=== PATIENT | male | born 1950 | race Caucasian/White ===

== ENCOUNTER 2023-04-17 10:45 | Inpatient (IN) | payer MEDICARE, BC, SELFPAY ==
[2023-04-17] VITALS (96 sets, daily range): BP systolic 89–129; BP diastolic 47–109; PULSE 55–185; RESP 18–30; TEMP 36.4–36.6; O2SAT 86–98; BMI 26.4; BMI 30.5
--- NOTE | 2023-04-17 11:23 | ED_ITS ---
HPI - General Adult General Chief complaint: Shortness of Breath/Dyspnea Stated complaint: shortness of breath Time Seen by Provider: 04/17/23 11:06 History of Present Illness HPI narrative: This 72-year-old male comes in reporting shortness of breath over the past week or so. He has a history of atrial fibrillation and does arrive here by ambulance with evidence of atrial fibrillation with rapid ventricular response. He denies having any chest pain, nausea, vomiting. He does report some lightheadedness and has shortness of breath sometimes even at rest. Symptoms began about a week ago. He is not on any rate-controlling medicines or anticoagulants. He states that he took 4 regular strength aspirin tablets this morning prior to arrival. He does take alcohol regularly and states that he is trying to cut back. Related Data Allergies Allergy/AdvReac Type Severity Reaction Status Date / Time phenobarbital Allergy Severe high blood Verified 04/17/23 13:09 pressure trolamine salicylate Allergy Intermediate Rash Verified 04/17/23 13:09 losartan Allergy Mild Cough Verified 04/17/23 13:09 lisinopril Allergy Unknown Cough Verified 04/17/23 13:09 Review of Systems Status of ROS: Reports: 10 or more systems reviewed and unremarkable except as noted in History and below Narrative: Constitutional: No fevers, no weight gain or loss. Eyes: No discharge. No vision changes. HENT: No congestion, no sore throat, no ear pain. Cardiovascular: No chest pain. Respiratory: Shortness of breath. Gastrointestinal: No abdominal pain, no vomiting, no diarrhea. Genitourinary: No dysuria, no hematuria. Musculoskeletal: Normal range of motion. Skin: No rashes, no pruritis. Neurological: No dizziness, weakness, sensory change, speech change. Endo/Heme/Allergies: No bruising or bleeding. No polydipsia. Pysch: no suicidality, no anxiety, no insomnia. All other systems reviewed and are negative. [facility] Medical History (Updated 04/27/23 @ 00:00 by Background Daemon) Chronic dyspnea ?R06.09 - Other forms of dyspnea (ICD-10) NSTEMI (non-ST elevated myocardial infarction) ?I21.4 - Non-ST elevation (NSTEMI) myocardial infarction (ICD-10) Heart failure with reduced ejection fraction ?I50.20 - Unspecified systolic (congestive) heart failure (ICD-10) Pulmonary embolism ?I26.99 - Other pulmonary embolism without acute cor pulmonale (ICD-10) Atrial fibrillation with rapid ventricular response ?I48.91 - Unspecified atrial fibrillation (ICD-10) B12 deficiency ?E53.8 - Deficiency of other specified B group vitamins (ICD-10) Statin declined ?Z53.20 - Procedure and treatment not carried out because of patient's decision for unspecified reasons (ICD-10) Essential hypertension ?I10 - Essential (primary) hypertension (ICD-10) Morbid obesity with body mass index (BMI) of 40.0 or higher ?E66.01 - Morbid (severe) obesity due to excess calories (ICD-10) Traumatic brain injury (2016) ?S06.9X9A - Unspecified intracranial injury with loss of consciousness of unspecified duration, initial encounter (ICD-10) Obstructive sleep apnea syndrome ?G47.33 - Obstructive sleep apnea (adult) (pediatric) (ICD-10) Hyperlipidemia ?E78.5 - Hyperlipidemia, unspecified (ICD-10) Hearing loss ?H91.90 - Unspecified hearing loss, unspecified ear (ICD-10) Gout ?M10.9 - Gout, unspecified (ICD-10) Gastroesophageal reflux disease ?K21.9 - Gastro-esophageal reflux disease without esophagitis (ICD-10) Chronic cough ?R05.3 - Chronic cough (ICD-10) Chronic back pain ?M54.9 - Dorsalgia, unspecified (ICD-10) ?G89.29 - Other chronic pain (ICD-10) Atrial fibrillation (2020) ?I48.91 - Unspecified atrial fibrillation (ICD-10) Alcohol dependence ?F10.20 - Alcohol dependence, uncomplicated (ICD-10) Adenomatous polyp of colon (2012) ?D12.6 - Benign neoplasm of colon, unspecified (ICD-10) Lumbar compression fracture ?S32.000A - Wedge compression fracture of unspecified lumbar vertebra, initial encounter for closed fracture (ICD-10) Hemothorax ?J94.2 - Hemothorax (ICD-10) History of seizure (2015) ?Z87.898 - Personal history of other specified conditions (ICD-10) History of pulmonary embolism (2020) ?Z86.711 - Personal history of pulmonary embolism (ICD-10) History of depression (2008) ?Z86.59 - Personal history of other mental and behavioral disorders (ICD-10) Surgical History (Updated 04/17/23 @ 15:56 by Teofilo Rubin MD) History of thoracentesis ?Z98.890 - Other specified postprocedural states (ICD-10) History of renal calculi (10/05/12) ?Z87.442 - Personal history of urinary calculi (ICD-10) History of malignant melanoma (2006) ?Z85.820 - Personal history of malignant melanoma of skin (ICD-10) Family History (Updated 04/17/23 @ 15:57 by Teofilo Rubin MD) Father Coronary artery disease Mother Alzheimers disease Social History (Updated 04/17/23 @ 15:58 by Teofilo Rubin MD) Narrative: He lives alone with his 3 cats between [place] and [place]. Closest family is his brother nessa all with lives [facility]. He indicates his brother Jack would be healthcare power of civil rights attorney. Code status is full. He does not smoke cigarettes. He drinks alcohol approximately 10 shots per day. What is your current living situation?: I presently have a place to live Problems where you live: no known problems Problems where you live details: no In the past 12 months, utilities in danger of being shut off: no In the past 12 mos, have been you worried that your food would run out before you had money to buy more?: never true In the past 12 mos, the food you bought just didn't last and you didn't have money to buy more?: never true Highest level of school completed/degree received: Bachelor's degree Smoking Status: Former smoker Do you use any of these nicotine containing products: None Second hand tobacco smoke exposure: No How often do you have a drink containing alcohol: 4 or more times a week Alcohol type: hard liquor Alcohol type details: avery How many standard drinks containing alcohol do you have on a typical day: 5 or 6 How often do you have six or more drinks on one occasion: Less than monthly AUDIT-C Alcohol total score: 7 Non-prescribed substance use: denies use Caffeine: Yes (occassional) How often does anyone, including family, friends and others, physically hurt you : never How often does anyone, including family, friends and others, insult or talk down to you: never How often does anyone, including family, friends and others, threaten you with harm: never How often does anyone, including family, friends and others, scream or curse at you: never service: No Exam Narrative: Exam Narrative: Constitutional: Well-developed, well-nourished, no acute distress. HEENT: Normocephalic, atraumatic. Neck: Normal range of motion. Nontender. Supple. Heart: Irregular. No murmurs. Tachycardia. Intact distal pulses. Lungs: Clear to auscultation. No chest discomfort. No wheezes, rhonchi, or rales. Abdomen: Normal bowel sounds. Nontender. No rebound tenderness. Genitalia: Deferred. Back: No midline tenderness. Normal range of motion. Extremities: Normal range of motion. No injury. No pedal edema. Skin: Intact. No rash. Warm. No erythema or pallor. Neurologic: No altered sensation. No weakness. Alert and oriented. Psychiatric: No suicidality. No anxiety or depression. No insomnia. Nursing notes and vitals signs are reviewed. Const: Vital Signs, click to edit/add: Vital Signs - 24 hr 04/17/23 10:56 04/17/23 11:53 04/17/23 11:54 Temperature 97.6 F Pulse Rate 100 109 H Pulse Rate [Apical ] Pulse Rate [Right Pulse Oximeter] 126 H Respiratory Rate 18 Blood Pressure 93/83 Blood Pressure [Le ft Upper Arm] 107/83 Blood Pressure [Ri ght Arm] Pulse Oximetry 96 93 93 Oxygen Delivery Me thod Room Air Oxygen Flow Rate 04/17/23 11:55 04/17/23 11:57 04/17/23 12:00 Temperature Pulse Rate 84 97 78 Pulse Rate [Apical ] Pulse Rate [Right Pulse Oximeter] Respiratory Rate Blood Pressure 111/75 Blood Pressure [Le ft Upper Arm] Blood Pressure [Ri ght Arm] Pulse Oximetry 92 92 94 Oxygen Delivery Me thod Oxygen Flow Rate 04/17/23 12:02 04/17/23 12:05 04/17/23 12:07 Temperature Pulse Rate 112 H 108 H 117 H Pulse Rate [Apical ] Pulse Rate [Right Pulse Oximeter] Respiratory Rate Blood Pressure 129/83 103/83 Blood Pressure [Le ft Upper Arm] Blood Pressure [Ri ght Arm] Pulse Oximetry 92 93 92 Oxygen Delivery Me thod Oxygen Flow Rate 04/17/23 12:10 04/17/23 12:12 04/17/23 12:15 Temperature Pulse Rate 96 103 H 116 H Pulse Rate [Apical ] Pulse Rate [Right Pulse Oximeter] Respiratory Rate Blood Pressure 117/77 Blood Pressure [Le ft Upper Arm] Blood Pressure [Ri ght Arm] Pulse Oximetry 90 95 93 Oxygen Delivery Me thod Oxygen Flow Rate 04/17/23 12:17 04/17/23 12:20 04/17/23 12:21 Temperature Pulse Rate 96 91 98 Pulse Rate [Apical ] Pulse Rate [Right Pulse Oximeter] Respiratory Rate Blood Pressure 100/73 92/77 Blood Pressure [Le ft Upper Arm] Blood Pressure [Ri ght Arm] Pulse Oximetry 95 92 94 Oxygen Delivery Me thod Oxygen Flow Rate 04/17/23 12:22 04/17/23 12:25 04/17/23 12:27 Temperature Pulse Rate 105 H 99 82 Pulse Rate [Apical ] Pulse Rate [Right Pulse Oximeter] Respiratory Rate Blood Pressure 108/78 Blood Pressure [Le ft Upper Arm] Blood Pressure [Ri ght Arm] Pulse Oximetry 93 94 96 Oxygen Delivery Me thod Oxygen Flow Rate 04/17/23 12:30 04/17/23 12:32 04/17/23 12:35 Temperature Pulse Rate 80 101 H 87 Pulse Rate [Apical ] Pulse Rate [Right Pulse Oximeter] Respiratory Rate Blood Pressure 89/65 L Blood Pressure [Le ft Upper Arm] Blood Pressure [Ri ght Arm] Pulse Oximetry 97 93 95 Oxygen Delivery Me thod Oxygen Flow Rate 04/17/23 12:37 04/17/23 12:40 04/17/23 12:42 Temperature Pulse Rate 85 101 H 89 Pulse Rate [Apical ] Pulse Rate [Right Pulse Oximeter] Respiratory Rate Blood Pressure 108/87 113/86 Blood Pressure [Le ft Upper Arm] Blood Pressure [Ri ght Arm] Pulse Oximetry 95 96 96 Oxygen Delivery Me thod Oxygen Flow Rate 04/17/23 12:45 04/17/23 12:47 04/17/23 12:59 Temperature Pulse Rate 95 Pulse Rate [Apical ] Pulse Rate [Right Pulse Oximeter] Respiratory Rate Blood Pressure 106/84 128/109 H Blood Pressure [Le ft Upper Arm] Blood Pressure [Ri ght Arm] Pulse Oximetry 96 95 Oxygen Delivery Me thod Oxygen Flow Rate 04/17/23 13:00 04/17/23 13:04 04/17/23 13:05 Temperature Pulse Rate 101 H 111 H 96 Pulse Rate [Apical ] Pulse Rate [Right Pulse Oximeter] Respiratory Rate Blood Pressure 101/71 Blood Pressure [Le ft Upper Arm] Blood Pressure [Ri ght Arm] Pulse Oximetry 96 96 95 Oxygen Delivery Me thod Oxygen Flow Rate 04/17/23 13:08 04/17/23 13:09 04/17/23 13:10 Temperature Pulse Rate 99 96 86 Pulse Rate [Apical ] Pulse Rate [Right Pulse Oximeter] Respiratory Rate Blood Pressure 102/79 Blood Pressure [Le ft Upper Arm] Blood Pressure [Ri ght Arm] Pulse Oximetry 96 94 96 Oxygen Delivery Me thod Oxygen Flow Rate 04/17/23 13:12 04/17/23 13:15 04/17/23 13:18 Temperature Pulse Rate 87 108 H 110 H Pulse Rate [Apical ] Pulse Rate [Right Pulse Oximeter] Respiratory Rate Blood Pressure 109/89 Blood Pressure [Le ft Upper Arm] Blood Pressure [Ri ght Arm] Pulse Oximetry 96 94 95 Oxygen Delivery Me thod Oxygen Flow Rate 04/17/23 13:20 04/17/23 13:21 04/17/23 13:25 Temperature Pulse Rate 120 H 97 98 Pulse Rate [Apical ] Pulse Rate [Right Pulse Oximeter] Respiratory Rate Blood Pressure 99/73 Blood Pressure [Le ft Upper Arm] Blood Pressure [Ri ght Arm] Pulse Oximetry 96 95 96 Oxygen Delivery Me thod Oxygen Flow Rate 04/17/23 13:27 04/17/23 13:30 04/17/23 13:33 Temperature Pulse Rate 95 117 H Pulse Rate [Apical ] Pulse Rate [Right Pulse Oximeter] Respiratory Rate Blood Pressure 101/65 104/90 H Blood Pressure [Le ft Upper Arm] Blood Pressure [Ri ght Arm] Pulse Oximetry 97 96 Oxygen Delivery Me thod Oxygen Flow Rate 04/17/23 13:35 04/17/23 13:42 04/17/23 13:43 Temperature Pulse Rate 127 H 114 H 115 H Pulse Rate [Apical ] Pulse Rate [Right Pulse Oximeter] Respiratory Rate Blood Pressure 120/99 H Blood Pressure [Le ft Upper Arm] Blood Pressure [Ri ght Arm] Pulse Oximetry 95 95 95 Oxygen Delivery Me thod Oxygen Flow Rate 04/17/23 13:45 04/17/23 13:47 04/17/23 13:51 Temperature Pulse Rate 114 H 105 H 103 H Pulse Rate [Apical ] Pulse Rate [Right Pulse Oximeter] Respiratory Rate Blood Pressure 113/93 H Blood Pressure [Le ft Upper Arm] Blood Pressure [Ri ght Arm] Pulse Oximetry 95 94 95 Oxygen Delivery Me thod Oxygen Flow Rate 04/17/23 13:52 04/17/23 13:55 04/17/23 13:57 Temperature Pulse Rate 96 101 H 107 H Pulse Rate [Apical ] Pulse Rate [Right Pulse Oximeter] Respiratory Rate Blood Pressure 109/68 94/69 Blood Pressure [Le ft Upper Arm] Blood Pressure [Ri ght Arm] Pulse Oximetry 95 94 95 Oxygen Delivery Me thod Oxygen Flow Rate 04/17/23 14:00 04/17/23 14:05 04/17/23 14:06 Temperature Pulse Rate 104 H 61 Pulse Rate [Apical ] Pulse Rate [Right Pulse Oximeter] Respiratory Rate Blood Pressure 111/97 H Blood Pressure [Le ft Upper Arm] Blood Pressure [Ri ght Arm] Pulse Oximetry 94 93 Oxygen Delivery Me thod Oxygen Flow Rate 04/17/23 14:10 04/17/23 14:11 04/17/23 14:12 Temperature Pulse Rate 94 72 115 H Pulse Rate [Apical ] Pulse Rate [Right Pulse Oximeter] Respiratory Rate Blood Pressure 113/71 106/75 Blood Pressure [Le ft Upper Arm] Blood Pressure [Ri ght Arm] Pulse Oximetry 94 95 97 Oxygen Delivery Me thod Oxygen Flow Rate 04/17/23 14:15 04/17/23 14:17 04/17/23 14:20 Temperature Pulse Rate 115 H 113 H 99 Pulse Rate [Apical ] Pulse Rate [Right Pulse Oximeter] Respiratory Rate 28 H Blood Pressure 109/76 Blood Pressure [Le ft Upper Arm] Blood Pressure [Ri ght Arm] Pulse Oximetry 96 96 95 Oxygen Delivery Me thod Oxygen Flow Rate 04/17/23 14:22 04/17/23 14:25 04/17/23 14:30 Temperature Pulse Rate 106 H 101 H 119 H Pulse Rate [Apical ] Pulse Rate [Right Pulse Oximeter] Respiratory Rate Blood Pressure 99/82 Blood Pressure [Le ft Upper Arm] Blood Pressure [Ri ght Arm] Pulse Oximetry 97 97 96 Oxygen Delivery Me thod Oxygen Flow Rate 04/17/23 14:35 04/17/23 14:40 04/17/23 14:43 Temperature Pulse Rate 90 96 105 H Pulse Rate [Apical ] Pulse Rate [Right Pulse Oximeter] Respiratory Rate Blood Pressure 99/47 L Blood Pressure [Le ft Upper Arm] Blood Pressure [Ri ght Arm] Pulse Oximetry 95 92 95 Oxygen Delivery Me thod Oxygen Flow Rate 04/17/23 14:45 04/17/23 14:50 04/17/23 14:55 Temperature Pulse Rate 135 H 138 H 135 H Pulse Rate [Apical ] Pulse Rate [Right Pulse Oximeter] Respiratory Rate Blood Pressure Blood Pressure [Le ft Upper Arm] Blood Pressure [Ri ght Arm] Pulse Oximetry 92 87 L 86 L Oxygen Delivery Me thod Oxygen Flow Rate 04/17/23 15:00 04/17/23 15:02 04/17/23 15:05 Temperature Pulse Rate 105 H 185 H 98 Pulse Rate [Apical ] Pulse Rate [Right Pulse Oximeter] Respiratory Rate Blood Pressure Blood Pressure [Le ft Upper Arm] Blood Pressure [Ri ght Arm] Pulse Oximetry 91 87 L 94 Oxygen Delivery Me thod Oxygen Flow Rate 04/17/23 15:10 04/17/23 15:16 04/17/23 15:17 Temperature Pulse Rate 100 109 H 90 Pulse Rate [Apical ] Pulse Rate [Right Pulse Oximeter] Respiratory Rate Blood Pressure 97/75 Blood Pressure [Le ft Upper Arm] Blood Pressure [Ri ght Arm] Pulse Oximetry 93 93 96 Oxygen Delivery Me thod Oxygen Flow Rate 04/17/23 15:20 04/17/23 15:21 04/17/23 15:25 Temperature Pulse Rate 101 H 64 110 H Pulse Rate [Apical ] Pulse Rate [Right Pulse Oximeter] Respiratory Rate Blood Pressure 106/93 H Blood Pressure [Le ft Upper Arm] Blood Pressure [Ri ght Arm] Pulse Oximetry 96 95 91 Oxygen Delivery Me thod Oxygen Flow Rate 04/17/23 15:27 04/17/23 15:29 04/17/23 15:30 Temperature 97.8 F Pulse Rate 107 H 105 H Pulse Rate [Apical ] 62 Pulse Rate [Right Pulse Oximeter] Respiratory Rate 24 Blood Pressure 91/50 L Blood Pressure [Le ft Upper Arm] Blood Pressure [Ri ght Arm] 114/71 Pulse Oximetry 93 98 90 Oxygen Delivery Me thod Nasal Cannula Oxygen Flow Rate 1 04/17/23 15:32 04/17/23 15:35 04/17/23 15:37 Temperature Pulse Rate 117 H 99 98 Pulse Rate [Apical ] Pulse Rate [Right Pulse Oximeter] Respiratory Rate Blood Pressure 95/80 100/70 Blood Pressure [Le ft Upper Arm] Blood Pressure [Ri ght Arm] Pulse Oximetry 96 95 97 Oxygen Delivery Me thod Oxygen Flow Rate 04/17/23 15:47 04/17/23 15:48 04/17/23 15:50 Temperature Pulse Rate 90 106 H 80 Pulse Rate [Apical ] Pulse Rate [Right Pulse Oximeter] Respiratory Rate Blood Pressure Blood Pressure [Le ft Upper Arm] Blood Pressure [Ri ght Arm] Pulse Oximetry 97 94 91 Oxygen Delivery Me thod Oxygen Flow Rate 04/17/23 15:51 04/17/23 15:54 Temperature Pulse Rate 120 H 92 Pulse Rate [Apical ] Pulse Rate [Right Pulse Oximeter] Respiratory Rate Blood Pressure 99/70 Blood Pressure [Le ft Upper Arm] Blood Pressure [Ri ght Arm] Pulse Oximetry 89 93 Oxygen Delivery Me thod Oxygen Flow Rate Course Vital Signs Vital signs: Initial Vital Signs Temperature 97.6 F 04/17/23 10:56 Temperature Source Temporal Artery Scan 04/17/23 10:56 Pulse Rate 126 H 04/17/23 10:56 Pulse Rhythm Irregular 04/17/23 10:56 Respiratory Rate 18 04/17/23 10:56 Blood Pressure 107/83 04/17/23 10:56 Blood Pressure Mean 91 04/17/23 10:56 Blood Pressure Position Sitting 04/17/23 10:56 Pulse Oximetry 96 04/17/23 10:56 Oxygen Delivery Method Room Air 04/17/23 10:56 Vital Signs Temperature 97.6 F 04/17/23 10:56 Pulse Rate 126 H 04/17/23 10:56 Respiratory Rate 18 04/17/23 10:56 Blood Pressure 107/83 04/17/23 10:56 Pulse Oximetry 96 04/17/23 10:56 Oxygen Delivery Method Room Air 04/17/23 10:56 Temperature 97.5 F L 04/19/23 11:24 Pulse Rate 96 04/19/23 11:24 Respiratory Rate 28 H 04/19/23 11:24 Blood Pressure 88/74 L 04/19/23 11:24 Pulse Oximetry 97 04/19/23 11:24 Oxygen Delivery Method Room Air 04/19/23 11:24 Oxygen Flow Rate 0 04/19/23 03:00 Medical Decision Making MDM Narrative Medical decision making narrative: This patient arrives with atrial fibrillation and rapid ventricular response. He is reporting shortness of breath but does not report any chest pain. He does have some lightheadedness on occasion. His blood pressure has a systolic value around 100. He is not showing any sign of pedal edema. An IV was established where he did receive a half a L of normal saline and diltiazem was given cautiously. He did receive a total of 20 mg which did bring rate control. He continues in atrial fibrillation and his blood pressure is similar. Lab results returned with a point of care troponin elevated at 0.18. A repeat lab value returns at 0.23. The patient's D-dimer also returns elevated at around 1.2. A CT scan of the chest with IV contrast shows no sign of pulmonary embolism but there is sign of infiltrate in the left lower lobe. I spoke with the hospitalist commercial litigation attorney, Dr. Rubin, who agrees to this patient's admission here for further evaluation and treatment. I did place an order for Rocephin and azithromycin intravenously. The patient's elevated troponin may be related to demand ischemia. The patient will be getting an echocardiogram for further evaluation. Lab Data Labs: Lab Results 04/17/23 04/17/23 04/17/23 Range/Units 11:50 14:15 15:29 WBC 5.46 (4.50-11.00) K/uL RBC 4.91 (4.30-5.90) m/uL Hgb 15.9 (13.5-17.5) gm/dL Hct 46.8 (37.0-53.0) % MCV 95 (80-100) fL MCH 32 (26-34) pg MCHC 34 (32-36) gm/dL RDW Coeff of Janey 14.1 (11.5-15.5) % Plt Count 145 (140-440) K/uL Neut % (Auto) 65.8 (42.0-72.0) % Lymph % (Auto) 21.8 (20-44) % Granite % (Auto) 9.9 (0.0-11.0) % Eos % (Auto) 1.6 (0.0-7.0) % Baso % (Auto) 0.7 (0.0-3.0) % Neut # (Auto) 3.59 (1.7-7.0) K/uL Lymph # (Auto) 1.19 (0.90-2.90) K/uL Granite # (Auto) 0.50 (0.00-0.90) K/UL Eos # (Auto) 0.09 (0.00-0.50) K/uL Baso # (Auto) 0.04 (0.00-0.30) K/uL Abs Immat Gran (auto) 0.01 (0.00-0.30) K/uL Imm/Tot Granulo (auto) 0.2 % D-Dimer Quant (PE/DVT) 1.23 H (0.00-0.50) ug/ml Sodium 139 (135-149) mmol/L Potassium 4.0 (3.6-5.1) mmol/L Chloride 108 (96-114) mmol/L Carbon Dioxide 19 L (20-32) mmol/L BUN 19 (7-30) mg/dL Creatinine 0.8 (0.5-1.5) mg/dL Estimated Creat Clear 74.35 Estimated GFR 93 ml/min Glucose 118 H (60-115) mg/dL Calcium 9.0 (8.4-10.6) mg/dL Total Bilirubin 0.9 (0.1-1.5) mg/dL Direct Bilirubin 0.3 (0.0-0.5) mg/dL AST 23 (12-35) U/L ALT 19 (4-50) U/L Alkaline Phosphatase 61 (40-150) U/L Troponin I 0.23 H* (0.01-0.04) ng/mL NT-Pro-B Natriuret Pep 3430 pg/mL Total Protein 6.5 (6.0-8.3) g/dL Albumin 3.9 (3.3-5.0) g/dL Urine Opiates Screen Negative (Negative) Ur Oxycodone Screen Negative (Negative) Urine Methadone Screen Negative (Negative) Ur Propoxyphene Screen Negative (Negative) Ur Barbiturates Screen Negative (Negative) U Tricyclic Antidepress Negative (Negative) Ur Phencyclidine Scrn Negative (Negative) Ur Amphetamines Screen Negative (Negative) U Methamphetamines Scrn Negative (Negative) U Benzodiazepines Scrn Negative (Negative) Urine Cocaine Screen Negative (Negative) U Marijuana (THC) Screen Negative (Negative) Ur Drug Screen Comment See Note Ethyl Alcohol < 0.01 L (0.01-0.03) % Lab Acknowledgement Test Added POC Troponin I 0.18 H (0.01-0.04) ng/ml Imaging Data CT scan - chest: Radiologist's impression: No evidence of pulmonary thromboembolism. Bilateral pleural effusions with adjacent bibasilar atelectasis. Left lower lobe ground-glass densities compatible with infiltrate. Mild bilateral perihilar bronchial wall thickening compatible with bronchiolitis. Mild prominence of the interlobular septa suggesting mild edema. ECG Data Attestation: I personally reviewed and interpreted this ECG as follows: Interpretation: Atrial fibrillation with rapid ventricular response. Left bundle branch block. Rate is 133 beats per minute. Discharge Plan Discharge Clinical Impression: Pneumonia, Atrial fibrillation with rapid ventricular response Patient Disposition: Admitted As Inpatient Condition: Unchanged
[2023-04-17] MEDS: dilTIAZem 5 MG/ML inj 20 MG IVP (11:43)
[2023-04-17] MEDS: 0.9 % SODIUM CHLORIDE 500 ML 500 ML IV (11:44)
[2023-04-17 12:00] LABS: Basophils Absolute Auto 0.04 K/uL (0.00-0.30); Basophils Percent Auto 0.7 % (0.0-3.0); Eosinophils Absolute Auto 0.09 K/uL (0.00-0.50); Eosinophils Percent Auto 1.6 % (0.0-7.0); Hematocrit 46.8 % (37.0-53.0); Hemoglobin* 15.9 gm/dL (13.5-17.5); Immature Granulocytes Abs Auto 0.01 K/uL (0.00-0.30); Immature Granulocytes Pct Auto 0.2 %; Lymphocytes Absolute Auto 1.19 K/uL (0.90-2.90); Lymphocytes Percent Auto 21.8 % (20-44); Mean Corpuscular HGB Conc 34 gm/dL (32-36); Mean Corpuscular Hemoglobin 32 pg (26-34); Mean Corpuscular Volume 95 fL (80-100); Monocytes Percent Auto 9.9 % (0.0-11.0); Neutrophils Absolute Auto 3.59 K/uL (1.7-7.0); Neutrophils Percent Auto 65.8 % (42.0-72.0); Platelet Count* 145 K/uL (140-440); RDW Coefficient of Variation % 14.1 % (11.5-15.5); Red Blood Count 4.91 m/uL (4.30-5.90); Slide Review Reflex No; White Blood Count* 5.46 K/uL (4.50-11.00)
--- NOTE | 2023-04-17 12:04 | ED.NURSE ---
Patient care directly supervised with ACLS certified RN, Tamara Santiago.
[2023-04-17 12:09] LABS: Troponin, Point-of-Care* 0.18 ng/ml (0.01-0.04)
--- NOTE | 2023-04-17 12:09 | ED.NURSE ---
Istat POC Trop came back 0.18, critical lab result, handed to at 1209
[2023-04-17 12:11] LABS: Chloride* 108 mmol/L (96-114); Sodium* 139 mmol/L (135-149)
[2023-04-17 12:13] LABS: D Dimer Quantitative* 1.23 ug/ml (0.00-0.50)
[2023-04-17 12:14] LABS: Blood Urea Nitrogen* 19 mg/dL (7-30); Carbon Dioxide* 19 mmol/L (20-32); Creatinine* 0.8 mg/dL (0.5-1.5); Est. Creatinine Clearance* 74.35; Estimated Glomerular Filt Rate 93 ml/min; Glucose* 118 mg/dL (60-115)
--- NOTE | 2023-04-17 12:23 | ED.NURSE ---
Second dose of Diltiazem 10mg given at 1218. Total administered 20mg.
--- NOTE | 2023-04-17 12:28 | CRLHL7_ITS ---
For Patients: As a result of the Century Cures Act, medical imaging exams and procedure reports are released immediately into your electronic medical record. You may view this report before your referring provider. If you have questions, please contact your health care provider. INDICATION: SOB, A-fib, tachycardia, elevated d-dimer COMPARISON: 02/04/2022 TECHNIQUE: CT volumetric acquisition was performed of the thorax during intravenous infusion of 95 cc Isovue 370 nonionic intravenous contrast. Please note that all CT scans at this facility use dose modulation, iterative reconstruction, and/or weight-based dosing when appropriate to reduce radiation dose to as low as reasonably achievable. FINDINGS: There is no pulmonary embolism in the main, lobar or segmental pulmonary arteries. Bilateral effusions are present, left greater than right. The left pleural effusion has increased compared to the prior study in the right pleural effusion has decreased compared to the prior study. No pericardial effusion. Reflux of contrast into the inferior vena cava noted. Hyperdense material is present within the gallbladder. Pancreatic atrophy. No splenomegaly. No upper abdominal ascites. Ground-glass densities are located within the left lower lobe with adjacent atelectasis related to the pleural effusion. Mild atelectasis is present within the right lower lobe. Mild prominence of the interlobular septa noted bilaterally. Bronchial wall thickening is present in the perihilar lungs, mild. No pneumothorax. No suspicious pulmonary nodule. No enlarged lymph nodes. Chronic changes to T12. IMPRESSION: No evidence of pulmonary thromboembolism. Bilateral pleural effusions with adjacent bibasilar atelectasis. Left lower lobe ground-glass densities compatible with infiltrate. Mild bilateral perihilar bronchial wall thickening compatible with bronchiolitis. Mild prominence of the interlobular septa suggesting mild edema. Please note that all CT scans at this facility use dose modulation, iterative reconstruction, and/or weight-based dosing when appropriate to reduce radiation dose to as low as reasonably achievable. Dictated by Lucas Yost MD @ 04/17/2023 1:46:25 PM (Electronically Signed)
[2023-04-17 12:55] LABS: NT Pro B Type NatriureticPept* 3430 pg/mL
[2023-04-17 13:11] LABS: Albumin* 3.9 g/dL (3.3-5.0)
[2023-04-17 13:14] LABS: Alanine Aminotransferase* 19 U/L (4-50); Alkaline Phosphatase* 61 U/L (40-150); Aspartate Amino Transferase* 23 U/L (12-35); Bilirubin Direct* 0.3 mg/dL (0.0-0.5); Bilirubin Total* 0.9 mg/dL (0.1-1.5); Total Protein* 6.5 g/dL (6.0-8.3)
[2023-04-17 13:28] LABS: Troponin I* 0.23 ng/mL (0.01-0.04)
[2023-04-17] MEDS: cefTRIAXone 1 GM in 0.9 % SODIUM CHLORIDE Mini-bag 100 ML IVPB (14:13)
[2023-04-17 14:46] LABS: Ethanol* < 0.01 % (0.01-0.03)
[2023-04-17] MEDS: AZITHROMYCIN 500 MG in 0.9 % SODIUM CHLORIDE 250 ml 250 ML 255 MG IVPB (14:54)
[2023-04-17] MEDS: METOPROLOL TARTRATE 1 MG/ML inj 2.5 MG IVP (15:20)
--- NOTE | 2023-04-17 15:21 | ED.NURSE ---
Verbally verified with Dr. Rubin to give Metroprolol BP with current BP's 90s/70s.
--- NOTE | 2023-04-17 15:45 | PM.IMHP1 ---
Hospitalist- H&P: VANDANA History of Present Illness Date Seen: 04/17/23 Chief complaint: shortness of breath Narrative: Jose Angel Powers is a 72 year old male with history of heart failure, AFib, chronic cough, pulmonary embolism, hemo thorax, alcoholism admitted through the emergency department with at least 1-2 week history of worsening dyspnea. Patient reports that he has had longstanding dyspnea but has gotten worse the last 1-2 weeks. He reports orthopnea and paroxysmal nocturnal dyspnea. He reports dyspnea when climbing stairs in his house. He has to stop part way up a flight of stairs to get his breath. He is not having any chest pain. He denies fever. He has a chronic cough which has been going on for years. This is not changed recently. He has not had new cold says the domes or sore throat. He has not had abdominal pain, nausea, vomiting. He has been eating normally. No bowel or bladder problems. No blood in his stool. Pertinent past medical history: -Chronic cough for which she saw pulmonology about August of 2022. Looks like he had a repeat thoracentesis for his hemo thorax at that time. 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 He does not recall any other advice or diagnosis. -Hemo thorax. He was hospitalized February of 2022 for hemo thorax. He had recurrent thoracenteses for this. Fluid was grossly bloody. He was on anticoagulation at the time and this was discontinued. There was no history of trauma. Pathology from the fluid did not show malignancy. Subsequent chest CT done July of last year showed a small residual right pleural effusion without adenopathy in the chest. Incidentally noted were calcified coronary arteries and hepatic steatosis and gallstones. -atrial fibrillation. He was noted to have atrial fibrillation when he was hospitalized for a pulmonary embolism in July of 2021. He also had alcohol withdrawal at that time. Treated with amiodarone and rivaroxaban. These have subsequently been discontinued. Rivaroxaban discontinued when he had the hemo thorax. Subsequently has been in normal sinus rhythm to the best of his knowledge. -heart failure with reduced ejection fraction. Most recent echo was July 2022 showing ejection fraction of 40-45%. No marked valvular disease noted at that time. -pulmonary embolism diagnosed July 2021. Also atrial fibrillation at that time. On anticoagulation until he had a hemo thorax in February of 2022 -obstructive sleep apnea. Does not use CPAP. In the emergency department patient was evaluated. Notable findings include right lower lobe infiltrate, no pulmonary embolism, small right pleural effusion, elevated troponin at 0.22, nonischemic at EKG with AFib and rapid ventricular response, Review of Systems Narrative: Patient reports other than his dyspnea he has no other concerns at this time. [facility] Medical History (Updated 04/17/23 @ 16:23 by Teofilo Rubin MD) NSTEMI (non-ST elevated myocardial infarction) ?I21.4 - Non-ST elevation (NSTEMI) myocardial infarction (ICD-10) Heart failure with reduced ejection fraction ?I50.20 - Unspecified systolic (congestive) heart failure (ICD-10) Pulmonary embolism ?I26.99 - Other pulmonary embolism without acute cor pulmonale (ICD-10) Atrial fibrillation with rapid ventricular response ?I48.91 - Unspecified atrial fibrillation (ICD-10) B12 deficiency ?E53.8 - Deficiency of other specified B group vitamins (ICD-10) Statin declined ?Z53.20 - Procedure and treatment not carried out because of patient's decision for unspecified reasons (ICD-10) Essential hypertension ?I10 - Essential (primary) hypertension (ICD-10) Morbid obesity with body mass index (BMI) of 40.0 or higher ?E66.01 - Morbid (severe) obesity due to excess calories (ICD-10) Traumatic brain injury (2015) ?S06.9X9A - Unspecified intracranial injury with loss of consciousness of unspecified duration, initial encounter (ICD-10) Obstructive sleep apnea syndrome ?G47.33 - Obstructive sleep apnea (adult) (pediatric) (ICD-10) Hyperlipidemia ?E78.5 - Hyperlipidemia, unspecified (ICD-10) Hearing loss ?H91.90 - Unspecified hearing loss, unspecified ear (ICD-10) Gout ?M10.9 - Gout, unspecified (ICD-10) Gastroesophageal reflux disease ?K21.9 - Gastro-esophageal reflux disease without esophagitis (ICD-10) Chronic cough ?R05.3 - Chronic cough (ICD-10) Chronic back pain ?M54.9 - Dorsalgia, unspecified (ICD-10) ?G89.29 - Other chronic pain (ICD-10) Atrial fibrillation (2020) ?I48.91 - Unspecified atrial fibrillation (ICD-10) Alcohol dependence ?F10.20 - Alcohol dependence, uncomplicated (ICD-10) Adenomatous polyp of colon (2012) ?D12.6 - Benign neoplasm of colon, unspecified (ICD-10) Lumbar compression fracture ?S32.000A - Wedge compression fracture of unspecified lumbar vertebra, initial encounter for closed fracture (ICD-10) Hemothorax ?J94.2 - Hemothorax (ICD-10) History of seizure (2015) ?Z87.898 - Personal history of other specified conditions (ICD-10) History of pulmonary embolism (2020) ?Z86.711 - Personal history of pulmonary embolism (ICD-10) History of depression (2008) ?Z86.59 - Personal history of other mental and behavioral disorders (ICD-10) Surgical History (Updated 04/17/23 @ 15:56 by Teofilo Rubin MD) History of thoracentesis ?Z98.890 - Other specified postprocedural states (ICD-10) History of renal calculi (10/05/12) ?Z87.442 - Personal history of urinary calculi (ICD-10) History of malignant melanoma (2006) ?Z85.820 - Personal history of malignant melanoma of skin (ICD-10) Family History (Updated 04/17/23 @ 15:57 by Teofilo Rubin MD) Father Coronary artery disease Mother Alzheimers disease Social History (Updated 04/17/23 @ 15:58 by Teofilo Rubin MD) Narrative: He lives alone with his 3 cats between [place] and [place]. Closest family is his brother nessa all with lives in [facility]. He indicates his brother Jack would be healthcare power of caterpillar mechanic. Code status is full. He does not smoke cigarettes. He drinks alcohol approximately 10 shots per day. Smoking Status: Never smoker Do you use any of these nicotine containing products: None Second hand tobacco smoke exposure: No How often do you have a drink containing alcohol: 4 or more times a week How many standard drinks containing alcohol do you have on a typical day: 5 or 6 How often do you have six or more drinks on one occasion: Less than monthly AUDIT-C Alcohol total score: 7 Non-prescribed substance use: denies use service: No Meds Home Medications and Allergies Home Medications Medication Instructions Recorded Confirmed Type cholecalciferol (vitamin D3) 25 1,000 unit PO DAILY 05/09/22 04/17/23 History mcg (1,000 unit) tablet cyanocobalamin (vitamin B-12) 1,000 mcg PO DAILY 05/09/22 04/17/23 History 1,000 mcg tablet multivitamin 1 tab PO QAM 05/09/22 04/17/23 History omeprazole 10 mg capsule,delayed 10 mg PO DAILY 05/09/22 04/17/23 History release Home Medication Comments: See medication list. Allergies Allergy/AdvReac Type Severity Reaction Status Date / Time phenobarbital Allergy Severe high blood Verified 04/17/23 13:09 pressure trolamine salicylate Allergy Intermediate Rash Verified 04/17/23 13:09 losartan Allergy Mild Cough Verified 04/17/23 13:09 lisinopril Allergy Unknown Cough Verified 04/17/23 13:09 Exam Narrative: Exam Narrative: He is alert and appears in no obvious distress. Head is without obvious trauma. Eyes normal. Extraocular movements are full. Visual jim are intact. Oropharynx is normal except for small airway. Neck is supple without mass or adenopathy. Respirations with a rare basilar crackle. No wheezing. He has somewhat diminished breath sounds. Cardiovascular: S1, S2, irregular tachycardia. No murmur gallop or rub. Abdomen: Bowel sounds active. Abdomen is soft without tenderness or mass upper extremities are normal with intact pulses sensation and motion. Lower extremities notable for 1 to 2+ edema bilaterally. Feet are somewhat cool to touch. He reports intact sensation to soft touch. No rash or tenderness. Const: Vital Signs, click to edit/add: Vital Signs - 24 hr 04/17/23 10:56 04/17/23 11:53 04/17/23 11:54 Temperature 97.6 F Pulse Rate 100 109 H Pulse Rate [Right Pulse Oximeter] 126 H Respiratory Rate 18 Blood Pressure 93/83 Blood Pressure [Le ft Upper Arm] 107/83 Pulse Oximetry 96 93 93 Oxygen Delivery Me thod Room Air 04/17/23 11:55 04/17/23 11:57 04/17/23 12:00 Temperature Pulse Rate 84 97 78 Pulse Rate [Right Pulse Oximeter] Respiratory Rate Blood Pressure 111/75 Blood Pressure [Le ft Upper Arm] Pulse Oximetry 92 92 94 Oxygen Delivery Me thod 04/17/23 12:02 04/17/23 12:05 04/17/23 12:07 Temperature Pulse Rate 112 H 108 H 117 H Pulse Rate [Right Pulse Oximeter] Respiratory Rate Blood Pressure 129/83 103/83 Blood Pressure [Le ft Upper Arm] Pulse Oximetry 92 93 92 Oxygen Delivery Me thod 04/17/23 12:10 04/17/23 12:12 04/17/23 12:15 Temperature Pulse Rate 96 103 H 116 H Pulse Rate [Right Pulse Oximeter] Respiratory Rate Blood Pressure 117/77 Blood Pressure [Le ft Upper Arm] Pulse Oximetry 90 95 93 Oxygen Delivery Me thod 04/17/23 12:17 04/17/23 12:20 04/17/23 12:21 Temperature Pulse Rate 96 91 98 Pulse Rate [Right Pulse Oximeter] Respiratory Rate Blood Pressure 100/73 92/77 Blood Pressure [Le ft Upper Arm] Pulse Oximetry 95 92 94 Oxygen Delivery Me thod 04/17/23 12:22 04/17/23 12:25 04/17/23 12:27 Temperature Pulse Rate 105 H 99 82 Pulse Rate [Right Pulse Oximeter] Respiratory Rate Blood Pressure 108/78 Blood Pressure [Le ft Upper Arm] Pulse Oximetry 93 94 96 Oxygen Delivery Me thod 04/17/23 12:30 04/17/23 12:32 04/17/23 12:35 Temperature Pulse Rate 80 101 H 87 Pulse Rate [Right Pulse Oximeter] Respiratory Rate Blood Pressure 89/65 L Blood Pressure [Le ft Upper Arm] Pulse Oximetry 97 93 95 Oxygen Delivery Me thod 04/17/23 12:37 04/17/23 12:40 04/17/23 12:42 Temperature Pulse Rate 85 101 H 89 Pulse Rate [Right Pulse Oximeter] Respiratory Rate Blood Pressure 108/87 113/86 Blood Pressure [Le ft Upper Arm] Pulse Oximetry 95 96 96 Oxygen Delivery Me thod 04/17/23 12:45 04/17/23 12:47 04/17/23 12:59 Temperature Pulse Rate 95 Pulse Rate [Right Pulse Oximeter] Respiratory Rate Blood Pressure 106/84 128/109 H Blood Pressure [Le ft Upper Arm] Pulse Oximetry 96 95 Oxygen Delivery Me thod 04/17/23 13:00 04/17/23 13:04 04/17/23 13:05 Temperature Pulse Rate 101 H 111 H 96 Pulse Rate [Right Pulse Oximeter] Respiratory Rate Blood Pressure 101/71 Blood Pressure [Le ft Upper Arm] Pulse Oximetry 96 96 95 Oxygen Delivery Me thod 04/17/23 13:08 04/17/23 13:09 04/17/23 13:10 Temperature Pulse Rate 99 96 86 Pulse Rate [Right Pulse Oximeter] Respiratory Rate Blood Pressure 102/79 Blood Pressure [Le ft Upper Arm] Pulse Oximetry 96 94 96 Oxygen Delivery Me thod 04/17/23 13:12 04/17/23 13:15 04/17/23 13:18 Temperature Pulse Rate 87 108 H 110 H Pulse Rate [Right Pulse Oximeter] Respiratory Rate Blood Pressure 109/89 Blood Pressure [Le ft Upper Arm] Pulse Oximetry 96 94 95 Oxygen Delivery Me thod 04/17/23 13:20 04/17/23 13:21 04/17/23 13:25 Temperature Pulse Rate 120 H 97 98 Pulse Rate [Right Pulse Oximeter] Respiratory Rate Blood Pressure 99/73 Blood Pressure [Le ft Upper Arm] Pulse Oximetry 96 95 96 Oxygen Delivery Me thod 04/17/23 13:27 04/17/23 13:30 04/17/23 13:33 Temperature Pulse Rate 95 117 H Pulse Rate [Right Pulse Oximeter] Respiratory Rate Blood Pressure 101/65 104/90 H Blood Pressure [Le ft Upper Arm] Pulse Oximetry 97 96 Oxygen Delivery Me thod 04/17/23 13:35 04/17/23 13:42 04/17/23 13:43 Temperature Pulse Rate 127 H 114 H 115 H Pulse Rate [Right Pulse Oximeter] Respiratory Rate Blood Pressure 120/99 H Blood Pressure [Le ft Upper Arm] Pulse Oximetry 95 95 95 Oxygen Delivery Me thod 04/17/23 13:45 04/17/23 13:47 04/17/23 13:51 Temperature Pulse Rate 114 H 105 H 103 H Pulse Rate [Right Pulse Oximeter] Respiratory Rate Blood Pressure 113/93 H Blood Pressure [Le ft Upper Arm] Pulse Oximetry 95 94 95 Oxygen Delivery Me thod 04/17/23 13:52 04/17/23 13:55 04/17/23 13:57 Temperature Pulse Rate 96 101 H 107 H Pulse Rate [Right Pulse Oximeter] Respiratory Rate Blood Pressure 109/68 94/69 Blood Pressure [Le ft Upper Arm] Pulse Oximetry 95 94 95 Oxygen Delivery Me thod 04/17/23 14:00 04/17/23 14:05 04/17/23 14:06 Temperature Pulse Rate 104 H 61 Pulse Rate [Right Pulse Oximeter] Respiratory Rate Blood Pressure 111/97 H Blood Pressure [Le ft Upper Arm] Pulse Oximetry 94 93 Oxygen Delivery Me thod 04/17/23 14:10 04/17/23 14:11 04/17/23 14:12 Temperature Pulse Rate 94 72 115 H Pulse Rate [Right Pulse Oximeter] Respiratory Rate Blood Pressure 113/71 106/75 Blood Pressure [Le ft Upper Arm] Pulse Oximetry 94 95 97 Oxygen Delivery Me thod 04/17/23 14:15 04/17/23 14:17 04/17/23 14:20 Temperature Pulse Rate 115 H 113 H 99 Pulse Rate [Right Pulse Oximeter] Respiratory Rate 28 H Blood Pressure 109/76 Blood Pressure [Le ft Upper Arm] Pulse Oximetry 96 96 95 Oxygen Delivery Me thod 04/17/23 14:22 04/17/23 14:25 04/17/23 14:30 Temperature Pulse Rate 106 H 101 H 119 H Pulse Rate [Right Pulse Oximeter] Respiratory Rate Blood Pressure 99/82 Blood Pressure [Le ft Upper Arm] Pulse Oximetry 97 97 96 Oxygen Delivery Me thod 04/17/23 14:35 04/17/23 14:40 04/17/23 14:43 Temperature Pulse Rate 90 96 105 H Pulse Rate [Right Pulse Oximeter] Respiratory Rate Blood Pressure 99/47 L Blood Pressure [Le ft Upper Arm] Pulse Oximetry 95 92 95 Oxygen Delivery Me thod 04/17/23 14:45 04/17/23 14:50 04/17/23 14:55 Temperature Pulse Rate 135 H 138 H 135 H Pulse Rate [Right Pulse Oximeter] Respiratory Rate Blood Pressure Blood Pressure [Le ft Upper Arm] Pulse Oximetry 92 87 L 86 L Oxygen Delivery Me thod Documenting provider has reviewed patient's vital signs: yes Hospitalist - H&P: Result Labs Labs: Short CBC 04/17/23 Range/Units 11:50 WBC 5.46 (4.50-11.00) K/uL Hgb 15.9 (13.5-17.5) gm/dL Hct 46.8 (37.0-53.0) % Plt Count 145 (140-440) K/uL BMP 04/17/23 11:50 Sodium 139 Potassium 4.0 Chloride 108 Carbon Dioxide 19 L BUN 19 Creatinine 0.8 Glucose 118 H Calcium 9.0 Cardiac Enzymes 04/17/23 Range/Units 11:50 Troponin I 0.23 H* (0.01-0.04) ng/mL Liver Function 04/17/23 Range/Units 11:50 Total Bilirubin 0.9 (0.1-1.5) mg/dL Direct Bilirubin 0.3 (0.0-0.5) mg/dL AST 23 (12-35) U/L ALT 19 (4-50) U/L Alkaline Phosphatase 61 (40-150) U/L Albumin 3.9 (3.3-5.0) g/dL ECG Attestation: I personally reviewed and interpreted this ECG as follows: (AFib with RVR, rate 133, left bundle branch block) ECG interpretation date: 04/17/[address] scan - chest: Radiologist's impression: INDICATION: SOB, A-fib, tachycardia, elevated d-dimer COMPARISON: 02/04/2022 TECHNIQUE: CT volumetric acquisition was performed of the thorax during intravenous infusion of 95 cc Isovue 370 nonionic intravenous contrast. Please note that all CT scans at this facility use dose modulation, iterative reconstruction, and/or weight-based dosing when appropriate to reduce radiation dose to as low as reasonably achievable. FINDINGS: There is no pulmonary embolism in the main, lobar or segmental pulmonary arteries. Bilateral effusions are present, left greater than right. The left pleural effusion has increased compared to the prior study in the right pleural effusion has decreased compared to the prior study. No pericardial effusion. Reflux of contrast into the inferior vena cava noted. Hyperdense material is present within the gallbladder. Pancreatic atrophy. No splenomegaly. No upper abdominal ascites. Ground-glass densities are located within the left lower lobe with adjacent atelectasis related to the pleural effusion. Mild atelectasis is present within the right lower lobe. Mild prominence of the interlobular septa noted bilaterally. Bronchial wall thickening is present in the perihilar lungs, mild. No pneumothorax. No suspicious pulmonary nodule. No enlarged lymph nodes. Chronic changes to T12. IMPRESSION: No evidence of pulmonary thromboembolism. Bilateral pleural effusions with adjacent bibasilar atelectasis. Left lower lobe ground-glass densities compatible with infiltrate. Mild bilateral perihilar bronchial wall thickening compatible with bronchiolitis. Mild prominence of the interlobular septa suggesting mild edema. Please note that all CT scans at this facility use dose modulation, iterative reconstruction, and/or weight-based dosing when appropriate to reduce radiation dose to as low as reasonably achievable. Dictated by Lucas Yost MD @ 04/17/2023 1:46:25 PM Assessment and Plan Assessment and plan (1) Atrial fibrillation with rapid ventricular response: Problem comment: Rate control with beta-jacqueline and continue as outpatient. Consider restarting amiodarone. Reason for discontinuing uncertain. Status: Acute (2) Heart failure with reduced ejection fraction: Problem comment: Echo on 04/17/2023 shows severely reduced global ejection fraction of 18%. Also severely reduced right ventricular function and severe mitral regurg and moderate tricuspid regurg Status: Acute (3) Pneumonia: Problem comment: Treat as community-acquired pneumonia Status: Acute (4) Hemothorax: Problem comment: 02/24, cause not completely understood, rivaroxaban stopped by hospitalist. Had recurrent thoracentesis to completely drain right chest. Had bloody fluid. Pathology showed no apparent malignancy. Cause unknown. Minimal residual right pleural fluid today Status: Acute (5) Chronic cough: Problem comment: Pulmonary consult suggested Varsha and Flonase, presumably for allergies Status: Acute (6) Atrial fibrillation: Problem comment: Noted when hospitalized for PE and alcohol withdrawal, 07/26, on rivaroxaban, (d/dayana by hospitalist when had hemothorax 01/25) Status: Acute (7) Alcohol dependence: Problem comment: CIWA protocol while hospitalized. Initiate low-dose gabapentin. Reported intolerance of phenobarb. 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 Had thoracentesis for persistent/recurrence of hemothorax. Recommended to take Varsha and Flonase Status: Acute (9) Pulmonary embolism: Problem comment: Hospitalized July 2021 with AFib, PE. Anticoagulation stopped February 2022 due to bleeding/hemothorax. I planned temporary resumption of apixaban in the hospital. Uncertain about long-term use given multiple risk factors for clotting and bleeding Status: Acute (10) NSTEMI (non-ST elevated myocardial infarction): Problem comment: Elevated troponins 04/17/2023 I suspect due to heart failure rather than active ACS. Status: Acute Plan 72-year-old male admitted to the hospital with acute on chronic dyspnea. Evaluation so far suggests this is due to heart failure with reduced ejection fraction. Last fall his ejection fraction was 40-45% now 18%. He is also now in atrial fibrillation. Mild troponin elevation probably due to heart failure rather than ACS. 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 Patient will need abstinence from alcohol and optimization of heart failure medications. Starting Entresto and rate control. I favor apixaban for history of PE and AFib. Noting previous hemothorax from a year ago for which Xarelto was discontinued. Total time spent today is 100 minutes, 60 minutes in coordination of care and discussing with patient and other providers ongoing evaluation management of heart failure and anticoagulation
[2023-04-17 16:05] LABS: Amphetamine Screen Urine Negative (Negative); Barbiturate Screen Urine Negative (Negative); Benzodiazepines Screen Urine Negative (Negative); Cannabinoid Screen Urine Negative (Negative); Cocaine Screen Urine Negative (Negative); Methadone Screen Urine Negative (Negative); Methamphetamines Screen Urine Negative (Negative); Opiate Screen Urine Negative (Negative); Oxycodone Screen Urine Negative (Negative); Phencyclidine Screen Urine Negative (Negative); Tricyclic Antidepressant Urine Negative (Negative)
--- NOTE | 2023-04-17 19:38 | PC.NURSE ---
[id number]: Patient presents from the ED with increased SOB for the past 2 weeks. Patient was informed by provider that his EF was 18%. Patient requesting oxygen as his respirations upon arrival were 36. After resting and 1 liter of O2 patient RR decreased to 24. Patient felt more comfortable and as if he could catch his breath. patient ambulates with SBA. No dizziness noted. Patient on CIWA protocol and reports slight h/a, denies all other symptoms. Patient able to verbalize needs at this time.
[2023-04-17] MEDS: METOPROLOL TARTRATE 25 MG TABLET PO (20:19)
[2023-04-17] MEDS: MELATONIN 3 MG TABLET PO (21:21)
[2023-04-17] MEDS: GABAPENTIN 300 MG CAPSULE PO (21:21)
[2023-04-17] MEDS: APIXABAN 5 MG TABLET PO (21:21)
[2023-04-17] MEDS: THIAMINE 100 MG TABLET 250 MG PO (21:22)
[2023-04-17] MEDS: SACUBITRIL 24 mg/VALSARTAN 26 mg TABLET 1 TAB PO (21:22)
[2023-04-17] MEDS: SODIUM CHLORIDE 0.9 % (FLUSH) 10 ML SYRINGE 5 ML IVF (21:30)
[2023-04-17 23:30] LABS: Troponin I* 0.18 ng/mL (0.01-0.04)
[2023-04-18] VITALS (12 sets, daily range): BP systolic 86–107; BP diastolic 42–97; PULSE 62–111; RESP 20–28; TEMP 36.4–37.1; O2SAT 92–95
--- NOTE | 2023-04-18 05:48 | PC.NURSE ---
END OF SHIFT NOTE: PT PLEASANT AND COOPERATIVE WITH CARES. N/V. PT SOB AT REST D/T CHF. HEART EF 18%.?AMBULATES INDEPENDENTLY. VSS ON RA; BP?S SOFT. AFEBRILE. TELE READS AFIB WITH BBB. MONITOR ALSO SHOWS OCCASIONAL PVC?S. CALL LIGHT WITHIN PT?S REACH. PT HAD O2 ON AT BEGINNING OF SHIFT WHICH WAS REMOVED PT SPO2@ 100%. PT SOB AFTER SITTING UP AND STATED, ?I THINK I NEED SOME OXYGEN.? SPO2 CHECKED AND PT 95-97% ON RA. PT REMAINED OFF OF OXYGEN THROUGHOUT THE NIGHT. PT EDUCATED ON SOB D/T CHF. PT ALSO ENCOURAGED TO START USING HOME CPAP. CIWA SCORES 0, 0, 0.
[2023-04-18] MEDS: OMEPRAZOLE 20 MG CAPSULE DR PO (06:30)
[2023-04-18 06:38] LABS: Basophils Percent Auto 0.9 % (0.0-3.0); Eosinophils Percent Auto 3.4 % (0.0-7.0); Hematocrit 44.6 % (37.0-53.0); Immature Granulocytes Pct Auto 0.7 %; Lymphocytes Percent Auto 35.3 % (20-44); Mean Corpuscular HGB Conc 34 gm/dL (32-36); Mean Corpuscular Hemoglobin 33 pg (26-34); Mean Corpuscular Volume 97 fL (80-100); Monocytes Percent Auto 9.8 % (0.0-11.0); Neutrophils Percent Auto 49.9 % (42.0-72.0); Platelet Count* 129 K/uL (140-440); RDW Coefficient of Variation % 14.4 % (11.5-15.5); Red Blood Count 4.62 m/uL (4.30-5.90); White Blood Count* 4.39 K/uL (4.50-11.00)
[2023-04-18 06:48] LABS: Slide Review Reflex No
[2023-04-18 07:02] LABS: Chloride* 109 mmol/L (96-114); Sodium* 138 mmol/L (135-149)
[2023-04-18 07:03] LABS: Potassium* 3.7 mmol/L (3.6-5.1)
[2023-04-18 07:05] LABS: Creatinine* 0.7 mg/dL (0.5-1.5); Est. Creatinine Clearance* 74.35; Estimated Glomerular Filt Rate 97 ml/min
[2023-04-18 07:06] LABS: Blood Urea Nitrogen* 16 mg/dL (7-30); Calcium* 8.5 mg/dL (8.4-10.6); Carbon Dioxide* 20 mmol/L (20-32); Glucose* 99 mg/dL (60-115)
[2023-04-18] MEDS: METOPROLOL TARTRATE 25 MG TABLET PO ×3 (08:04→23:03)
[2023-04-18] MEDS: MULTIVITAMIN/MINERALS 1 TABLET 1 TAB PO (09:16)
[2023-04-18] MEDS: THIAMINE 100 MG TABLET 250 MG PO ×2 (09:17→20:51)
[2023-04-18] MEDS: AZITHROMYCIN 250 MG TABLET 500 MG PO (09:18)
[2023-04-18] MEDS: FOLIC ACID 1 MG TABLET PO (09:18)
[2023-04-18] MEDS: GABAPENTIN 300 MG CAPSULE PO ×2 (09:18→20:51)
[2023-04-18] MEDS: APIXABAN 5 MG TABLET PO ×2 (09:18→20:51)
[2023-04-18] MEDS: cefTRIAXone 1 GM in 0.9 % SODIUM CHLORIDE Mini-bag 100 ML IVPB (09:19)
[2023-04-18] MEDS: SODIUM CHLORIDE 0.9 % (FLUSH) 10 ML SYRINGE 5 ML IVF ×2 (09:19→20:51)
[2023-04-18] MEDS: SACUBITRIL 24 mg/VALSARTAN 26 mg TABLET 1 TAB PO ×2 (09:34→20:52)
[2023-04-18] MEDS: 0.9 % SODIUM CHLORIDE 250 ml IV (09:34)
--- NOTE | 2023-04-18 13:09 | P.IMPN_ITS ---
Progress Note: A&P Assessment and plan (1) Atrial fibrillation with rapid ventricular response: Problem details: - rate control with beta-jacqueline, restarted Apixaban 04/17 - pending clinical course, consider restarting amiodarone (on chart review, it appears that this was stopped at some point when he was in sinus rhythm) - patient's first episode of atrial fibrillation was noted when hospitalized for PE and ETOH withdrawal, 07/26, was on Rivaroxaban until hemothorax in 2021 Status: Acute (2) Heart failure with reduced ejection fraction: Problem details: - TTE 04/17/2023, results below: - Entresto initiated 04/17 - reviewed importance of ETOH cessation at length, pt verbalized understanding Final Impressions: 1. Technically limited exam. 2. Normal left ventricular size, normal wall thickness, severely reduced global systolic function, calculated EF of 18 %. 3. Echo contrast was administrered to enhance visualization of all left ventricular segments. 4. Right ventricular cavity size is mildly enlarged, global systolic RV function is severely reduced. 5. Severely enlarged left atrium. 6. The aortic valve is sclerotic, no stenosis and trivial regurgitation. 7. The mitral valve is tethered, severe mitral regurgitation. 8. Tricuspid valve is tethered. 9. Moderate tricuspid regurgitation. 10. The inferior vena cava is dilated, respiratory size variation less than 50%. 11. Mildly increased estimated pulmonary pressures by tricuspid regurgitation velocity and right atrial pressure (33 mmHg plus RAP). 12. Small pericardial effusion. 13. Large pleural effusion. Status: Acute (3) Pneumonia: Problem details: - noted on admission imaging, presumably community-acquired - on ceftriaxone and azithromycin (04/17) Status: Acute (4) Hemothorax: Problem details: - February of 2022, source unclear. Had recurrent thoracentesis with bloody fluid, path negative for malignancy. Anticoagulation was stopped at that time - Noted to have small bilateral pleural effusions on 04/17 imaging Status: Acute (5) Chronic cough: Problem details: - Quiescent. Pulmonary consult suggested Varsha and Flonase, presumably for allergies Status: Acute (6) Alcohol dependence: Problem details: CIRI protocol while hospitalized. Initiate low-dose gabapentin. Reported intolerance of phenobarb. 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 On anticoagulation until February 2022 (stopped 11/07 bleeding/hemothorax) - Apixaban restarted upon admission 04/17, patient agreeable - will need to have discussion with PCP/Cardiology regarding long-term use given multiple risk factors for clotting and bleeding Status: Acute (9) NSTEMI (non-ST elevated myocardial infarction): Problem details: - elevated troponins 04/17/2023 I suspect due to heart failure rather than active ACS - no CP, troponin peaked at 0.23 Status: Acute Plan - per above - continue abx, CHF medications, Apixaban - likely home when medically appropriate Subjective Date Seen: 04/18/23 Interval history: Jose Angel was admitted last night after presenting to the ER with complaints of dyspnea. His troponin peaked at 0.23 He continues to have dyspnea with minimal activity, no pain. Exam Narrative: Exam Narrative: GEN: Alert and answering questions appropriately HEENT: EOMIs bilaterally, no scleral icterus CV: Rate controlled atrial fibrillation R: Intermittently tachypneic during our visit without hypoxia. Lungs clear Ext: wwp, no concerning edema Skin: No concerning skin lesions or rashes on exposed skin Neuro: No focal deficits Psych: Appropriate Const: Vital Signs, click to edit/add: Vital Signs - 24 hr 04/17/23 13:10 04/17/23 13:12 04/17/23 13:15 Temperature Pulse Rate 86 87 108 H Pulse Rate [Apical ] Respiratory Rate Blood Pressure 109/89 Blood Pressure [Ri ght Arm] Pulse Oximetry 96 96 94 Oxygen Delivery Me thod Oxygen Flow Rate 04/17/23 13:18 04/17/23 13:20 04/17/23 13:21 Temperature Pulse Rate 110 H 120 H 97 Pulse Rate [Apical ] Respiratory Rate Blood Pressure 99/73 Blood Pressure [Ri ght Arm] Pulse Oximetry 95 96 95 Oxygen Delivery Me thod Oxygen Flow Rate 04/17/23 13:25 04/17/23 13:27 04/17/23 13:30 Temperature Pulse Rate 98 95 Pulse Rate [Apical ] Respiratory Rate Blood Pressure 101/65 Blood Pressure [Ri ght Arm] Pulse Oximetry 96 97 Oxygen Delivery Me thod Oxygen Flow Rate 04/17/23 13:33 04/17/23 13:35 04/17/23 13:42 Temperature Pulse Rate 117 H 127 H 114 H Pulse Rate [Apical ] Respiratory Rate Blood Pressure 104/90 H 120/99 H Blood Pressure [Ri ght Arm] Pulse Oximetry 96 95 95 Oxygen Delivery Me thod Oxygen Flow Rate 04/17/23 13:43 04/17/23 13:45 04/17/23 13:47 Temperature Pulse Rate 115 H 114 H 105 H Pulse Rate [Apical ] Respiratory Rate Blood Pressure 113/93 H Blood Pressure [Ri ght Arm] Pulse Oximetry 95 95 94 Oxygen Delivery Me thod Oxygen Flow Rate 04/17/23 13:51 04/17/23 13:52 04/17/23 13:55 Temperature Pulse Rate 103 H 96 101 H Pulse Rate [Apical ] Respiratory Rate Blood Pressure 109/68 Blood Pressure [Ri ght Arm] Pulse Oximetry 95 95 94 Oxygen Delivery Me thod Oxygen Flow Rate 04/17/23 13:57 04/17/23 14:00 04/17/23 14:05 Temperature Pulse Rate 107 H 104 H Pulse Rate [Apical ] Respiratory Rate Blood Pressure 94/69 111/97 H Blood Pressure [Ri ght Arm] Pulse Oximetry 95 94 Oxygen Delivery Me thod Oxygen Flow Rate 04/17/23 14:06 04/17/23 14:10 04/17/23 14:11 Temperature Pulse Rate 61 94 72 Pulse Rate [Apical ] Respiratory Rate Blood Pressure 113/71 Blood Pressure [Ri ght Arm] Pulse Oximetry 93 94 95 Oxygen Delivery Me thod Oxygen Flow Rate 04/17/23 14:12 04/17/23 14:15 04/17/23 14:17 Temperature Pulse Rate 115 H 115 H 113 H Pulse Rate [Apical ] Respiratory Rate Blood Pressure 106/75 109/76 Blood Pressure [Ri ght Arm] Pulse Oximetry 97 96 96 Oxygen Delivery Me thod Oxygen Flow Rate 04/17/23 14:20 04/17/23 14:22 04/17/23 14:25 Temperature Pulse Rate 99 106 H 101 H Pulse Rate [Apical ] Respiratory Rate 28 H Blood Pressure 99/82 Blood Pressure [Ri ght Arm] Pulse Oximetry 95 97 97 Oxygen Delivery Me thod Oxygen Flow Rate 04/17/23 14:30 04/17/23 14:35 04/17/23 14:40 Temperature Pulse Rate 119 H 90 96 Pulse Rate [Apical ] Respiratory Rate Blood Pressure Blood Pressure [Ri ght Arm] Pulse Oximetry 96 95 92 Oxygen Delivery Me thod Oxygen Flow Rate 04/17/23 14:43 04/17/23 14:45 04/17/23 14:50 Temperature Pulse Rate 105 H 135 H 138 H Pulse Rate [Apical ] Respiratory Rate Blood Pressure 99/47 L Blood Pressure [Ri ght Arm] Pulse Oximetry 95 92 87 L Oxygen Delivery Me thod Oxygen Flow Rate 04/17/23 14:55 04/17/23 15:00 04/17/23 15:02 Temperature Pulse Rate 135 H 105 H 185 H Pulse Rate [Apical ] Respiratory Rate Blood Pressure Blood Pressure [Ri ght Arm] Pulse Oximetry 86 L 91 87 L Oxygen Delivery Me thod Oxygen Flow Rate 04/17/23 15:05 04/17/23 15:10 04/17/23 15:16 Temperature Pulse Rate 98 100 109 H Pulse Rate [Apical ] Respiratory Rate Blood Pressure 97/75 Blood Pressure [Ri ght Arm] Pulse Oximetry 94 93 93 Oxygen Delivery Me thod Oxygen Flow Rate 04/17/23 15:17 04/17/23 15:20 04/17/23 15:21 Temperature Pulse Rate 90 101 H 64 Pulse Rate [Apical ] Respiratory Rate Blood Pressure 106/93 H Blood Pressure [Ri ght Arm] Pulse Oximetry 96 96 95 Oxygen Delivery Me thod Oxygen Flow Rate 04/17/23 15:25 04/17/23 15:27 04/17/23 15:29 Temperature 97.8 F Pulse Rate 110 H 107 H Pulse Rate [Apical ] 62 Respiratory Rate 24 Blood Pressure 91/50 L Blood Pressure [Ri ght Arm] 114/71 Pulse Oximetry 91 93 98 Oxygen Delivery Me thod Nasal Cannula Oxygen Flow Rate 1 04/17/23 15:30 04/17/23 15:32 04/17/23 15:35 Temperature Pulse Rate 105 H 117 H 99 Pulse Rate [Apical ] Respiratory Rate Blood Pressure 95/80 Blood Pressure [Ri ght Arm] Pulse Oximetry 90 96 95 Oxygen Delivery Me thod Oxygen Flow Rate 04/17/23 15:37 04/17/23 15:47 04/17/23 15:48 Temperature Pulse Rate 98 90 106 H Pulse Rate [Apical ] Respiratory Rate Blood Pressure 100/70 Blood Pressure [Ri ght Arm] Pulse Oximetry 97 97 94 Oxygen Delivery Me thod Oxygen Flow Rate 04/17/23 15:50 04/17/23 15:51 04/17/23 15:54 Temperature Pulse Rate 80 120 H 92 Pulse Rate [Apical ] Respiratory Rate Blood Pressure 99/70 Blood Pressure [Ri ght Arm] Pulse Oximetry 91 89 93 Oxygen Delivery Me thod Oxygen Flow Rate 04/17/23 15:55 04/17/23 16:27 04/17/23 16:27 Temperature 97.8 F Pulse Rate 111 H Pulse Rate [Apical ] 62 Respiratory Rate 30 H 24 24 Blood Pressure Blood Pressure [Ri ght Arm] 114/74 Pulse Oximetry 94 98 98 Oxygen Delivery Me thod Nasal Cannula Nasal Cannula Oxygen Flow Rate 1 1 04/17/23 19:00 04/17/23 19:32 04/17/23 22:28 Temperature 97.6 F Pulse Rate 113 H Pulse Rate [Apical ] 68 68 Respiratory Rate 28 H 28 H Blood Pressure Blood Pressure [Ri ght Arm] 114/70 Pulse Oximetry 95 Oxygen Delivery Me thod Room Air Oxygen Flow Rate 04/17/23 22:28 04/17/23 23:00 04/17/23 23:29 Temperature 97.7 F 97.7 F Pulse Rate Pulse Rate [Apical ] 55 L 55 L Respiratory Rate 29 H 29 H Blood Pressure Blood Pressure [Ri ght Arm] 93/80 93/80 Pulse Oximetry 95 98 98 Oxygen Delivery Me thod Room Air Room Air Room Air Oxygen Flow Rate 1 04/18/23 03:00 04/18/23 07:45 04/18/23 07:46 Temperature 97.9 F 97.8 F 97.8 F Pulse Rate Pulse Rate [Apical ] 62 103 H 103 H Respiratory Rate 26 H 26 H 26 H Blood Pressure Blood Pressure [Ri ght Arm] 104/90 H 96/78 96/78 Pulse Oximetry 93 95 95 Oxygen Delivery Me thod Room Air Room Air Room Air Oxygen Flow Rate 04/18/23 07:50 04/18/23 07:51 04/18/23 07:51 Temperature Pulse Rate 109 H Pulse Rate [Apical ] 103 H Respiratory Rate 26 H 26 H Blood Pressure Blood Pressure [Ri ght Arm] Pulse Oximetry 95 Oxygen Delivery Me thod Room Air Oxygen Flow Rate 04/18/23 11:00 04/18/23 11:22 Temperature 97.8 F Pulse Rate Pulse Rate [Apical ] 96 Respiratory Rate 20 Blood Pressure Blood Pressure [Ri ght Arm] 86/42 L 107/97 H Pulse Oximetry 95 Oxygen Delivery Me thod Room Air Oxygen Flow Rate Labs Labs: Laboratory Results - last 24 hr 04/17/23 04/17/23 04/17/23 11:50 14:15 15:29 WBC RBC Hgb Hct MCV MCH MCHC RDW Coeff of Janey Plt Count Neut % (Auto) Lymph % (Auto) Harrison % (Auto) Eos % (Auto) Baso % (Auto) Neut # (Auto) Lymph # (Auto) Harrison # (Auto) Eos # (Auto) Baso # (Auto) Abs Immat Gran (auto) Imm/Tot Granulo (auto) Sodium Potassium Chloride Carbon Dioxide BUN Creatinine Estimated Creat Clear Estimated GFR Glucose Calcium Total Bilirubin 0.9 Direct Bilirubin 0.3 AST 23 ALT 19 Alkaline Phosphatase 61 Troponin I 0.23 H* Total Protein 6.5 Albumin 3.9 Urine Opiates Screen Negative Ur Oxycodone Screen Negative Urine Methadone Screen Negative Ur Propoxyphene Screen Negative Ur Barbiturates Screen Negative U Tricyclic Antidepress Negative Ur Phencyclidine Scrn Negative Ur Amphetamines Screen Negative U Methamphetamines Scrn Negative U Benzodiazepines Scrn Negative Urine Cocaine Screen Negative U Marijuana (THC) Screen Negative Ur Drug Screen Comment See Note Ethyl Alcohol < 0.01 L Lab Acknowledgement Test Added 04/17/23 04/18/23 22:45 06:25 WBC 4.39 L RBC 4.62 Hgb 15.0 Hct 44.6 MCV 97 MCH 33 MCHC 34 RDW Coeff of Janey 14.4 Plt Count 129 L Neut % (Auto) 49.9 Lymph % (Auto) 35.3 Harrison % (Auto) 9.8 Eos % (Auto) 3.4 Baso % (Auto) 0.9 Neut # (Auto) 2.20 Lymph # (Auto) 1.50 Harrison # (Auto) 0.40 Eos # (Auto) 0.10 Baso # (Auto) 0.00 Abs Immat Gran (auto) 0.00 Imm/Tot Granulo (auto) 0.7 Sodium 138 Potassium 3.7 Chloride 109 Carbon Dioxide 20 BUN 16 Creatinine 0.7 Estimated Creat Clear 74.35 Estimated GFR 97 Glucose 99 Calcium 8.5 Total Bilirubin Direct Bilirubin AST ALT Alkaline Phosphatase Troponin I 0.18 H* Total Protein Albumin Urine Opiates Screen Ur Oxycodone Screen Urine Methadone Screen Ur Propoxyphene Screen Ur Barbiturates Screen U Tricyclic Antidepress Ur Phencyclidine Scrn Ur Amphetamines Screen U Methamphetamines Scrn U Benzodiazepines Scrn Urine Cocaine Screen U Marijuana (THC) Screen Ur Drug Screen Comment Ethyl Alcohol Lab Acknowledgement
--- NOTE | 2023-04-18 14:50 | NUTR.NU ---
Addendum entered and electronically signed by Vicky Granados RD 04/18/23 14:54: Patient denied need to provide this information to his designated caregiver. Original Note: Nutrition: Patient reports a good appetite. He is tolerating a low sodium diet with intake of 100% of meals. Nutrition education provided on a low sodium diet related to heart failure.?Verbal and written information provided. Recommend limiting sodium to 2,000 mg per day.? Discussed foods recommended and to avoid.? Handouts provided from [facility] on heart failure nutrition therapy, sodium content of foods, heart healthy label reading tips, sodium-free flavoring tips and heart healthy cooking and shopping tips.? Patient verbalized understanding.?? RDN's contact information was provided and patient was encouraged to call with questions.?
--- NOTE | 2023-04-18 18:25 | PC.NURSE ---
End of Shift: Pt pleasant and cooperative throughout shift, denying any pain. Pt appears somewhat withdrawn, reporting disappointment in remaining in the hospital. Pt doesn't seem to fully understand extent of his dx or hx. All questions answered. Pt ordered breakfast tray but no lunch or dinner tray reporting he only eats one meal per day. Pt encouraged to order a meal for dinner to save for later but refused. Independent in room, had one visitor today and seemed to enjoy his company. One dose of metoprolol held d/t low MAP and hypotension. Rechecked bp, noted improvement. Metoprolol schedule back on track q4h.
[2023-04-18 23:49] LABS: Troponin I* 0.19 ng/mL (0.01-0.04)
[2023-04-19 03:00] VITALS: BP 102/64; PULSE 106; RESP 28; TEMP 37; O2SAT 94
[2023-04-19] MEDS: METOPROLOL TARTRATE 25 MG TABLET PO ×2 (03:11→07:42)
--- NOTE | 2023-04-19 05:02 | PC.NURSE ---
[id number] Pt slept majority of shift, denies chest pain. SOB at rest and with activity. educated pt on sleeping with HOB elevated, pt acknowledged but states he can't sleep that way because its uncomfortable, pt slept supine entire shift.
[2023-04-19] MEDS: OMEPRAZOLE 20 MG CAPSULE DR PO (06:45)
[2023-04-19 07:08] VITALS: PULSE 101
[2023-04-19 07:11] LABS: HCO3 VBG 25 mmol/L (21-28); PCO2 VBG 46 mmHG (40-50); PO2 VBG 26.5 mmHG (25-47); pH VBG 7.338 (7.32-7.43)
[2023-04-19 07:18] LABS: Basophils Absolute Auto 0.05 K/uL (0.00-0.30); Basophils Percent Auto 0.9 % (0.0-3.0); Eosinophils Percent Auto 3.5 % (0.0-7.0); Hematocrit 49.7 % (37.0-53.0); Hemoglobin* 16.6 gm/dL (13.5-17.5); Immature Granulocytes Abs Auto 0.01 K/uL (0.00-0.30); Immature Granulocytes Pct Auto 0.2 %; Mean Corpuscular HGB Conc 33 gm/dL (32-36); Mean Corpuscular Hemoglobin 33 pg (26-34); Mean Corpuscular Volume 97 fL (80-100); Monocytes Percent Auto 9.4 % (0.0-11.0); Neutrophils Absolute Auto 3.05 K/uL (1.7-7.0); Platelet Count* 157 K/uL (140-440); RDW Coefficient of Variation % 14.4 % (11.5-15.5); Red Blood Count 5.11 m/uL (4.30-5.90); White Blood Count* 5.75 K/uL (4.50-11.00)
[2023-04-19 07:22] LABS: Slide Review Reflex No
[2023-04-19 07:28] VITALS: BP 94/70; PULSE 88; RESP 20; TEMP 36.6; O2SAT 98
[2023-04-19 07:30] VITALS: BP 94/70; PULSE 88; RESP 20; TEMP 36.6; O2SAT 98
[2023-04-19 07:46] LABS: Chloride* 105 mmol/L (96-114)
[2023-04-19 07:47] LABS: Potassium* 4.1 mmol/L (3.6-5.1); Sodium* 138 mmol/L (135-149)
[2023-04-19 07:49] LABS: Alkaline Phosphatase* 51 U/L (40-150); Aspartate Amino Transferase* 26 U/L (12-35); Bilirubin Total* 0.6 mg/dL (0.1-1.5); Blood Urea Nitrogen* 16 mg/dL (7-30); Carbon Dioxide* 23 mmol/L (20-32); Creatinine* 0.9 mg/dL (0.5-1.5); Est. Creatinine Clearance* 74.35; Estimated Glomerular Filt Rate 90 ml/min; Glucose* 125 mg/dL (60-115); Total Protein* 6.8 g/dL (6.0-8.3)
[2023-04-19 07:50] LABS: Alanine Aminotransferase* 17 U/L (4-50); Calcium* 9.1 mg/dL (8.4-10.6); Magnesium* 1.9 mg/dL (1.5-2.6)
[2023-04-19] MEDS: GABAPENTIN 300 MG CAPSULE PO (08:35)
[2023-04-19] MEDS: THIAMINE 100 MG TABLET 250 MG PO (08:35)
[2023-04-19] MEDS: MULTIVITAMIN/MINERALS 1 TABLET 1 TAB PO (08:35)
[2023-04-19] MEDS: SODIUM CHLORIDE 0.9 % (FLUSH) 10 ML SYRINGE 5 ML IVF (08:36)
[2023-04-19] MEDS: FOLIC ACID 1 MG TABLET PO (08:36)
[2023-04-19] MEDS: AZITHROMYCIN 250 MG TABLET 500 MG PO (08:36)
[2023-04-19] MEDS: SACUBITRIL 24 mg/VALSARTAN 26 mg TABLET 1 TAB PO (08:36)
[2023-04-19] MEDS: APIXABAN 5 MG TABLET PO (08:36)
[2023-04-19] MEDS: cefTRIAXone 1 GM in 0.9 % SODIUM CHLORIDE Mini-bag 100 ML IVPB (08:36)
[2023-04-19] MEDS: 0.9 % SODIUM CHLORIDE 250 ml IV (08:36)
--- NOTE | 2023-04-19 08:46 | P.DS_ITS ---
Transfer Discharge Sum: Prov Provider Date Seen: 04/19/23 Date of admission: 04/17/23 15:55 Primary care physician: Diogo Escamilla MD Attending physician on discharge: Felisa Moses Anticipated date of transfer: 04/19/23 Receiving physician/facility: [facility] DS: Diagnosis Discharge Diagnosis (1) Heart failure with reduced ejection fraction: Status: Acute Problem details: - TTE 04/17/2023, results below: - Entresto initiated 04/17 - reviewed importance of ETOH cessation at length, pt verbalized understanding Final Impressions: 1. Technically limited exam. 2. Normal left ventricular size, normal wall thickness, severely reduced global systolic function, calculated EF of 18 %. 3. Echo contrast was administrered to enhance visualization of all left ventric ular segments. 4. Right ventricular cavity size is mildly enlarged, global systolic RV function is severely reduced. 5. Severely enlarged left atrium. 6. The aortic valve is sclerotic, no stenosis and trivial regurgitation. 7. The mitral valve is tethered, severe mitral regurgitation. 8. Tricuspid valve is tethered. 9. Moderate tricuspid regurgitation. 10. The inferior vena cava is dilated, respiratory size variation less than 50%. 11. Mildly increased estimated pulmonary pressures by tricuspid regurgitation velocity and right atrial pressure (33 mmHg plus RAP). 12. Small pericardial effusion. 13. Large pleural effusion. (2) Atrial fibrillation with rapid ventricular response: Status: Acute Problem details: - patient's first episode of atrial fibrillation was noted when hospitalized for PE and ETOH withdrawal, 07/26, was on Rivaroxaban until hemothorax in 2021 - on admission, initiated rate control with Metoprolol and restarted Apixaban 04/17 (3) Pulmonary embolism: Status: Acute Problem details: - July 2021. On anticoagulation until February 2022 (stopped 2/2 bleeding/hemothorax) - Apixaban restarted upon admission 04/17, patient agreeable - will need to have discussion with PCP/Cardiology regarding long-term use given multiple risk factors for clotting and bleeding (4) NSTEMI (non-ST elevated myocardial infarction): Status: Acute Problem details: - elevated troponins 04/17/2023 I suspect due to heart failure rather than active ACS - no CP, troponin peaked at 0.23 (5) Hemothorax: Status: Acute Problem details: - February of 2022, source unclear. Had recurrent thoracentesis with bloody fluid, path negative for malignancy. Anticoagulation was stopped at that time - Noted to have small bilateral pleural effusions on 04/17 imaging (6) Atrial fibrillation: Status: Acute (7) Alcohol dependence: Status: Acute Problem details: - [facility] protocol while hospitalized - Low-dose gabapentin (300mg BID started 04/17), reported intolerance of phenobarbital in the past - has been slowly tapering his ETOH intake at home (down to 14oz of hard liquor/day on admission) (8) Obstructive sleep apnea syndrome: Status: Acute Problem details: - non compliant with CPAP therapy (9) Traumatic brain injury: Status: Acute Problem details: - 2016 - skull fracture, SDH, SAH, left visual field cut and left sided neglect (10) Pneumonia: Status: Acute Problem details: - noted on admission imaging, presumably community-acquired - on ceftriaxone and azithromycin (04/17) (11) Chronic dyspnea: Status: Acute Problem details: - last saw floral manager August 2022, had thoracentesis for persistent/recurrence of hemothorax - at this time, dyspnea associated with a fib/CHF, no hypoxia Transfer Discharge Sum: Med Medications Active and Home Medications: Home Medications cholecalciferol (vitamin D3) 25 mcg (1,000 unit) tablet 1,000 unit PO DAILY 05/09/22 [History Confirmed 04/17/23] cyanocobalamin (vitamin B-12) 1,000 mcg tablet 1,000 mcg PO DAILY 05/09/22 [History Confirmed 04/17/23] multivitamin 1 tab PO QAM 05/09/22 [History Confirmed 04/17/23] omeprazole 10 mg capsule,delayed release 10 mg PO DAILY 05/09/22 [History Confirmed 04/17/23] valsartan 40 mg tablet 40 mg PO DAILY #90 tabs 05/27/22 [Rx Confirmed 04/17/23] amlodipine 10 mg tablet 10 mg PO DAILY #90 tabs 06/17/22 [Rx Confirmed 04/17/23] Active Medications Acetaminophen (Acetaminophen 325 Mg Tablet) 650 mg PO Q4H PRN Apixaban (Apixaban 5 Mg Tablet) 5 mg PO BID [facility] Last Admin: 04/19/23 08:36 Dose: 5 mg Azithromycin (Azithromycin 250 Mg Tablet) 500 mg PO Q24H [facility] Last Admin: 07/15/23 08:36 Dose: 500 mg Flumazenil (Flumazenil 0.1 Mg/Ml Inj) 0.2 mg IVP Q1M PRN PRN Reason: Respiratory Depression Folic Acid (Folic Acid 1 Mg Tablet) 1 mg PO DAILY [facility] Last Admin: 04/19/23 08:36 Dose: 1 mg Gabapentin (Gabapentin 300 Mg Capsule) 300 mg PO BID [facility] Last Admin: 04/19/23 08:35 Dose: 300 mg Ceftriaxone Sodium 1 gm/ (Sodium Chloride) 100 mls @ 200 mls/hr IVPB Q24H [facility] Last Admin: 04/19/23 08:36 Dose: 200 mls/hr Lorazepam (Lorazepam 2 Mg/Ml Inj) 1 - 4 mg IVP Q1H PRN; Protocol Lorazepam (Lorazepam 1 Mg Tablet) 1 - 4 mg PO Q1H PRN; Protocol Melatonin (Melatonin 3 Mg Tablet) 3 mg PO HS PRN Last Admin: 04/17/23 21:21 Dose: 3 mg Metoprolol Tartrate (Metoprolol Tartrate 25 Mg Tablet) 25 mg PO Q4H [facility] Last Admin: 04/19/23 07:42 Dose: 25 mg Multivitamins/Minerals (Multivitamin/Minerals 1 Tablet) 1 tab PO DAILY [facility] Last Admin: 04/19/23 08:35 Dose: 1 tab Omeprazole (Omeprazole [address]) 20 mg PO DAILY@0700 [facility] Last Admin: 04/19/23 06:45 Dose: 20 mg Ondansetron HCl (Ondansetron 2 Mg/Ml Inj) 4 mg IVP Q4H PRN PRN Reason: Nausea Sacubitril/Valsartan (Sacubitril 24 Mg/Valsartan 26 Mg Tablet) 1 tab PO BID [facility] Last Admin: 04/19/23 08:36 Dose: 1 tab Senna/Docusate Sodium (Sennosides/Docusate Tablet) 1 - 2 tab PO BID PRN Sodium Chloride (Sodium Chloride 0.9 % (Flush) 10 Ml Syringe) 5 ml IVF BID [facility] Last Admin: 04/19/23 08:36 Dose: 5 ml Sodium Chloride (0.9 % Sodium Chloride 250 Ml) 250 ml IV Q24H [facility] Last Admin: 04/19/23 08:36 Dose: 250 ml Thiamine HCl (Thiamine 100 Mg Tablet) 250 mg PO BID [facility] Last Admin: 04/19/23 08:35 Dose: 250 mg Transfer Discharge Sum: Hosp Hospital Course Hospital course: Jose Angel Powers is a 72 year old male who presented to the ED on 04/17 for acute on chronic dyspnea. Admission EKG revealed AFib with RVR (known history of paroxysmal AFib, diagnosed in 2020); echocardiogram exhibited severely reduced global systolic function with an EF of 18%. CTA of chest revealed no PE, + bilateral pleural effusions, concern for left lower lobe infiltrate. Ceftriaxone and azithromycin initiated. CHF presumably from atrial fibrillation in addition to daily alcohol use. Patient placed on CIWA protocol and gabapentin initiated empirically given previous intolerance of phenobarbital. No significant withdrawal noted during stay. Jose Angel was placed on metoprolol for rate control and Entresto for CHF. No chest pain noted during stay; troponin peaked at 0.23. He continued to have significant dyspnea (even with ADLs and speaking) and continued to have intermittent AFib with RVR, with increased PVCs on telemetry as well. Given severe CHF and persistent arrhythmia, reviewed case with Dr. Lopez of Cardiology and Dr. Garcia, Hospitalist at [place]; they agree to accept patient in transfer. Patient's sister Kalina updated by phone, questions answered. Time Spent with Patient Time attestation: Total time spent providing and/or coordinating transfer services: Total time spent: Greater than 30 minutes Exam Narrative: Exam Narrative: GEN: Alert and answering questions appropriately, sitting comfortably in bed HEENT: EOMIs bilaterally, no scleral icterus CV: Irregular rate, distant heart sounds R: No wheezing, fine rales bilateral bases Ext: wwp, no concerning edema Skin: No concerning skin lesions or rashes on exposed skin Neuro: Nonfocal Psych: Appropriate Const: Vital Signs, click to edit/add: Vital Signs - 24 hr 04/18/23 11:00 04/18/23 11:22 04/18/23 14:29 Temperature 97.8 F Pulse Rate 80 Pulse Rate [Apical ] 96 Respiratory Rate 20 Blood Pressure [Le ft Arm] Blood Pressure [Ri ght Arm] 86/42 L 107/97 H Pulse Oximetry 95 Oxygen Delivery Me thod Room Air Oxygen Flow Rate 04/18/23 15:00 04/18/23 15:00 04/18/23 15:00 Temperature 97.6 F Pulse Rate Pulse Rate [Apical ] 72 96 Respiratory Rate 20 20 20 Blood Pressure [Le ft Arm] Blood Pressure [Ri ght Arm] 97/70 Pulse Oximetry 94 94 Oxygen Delivery Me thod Room Air Room Air Oxygen Flow Rate 04/18/23 19:00 04/18/23 22:49 04/18/23 23:00 Temperature 97.6 F Pulse Rate 111 H Pulse Rate [Apical ] 92 92 Respiratory Rate 24 24 Blood Pressure [Le ft Arm] Blood Pressure [Ri ght Arm] 90/71 Pulse Oximetry 92 Oxygen Delivery Me thod Room Air Oxygen Flow Rate 04/18/23 23:00 04/18/23 23:00 04/19/23 03:00 Temperature 98.7 F 98.6 F Pulse Rate Pulse Rate [Apical ] 109 H 106 H Respiratory Rate 28 H 28 H 28 H Blood Pressure [Le ft Arm] 91/71 Blood Pressure [Ri ght Arm] 102/64 Pulse Oximetry 95 92 94 Oxygen Delivery Me thod Room Air Room Air Room Air Oxygen Flow Rate 0 04/19/23 07:08 04/19/23 07:28 04/19/23 07:30 Temperature 97.9 F 97.9 F Pulse Rate 101 H Pulse Rate [Apical ] 88 88 Respiratory Rate 20 20 Blood Pressure [Le ft Arm] Blood Pressure [Ri ght Arm] 94/70 94/70 Pulse Oximetry 98 98 Oxygen Delivery Me thod Room Air Room Air Oxygen Flow Rate 04/19/23 07:30 04/19/23 07:30 Temperature Pulse Rate Pulse Rate [Apical ] 88 Respiratory Rate 20 20 Blood Pressure [Le ft Arm] Blood Pressure [Ri ght Arm] Pulse Oximetry 98 Oxygen Delivery Me thod Room Air Oxygen Flow Rate Transfer Discharge Sum: A/P Plan Functional capacity at transfer: wheelchair bound Discharge Plan Discharge Disposition: Xfer Other Date of Admission: 04/17/23 15:55 Attending Provider on Discharge: Felisa Moses Primary Care Provider: Diogo Escamilla Condition: Unchanged Discharge Medications: Discontinued omeprazole 10 mg capsule,delayed release(DR/EC) 10 mg PO DAILY cholecalciferol (vitamin D3) 25 mcg (1,000 unit) tablet 1,000 unit PO DAILY multivitamin Tablet 1 tab PO QAM cyanocobalamin (vitamin B-12) 1,000 mcg tablet 1,000 mcg PO DAILY valsartan 40 mg tablet 40 mg PO DAILY Qty: 90 3RF amlodipine 10 mg tablet 10 mg PO DAILY Qty: 90 3RF Discharge Orders: Discharge Order (Routine); Ordered 04/19/23 Ordered By: Felisa Moses Follow Up Appointments: Diogo Escamilla MD [Primary Care Provider] - Forms: [facility] Info Instructions
--- NOTE | 2023-04-19 09:19 | REH.PT ---
Physical Therapy Orders received. Patient transferred to [place] prior to evaluation.
[2023-04-19 11:24] VITALS: BP 88/74; PULSE 96; RESP 28; TEMP 36.4; O2SAT 97
--- NOTE | 2023-04-19 11:32 | REH.OT ---
Received orders for OT for eval and treat, however, pt is being t/f to [facility] secondary to cardiac issues, OT evaluation held.
--- NOTE | 2023-04-19 12:24 | PC.NURSE ---
Shift Summary: Patient pleasant and cooperative. Up indepdently, vitals stable, BP soft and tele shows afib. Held metoprolol x1 due to low BP, MD updated. Patient appears SOB even at rest, o2 sats >90% on RA. Denies pain or nausea. Tolerating regular diet well.
--- NOTE | 2023-04-19 14:50 | PC.NURSE ---
Pt. transferred to [facility], Room 3306, via [facility]. [id number] report given to Nurse Terra at [facility].
== END 2023-04-19 14:24 | disposition short-term general hospital (02) | DRG 291 ==
LOC: ED 15:09 → MEDSURG 15:57
PROVIDERS: Family Medicine; Admitting Provider Family Medicine; Emergency Provider Emergency Medicine Emergency Medical Services; PCP Family Medicine; Visit Provider Family Medicine
DX: I11.0 Hypertensive heart disease with heart failure (principal); J18.9 Pneumonia, unspecified organism; I48.91 Unspecified atrial fibrillation; I50.20 Unspecified systolic (congestive) heart failure; F10.90 Alcohol use, unspecified, uncomplicated; G47.33 Obstructive sleep apnea (adult) (pediatric); E66.01 Morbid (severe) obesity due to excess calories; I44.7 Left bundle-branch block, unspecified; I25.2 Old myocardial infarction; Z86.711 Personal history of pulmonary embolism; R05.3 Chronic cough; I08.3 Combined rheumatic disorders of mitral, aortic and tricuspid valves; K21.9 Gastro-esophageal reflux disease without esophagitis; E78.5 Hyperlipidemia, unspecified; Z87.820 Personal history of traumatic brain injury; Z68.30 Body mass index [BMI] 30.0-30.9, adult
CPT/HCPCS: 36415; 71260; 80048; 80053; 80076; 80306; 82077; 82803; 83735; 83880; 84443; 84484; 85025; 85379; 93005; 93306; 99284; 99285; A9153; A9270; J0456; J0696; J7050; J7120; Q9967

== ENCOUNTER 2023-04-19 14:17 | Outpatient (CLI) | payer MEDICARE, BC, SELFPAY | END 2023-04-19 14:18 | disposition home or self-care (01) | LOC: AMB 04-21 09:35 | PROVIDERS: PCP Family Medicine; Visit Provider Emergency Medicine | DX: I50.20 Unspecified systolic (congestive) heart failure (principal); R06.02 Shortness of breath | CPT/HCPCS: A0425; A0426; A0427; A0428 ==

== ENCOUNTER 2024-06-19 10:18 | Inpatient (IN) | payer MEDICARE, BC, SELFPAY ==
[2024-06-19] VITALS (20 sets, daily range): BP systolic 103–172; BP diastolic 65–94; PULSE 62–74; RESP 12–22; TEMP 36.5–37.3; O2SAT 91–99; BMI 31.7; BMI 32.8
--- NOTE | 2024-06-19 10:42 | CRLHL7_ITS ---
For Patients: As a result of the Century Cures Act, medical imaging exams and procedure reports are released immediately into your electronic medical record. You may view this report before your referring provider. If you have questions, please contact your health care provider. INDICATION: Injury. COMPARISON: None available. TECHNIQUE: Two views left ankle. FINDINGS/IMPRESSION : The talus is dislocated posteriorly relative to the tibial plafond. Small irregular foci of ossification below the medial malleolus on the AP view medial to the talus could be due to avulsion fracture fragments related to disruption of the medial collateral ligament. No donor site is identified. There is an obliquely oriented posteriorly angulated and displaced complete fracture of the distal left fibular diaphysis. Diffuse soft tissue swelling is seen about the ankle. Dictated by Claus Garcia MD @ 06/19/2024 11:15:41 AM (Electronically Signed)
--- NOTE | 2024-06-19 10:43 | ED.GENADULT ---
HPI - General Adult General Date Seen: 06/19/24 Chief complaint: Extremity Pain/Injury, Lower Stated complaint: Ankle injury Time Seen by Provider: 06/19/24 10:29 Source: patient, EMS, RN notes reviewed and old records reviewed Mode of arrival: EMS Limitations: no limitations History of Present Illness HPI narrative: Patient is a 73-year-old male brought in by EMS. He fell last night, he does have a history of alcohol dependence, was intoxicated at the time. He thinks he tripped on a book. He knew that he hurt his ankle, but thought it was probably just sprained. He was not able to bear weight, crawled to bed. This morning, he was unable to bear weight and so he called 911. He does note that he drinks daily, he says he will start to feel shaky at around 2:00 p.m. if he does not have anything to drink. Last alcohol was last night. Denies head or neck injury. He took some Tylenol this morning, says his pain is not too bad if he does not move. He does take Eliquis, history of atrial fibrillation but notes that he sometimes does not remember to take his 2 evening medications, of which Eliquis is 1. He knows that he did not take it last night. He thinks he has probably taken it a couple of times in the past week. He says he is good about taking his morning medications. He lives spine self. He denies any other substance use and does not smoke. Related Data Home Medications ?Medication ?Instructions ?Recorded ?Confirmed amiodarone 200 mg tablet 200 mg PO DAILY 06/19/24 06/19/24 apixaban 5 mg tablet (Eliquis) 5 mg PO BID 06/19/24 06/19/24 cholecalciferol (vitamin D3) 25 1,000 unit PO .when remembered 06/19/24 06/19/24 mcg (1,000 unit) chewable tablet cyanocobalamin (vitamin B-12) 100 100 mcg PO .when remembered 06/19/24 06/19/24 mcg tablet empagliflozin 10 mg tablet 10 mg PO DAILY 06/19/24 06/19/24 (Jardiance) magnesium oxide 500 mg capsule 500 mg PO .when remembered 06/19/24 06/19/24 metoprolol succinate 50 mg 50 mg PO DAILY 06/19/24 06/19/24 tablet,extended release 24 hr pravastatin 20 mg tablet 20 mg PO QPM 06/19/24 06/19/24 torsemide 20 mg tablet 20 mg PO DAILY PRN 06/19/24 06/19/24 valsartan 40 mg tablet 80 mg PO DAILY 06/19/24 06/19/24 Allergies Allergy/AdvReac Type Severity Reaction Status Date / Time phenobarbital Allergy Severe high blood Verified 06/19/24 10:24 pressure trolamine salicylate Allergy Intermediate Rash Verified 06/19/24 10:24 losartan Allergy Mild Cough Verified 06/19/24 10:24 lisinopril Allergy Unknown Cough Verified 06/19/24 10:24 Review of Systems Status of ROS: Reports: 10 or more systems reviewed and unremarkable except as noted in History and below [facility] Medical History Atrial fibrillation (2020) ?I48.91 - Unspecified atrial fibrillation (ICD-10) Chronic anticoagulation ?Z79.01 - FDC (current) use of anticoagulants (ICD-10) Chronic dyspnea ?R06.09 - Other forms of dyspnea (ICD-10) NSTEMI (non-ST elevated myocardial infarction) ?I21.4 - Non-ST elevation (NSTEMI) myocardial infarction (ICD-10) Heart failure with reduced ejection fraction ?I50.20 - Unspecified systolic (congestive) heart failure (ICD-10) Pulmonary embolism ?I26.99 - Other pulmonary embolism without acute cor pulmonale (ICD-10) Atrial fibrillation with rapid ventricular response ?I48.91 - Unspecified atrial fibrillation (ICD-10) B12 deficiency ?E53.8 - Deficiency of other specified B group vitamins (ICD-10) Statin declined ?Z53.20 - Procedure and treatment not carried out because of patient's decision for unspecified reasons (ICD-10) Essential hypertension ?I10 - Essential (primary) hypertension (ICD-10) Morbid obesity with body mass index (BMI) of 40.0 or higher ?E66.01 - Morbid (severe) obesity due to excess calories (ICD-10) Traumatic brain injury (2016) ?S06.9X9A - Unspecified intracranial injury with loss of consciousness of unspecified duration, initial encounter (ICD-10) Obstructive sleep apnea syndrome ?G47.33 - Obstructive sleep apnea (adult) (pediatric) (ICD-10) Hyperlipidemia ?E78.5 - Hyperlipidemia, unspecified (ICD-10) Hearing loss ?H91.90 - Unspecified hearing loss, unspecified ear (ICD-10) Gout ?M10.9 - Gout, unspecified (ICD-10) Gastroesophageal reflux disease ?K21.9 - Gastro-esophageal reflux disease without esophagitis (ICD-10) Chronic cough ?R05.3 - Chronic cough (ICD-10) Chronic back pain ?M54.9 - Dorsalgia, unspecified (ICD-10) ?G89.29 - Other chronic pain (ICD-10) Alcohol dependence ?F10.20 - Alcohol dependence, uncomplicated (ICD-10) Adenomatous polyp of colon (2012) ?D12.6 - Benign neoplasm of colon, unspecified (ICD-10) Lumbar compression fracture ?S32.000A - Wedge compression fracture of unspecified lumbar vertebra, initial encounter for closed fracture (ICD-10) Hemothorax ?J94.2 - Hemothorax (ICD-10) History of seizure (2015) ?Z87.898 - Personal history of other specified conditions (ICD-10) History of pulmonary embolism (2020) ?Z86.711 - Personal history of pulmonary embolism (ICD-10) History of depression (2008) ?Z86.59 - Personal history of other mental and behavioral disorders (ICD-10) Surgical History History of thoracentesis ?Z98.890 - Other specified postprocedural states (ICD-10) History of renal calculi (10/05/12) ?Z87.442 - Personal history of urinary calculi (ICD-10) History of malignant melanoma (2006) ?Z85.820 - Personal history of malignant melanoma of skin (ICD-10) Family History Father Coronary artery disease Mother Alzheimers disease Social History (Updated 06/19/24 @ 14:53 by Teofilo Rubin MD) Narrative: He lives alone with his 3 cats between [place] and [place]. Closest family is his brother car all with lives in [facility]. He indicates his brother Jack or sister Ashlie would be healthcare power of assistant city attorney. Code status is full. He does not smoke cigarettes. He drinks alcohol at least 8 shots per day. What is your current living situation?: I presently have a place to live Problems where you live: unsafe martin/stairs Problems where you live details: no, just cat hair In the past 12 months, utilities in danger of being shut off: no In past 12 months, lack of transportation kept you from medical appts, meetings, work, or getting things needed for daily living: no In the past 12 mos, have been you worried that your food would run out before you had money to buy more?: never true In the past 12 mos, the food you bought just didn't last and you didn't have money to buy more?: never true Highest level of school completed/degree received: Bachelor's degree Smoking Status: Never smoker Do you use any of these nicotine containing products: None Second hand tobacco smoke exposure: No How often do you have a drink containing alcohol: 4 or more times a week Alcohol type: hard liquor Alcohol type details: rajeshey 8 shots daily How many standard drinks containing alcohol do you have on a typical day: 5 or 6 How often do you have six or more drinks on one occasion: Less than monthly AUDIT-C Alcohol total score: 7 Non-prescribed substance use: denies use Caffeine: Yes (occassional) How often does anyone, including family, friends and others, physically hurt you: never How often does anyone, including family, friends and others, insult or talk down to you: never How often does anyone, including family, friends and others, threaten you with harm: never How often does anyone, including family, friends and others, scream or curse at you: never service: No Exam Narrative: Exam Narrative: Vital signs as noted above. In general, an alert, nontoxic male. He is cooperative, conversant. Head: Normocephalic, atraumatic. Eyes: Pupils are equal reactive. Extraocular movements are full. Conjunctivae are normal. ENT: Mucous membranes are moist. Neck: Supple without lymphadenopathy. Nontender palpation. Heart: Regular rate and rhythm. No murmur or rub. Lungs: Clear bilaterally. No increased work of breathing, crackles or wheezes. Abdomen: Soft and nontender. Delete Extremities: The right lower extremity is atraumatic, capillary refill about 2 seconds. On the left, there is obvious deformity of the left ankle. Dorsalis pedis pulse is palpable, capillary refill is about 3 seconds on the left. He has intact sensation although he notes a history of some neuropathy in his feet. There is an abrasion over the medial malleolus. Neurologic: Patient is alert and oriented to person and place. Speech is fluent. Face is symmetric. Moves all extremities equally. Affect: Normal. Skin: Warm and dry. Well perfused. Const: Vital Signs, click to edit/add: Vital Signs - 24 hr 06/19/24 10:24 06/19/24 11:32 06/19/24 12:01 Temperature 97.7 F Pulse Rate 66 69 Pulse Rate [Pulse Oximeter] 69 Respiratory Rate 16 14 16 Blood Pressure 103/65 127/73 Blood Pressure [Ri ght Upper Arm] 118/72 Pulse Oximetry 95 95 95 Oxygen Delivery Me thod Room Air Oxygen Flow Rate 06/19/24 12:07 06/19/24 12:10 06/19/24 12:11 Temperature Pulse Rate 63 62 Pulse Rate [Pulse Oximeter] Respiratory Rate 12 13 Blood Pressure 123/77 133/78 Blood Pressure [Ri ght Upper Arm] Pulse Oximetry 99 95 99 Oxygen Delivery Me thod Nasal Cannula Oxygen Flow Rate 2 06/19/24 12:12 06/19/24 12:31 06/19/24 13:01 Temperature Pulse Rate 64 68 65 Pulse Rate [Pulse Oximeter] Respiratory Rate 14 14 22 Blood Pressure 133/79 111/85 135/74 Blood Pressure [Ri ght Upper Arm] Pulse Oximetry 96 92 91 Oxygen Delivery Me thod Oxygen Flow Rate 06/19/24 13:31 Temperature Pulse Rate 66 Pulse Rate [Pulse Oximeter] Respiratory Rate 19 Blood Pressure 142/75 H Blood Pressure [Ri ght Upper Arm] Pulse Oximetry 93 Oxygen Delivery Me thod Oxygen Flow Rate Documenting provider has reviewed patient's vital signs: yes Course Course ED Course: Will place an IV, obtain some lab work. X-rays of the left ankle. Declines the need for additional pain medication at this time. No objective findings of alcohol withdrawal at this time. X-ray shows a fracture of the fibula associated with a joint dislocation. Final radiology read as follows:FINDINGS/IMPRESSION : The talus is dislocated posteriorly relative to the tibial plafond. Small irregular foci of ossification below the medial malleolus on the AP view medial to the talus could be due to avulsion fracture fragments related to disruption of the medial collateral ligament. No donor site is identified. There is an obliquely oriented posteriorly angulated and displaced complete fracture of the distal left fibular diaphysis. Diffuse soft tissue swelling is seen about the ankle. Care was discussed with Dr. Savage as well as Dr. Rubin. Kevin, orthopedic PA was present in the hospital and did come down and evaluate the patient as well. He actually performed the reduction. Please see his note for details. I provided sedation for the procedure. Procedure note: The patient was maintained on pulse oximetry, cardiac and end-tidal CO2 monitoring. Respiratory therapy was present. He received propofol, a total of 160 mg for sedation. He tolerated the procedure well without hypoxia or hypercapnia. Did not require any airway management. He received 50 mcg of fentanyl for pain control at the time of splinting. Awakened without difficulty. I do feel that he is a poor candidate for discharge home. By his admission, he will need to start drinking soon in order to avoid withdrawal symptoms, and I think will be unable to manage nonweightbearing status. Therefore, I recommended admission to the hospital for management of withdrawal, optimization for surgery and maintenance of nonweightbearing status. Vital Signs Vital signs: Initial Vital Signs Temperature 97.7 F 06/19/24 10:24 Temperature Source Temporal Artery Scan 06/19/24 10:24 Pulse Rate 69 06/19/24 10:24 Respiratory Rate 16 06/19/24 10:24 Blood Pressure 118/72 06/19/24 10:24 Blood Pressure Mean 87 06/19/24 10:24 Blood Pressure Position Semi-Fowlers 06/19/24 10:24 Pulse Oximetry 95 06/19/24 10:24 Oxygen Delivery Method Room Air 06/19/24 10:24 Vital Signs Temperature 97.7 F 06/19/24 10:24 Pulse Rate 69 06/19/24 10:24 Respiratory Rate 16 06/19/24 10:24 Blood Pressure 118/72 06/19/24 10:24 Pulse Oximetry 95 06/19/24 10:24 Oxygen Delivery Method Room Air 06/19/24 10:24 Temperature 97.9 F 06/19/24 15:56 Pulse Rate 70 06/19/24 15:56 Respiratory Rate 18 06/19/24 15:56 Blood Pressure 162/87 H 06/19/24 15:56 Pulse Oximetry 97 06/19/24 15:56 Oxygen Delivery Method Room Air 06/19/24 15:56 Oxygen Flow Rate 2 06/19/24 14:17 Medications Administered Medications: Generic Name Dose Route Start Last Admin Trade Name Baldomero PRN Reason Stop Dose Admin Gabapentin 300 mg 06/19/24 14:00 06/19/24 15:13 Gabapentin 300 Mg Capsule PO 300 mg TID GELACIO Administration Discontinued Medications Generic Name Dose Route Start Last Admin Trade Name Baldomero PRN Reason Stop Dose Admin Fentanyl 50 mcg 06/19/24 12:54 06/19/24 12:29 Fentanyl 100 Mcg/2 Ml Inj IVP 06/19/24 12:55 50 mcg ONCE ONE Administration Sodium Chloride 1,000 mls @ 1,000 mls/hr 06/19/24 13:00 06/19/24 12:50 0.9 % Sodium Chloride 1000 Ml IV 06/19/24 13:59 Infused .Q1H GELACIO Infusion Phenobarbital 32.4 mg 06/19/24 13:51 06/19/24 15:13 Phenobarbital 32.4 Mg Tablet PO 06/19/24 13:52 32.4 mg ONCE ONE Administration Propofol 200 mg 06/19/24 11:47 06/19/24 12:13 Propofol 10 Mg/Ml Inj IVP 06/19/24 11:48 160 mg ONCE ONE Administration Medical Decision Making Lab Data Labs: Lab Results 06/19/24 Range/Units 11:00 WBC 5.37 (4.50-11.00) K/uL RBC 3.77 L (4.30-5.90) m/uL Hgb 13.1 L (13.5-17.5) gm/dL Hct 39.7 (37.0-53.0) % MCV 105 H (80-100) fL MCH 35 H (26-34) pg MCHC 33 (32-36) gm/dL RDW Coeff of Janey 15.9 H (11.5-15.5) % Plt Count 116 L (140-440) K/uL Neut % (Auto) 65.7 (42.0-72.0) % Lymph % (Auto) 21.0 (20-44) % Blount % (Auto) 10.8 (0.0-11.0) % Eos % (Auto) 1.3 (0.0-7.0) % Baso % (Auto) 0.6 (0.0-3.0) % Neut # (Auto) 3.53 (1.7-7.0) K/uL Lymph # (Auto) 1.13 (0.90-2.90) K/uL Blount # (Auto) 0.60 (0.00-0.90) K/UL Eos # (Auto) 0.07 (0.00-0.50) K/uL Baso # (Auto) 0.03 (0.00-0.30) K/uL Abs Immat Gran (auto) 0.03 (0.00-0.30) K/uL Imm/Tot Granulo (auto) 0.6 % INR 1.06 (0.91-1.10) Sodium 141 (135-149) mmol/L Potassium 4.5 (3.6-5.1) mmol/L Chloride 107 (96-114) mmol/L Carbon Dioxide 23 (20-32) mmol/L Anion Gap 11 (7-15) mEq/L BUN 22 (7-30) mg/dL Creatinine 1.2 (0.5-1.5) mg/dL Estimated Creat Clear 61.03 Estimated GFR 63 ml/min Glucose 114 (60-115) mg/dL Calcium 8.7 (8.4-10.6) mg/dL Magnesium 2.2 (1.5-2.6) mg/dL Total Bilirubin 0.7 (0.1-1.5) mg/dL Direct Bilirubin 0.4 (0.0-0.5) mg/dL AST 80 H (12-35) U/L ALT 39 (4-50) U/L Alkaline Phosphatase 74 (40-150) U/L Total Protein 6.2 (6.0-8.3) g/dL Albumin 3.8 (3.3-5.0) g/dL Ethyl Alcohol 0.08 H (0.01-0.03) % Discharge Plan Discharge Clinical Impression: Closed fracture dislocation of left ankle joint, Alcohol dependence Patient Disposition: Admitted As Observation Condition: Improved
[2024-06-19 11:13] LABS: Basophils Absolute Auto 0.03 K/uL (0.00-0.30); Basophils Percent Auto 0.6 % (0.0-3.0); Eosinophils Absolute Auto 0.07 K/uL (0.00-0.50); Eosinophils Percent Auto 1.3 % (0.0-7.0); Hematocrit 39.7 % (37.0-53.0); Hemoglobin* 13.1 gm/dL (13.5-17.5); Immature Granulocytes Abs Auto 0.03 K/uL (0.00-0.30); Immature Granulocytes Pct Auto 0.6 %; Lymphocytes Absolute Auto 1.13 K/uL (0.90-2.90); Mean Corpuscular HGB Conc 33 gm/dL (32-36); Mean Corpuscular Hemoglobin 35 pg (26-34); Mean Corpuscular Volume 105 fL (80-100); Monocytes Percent Auto 10.8 % (0.0-11.0); Neutrophils Absolute Auto 3.53 K/uL (1.7-7.0); Neutrophils Percent Auto 65.7 % (42.0-72.0); Platelet Count* 116 K/uL (140-440); RDW Coefficient of Variation % 15.9 % (11.5-15.5); Red Blood Count 3.77 m/uL (4.30-5.90); White Blood Count* 5.37 K/uL (4.50-11.00)
--- OUTSIDE RECORDS SUMMARY | 2024-06-19 11:14 | XMS_ITS | Clinical Summary ---
Author Organization [employer] [facility] [employer] Address [place], [place] [address] Care Team Providers Care Density Control Puncher Name Role Phone Diogo Escamilla MD Primary Care Provider [phone] Allergies Active Allergy Reactions Criticality Noted Date Comments Methyl Salicylate-Menthol Rash 05/29/2022 Lisinopril Cough 04/17/2023 Losartan Cough Low 04/17/2023 Phenobarbital Hypertension High 04/17/2023 Trolamine Salicylate Rash High 04/17/2023 Medications Medication Sig Dispensed Refills Start Date End Date Status multivitamin (MVI) tablet Take 1 Tablet by mouth once daily. 0 05/29/2022 Active cholecalciferol (VITAMIN D3) 1,000 unit tablet Take 1,000 units by mouth once daily. Active azelastine 137 mcg/actuation (ASTELIN) nasal spray Inhale 1 [place] into affected nostril(s) once daily if needed for Rhinitis. Active fluticasone (50 mcg per actuation) nasal solution (FLONASE) Inhale 1 [place] into affected nostril(s) once daily if needed for Rhinitis. Active cyanocobalamin (VITAMIN B12) 1,000 mcg tablet Take 1,000 mcg by mouth once daily. Active magnesium 250 mg tab Take 250 mg by mouth once daily. Active omeprazole (PRILOSEC) 10 mg capsuleIndications:Chr onic GERD Take 1 Capsule (10 mg) by mouth once daily before a meal. 90 Capsule 2 12/15/2023 Active torsemide (DEMADEX) 20 mg tabletIndications:Acut e systolic CHF (congestive heart failure) (HC) Take 1 Tablet (20 mg) by mouth one time if needed (for ankle swelling or increased shortness of breath) for up to 1 dose. Take 1 tablet (20 mg) every OTHER day 45 Tablet 3 12/23/2023 Active valsartan (DIOVAN) 80 mg tabletIndications:Acut e systolic CHF (congestive heart failure) (HC) Take 1 Tablet (80 mg) by mouth once daily. 90 Tablet 3 12/23/2023 Active amiodarone (CORDARONE) 200 mg tabletIndications:Paro xysmal atrial fibrillation (HC) Take 1 Tablet (200 mg) by mouth once daily. 90 Tablet 3 03/23/2024 Active empagliflozin (JARDIANCE) 10 mg tabletIndications:Hear t failure with reduced ejection fraction (HC) Take 1 Tablet (10 mg) by mouth once daily. 90 Tablet 3 05/05/2024 Active pravastatin (PRAVACHOL) 20 mg tabletIndications:Hype rlipidemia, unspecified hyperlipidemia type Take 1 Tablet (20 mg) by mouth at bedtime. 90 Tablet 3 05/05/2024 Active apixaban (ELIQUIS) 5 mg tabletIndications:prev ent thromboembolism in chronic atrial fibrillation Take 1 Tablet (5 mg) by mouth two times daily. 180 Tablet 3 05/05/2024 Active metoprolol succinate (TOPROL XL) 50 mg sustained-release tabletIndications:Paro xysmal atrial fibrillation (HC) Take 1 Tablet (50 mg) by mouth once daily. 90 Tablet 3 05/05/2024 Active Active Problems Problem Noted Date Diagnosed Date Essential hypertension 06/27/2023 Heart failure with reduced ejection fraction Hyperlipidemia 06/27/2023 Morbid obesity with body mass index (BMI) of 40. 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 05/29/2022 Depression 06/07/2016 Encounters Date Type Department Care Team Description 05/05/2024 11:20 AM CDT Office Visit [facility] [address] [place] [address] Diogo Escamilla MD Follow Up (6 month follow up for heart failure) 05/05/2024 Travel 03/23/2024 1:00 PM CDT Office Visit [facility] [address] [place] [address] Nicholas Sampson MD Follow Up (3 month) 03/23/2024 Travel from Last 3 Months Immunizations Name Administration Dates Next Due COVID-19 VACCINE SPIKEVAX (M ODERNA 50MCG/0.5ML) 12YO+ PFS 10/24/2023 COVID-19 vaccine (Handup-Bio NTech 30mcg/0.3mL) 12YO+ BIVALENT PF, MDV 07/31/2022 Influenza, High-dose Inactivated 11/12/2016,07/07 Influenza, High-dose Quadrivalent Inactivated ,08/07/2020 Influenza, Inactivated AIIV4 (Age 65+ Years) Preserv Free 07/31/2022 Pneumococcal Poly,23-Valent (Pneumovax) 11/12/19 17 Pneumococcal conj 13-Valent (Prevnar 13) 018 Tdap 07/16/2014 Social History Tobacco Use Types Packs/Day Years Used Date Smoking Tobacco: Never Passive Smoke Exposure: Never Smokeless Tobacco: Never Tobacco Cessation:Counseling Given: Not Answered Alcohol Use Standard Drinks/Week Comments Not Currently 0 (1 standard drink = 0.6 oz pur e alcohol) PHQ-2 Answer Date Recorded PHQ-2 TOTAL SCORE 1 06/10/2023 Social Connections Answer Date Recorded Frequency of Communication with Friends and Fami ly 0 05/05/2024 Alcohol Use Answer Date Recorded How often do you have a drink containing alcohol ? 4 05/29/2022 How many drinks containing a lcohol do you have on a typical day when you are drinking? 4 05/29/2022 How often do you have five or more drinks on one occasion? 4 05/29/2022 Financial Resource Strain Answer Date R ecorded Difficulty of Paying Living Expenses 3 05/05/2024 Difficulty of Paying Living Expenses Not on file 05/05/2024 Food Insecurity Answer Date Recorded Worried About Running Out of Food in the Last Ye ar 1 05/05/2024 Transportation Needs Answer Date Record ed Lack of Transportation (Medical) 1 05/05/2024 Housing Stability Answer Date Recorded Unable to Pay for Housing in the Last Year 1 05/05/2024 Sex and Gender Information Value Date Recorded Sex Assigned at Not on file Gender Identity Not on file Sexual Orientation Not on file Obstetrics History Last Filed Vital Signs Vital Sign Reading Time Taken Comments Blood Pressure 118/88 05/05/2024 11:45 AM CDT Pulse 76 05/05/2024 11:08 AM CDT Temperature 36.7 ??C (98.1 ??F) 10/24/2023 2:44 PM CS T Respiratory Rate 14 07/07/2023 10:3 0 AM CDT Oxygen Saturation 96% 05/05/2024 11: 08 AM CDT Inhaled Oxygen Concentration - - Weight 112.1 kg (247 lb 1.6 oz) 024 11:08 AM CDT Height 185.4 cm (6' 0.99) 12/23/2023 2:26 PM CD T Body Mass Index 32.61 12/23/2023 2:26 PM CDT Plan of Treatment Upcoming Encounters Date Type Department Care Team (Late st Contact Info) Description 09/22/2024 12:45 PM FUR REMODELER Orders Only [facility] [address] [facility] [place] [address] [place], [place] 09/22/2024 1:00 PM FUR REMODELER Ancillary Procedure [facility] [address] [place] [address] 12/31/2024 10:30 AM CDT Office Visit [facility] [address] [place] [address] Diogo Escamilla MD [address] [place] [address] Health Maintenance Due Date Last Done Comments Colonoscopy through age 75 1994 Zoster (shingles) series for age 50+ (1 of 2) 12/20/1999 Medicare Wellness for age 65+ 2014 COVID-19 vaccine series (2022- season) 2024 10/24/2023, 07/31/2022, 08/17/2021, Additional history exists Influenza for age 65+ 06/06/2024 07/31/2022 , 07/10/2021, 08/07/2020, Additional history exists Depression screening for age 12+ 06/10/2024 06/10/20 23, 05/29/2022 Tetanus booster 07/16/2024 07/16/2014 BMI (ht and wt on same day) for age 18+ 12/22/2024 12/23/2023, 07/07/2023, 06/27/2023, Additional history exists Lipids for age 45-75 10/24/2028 10/24/2023, 05/13/20 23 Tdap Completed 07/16/2014 Pneumococcal series for age 65+ Completed 8, 11/12/2016 Hepatitis C screening for ag e 18-79 Completed 05/13/2023 Procedures Procedure Name Priority Date/Time Associated Diagnosis Comments LIPID PANEL W REFLEX MEASURED LDL Routine 10/24/2023 3:42 PM FUR REMODELER Heart failure with reduced ejection fraction (HC) LC HCV ANTIBODY RFX TO QUANT PCR Routine 05/13/2023 1:28 PM CDT Need for hepatitis C screening test from Last 3 Months or Most Recently Relevant to Health Maintenance Results * (ABNORMAL) LIPID PANEL W REFLEX MEASURED LDL (10/24/2023 3:42 PM FUR REMODELER) CHOLESTEROL,TOTAL 220(H) 100 - 199 mg/dL 10/27/2023 2:26 PM FUR REMODELER [facility] Comment: Cholesterol, Total Reference Ranges Desirable <200 mg/dL Borderline 200-239 mg/dL High >=240 mg/dL TRIGLYCERIDES 340(H) <150 mg/dL 10/27/2023 2:26 PM [facility] HDL CHOLESTEROL 60 >40 mg/dL 2:26 PM [facility] NON-HDL CHOLESTEROL 160(H) <145 mg/dl 10/27/2023 2:26 PM [facility] CHOL/HDL RATIO 3.67 <4.50 10/27/2023 2:26 PM [facility] LDL CHOLESTEROL 92 <=130 mg/dL 10/27/2023 2:26 PM [facility] VLDL CHOLESTEROL 68(H) <=30 mg/dL 10/27/2023 2:26 PM [facility] PROVIDER ORDERED STATUS RANDOM 10/27/2023 2:26 PM [facility] Blood BLOOD SPECIMEN / Unknown Venipuncture / Unknown 10/24/2023 3:42 PM FUR REMODELER 10/24/2023 3:42 PM FUR REMODELER Diogo Escamilla MD CHEMISTRY [facility] [address] [place] [address], * LC HCV ANTIBODY RFX TO QUANT PCR (05/13/2023 1:28 PM CDT) HCV Ab Non Reactive Non Reactive 05/16/2023 5:13 AM CDT [facility] Blood BLOOD SPECIMEN / Unknown Venipuncture / Unknown 05/13/2023 1:28 PM CDT 05/13/2023 1:31 PM CDT Narrative [facility] ([facility]) - 05/16/2023 5:13 AM CDT Performed at: ??[address] ??[id number] Parole Director: Artem Kendall MD, Phone: ??[phone] Diogo Escamilla MD LABORATORY [facility] ([facility]) [address] [place] [address], from Last 3 Months or Most Recently Relevant to Health Maintenance Advance Directives * Full Code (Latest Code Status on File) Date Activated Date Inactivated Comments 06/23/2023 2:16 PM 06/23/2023 7:52 PM Question Answer Comments Code Status Discussion: Reviewed Preferences * Full Code Date Activated Date Inactivated Comments 04/19/2023 7:18 PM 04/22/2023 6:19 PM Question Answer Comments Code Status Discussion: Reviewed Preferences Care Teams Density Control Puncher Relationship Specialty Start Date End Date Diogo Escamilla MD [address] [facility] [place] [address] PCP - General Family Practice 08/01/22
[2024-06-19 11:26] LABS: Slide Review Reflex No
[2024-06-19 11:34] LABS: Albumin* 3.8 g/dL (3.3-5.0); Chloride* 107 mmol/L (96-114); INR 1.06 (0.91-1.10); Prothrombin Time 14.4 Seconds
[2024-06-19 11:35] LABS: Potassium* 4.5 mmol/L (3.6-5.1); Sodium* 141 mmol/L (135-149)
[2024-06-19 11:37] LABS: Alkaline Phosphatase* 74 U/L (40-150); Anion Gap 11 mEq/L (7-15); Aspartate Amino Transferase* 80 U/L (12-35); Bilirubin Direct* 0.4 mg/dL (0.0-0.5); Bilirubin Total* 0.7 mg/dL (0.1-1.5); Blood Urea Nitrogen* 22 mg/dL (7-30); Carbon Dioxide* 23 mmol/L (20-32); Creatinine* 1.2 mg/dL (0.5-1.5); Est. Creatinine Clearance* 61.03; Estimated Glomerular Filt Rate 63 ml/min; Total Protein* 6.2 g/dL (6.0-8.3)
[2024-06-19 11:38] LABS: Alanine Aminotransferase* 39 U/L (4-50); Calcium* 8.7 mg/dL (8.4-10.6); Ethanol* 0.08 % (0.01-0.03); Glucose* 114 mg/dL (60-115); Magnesium* 2.2 mg/dL (1.5-2.6)
--- NOTE | 2024-06-19 12:04 | CRLHL7_ITS ---
For Patients: As a result of the Cures Act, medical imaging exams and procedure reports are released immediately into your electronic medical record. You may view this report before your referring provider. If you have questions, please contact your health care provider. INDICATION: Reduction imaging. (Sic) COMPARISON: Same day examination. TECHNIQUE: Three views left ankle FINDINGS: Reduced posterior angulation of the distal fibular fracture fragment. Persistent 5 mm posterior displacement. Additional findings as described in the earlier report. Dictated by Claus Garcia MD @ 06/19/2024 1:56:25 PM (Electronically Signed)
[2024-06-19] MEDS: 0.9 % SODIUM CHLORIDE 1000 ml 1,000 ML IV (12:10)
[2024-06-19] MEDS: PROPOFOL 10 MG/ML INJ 200 MG IVP (12:13)
[2024-06-19] MEDS: fentaNYL 100 MCG/2 ML inj 50 MCG IVP (12:29)
--- NOTE | 2024-06-19 12:52 | RESP.RT ---
Assist for airway management during conscious sedation for ankle management. Patient on 2 lpm nasal cannula with ETCO2 with no adverse events.
--- NOTE | 2024-06-19 13:21 | CRLHL7_ITS ---
For Patients: As a result of the Century Cures Act, medical imaging exams and procedure reports are released immediately into your electronic medical record. You may view this report before your referring provider. If you have questions, please contact your health care provider. INDICATION: Dyspnea. Cough. COMPARISON: 05/09/2022 TECHNIQUE: 1 view. FINDINGS: Medical Devices: None. Lung Volumes: Adequate inspiration. No significant atelectasis. Lungs: Clear lungs. Pleura and Pleural spaces: No significant pleural effusion. No pneumothorax. Mediastinum: Normal cardiomediastinal silhouette. Bony Thorax and Soft Tissues: No significant incidental/interval findings. Chronic posttraumatic change involving the lateral left clavicle. In-situ left axillary hemostatic surgical clips. IMPRESSION: No imaging findings pertinent to the indication for the exam or significant unrelated findings. Incidental findings described in the body of the report. Dictated by Claus Garcia MD @ 06/19/2024 3:32:13 PM (Electronically Signed)
--- NOTE | 2024-06-19 14:19 | P.ORCN_ITS ---
History of Present Illness HPI Date Seen: 06/19/24 Consult date: 06/19/24 Requesting physician: Alise Dolan Chief complaint: Ankle injury Narrative: Orthopedics consulted on this 73-year-old pleasant male after acute injury to his left ankle, date of injury 06/18/2024. 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 He tripped and fell over a cat. He has 3 house cats. Fell to the ground, unaware of loss of consciousness or head contact. Unaware that he had a left ankle injury. Woke up the next morning with noted pain and deformity to the left ankle. Unable to bear weight left ankle. Summoned EMS. He was found to have a left ankle fracture dislocation in the ER. Wound noted to the medial ankle. No obvious open fracture. Patient has extensive medical history including heart failure, afib on chronic anticoagulation, history of NSTEMI, traumatic brain injury, pre diabetes and alcohol dependence/abuse. Review of Systems Narrative: No recent fevers, chills, or aches. No recent illnesses. 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 (ICD-10) Chronic dyspnea ?R06.09 - Other forms of dyspnea (ICD-10) NSTEMI (non-ST elevated myocardial infarction) ?I21.4 - Non-ST elevation (NSTEMI) myocardial infarction (ICD-10) Heart failure with reduced ejection fraction ?I50.20 - Unspecified systolic (congestive) heart failure (ICD-10) Pulmonary embolism ?I26.99 - Other pulmonary embolism without acute cor pulmonale (ICD-10) Atrial fibrillation with rapid ventricular response ?I48.91 - Unspecified atrial fibrillation (ICD-10) B12 deficiency ?E53.8 - Deficiency of other specified B group vitamins (ICD-10) Statin declined ?Z53.20 - Procedure and treatment not carried out because of patient's decision for unspecified reasons (ICD-10) Essential hypertension ?I10 - Essential (primary) hypertension (ICD-10) Morbid obesity with body mass index (BMI) of 40.0 or higher ?E66.01 - Morbid (severe) obesity due to excess calories (ICD-10) Traumatic brain injury (2016) ?S06.9X9A - Unspecified intracranial injury with loss of consciousness of unspecified duration, initial encounter (ICD-10) Obstructive sleep apnea syndrome ?G47.33 - Obstructive sleep apnea (adult) (pediatric) (ICD-10) Hyperlipidemia ?E78.5 - Hyperlipidemia, unspecified (ICD-10) Hearing loss ?H91.90 - Unspecified hearing loss, unspecified ear (ICD-10) Gout ?M10.9 - Gout, unspecified (ICD-10) Gastroesophageal reflux disease ?K21.9 - Gastro-esophageal reflux disease without esophagitis (ICD-10) Chronic cough ?R05.3 - Chronic cough (ICD-10) Chronic back pain ?M54.9 - Dorsalgia, unspecified (ICD-10) ?G89.29 - Other chronic pain (ICD-10) Alcohol dependence ?F10.20 - Alcohol dependence, uncomplicated (ICD-10) Adenomatous polyp of colon (2012) ?D12.6 - Benign neoplasm of colon, unspecified (ICD-10) Lumbar compression fracture ?S32.000A - Wedge compression fracture of unspecified lumbar vertebra, initial encounter for closed fracture (ICD-10) Hemothorax ?J94.2 - Hemothorax (ICD-10) History of seizure (2015) ?Z87.898 - Personal history of other specified conditions (ICD-10) History of pulmonary embolism (2020) ?Z86.711 - Personal history of pulmonary embolism (ICD-10) History of depression (2008) ?Z86.59 - Personal history of other mental and behavioral disorders (ICD-10) Surgical History History of thoracentesis ?Z98.890 - Other specified postprocedural states (ICD-10) History of renal calculi (10/05/12) ?Z87.442 - Personal history of urinary calculi (ICD-10) History of malignant melanoma (2006) ?Z85.820 - Personal history of malignant melanoma of skin (ICD-10) Family History Father Coronary artery disease Mother Alzheimers disease Social History Narrative: He lives alone with his 3 cats between [place] and [place]. Closest family is his brother car all with lives in [facility]. 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 Code status is full. He does not smoke cigarettes. He drinks alcohol at least 8 shots per day. What is your current living situation?: I presently have a place to live Problems where you live: unsafe martin/stairs Problems where you live details: no, just cat hair In the past 12 months, utilities in danger of being shut off: no In past 12 months, lack of transportation kept you from medical appts, meetings, work, or getting things needed for daily living: no In the past 12 mos, have been you worried that your food would run out before you had money to buy more?: never true In the past 12 mos, the food you bought just didn't last and you didn't have money to buy more?: never true Highest level of school completed/degree received: Bachelor's degree Smoking Status: Never smoker Do you use any of these nicotine containing products: None Second hand tobacco smoke exposure: No How often do you have a drink containing alcohol: 4 or more times a week Alcohol type: hard liquor Alcohol type details: whiskey 8 shots daily How many standard drinks containing alcohol do you have on a typical day: 5 or 6 How often do you have six or more drinks on one occasion: Less than monthly AUDIT-C Alcohol total score: 7 Non-prescribed substance use: denies use Caffeine: Yes (occassional) How often does anyone, including family, friends and others, physically hurt you : never How often does anyone, including family, friends and others, insult or talk down to you: never How often does anyone, including family, friends and others, threaten you with harm: never How often does anyone, including family, friends and others, scream or curse at you: never service: No Meds Home Medications and Allergies Home Medications ?Medication ?Instructions ?Recorded ?Confirmed ?Type amiodarone 200 mg tablet 200 mg PO DAILY 06/19/24 06/19/24 History apixaban 5 mg tablet (Eliquis) 5 mg PO BID 06/19/24 06/19/24 History cholecalciferol (vitamin D3) 25 1,000 unit PO .when remembered 06/19/24 06/19/24 History mcg (1,000 unit) chewable tablet cyanocobalamin (vitamin B-12) 100 100 mcg PO .when remembered 06/19/24 06/19/24 History mcg tablet empagliflozin 10 mg tablet 10 mg PO DAILY 06/19/24 06/19/24 History (Jardiance) magnesium oxide 500 mg capsule 500 mg PO .when remembered 06/19/24 06/19/24 History metoprolol succinate 50 mg 50 mg PO DAILY 06/19/24 06/19/24 History tablet,extended release 24 hr pravastatin 20 mg tablet 20 mg PO QPM 06/19/24 06/19/24 History torsemide 20 mg tablet 20 mg PO DAILY PRN 06/19/24 06/19/24 History valsartan 40 mg tablet 80 mg PO DAILY 06/19/24 06/19/24 History Allergies Allergy/AdvReac Type Severity Reaction Status Date / Time trolamine salicylate Allergy Intermediate Rash Verified 06/19/24 10:24 losartan Allergy Mild Cough Verified 06/19/24 10:24 lisinopril Allergy Unknown Cough Verified 06/19/24 10:24 Ortho Exam Narrative Exam Narrative: General: Well-developed, well-nourished, A&Ox 3, no apparent acute distress. Lying supine ER bed. Pulmonary: Breathing pattern regular, even, without apparent distress or audible wheeze present. Left Ankle: Gross deformity to the left ankle 90? external rotation with knee neutral skin: There is soft tissue swelling/deformity noted to the anterior tibiotalar joint with skin tension. Small 1.5 cm in diameter abrasion medial ankle, medial malleolus region that is not actively bleeding; eschar noted to the region. No drainage. Moderate ankle swelling, no obvious ecchymosis or erythema. Foot/ankle supple Tender to mild touch lateral ankle No stability or strength testing performed 2+ DP/PT pulses, pink warm digits with brisk cap refill; intact dermatomes and myotomes distally including the common peroneal, tibial, saphenous, and sural nerve distributions Const Vital Signs, click to edit/add: Vital Signs - 24 hr 06/19/24 10:24 06/19/24 12:10 Temperature 97.7 F Pulse Rate [Pulse Oximeter] 69 Respiratory Rate 16 Blood Pressure [Right Upper Arm] 118/72 Pulse Oximetry 95 95 Oxygen Delivery Method Room Air Nasal Cannula Oxygen Flow Rate 2 Results Labs Labs: Laboratory Results - last 48 hr 06/19/24 11:00 WBC 5.37 RBC 3.77 L Hgb 13.1 L Hct 39.7 MCV 105 H MCH 35 H MCHC 33 RDW Coeff of Janey 15.9 H Plt Count 116 L Neut % (Auto) 65.7 Lymph % (Auto) 21.0 [place] % (Auto) 10.8 Eos % (Auto) 1.3 Baso % (Auto) 0.6 Neut # (Auto) 3.53 Lymph # (Auto) 1.13 [place] # (Auto) 0.60 Eos # (Auto) 0.07 Baso # (Auto) 0.03 Abs Immat Gran (auto) 0.03 Imm/Tot Granulo (auto) 0.6 INR 1.06 Sodium 141 Potassium 4.5 Chloride 107 Carbon Dioxide 23 Anion Gap 11 BUN 22 Creatinine 1.2 Estimated Creat Clear 61.03 Estimated GFR 63 Glucose 114 Calcium 8.7 Magnesium 2.2 Total Bilirubin 0.7 Direct Bilirubin 0.4 AST 80 H ALT 39 Alkaline Phosphatase 74 Total Protein 6.2 Albumin 3.8 Ethyl Alcohol 0.08 H Diagnostic results Ankle/Foot x-ray: report reviewed and image reviewed Additional Comments: AP, lateral views of the left ankle ordered by different provider [facility] dated 06/19/2024. These images were reviewed and corroborated with the radiology report showing ankle fracture dislocation, fracture involving the distal diaphysis of the lateral malleolus. Distal lateral malleolus diaphyseal fracture apex anterior. Distal tibia is dislocated anterior to the talus. Widened medial ankle mortise with a valgus talar tilt. Soft tissue swelling present. No additional fractures or interosseous pathology. Multiple AP and lateral ankle x-rays post reduction and pre/post splinting ordered by different provider [facility] dated 06/19/2024. These images were reviewed and corroborated with the radiology report showing reduced tibiotalar joint. Improved reduction of the lateral malleolus with approximately 25% displacement on lateral view, widened medial clear space re garding ankle mortise. 1 pre splint AP image shows provider and applying pressure to the lateral malleolus which and typically reduces the fracture improves ankle mortise. No additional fractures noted. Calcifications noted at the distal aspect of the medial malleolus, medial talus. Assessment and Plan Assessment and plan (1) Closed fracture dislocation of left ankle joint: Problem comment: Nonweightbearing on left lower extremity pending surgery. Surgery is pending improvement in ankle swelling. Dr. Calles to re-evaluate on FridayJune 23. Status: Acute Plan We had a thorough discussion regarding pathology. Expressed the importance to reduce the ankle dislocation to take pressure off the articular cartilage, and help his ankle pain. This can be accomplished via closed reduction with manipulation under anesthesia. Emergency department provider explained the procedure to the patient. Explained risks, alternatives and benefits to the patient which include but are not limited to neurovascular injury, worsening of the fracture, unable to reduce the ankle, pain, etc... Patient provides consent for left ankle reduction with manipulation under anesthesia. After adequate propofol sedation provided, left lower extremity leg muscle relaxation obtained. This resulted in tibiotalar joint reduction that did not require significant manipulation, and mild improvement of the lateral malleolus fracture. Notable crepitus to the lateral malleolus. Pressure required on the lateral malleolus to maintain reduction. While still sedated, stirrup plaster splint applied with minimal padding to ensure proper immobilization of the reduction. Post reduction x-rays revealed reduced ankle mortise. Patient was awoken from conscious sedation without complications. No significant pain post reduction. He was neurovascularly intact pre and post ankle reduction. Elevation applied to left lower extremity. Due to his complicated social history, multiple comorbidities, and alcoholism, patient will be admitted to the hospital. Plans to proceed with surgery for the left ankle the ORIF in 7-10 days. Thank you for allowing me to participate in the patient's care.
[2024-06-19 14:22] LABS: Appearance Urine Slightly Cloudy (Clear); Bilirubin Urine 1+ (Negative); Blood Urine Negative (Negative); Color Urine Amber (Yellow); Glucose Urine 2+ (Negative); Ketones Urine 1+ (Negative); Leukocyte Esterase Urine Negative (Negative); Nitrite Urine Negative (Negative); Protein Urine Trace (Negative); Specific Gravity Urine >= 1.030 (1.000-1.030); Urobilinogen Urine 0.2 (0.2-1.0); pH Urine 5.5 (5.0-8.5)
[2024-06-19 14:30] LABS: Bacteria Urine Few; RBC Urine 0-2 (0-2); Squamous Epithelial Cell Urine Few (None-Few)
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
[2024-06-19] MEDS: PHENobarbitaL 32.4 MG TABLET PO (15:13)
[2024-06-19] MEDS: GABAPENTIN 300 MG CAPSULE PO ×2 (15:13→20:33)
--- NOTE | 2024-06-19 16:03 | PC.NURSE ---
End of shift-- Pleasant and cooperative, alert and oriented patient was admitted to Med-surg from ED via cart. Hypertensive with systolic BP of 172, VS otherwise WNL and pt is afebrile. SPO2 >90% on RA. He denied any pain. Soft cast to LLE is C/D/I and cap refill in left toes is <3sec. LS CTA. He denied any nausea. Pt mildly shaky, but initial CIWA otherwise WNL. Pt given scheduled phenobarbital and gabapentin per MD order. Report to BECCA Reeves.
[2024-06-19] MEDS: MAGNESIUM OXIDE 400 MG TABLET PO (20:33)
[2024-06-19] MEDS: PRAVASTATIN SODIUM 20 MG TABLET PO (20:33)
[2024-06-19] MEDS: THIAMINE 100 MG TABLET 250 MG PO (20:34)
[2024-06-19] MEDS: LORazepam 0.5 MG TABLET PO (20:34)
[2024-06-19] MEDS: CYANOCOBALAMIN (VITAMIN B-12) 500 MCG TABLET PO (20:34)
[2024-06-19] MEDS: APIXABAN 5 MG TABLET PO (20:35)
[2024-06-19] MEDS: OXYCODONE 5 MG TABLET 2.5 MG PO (21:43)
[2024-06-19] MEDS: SODIUM CHLORIDE 0.9 % (FLUSH) 10 ML SYRINGE 5 ML IVF (21:44)
--- NOTE | 2024-06-19 23:08 | PC.NURSE ---
Pt VSS. A & O. Tolerated a regular diet well. NWB on left leg due to ankle fracture. Ceiling lift to commode for BM and tolerated well. c/o pain only with movement of left leg.
[2024-06-20] VITALS (12 sets, daily range): BP systolic 114–144; BP diastolic 5–85; PULSE 67–81; RESP 16–18; TEMP 36.7–37.6; O2SAT 92–99
--- NOTE | 2024-06-20 06:14 | PC.NURSE ---
Shift note: Pt has been in bed throughout the shift. Pain level rated at 2. Alert and oriented. JAKOB wrap to the left ankle, elevated and ice pack applied. No SOB, chest pain or s/s of compartment syndrome observed. Pt had adequate sleep. Vitally stable.
[2024-06-20] MEDS: ACETAMINOPHEN 325 MG TABLET 650 MG PO ×2 (08:32→18:51)
[2024-06-20] MEDS: OXYCODONE 5 MG TABLET 2.5 MG PO ×2 (08:35→08:36)
[2024-06-20] MEDS: THIAMINE 100 MG TABLET 250 MG PO ×2 (09:45→20:50)
[2024-06-20] MEDS: METOPROLOL SUCCINATE (XL) 50 MG TAB PO (09:46)
[2024-06-20] MEDS: VALSARTAN 80 MG TABLET PO (09:46)
[2024-06-20] MEDS: GABAPENTIN 300 MG CAPSULE PO ×3 (09:46→20:50)
[2024-06-20] MEDS: AMIODARONE 200 MG TABLET PO (09:46)
[2024-06-20] MEDS: APIXABAN 5 MG TABLET PO ×2 (09:47→20:51)
[2024-06-20] MEDS: SODIUM CHLORIDE 0.9 % (FLUSH) 10 ML SYRINGE 5 ML IVF ×2 (09:47→20:50)
[2024-06-20] MEDS: EMPAGLIFLOZIN 10 MG TABLET PO (09:47)
--- NOTE | 2024-06-20 10:11 | P.IMPN_ITS ---
Progress Note: A&P Assessment and plan (1) Closed fracture dislocation of left ankle joint: Problem details: Nonweightbearing on left lower extremity pending surgery. Surgery is pending improvement in ankle swelling. Dr. Calles to re-evaluate on FridayJune 23. Status: Acute (2) Mobility impaired: Problem details: Nonweightbearing on left lower extremity due to unstable ankle fracture. Currently unable to function independently. May have more prolonged mobility even after ORIF. Likely needs placement for rehab Status: Acute (3) Heart failure with reduced ejection fraction: Problem details: - TTE 04/17/2023, results below: - Entresto initiated 04/17 - reviewed importance of ETOH cessation at length, pt verbalized understanding Final Impressions: 1. Technically limited exam. 2. Normal left ventricular size, normal wall thickness, severely reduced global systolic function, calculated EF of 18 %. 3. Echo contrast was administrered to enhance visualization of all left ventricular segments. 4. Right ventricular cavity size is mildly enlarged, global systolic RV funct ion is severely reduced. 5. Severely enlarged left atrium. 6. The aortic valve is sclerotic, no stenosis and trivial regurgitation. 7. The mitral valve is tethered, severe mitral regurgitation. 8. Tricuspid valve is tethered. 9. Moderate tricuspid regurgitation. 10. The inferior vena cava is dilated, respiratory size variation less than 50%. 11. Mildly increased estimated pulmonary pressures by tricuspid regurgitation velocity and right atrial pressure (33 mmHg plus RAP). 12. Small pericardial effusion. 13. Large pleural effusion. Status: Acute (4) Alcohol dependence: Problem details: - CIVT protocol while hospitalized. Doing well so far. On gabapentin. Uncertain history of adverse reaction to phenobarbital in the past. On June 19 he received oral phenobarbital without adverse reaction. Status: Acute (5) Hearing loss: Problem details: Has hearing aids Status: Acute (6) Obstructive sleep apnea syndrome: Problem details: - non compliant with CPAP therapy Status: Acute (7) Traumatic brain injury: Problem details: - 2016 - skull fracture, SDH, SAH, left visual field cut and left sided neglect Status: Acute (8) Essential hypertension: Problem details: Continue home meds and monitor Status: Acute (9) Chronic anticoagulation: Problem details: On anticoagulation for AFib. Has been on and off of this in the past. History of PE in 2020. It was stopped in the past because a hemo thorax. Takes apixaban 5 mg b.i.d. but reports frequently missing his evening dose. Consider switch to daily dosing Xarelto. Continue anticoagulation today then hold for possible surgery in 3 days. Status: Acute (10) Atrial fibrillation: Problem details: Currently in normal sinus rhythm. Currently on anticoagulation inconsistently, rate control and rhythm control. Status: Acute Plan Continue in hospital pending safe discharge plan. Continue to assess patient's mobility. Monitor and manage alcohol withdrawal and other chronic medical problems. Time Spent With Patient Total time spent: Total time spent today is 35 minutes in evaluation management Subjective Date Seen: 06/20/24 Interval history: Jose Angel Powers is a 73 year old male admitted through the emergency department with left ankle injury after a fall last night. Patient has a history of alcoholism, atrial fibrillation with rapid ventricular response, heart failure with reduced ejection fraction, coronary artery disease without obstructive coronary arteries on angiogram last year, hypertension, obesity, sleep apnea, TBI with seizure. He reports he fell last evening injuring his left ankle. He was able to get to bed last night but when he woke up this morning he could not bear weight secondary to pain so he called 911. He does not remember the circumstances of the fall though thinks he may have tripped over a book on his floor. He reports he was otherwise feeling well yes terday without recent illness. He is not aware of any other injuries. He has longstanding alcohol use disorder. He has declined treatment for this in the past. He reports he is drinking at least 8 shots per day. 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 He has not had severe alcohol withdrawal problems but does get tremulous by mid afternoon if he does not drink. In the past he has been given gabapentin which has largely controlled his withdrawal symptoms. Phenobarbital as listed as an allergy. He received oral phenobarb on 06/19/2024 without adverse reaction. He was hospitalized last year in [facility] and transferred to [facility] for cardiology care due to heart failure with reduced ejection fraction of 18%, elevated troponin, community-acquired pneumonia, bilateral pleural effusions. Echocardiogram at that time showed severe mitral regurgitation and ejection fraction of 18%. Echocardiogram from January of 2024 shows ejection fraction of 49% and mild mitral regurgitation. He reports he has been generally doing fairly well with his heart failure symptoms. June 20. Ankle pain is better controlled in the splint. He has been elevating this. He reports he is otherwise feeling well. He has had minimal alcohol withdrawal signs or symptoms. Low CIWA scores. He did receive lorazepam 0.5 mg at bedtime to help with sleep. Received phenobarb orally yesterday without adverse reaction. Nursing staff of been using a ceiling lift to transfer from bed to chair. Exam Narrative: Exam Narrative: He is alert and appears in no distress. He is not tremulous. He is pleasant cooperative. Respirations are clear to auscultation. Cardiovascular: S1, S2, regular rhythm. Abdomen is soft without tenderness or mass. Splint on his left lower extremity is noted. He moves his toes well. No apparent edema. Good capillary refill. Warm to touch. Const: Vital Signs, click to edit/add: Vital Signs - 24 hr 06/19/24 10:24 06/19/24 11:32 06/19/24 12:01 Temperature 97.7 F Pulse Rate 66 69 Pulse Rate [Pulse Oximeter] 69 Respiratory Rate 16 14 16 Blood Pressure 103/65 127/73 Blood Pressure [Le ft Arm] Blood Pressure [Ri ght Upper Arm] 118/72 Pulse Oximetry 95 95 95 Oxygen Delivery Me thod Room Air Oxygen Flow Rate 06/19/24 12:07 06/19/24 12:10 06/19/24 12:11 Temperature Pulse Rate 63 62 Pulse Rate [Pulse Oximeter] Respiratory Rate 12 13 Blood Pressure 123/77 133/78 Blood Pressure [Le ft Arm] Blood Pressure [Ri ght Upper Arm] Pulse Oximetry 99 95 99 Oxygen Delivery Me thod Nasal Cannula Oxygen Flow Rate 2 06/19/24 12:12 06/19/24 12:31 06/19/24 13:01 Temperature Pulse Rate 64 68 65 Pulse Rate [Pulse Oximeter] Respiratory Rate 14 14 22 Blood Pressure 133/79 111/85 135/74 Blood Pressure [Le ft Arm] Blood Pressure [Ri ght Upper Arm] Pulse Oximetry 96 92 91 Oxygen Delivery Me thod Oxygen Flow Rate 06/19/24 13:31 06/19/24 14:15 06/19/24 14:17 Temperature 98.3 F Pulse Rate 66 Pulse Rate [Pulse Oximeter] 67 Respiratory Rate 19 18 18 Blood Pressure 142/75 H Blood Pressure [Le ft Arm] 153/93 H Blood Pressure [Ri ght Upper Arm] Pulse Oximetry 93 98 95 Oxygen Delivery Me thod Room Air Nasal Cannula Oxygen Flow Rate 2 06/19/24 15:00 06/19/24 15:00 06/19/24 15:00 Temperature 97.9 F Pulse Rate Pulse Rate [Pulse Oximeter] 70 70 Respiratory Rate 18 18 Blood Pressure Blood Pressure [Le ft Arm] 162/87 H Blood Pressure [Ri ght Upper Arm] Pulse Oximetry 93 93 Oxygen Delivery Me thod Room Air Room Air Oxygen Flow Rate 06/19/24 15:00 06/19/24 15:08 06/19/24 15:56 Temperature 97.9 F Pulse Rate 71 Pulse Rate [Pulse Oximeter] 64 70 Respiratory Rate 18 18 Blood Pressure Blood Pressure [Le ft Arm] 172/94 H 162/87 H Blood Pressure [Ri ght Upper Arm] Pulse Oximetry 98 97 Oxygen Delivery Me thod Room Air Room Air Oxygen Flow Rate 06/19/24 17:00 06/19/24 18:00 06/19/24 19:00 Temperature 97.9 F 97.9 F 98.5 F Pulse Rate Pulse Rate [Pulse Oximeter] 74 71 69 Respiratory Rate 18 18 20 Blood Pressure Blood Pressure [Le ft Arm] 149/93 H 133/77 138/80 Blood Pressure [Ri ght Upper Arm] Pulse Oximetry 97 97 97 Oxygen Delivery Me thod Room Air Room Air Room Air Oxygen Flow Rate 06/19/24 22:43 06/19/24 23:00 06/19/24 23:00 Temperature 98.5 F Pulse Rate Pulse Rate [Pulse Oximeter] 69 69 Respiratory Rate 20 20 18 Blood Pressure Blood Pressure [Le ft Arm] 138/80 Blood Pressure [Ri ght Upper Arm] Pulse Oximetry 97 97 Oxygen Delivery Me thod Room Air Room Air Oxygen Flow Rate 2 06/19/24 23:00 06/19/24 23:00 06/20/24 02:00 Temperature 99.2 F 99 F Pulse Rate 71 Pulse Rate [Pulse Oximeter] 67 78 Respiratory Rate 18 18 Blood Pressure Blood Pressure [Le ft Arm] 135/81 133/85 Blood Pressure [Ri ght Upper Arm] Pulse Oximetry 97 97 Oxygen Delivery Me thod Room Air Room Air Oxygen Flow Rate 06/20/24 03:00 06/20/24 06:00 06/20/24 07:00 Temperature 99 F 99.1 F 99.0 F Pulse Rate Pulse Rate [Pulse Oximeter] 78 81 74 Respiratory Rate 18 18 18 Blood Pressure Blood Pressure [Le ft Arm] 133/85 130/78 144/71 H Blood Pressure [Ri ght Upper Arm] Pulse Oximetry 97 96 93 Oxygen Delivery Me thod Room Air Room Air Room Air Oxygen Flow Rate Documenting provider has reviewed patient's vital signs: yes Labs Labs: Laboratory Results - last 24 hr 06/19/24 06/19/24 11:00 14:16 WBC 5.37 RBC 3.77 L Hgb 13.1 L Hct 39.7 MCV 105 H MCH 35 H MCHC 33 RDW Coeff of Janey 15.9 H Plt Count 116 L Neut % (Auto) 65.7 Lymph % (Auto) 21.0 Stevens % (Auto) 10.8 Eos % (Auto) 1.3 Baso % (Auto) 0.6 Neut # (Auto) 3.53 Lymph # (Auto) 1.13 Stevens # (Auto) 0.60 Eos # (Auto) 0.07 Baso # (Auto) 0.03 Abs Immat Gran (auto) 0.03 Imm/Tot Granulo (auto) 0.6 INR 1.06 Sodium 141 Potassium 4.5 Chloride 107 Carbon Dioxide 23 Anion Gap 11 BUN 22 Creatinine 1.2 Estimated Creat Clear 61.03 Estimated GFR 63 Glucose 114 Calcium 8.7 Magnesium 2.2 Total Bilirubin 0.7 Direct Bilirubin 0.4 AST 80 H ALT 39 Alkaline Phosphatase 74 Total Protein 6.2 Albumin 3.8 Urine Color Sania A Urine Appearance Slightly Cloudy A Urine pH 5.5 Ur Specific Purchase >= 1.030 Urine Protein Trace A Urine Glucose (UA) 2+ A Urine Ketones 1+ A Urine Blood Negative Urine Nitrite Negative Urine Bilirubin 1+ A Urine Urobilinogen 0.2 Ur Leukocyte Esterase Negative Urine RBC 0-2 Urine WBC 5-10 A Ur Squamous Epith Cells Few Urine Bacteria Few A Ethyl Alcohol 0.08 H
--- NOTE | 2024-06-20 15:38 | PC.NURSE ---
End of shift-- Pleasant and cooperative, alert and oriented patient. VSS and pt is afebrile. SPO2 maintained >90% on RA. Pt c/o pain in right knee this morning which was relieved with Oxycodone and Tylenol PRN. Ice pack applied and extremity elevated on pillows. Soft cast in place on LLE and is C/D/I. Cap refill on left toes <3sec and pt is able to move toes. LS CTA. He denied nausea and ate 100% of a regular breakfast without difficulty. Refused lunch in lieu of a nap. BS+ x4. Telemetry shows NSR with 1st degree AV block and BBB. Murmur. He was up to the chair via ceiling lift and tolerated it well. Pt refused PT today and was encouraged strongly to work with them tomorrow. Brother was at bedside this afternoon and appears loving and supportive.
[2024-06-20] MEDS: MAGNESIUM OXIDE 400 MG TABLET PO (20:51)
[2024-06-20] MEDS: PRAVASTATIN SODIUM 20 MG TABLET PO (20:51)
[2024-06-20] MEDS: CYANOCOBALAMIN (VITAMIN B-12) 500 MCG TABLET PO (20:51)
[2024-06-20] MEDS: LORazepam 0.5 MG TABLET PO (20:52)
--- NOTE | 2024-06-20 23:02 | PC.NURSE ---
Pt VSS. A & O. Ice pack applied to left knee for comfort due to c/o pain. PT had a large BM this evening. Reassessment of surgery will be done this Friday to see if pt is eligible. Tolerated a regular diet well.
[2024-06-21] VITALS (13 sets, daily range): BP systolic 101–136; BP diastolic 58–79; PULSE 71–86; RESP 18–24; TEMP 36.7–38.4; O2SAT 93–96
--- NOTE | 2024-06-21 05:45 | PC.NURSE ---
[id number]: Patient pleasant and cooperative. CIWA's unremarkable. Rates pain 2/10 and declined pain medications. LLE wrapped in soft cast C/D/I and elevated. Denies N/V. Eating and voiding. Afebrile.
[2024-06-21] MEDS: THIAMINE 100 MG TABLET 250 MG PO ×2 (09:20→21:19)
[2024-06-21] MEDS: EMPAGLIFLOZIN 10 MG TABLET PO (09:21)
[2024-06-21] MEDS: METOPROLOL SUCCINATE (XL) 50 MG TAB PO (09:21)
[2024-06-21] MEDS: SODIUM CHLORIDE 0.9 % (FLUSH) 10 ML SYRINGE 5 ML IVF ×2 (09:21→21:19)
[2024-06-21] MEDS: AMIODARONE 200 MG TABLET PO (09:21)
[2024-06-21] MEDS: GABAPENTIN 300 MG CAPSULE PO ×3 (09:21→21:19)
[2024-06-21] MEDS: VALSARTAN 80 MG TABLET PO (09:21)
--- NOTE | 2024-06-21 10:23 | NUTR.NU ---
RDN with diet education related to Heart Healthy diet order. Patient admitted for left ankle fracture and dislocation. Surgery is pending. Past medical history includes congestive heart failure, NSTEMI, hyperlipidemia, alcohol dependence, and traumatic brain injury. Current weight 256 lb 12.8 oz; height 6ft 1in; BMI 33.9 kg/m2. Patient reports weight has been stable recently. Current diet order is Heart Healthy. Meal intakes have been 100%. RDN visited with patient whom reports good appetite. He tries to follow a low sodium diet at home. HE usually eats about 1-2 meals daily. He declined diet education related to congestive heart failure. He also declined educational materials. Patient had no concerns at this time. RDN will continue to monitor and follow-up prn.
[2024-06-21] MEDS: ACETAMINOPHEN 325 MG TABLET 650 MG PO (11:10)
--- NOTE | 2024-06-21 13:45 | P.IMPN_ITS ---
Progress Note: A&P Assessment and plan (1) Closed fracture dislocation of left ankle joint: Problem details: Nonweightbearing on left lower extremity pending surgery. Surgery is pending improvement in ankle swelling. Dr. Calles to re-evaluate on FridayJune 23. Status: Acute (2) Chronic anticoagulation: Problem details: On anticoagulation for AFib. Has been on and off of this in the past. History of PE in 2020. It was stopped in the past because a hemo thorax. Takes apixaban 5 mg b.i.d. but reports frequently missing his evening dose. Consider switch to daily dosing Xarelto. Continue anticoagulation today then hold for possible surgery in 3 days. Status: Acute (3) Atrial fibrillation: Problem details: Currently in normal sinus rhythm. Currently on anticoagulation inconsistently, rate control and rhythm control. Status: Acute (4) Mobility impaired: Problem details: Nonweightbearing on left lower extremity due to unstable ankle fracture. Currently unable to function independently. May have more prolonged mobility even after ORIF. Likely needs placement for rehab Status: Acute (5) Alcohol dependence: Problem details: - CIWA protocol while hospitalized. Doing well so far. On gabapentin. Uncertain history of adverse reaction to phenobarbital in the past. On er he received oral phenobarbital without adverse reaction. Status: Acute Plan Continue in hospital for management of pain and disability and ankle fracture pending surgery and safe discharge plan. Unlikely to be able to go home with independent living until he is able to bear weight on his left foot and ankle. Time Spent With Patient Total time spent: Total time spent today is 40 minutes in discussing with patient and other providers management of ankle fracture, disability, chronic medical problems and plan of disposition Subjective Date Seen: 06/21/24 Interval history: Jose Angel Powers is a 73 year old male admitted through the emergency department with left ankle injury after a fall last night. Patient has a history of alcoholism, atrial fibrillation with rapid ventricular response, heart failure with reduced ejection fraction, coronary artery disease without obstructive coronary arteries on angiogram last year, hypertension, obesity, sleep apnea, TBI with seizure. He reports he fell last evening injuring his left ankle. He was able to get to bed last night but when he woke up this morning he could not bear weight secon lala to pain so he called 911. He does not remember the circumstances of the fall though thinks he may have tripped over a book on his floor. He reports he was otherwise feeling well yesterday without recent illness. He is not aware of any other injuries. He has longstanding alcohol use disorder. He has declined treatment for this in the past. He reports he is drinking at least 8 shots per day. 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 He has not had severe alcohol withdrawal problems but does get tremulous by mid afternoon if he does not drink. In the past he has been given gabapentin which has largely controlled his withdrawal symptoms. Phenobarbital as listed as an allergy. He received oral phenobarb on 06/19/2024 without adverse reaction. He was hospitalized last year in [facility] and transferred to [facility] for cardiology care due to heart failure with reduced ejection fraction of 18%, elevated troponin, community-acquired pneumonia, bilateral pleural effusions. Echocardiogram at that time showed severe mitral regurgitation and ejection fraction of 18%. Echocardiogram from January of 2024 shows ejection fraction of 49% and mild mitral regurgitation. He reports he has been generally doing fairly well with his heart failure symptoms. June 20. Ankle pain is better controlled in the splint. He has been elevating this. He reports he is otherwise feeling well. He has had minimal alcohol withdrawal signs or symptoms. Low CIWA scores. He did receive lorazepam 0.5 mg at bedtime to help with sleep. Received phenobarb orally yesterday without adverse reaction. Nursing staff of been using a ceiling lift to transfer from bed to chair. 06/21/2024: Patient reports generally doing well. Still requiring the ceiling lift to transfer. Physical therapy notes that he is unable to stand and pivot on 1 leg. Pain is been adequately controlled. No evidence of alcohol withdrawal. Exam Narrative: Exam Narrative: He is alert and appears in no distress. Not tremulous. Respirations are clear to auscultation. Cardiovascular: S1, S2, regular rate and rhythm. Abdomen: Bowel sounds active. Abdomen is soft without tenderness or mass. Left leg splint in place. Toes are warm to touch with good capillary refill and intact sensation Const: Vital Signs, click to edit/add: Vital Signs - 24 hr 06/20/24 15:00 06/20/24 15:00 06/20/24 15:00 Temperature 99.3 F Pulse Rate Pulse Rate [Pulse Oximeter] 70 70 Pulse Rate [Right Radial] Respiratory Rate 16 16 16 Blood Pressure [Le ft Arm] 114/75 Pulse Oximetry 99 99 Oxygen Delivery Me thod Room Air Room Air Oxygen Flow Rate 06/20/24 15:00 06/20/24 16:00 06/20/24 18:51 Temperature 99.3 F 99.6 F Pulse Rate 67 Pulse Rate [Pulse Oximeter] 70 Pulse Rate [Right Radial] Respiratory Rate 16 Blood Pressure [Le ft Arm] 114/5 L Pulse Oximetry 99 Oxygen Delivery Me od Room Air Oxygen Flow Rate 06/20/24 19:00 06/20/24 20:00 06/21/24 00:00 Temperature 99.6 F 99.6 F Pulse Rate Pulse Rate [Pulse Oximeter] 78 78 Pulse Rate [Right Radial] Respiratory Rate 16 16 20 Blood Pressure [Le ft Arm] 126/69 126/69 Pulse Oximetry 96 96 [facility] Room Air Oxygen Flow Rate 2 06/21/24 00:07 06/21/24 01:15 06/21/24 01:15 Temperature 99.7 F H 99.7 F H Pulse Rate 73 Pulse Rate [Pulse Oximeter] 75 75 Pulse Rate [Right Radial] Respiratory Rate 20 20 Blood Pressure [Le ft Arm] 124/78 124/78 Pulse Oximetry 93 93 [facility] Room Air Oxygen Flow Rate 06/21/24 03:08 06/21/24 05:39 06/21/24 07:50 Temperature 99.7 F H Pulse Rate 77 Pulse Rate [Pulse Oximeter] 75 Pulse Rate [Right Radial] Respiratory Rate 22 22 Blood Pressure [Le ft Arm] 124/78 Pulse Oximetry 93 Oxygen Delivery Me od Room Air Oxygen Flow Rate 06/21/24 07:50 06/21/24 07:50 06/21/24 07:50 Temperature 101.2 F H Pulse Rate Pulse Rate [Pulse Oximeter] 80 Pulse Rate [Right Radial] 84 Respiratory Rate 24 24 24 Blood Pressure [Le ft Arm] 136/79 Pulse Oximetry 93 93 [facility] Room Air Oxygen Flow Rate 06/21/24 08:16 06/21/24 11:00 06/21/24 12:00 Temperature 101.2 F H 98.4 F 98.4 F Pulse Rate Pulse Rate [Pulse Oximeter] 86 86 Pulse Rate [Right Radial] 80 Respiratory Rate 18 18 18 Blood Pressure [Le ft Arm] 136/79 112/73 112/73 Pulse Oximetry 93 96 96 Oxygen Delivery Me thod Room Air Room Air Room Air Oxygen Flow Rate Documenting provider has reviewed patient's vital signs: yes
[2024-06-21] MEDS: SENNOSIDES/DOCUSATE TABLET 1 TAB PO ×2 (13:48→21:19)
--- NOTE | 2024-06-21 14:08 | CRLHL7_ITS ---
For Patients: As a result of the Century Cures Act, medical imaging exams and procedure reports are released immediately into your electronic medical record. You may view this report before your referring provider. If you have questions, please contact your health care provider. Indication: left knee pain post fall Technique: Three views of the left knee. Comparison: None. Findings: Overlying splint limits evaluation for fine bony detail of the lower leg. No acute displaced fracture or malalignment is seen. Mild tricompartmental degenerative changes of the knee. Small knee joint effusion. Benign-appearing sclerotic lesion in the distal femur. Impression: No acute displaced fracture or malalignment is seen. Mild tricompartmental degenerative changes of the knee. Small knee joint effusion. Dictated by Jey Ty MD @ 06/21/2024 4:12:30 PM (Electronically Signed)
[2024-06-21] MEDS: OXYCODONE 5 MG TABLET PO (15:34)
--- NOTE | 2024-06-21 15:52 | PC.SOCIAL ---
Addendum entered by SONU Retana 06/21/24 15:57: Discharge planning: hydroponics worker explained to pt that he may need short-term rehab after his hospital stay. Social work to follow-up as needed. Original Note: Discharge planning: hydroponics worker met with pt this afternoon to discuss early discharge planning. hydroponics worker provided pt with a [facility] for his review. hydroponics worker also explained what short-term rehab means, as pt at first thought that he would have to stay in the [facility]. Social work to follow-up as needed.
--- NOTE | 2024-06-21 19:32 | PC.NURSE ---
Nursing Care Hours: [id number] pt this was confused and disoriented this AM with elevated temp and clamminess. CIWA score 5. Repeat decreased and remained 1 throughout shift. Pain increased to 6/10, one oxycodone given. CMS of L foot intact, cap refill < 3. Cieling lift for transfers. Pt using urinal in bed. VSS. C/o pain to L knee, xray done see note.
[2024-06-21] MEDS: CYANOCOBALAMIN (VITAMIN B-12) 500 MCG TABLET PO (21:19)
[2024-06-21] MEDS: PRAVASTATIN SODIUM 20 MG TABLET PO (21:19)
[2024-06-21] MEDS: MAGNESIUM OXIDE 400 MG TABLET PO (21:19)
[2024-06-21] MEDS: LORazepam 0.5 MG TABLET PO (21:19)
[2024-06-22] VITALS (15 sets, daily range): BP systolic 96–127; BP diastolic 54–74; PULSE 65–78; RESP 18–27; TEMP 36.6–37.2; O2SAT 93–100
[2024-06-22] MEDS: ACETAMINOPHEN 325 MG TABLET 650 MG PO ×3 (02:21→20:44)
[2024-06-22] MEDS: OXYCODONE 5 MG TABLET PO ×2 (02:21→18:03)
--- NOTE | 2024-06-22 05:26 | PC.NURSE ---
[id number]: Patient pleasant and cooperative. CIWA's unremarkable. Afebrile. Denies CP/N/V. LLE in a soft cast C/D/I and elevated. Pain managed with PRN medications. Eating and voiding. Using urinal at bedside. Ceiling lift.
[2024-06-22] MEDS: AMIODARONE 200 MG TABLET PO (09:30)
[2024-06-22] MEDS: SENNOSIDES/DOCUSATE TABLET 1 TAB PO ×2 (09:30→20:43)
[2024-06-22] MEDS: EMPAGLIFLOZIN 10 MG TABLET PO (09:30)
[2024-06-22] MEDS: METOPROLOL SUCCINATE (XL) 50 MG TAB PO (09:31)
[2024-06-22] MEDS: VALSARTAN 80 MG TABLET PO (09:31)
[2024-06-22] MEDS: THIAMINE 100 MG TABLET 250 MG PO ×2 (09:31→20:44)
[2024-06-22] MEDS: SODIUM CHLORIDE 0.9 % (FLUSH) 10 ML SYRINGE 5 ML IVF ×2 (09:31→20:45)
[2024-06-22] MEDS: GABAPENTIN 300 MG CAPSULE PO ×3 (09:31→20:44)
--- NOTE | 2024-06-22 11:07 | CRLHL7_ITS ---
For Patients: As a result of the Century Cures Act, medical imaging exams and procedure reports are released immediately into your electronic medical record. You may view this report before your referring provider. If you have questions, please contact your health care provider. Indication: Injury, pain Technique: Left knee 3 views Comparison: 06/21/2024 Findings: No fracture. Small joint effusion. Mild degenerative changes. Benign sclerotic focus within the distal left femur. Cast material about the calf. Impression: No fracture. Dictated by Lucas Yost MD @ 06/22/2024 12:58:37 PM (Electronically Signed)
[2024-06-22] MEDS: ENOXAPARIN 40 MG/0.4 ML INJ SUBCUT (11:10)
--- NOTE | 2024-06-22 12:16 | PC.SOCIAL ---
Addendum entered by SONU Retana 06/22/24 16:49: Discharge planning: Received a call from Zulema at [facility] who asked for nursing notes to review. Zulema states they are reviewing the pt's referral. workers' compensation claims examiner sent over pt's nursing notes via fax this afternoon. Social work to follow-up as needed. Addendum entered by SONU Retana 06/22/24 16:20: Discharge planning: workers' compensation claims examiner reached out to Carmen Garrett via email, DON at [facility], to ask about male short-term rehab bed availability. workers' compensation claims examiner also reached out to Stephenie at [facility] in [place] to inquire about male short-term rehab bed openings. Stephenie said she may have some available beds on and could review a referral. workers' compensation claims examiner secure emailed a referral on behalf of the pt to Stephenie at [facility] in [place]. Social work to follow-up as needed. Addendum entered by SONU Retana 06/22/24 15:02: Discharge planning: workers' compensation claims examiner heard back from Shauna at [facility] and she shared that they currently have one male opening. workers' compensation claims examiner and social work digital media intern then went to talk to the pt about [facility]. workers' compensation claims examiner provided the pt with literature on [facility] to read through. Pt stated that he wanted this worker to keep looking for a facility that was closer to [place]. Pt is concerned about how far [place] is from the [place] area. The Krysten in [place] and [facility] are still reviewing the pt's referral. Social work to follow-up as needed. Addendum entered by SONU Retana 06/22/24 14:17: Discharge planning: workers' compensation claims examiner left a message for Shauna, management professional at [facility] in [place], [place], to see if they have any male openings. Social work to follow-up as needed. Addendum entered by SONU Retana 06/22/24 14:02: Discharge planning: Pt is being declined at [facility] due to his history of alcohol use and his current cognitive functioning. Social work to follow-up as needed. Original Note: Discharge planning: workers' compensation claims examiner and social work faculty member digital media intern met with pt this morning to discuss short-term care facility options. Pt stated that he would prefer to stay in [place] and go to [facility], but was also open to going to whatever facility he can get into. workers' compensation claims examiner did talk to the pt about his history of alcohol use and how it may be harder to find placement for him with that history. Pt stated that he will not have an issue with alcohol when he is at whatever facility he ends up going to. Pt did state that he went to rehab last year at some facility in [place]. Pt stated that his sister helped him get into that facility, as she lives near [place] and the staff at the hospital he was at during that time were having a hard time finding placement for him. workers' compensation claims examiner reached out to the following facilities for openings on behalf of the pt. The results are as follows. 1.) [facility] in [place]: Possible opening on Friday. workers' compensation claims examiner sent the referral to Светлана Esparza via secure email and Светлана wrote back stating that they would not be able to meet his needs at [facility]. 2.) [facility] at [facility]: Josiane stated they have openings, social work faculty member sent the referral to Josiane via secure email for review. 3.) [facility]: Sent the referral to Lurdes at [place] via secure email for review. Also informed their liason for Ag Lopez. 4.) [facility]: Sent the referral to Zulema via fax for review. Also informed their liason for Ag Lopez. Social work to follow-up as needed.
--- NOTE | 2024-06-22 15:24 | PC.NURSE ---
Nursing Care Hours: 1131-9910 Pt this shift calm and cooperative, alert and oriented. Rating pain 6 /10 with movement. Held oxycodone d/t soft BP bilat arms, reported to hospitalist. Pain treated with ice, elevation, and tylenol. Remained in bed this shift. Pt using urinal in bed, clear yellow output. Declined lunch.
[2024-06-22] MEDS: MAGNESIUM OXIDE 400 MG TABLET PO (20:43)
[2024-06-22] MEDS: PRAVASTATIN SODIUM 20 MG TABLET PO (20:44)
[2024-06-22] MEDS: LORazepam 0.5 MG TABLET PO (20:45)
[2024-06-22] MEDS: CYANOCOBALAMIN (VITAMIN B-12) 500 MCG TABLET PO (20:45)
--- NOTE | 2024-06-22 23:24 | PC.NURSE ---
Shift Note: Pt friendly and cooperative with cares. VS WNL, LS COA. LLE soft splint intact and leg elevated higher than pt's heart with icepacks x2. Pt rates pain 4/10, Tylenol and Oxy given for relief. Ceiling lift to chair for supper and pt had moderate sized BM at HS. He has been continent although his joaquin area is quite reddened and macerated. Joaquin cares done and barrier cream applied. Pt to be NPO at 0000.
[2024-06-23] VITALS (8 sets, daily range): BP systolic 111–125; BP diastolic 71–85; PULSE 65–75; RESP 18–20; TEMP 36.6–36.9; O2SAT 94–97
--- NOTE | 2024-06-23 06:16 | PC.NURSE ---
[id number] Pt slept well during the night, Ice to LLE, elevated. NPO at midnight but did drink 200cc H20 approx 0400. denies pain at rest, increased pain with movement, did not request any pain medication during the night.
[2024-06-23] MEDS: METOPROLOL SUCCINATE (XL) 50 MG TAB PO (08:37)
[2024-06-23] MEDS: EMPAGLIFLOZIN 10 MG TABLET PO (08:37)
[2024-06-23] MEDS: SENNOSIDES/DOCUSATE TABLET 1 TAB PO ×2 (08:37→21:09)
[2024-06-23] MEDS: GABAPENTIN 300 MG CAPSULE PO ×3 (08:37→21:09)
[2024-06-23] MEDS: THIAMINE 100 MG TABLET 250 MG PO (08:37)
[2024-06-23] MEDS: AMIODARONE 200 MG TABLET PO (08:37)
[2024-06-23] MEDS: SODIUM CHLORIDE 0.9 % (FLUSH) 10 ML SYRINGE 5 ML IVF ×2 (08:38→21:08)
[2024-06-23] MEDS: APIXABAN 5 MG TABLET PO ×2 (11:16→21:09)
[2024-06-23] MEDS: MULTIVITAMIN/MINERALS 1 TABLET 1 TAB PO (11:16)
[2024-06-23] MEDS: ACETAMINOPHEN 325 MG TABLET 650 MG PO ×2 (11:25→21:09)
--- NOTE | 2024-06-23 13:41 | P.IMPN_ITS ---
Progress Note: A&P Assessment and plan (1) Closed fracture dislocation of left ankle joint: Problem details: Nonweightbearing on left lower extremity pending surgery. Surgery is pending improvement in ankle swelling. Dr. Calles to re-evaluate on FridayJune 23. Status: Acute (2) Chronic anticoagulation: Problem details: On anticoagulation for AFib. Has been on and off of this in the past. History of PE in 2020. It was stopped in the past because a hemo thorax. Takes apixaban 5 mg b.i.d. but reports frequently missing his evening dose. Consider switch to daily dosing Xarelto. Continue anticoagulation today then hold for possible surgery in 3 days. Status: Acute (3) Atrial fibrillation: Problem details: Currently in normal sinus rhythm. Currently on anticoagulation inconsistently, rate control and rhythm control. Status: Acute (4) Mobility impaired: Problem details: Nonweightbearing on left lower extremity due to unstable ankle fracture. Currently unable to function independently. May have more prolonged mobility even after ORIF. Likely needs placement for rehab Status: Acute (5) Alcohol dependence: Problem details: - CIWA protocol while hospitalized. Doing well so far. On gabapentin. Uncertain history of adverse reaction to phenobarbital in the past. On he received oral phenobarbital without adverse reaction. Status: Acute Plan Continue in hospital pending surgery and safe discharge plan. Time Spent With Patient Total time spent: Total tend spent is 35 minutes Subjective Date Seen: 06/22/24 Interval history: Jose Angel Powers is a 73 year old male admitted through the emergency department with left ankle injury after a fall last night. Patient has a history of alcoholism, atrial fibrillation with rapid ventricular response, heart failure with reduced ejection fraction, coronary artery disease without obstructive coronary arteries on angiogram last year, hypertension, obesity, sleep apnea, TBI with seizure. He reports he fell last evening injuring his left ankle. He was able to get to bed last night but when he woke up this morning he could not bear weight secondary to pain so he called 911. He does not remember the circumstances of the fall though thinks he may have tripped over a book on his floor. He reports he was otherwise feeling well yesterday without recent illness. He is not aware of any other injuries. He has longstanding alcohol use disorder. He has declined treatment for this in the past. He reports he is drinking at least 8 shots per day. 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 He has not had severe alcohol withdrawal problems but does get tremulous by mid afternoon if he does not drink. In the past he has been given gabapentin which has largely controlled his withdrawal symptoms. Phenobarbital as listed as an allergy. He received oral phenobarb on 06/19/2024 without adverse reaction. He was hospitalized last year in [facility] and transferred to [facility] for cardiology care due to heart failure with reduced ejection fraction of 18%, elevated troponin, community-acquired pneumonia, bilateral pleural effusions. Echocardiogram at that time showed severe mitral regurgitation and ejection fraction of 18%. Echocardiogram from January of 2024 shows ejection fraction of 49% and mild mitral regurgitation. He reports he has been generally doing fairly well with his heart failure symptoms. June 20. Ankle pain is better controlled in the splint. He has been elevating this. He reports he is otherwise feeling well. He has had minimal alcohol withdrawal signs or symptoms. Low CIWA scores. He did receive lorazepam 0.5 mg at bedtime to help with sleep. Received phenobarb orally yesterday without adverse reaction. Nursing staff of been using a ceiling lift to transfer from bed to chair. 06/21/2024: Patient reports generally doing well. Still requiring the ceiling lift to transfer. Physical therapy notes that he is unable to stand and pivot on 1 leg. Pain is been adequately controlled. No evidence of alcohol withdrawal. 06/22/2024: Patient reports doing well. Pending orthopedic evaluation to determine when surgery/ORIF of left ankle can be done. Anticoagulation held and NPO after midnight pending surgery. Exam Narrative: Exam Narrative: He is alert no distress. Pleasant cooperative. Breathing is unlabored. No tremor. Abdomen is soft. Intact pulses and good capillary refill in his left foot toes. Somewhat diminished sensation in his toes bilaterally. Const: Vital Signs, click to edit/add: Vital Signs - 24 hr 06/22/24 15:00 06/22/24 15:06/22/24 15:00 Temperature Pulse Rate 65 Pulse Rate [Pulse Oximeter] 78 Respiratory Rate 24 24 Blood Pressure [Le ft Arm] Blood Pressure [Ri ght Arm] Pulse Oximetry 93 Oxygen Delivery Me thod Room Air Oxygen Flow Rate 06/22/24 15:00 06/22/24 17:00 06/22/24 19:00 Temperature 98.4 F 98.4 F 98 F Pulse Rate Pulse Rate [Pulse Oximeter] 73 73 73 Respiratory Rate 24 24 24 Blood Pressure [Le ft Arm] Blood Pressure [Ri ght Arm] 127/67 127/67 100/62 Pulse Oximetry 94 94 100 Oxygen Delivery Me thod Room Air Room Air Room Air Oxygen Flow Rate 06/22/24 21:00 06/22/24 23:00 06/22/24 23:00 Temperature 98.3 F 98.3 F Pulse Rate Pulse Rate [Pulse Oximeter] 75 71 Respiratory Rate 22 18 18 Blood Pressure [Le ft Arm] 114/74 Blood Pressure [Ri ght Arm] 100/62 Pulse Oximetry 95 94 94 Oxygen Delivery Me thod Room Air Room Air Room Air Oxygen Flow Rate 06/22/24 23:00 06/23/24 01:00 06/23/24 03:00 Temperature 98.3 F 98.4 F Pulse Rate 67 Pulse Rate [Pulse Oximeter] 71 71 Respiratory Rate 18 20 Blood Pressure [Le ft Arm] 114/74 124/85 Blood Pressure [Ri ght Arm] Pulse Oximetry 94 97 Oxygen Delivery Me thod Room Air Room Air Oxygen Flow Rate 0 0 06/23/24 05:00 06/23/24 07:12 06/23/24 08:31 Temperature 98.4 F 98.4 F Pulse Rate 66 Pulse Rate [Pulse Oximeter] 67 71 Respiratory Rate 20 18 Blood Pressure [Le ft Arm] 124/85 122/74 Blood Pressure [Ri ght Arm] Pulse Oximetry 97 97 Oxygen Delivery Me thod Room Air Room Air Oxygen Flow Rate 0 06/23/24 08:31 06/23/24 08:31 06/23/24 08:31 Temperature 98.4 F Pulse Rate Pulse Rate [Pulse Oximeter] 71 71 Respiratory Rate 18 18 18 Blood Pressure [Le ft Arm] 122/74 Blood Pressure [Ri ght Arm] Pulse Oximetry 97 97 Oxygen Delivery Me thod Room Air Room Air Oxygen Flow Rate 0 06/23/24 11:18 06/23/24 11:18 Temperature 98.4 F 98.4 F Pulse Rate Pulse Rate [Pulse Oximeter] 75 75 Respiratory Rate 20 20 Blood Pressure [Le ft Arm] Blood Pressure [Ri ght Arm] 125/79 125/79 Pulse Oximetry 97 97 Oxygen Delivery Me thod Room Air Room Air Oxygen Flow Rate 0 Documenting provider has reviewed patient's vital signs: yes
--- NOTE | 2024-06-23 13:44 | PM.IMPN1 ---
Progress Note: A&P Assessment and plan (1) Closed fracture dislocation of left ankle joint: Problem details: Nonweightbearing on left lower extremity pending surgery. Surgery is pending improvement in ankle swelling. Dr. Calles to re-evaluate on FridayJune 25. Due to edema and skin changes likely will not have surgery tell June 28 Status: Acute (2) Chronic anticoagulation: Problem details: On anticoagulation for AFib. Has been on and off of this in the past. History of PE in 2020. It was stopped in the past because a hemo thorax. Takes apixaban 5 mg b.i.d. but reports frequently missing his evening dose. Consider switch to daily dosing Xarelto. Status: Acute (3) Atrial fibrillation: Problem details: Currently in normal sinus rhythm. Currently on anticoagulation inconsistently, rate control and rhythm control. Status: Acute (4) Mobility impaired: Problem details: Nonweightbearing on left lower extremity due to unstable ankle fracture. Currently unable to function independently. May have more prolonged mobility even after ORIF. Likely needs placement for rehab Status: Acute (5) Alcohol dependence: Problem details: - CIWA protocol while hospitalized. Doing well so far. On gabapentin. Uncertain history of adverse reaction to phenobarbital in the past. On June 19 he received oral phenobarbital without adverse reaction. Status: Acute Plan Continue in hospital for management of pain and immobility/disability. Time Spent With Patient Total time spent: Total time spent today is 40 minutes in coordination of care discussing with other providers ongoing management of ankle fracture, anticoagulation. Subjective Date Seen: 06/23/24 Interval history: Jose Angel Powers is a 73 year old male admitted through the emergency department with left ankle injury after a fall last night. Patient has a history of alcoholism, atrial fibrillation with rapid ventricular response, heart failure with reduced ejection fraction, coronary artery disease without obstructive coronary arteries on angiogram last year, hypertension, obesity, sleep apnea, TBI with seizure. He reports he fell last evening injuring his left ankle. He was able to get to bed last night but when he woke up this morning he could not bear weight secondary to pain so he called 911. He does not remember the circumstances of the fall though thinks he may have tripped over a book on his floor. He reports he was otherwise feeling well yesterday without recent illness. He is not aware of any other injuries. He has longstanding alcohol use disorder. He has declined treatment for this in the past. He reports he is drinking at least 8 shots per day. 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 He has not had severe alcohol withdrawal problems but does get tremulous by mid afternoon if he does not drink. In the past he has been given gabapentin which has largely controlled his withdrawal symptoms. Phenobarbital as listed as an allergy. He received oral phenobarb on 06/19/2024 without adverse reaction. He was hospitalized last year in [facility] and transferred to [facility] for cardiology care due to heart failure with reduced ejection fraction of 18%, elevated troponin, community-acquired pneumonia, bilateral pleural effusions. Echocardiogram at that time showed severe mitral regurgitation and ejection fraction of 18%. Echocardiogram from January of 2024 shows ejection fraction of 49% and mild mitral regurgitation. He reports he has been generally doing fairly well with his heart failure symptoms. June 20. Ankle pain is better controlled in the splint. He has been elevating this. He reports he is otherwise feeling well. He has had minimal alcohol withdrawal signs or symptoms. Low CIWA scores. He did receive lorazepam 0.5 mg at bedtime to help with sleep. Received phenobarb orally yesterday without adverse reaction. Nursing staff of been using a ceiling lift to transfer from bed to chair. 06/21/2024: Patient reports generally doing well. Still requiring the ceiling lift to transfer. Physical therapy notes that he is unable to stand and pivot on 1 leg. Pain is been adequately controlled. No evidence of alcohol withdrawal. 06/22/2024: Patient reports doing well. Pending orthopedic evaluation to determine when surgery/ORIF of left ankle can be done. Anticoagulation held and NPO after midnight pending surgery. 06/23/2024: Patient continues to report doing well. Anxious about surgery. Seen today with Dr. Calles. Splint is removed and he has still a moderate amount of edema and large serous and hemorrhagic blisters around his entire ankle. Mild medial ankle abrasion without obvious infection. Exam Narrative: Exam Narrative: Splint is removed by Dr. Calles. He has large hemorrhagic and serous blisters around the whole foot and ankle. On the medial side the blister ruptures. He has a slight abrasion there which is healing fairly well. Intact pulses. Diminished sensation. Const: Vital Signs, click to edit/add: Vital Signs - 24 hr 06/22/24 15:00 06/22/24 15:00 06/22/24 15:00 Temperature Pulse Rate 65 Pulse Rate [Pulse Oximeter] 78 Respiratory Rate 24 24 Blood Pressure [Le ft Arm] Blood Pressure [Ri ght Arm] Pulse Oximetry 93 Oxygen Delivery Me thod Room Air Oxygen Flow Rate 06/22/24 15:00 06/22/24 17:00 06/22/24 19:00 Temperature 98.4 F 98.4 F 98 F Pulse Rate Pulse Rate [Pulse Oximeter] 73 73 73 Respiratory Rate 24 24 24 Blood Pressure [Le ft Arm] Blood Pressure [Ri ght Arm] 127/67 127/67 100/62 Pulse Oximetry 94 94 100 Oxygen Delivery Me thod Room Air Room Air Room Air Oxygen Flow Rate 06/22/24 21:00 06/22/24 23:00 06/22/24 23:00 Temperature 98.3 F 98.3 F Pulse Rate Pulse Rate [Pulse Oximeter] 75 71 Respiratory Rate 22 18 18 Blood Pressure [Le ft Arm] 114/74 Blood Pressure [Ri ght Arm] 100/62 Pulse Oximetry 95 94 94 Oxygen Delivery Me thod Room Air Room Air Room Air Oxygen Flow Rate 06/22/24 23:00 06/23/24 01:00 06/23/24 03:00 Temperature 98.3 F 98.4 F Pulse Rate 67 Pulse Rate [Pulse Oximeter] 71 71 Respiratory Rate 18 20 Blood Pressure [Le ft Arm] 114/74 124/85 Blood Pressure [Ri ght Arm] Pulse Oximetry 94 97 Oxygen Delivery Me thod Room Air Room Air Oxygen Flow Rate 0 0 06/23/24 05:00 06/23/24 07:12 06/23/24 08:31 Temperature 98.4 F 98.4 F Pulse Rate 66 Pulse Rate [Pulse Oximeter] 67 71 Respiratory Rate 20 18 Blood Pressure [Le ft Arm] 124/85 122/74 Blood Pressure [Ri ght Arm] Pulse Oximetry 97 97 Oxygen Delivery Me thod Room Air Room Air Oxygen Flow Rate 0 06/23/24 08:31 06/23/24 08:31 06/23/24 08:31 Temperature 98.4 F Pulse Rate Pulse Rate [Pulse Oximeter] 71 71 Respiratory Rate 18 18 18 Blood Pressure [Le ft Arm] 122/74 Blood Pressure [Ri ght Arm] Pulse Oximetry 97 97 Oxygen Delivery Me thod Room Air Room Air Oxygen Flow Rate 0 06/23/24 11:18 06/23/24 11:18 Temperature 98.4 F 98.4 F Pulse Rate Pulse Rate [Pulse Oximeter] 75 75 Respiratory Rate 20 20 Blood Pressure [Le ft Arm] Blood Pressure [Ri ght Arm] 125/79 125/79 Pulse Oximetry 97 97 Oxygen Delivery Me thod Room Air Room Air Oxygen Flow Rate 0 Documenting provider has reviewed patient's vital signs: yes
--- NOTE | 2024-06-23 14:07 | PC.SOCIAL ---
Addendum entered by SONU Retana 06/23/24 15:57: Discharge planning: ornamental iron worker helper found out that the surgeon will look at pt's ankle again on Friday and then will most likely do surgery on Thursday 06/28. ornamental iron worker helper updated Lurdes at [place] and Zulema at [place] with this information. ornamental iron worker helper also spoke to pt's sister, Kalina, about this update. Kalina also shared that she spoke to her other siblings and then they spoke to the pt about [facility] and the pt is now willing to go to [place]. ornamental iron worker helper faxed a referral to Shauna in Admissions at [place] to fax #[phone]. Social work to follow-up as needed. Original Note: Discharge planning: ornamental iron worker helper received a call from pt's sister, Kalina, whom shared that she would really like her brother to go to a facility, at discharge, that can help him with his alcoholism and short-term rehab. ornamental iron worker helper explained to pt's sister that this worker talked to the pt about [facility] in [place], [place] who offers those exact services, but that the pt was not interested in that facility because he thought it was too far away. Kalina shared that she would talk to the pt about it more after doing some more research on it. Kalina also plans to talk to her other sister and her other brother. ornamental iron worker helper explained that this worker could talk to the pt about the facility again too, but that this worker also heard that the pt may not be having surgery until the end of the week now(with a chance that that plan could still change) and that this worker might end up looking for a place for the pt to discharge to next week. ornamental iron worker helper also heard back from [facility] and [facility] this morning and both facilities said they could also accept the pt pending when he has surgery. ornamental iron worker helper also explained this to Kalina and she shared that she hopes her brother will change his mind about going to [place]. Social work to follow-up as needed.
--- NOTE | 2024-06-23 14:46 | PC.NURSE ---
End of Shift: Patient pleasant and cooperative, delayed but alert and oriented. Patient vitally stable, lungs clear, BS WNL, IV intact and SL. Patient ceiling lift and has no strength to lift. Patient was up in the chair until early afternoon. Patient rates left leg pain at most 4/10, tylenol given once. Patient uses urinal and is also incontinent. Patient tolerating regular diet. Tele was BBB and first degree HB.
[2024-06-23] MEDS: CYANOCOBALAMIN (VITAMIN B-12) 500 MCG TABLET PO (21:09)
[2024-06-23] MEDS: PRAVASTATIN SODIUM 20 MG TABLET PO (21:09)
[2024-06-23] MEDS: MAGNESIUM OXIDE 400 MG TABLET PO (21:09)
--- NOTE | 2024-06-23 23:07 | PC.NURSE ---
End of shift [id number]: Pt has been A&O, afebrile and VSS this shift. He was not out of bed for this RN but he is Ax2 with ceiling lift for transfers. Pt is NWB to LLE but unable to follow weight bearing status. His LLE is in a soft cast. Left foot CMS intact, pedal pulse DEANNA d/t cast. Pt rates LLE pain at 1/10; PRN Tylenol given @ 2109. He utilizes the urinal in bed but will need occasional brief changes d/t dribbling. Pt was continent of B&B with a small BM this evening. SCD applied to RLE. TELE reads BBB. PIV in right wrist is SL and C/D/I. CIWA?s have been > 9 for over 72 hours so they were discontinued this afternoon. ?
[2024-06-24] VITALS (10 sets, daily range): BP systolic 102–147; BP diastolic 69–92; PULSE 64–79; RESP 18–22; TEMP 36.8–37.3; O2SAT 92–95
[2024-06-24 06:30] LABS: Basophils Percent Auto 0.9 % (0.0-3.0); Eosinophils Percent Auto 2.1 % (0.0-7.0); Hematocrit 31.8 % (37.0-53.0); Hemoglobin* 10.4 gm/dL (13.5-17.5); Immature Granulocytes Pct Auto 0.3 %; Mean Corpuscular HGB Conc 33 gm/dL (32-36); Mean Corpuscular Hemoglobin 35 pg (26-34); Mean Corpuscular Volume 106 fL (80-100); Monocytes Percent Auto 13.1 % (0.0-11.0); Neutrophils Percent Auto 61.6 % (42.0-72.0); Platelet Count* 106 K/uL (140-440); RDW Coefficient of Variation % 15.4 % (11.5-15.5); Red Blood Count 2.99 m/uL (4.30-5.90); White Blood Count* 3.27 K/uL (4.50-11.00)
[2024-06-24 06:33] LABS: Slide Review Reflex No
[2024-06-24 06:44] LABS: Chloride* 99 mmol/L (96-114); Potassium* 4.3 mmol/L (3.6-5.1); Sodium* 133 mmol/L (135-149)
[2024-06-24 06:47] LABS: Creatinine* 0.9 mg/dL (0.5-1.5); Est. Creatinine Clearance* 73.24; Estimated Glomerular Filt Rate 90 ml/min
[2024-06-24 06:48] LABS: Anion Gap 7 mEq/L (7-15); Blood Urea Nitrogen* 13 mg/dL (7-30); Calcium* 8.5 mg/dL (8.4-10.6); Carbon Dioxide* 27 mmol/L (20-32); Glucose* 96 mg/dL (60-115)
[2024-06-24 07:05] LABS: C Reactive Protein* 18.4 mg/dL (0.5-1.0)
--- NOTE | 2024-06-24 07:45 | PC.NURSE ---
Pt is alert and oriented x3. Afebrile. Pt denies pain, chest pain, SOB, and N/V. Pt voids using urinal occasionally dribbles in brief. Pt spilled a little urine in bed overnight, linens, brief, gown and pillow cases changed. Pt slept throughout most of night.
[2024-06-24] MEDS: TORSEMIDE 5 MG TABLET 10 MG PO (07:56)
[2024-06-24] MEDS: METOPROLOL SUCCINATE (XL) 50 MG TAB PO (08:58)
[2024-06-24] MEDS: MULTIVITAMIN/MINERALS 1 TABLET 1 TAB PO (08:58)
[2024-06-24] MEDS: EMPAGLIFLOZIN 10 MG TABLET PO (08:59)
[2024-06-24] MEDS: APIXABAN 5 MG TABLET PO ×2 (08:59→21:05)
[2024-06-24] MEDS: AMIODARONE 200 MG TABLET PO (08:59)
[2024-06-24] MEDS: SENNOSIDES/DOCUSATE TABLET 1 TAB PO ×2 (08:59→21:07)
[2024-06-24] MEDS: GABAPENTIN 300 MG CAPSULE PO ×3 (08:59→21:08)
[2024-06-24] MEDS: SODIUM CHLORIDE 0.9 % (FLUSH) 10 ML SYRINGE 5 ML IVF ×2 (08:59→23:38)
--- NOTE | 2024-06-24 14:07 | PC.SOCIAL ---
Addendum entered by SONU Retana 06/24/24 16:00: Discharge planning: glass processing worker heard back from [facility] and they shared that they have male short-term rehab beds available and they would be willing to review the pt's referral with his history of alcohol use. glass processing worker then went and met with the pt to ask if he wanted this work to fax it there and he said that was fine. glass processing worker faxed the referral to [facility] this afternoon at fax number #[phone]. Pt said he would still have interest in going to [facility], as well. glass processing worker also left a message for Shauna at [facility] asking for an update on the referral sent yesterday. Social work to follow-up as needed. Addendum entered by SONU Retana 06/24/24 14:40: Discharge planning: glass processing worker contacted [facility] in [place], [place] which is now [facility] at phone number #[phone] and spoke to Susan in [facility] who shared they do not have any male short-term rehab beds open in the foreseeable future. glass processing worker then contacted [facility] in [place], which is now called [facility], at phone number #[phone] and left a message inquiring about male short-term rehab bed availability and asking for a call back. Social work to follow-up as needed. Original Note: Discharge planning: glass processing worker spoke to pt's sister, Kalina, today via phone whom shared that she has concerns with the ratings for [facility]isted [facility]. Kalina shared that she looked up the facility last night on [facility] Report Card for the [place] Department of Health. Pt's sister said that she left a message with Shauna The single pointed operator at [facility] to ask her some more specific questions about the facility. Pt's sister stated that she doesn't like that the facility only has shared rooms. Pt's sister feels pt will not do well with a roommate. glass processing worker has not heard back from [facility] on whether or not they can accept the pt after surgery. glass processing worker did reiterate to pt's sister that [facility] is the only facility of it's time in [place] that addresses both Chemical Dependency and Assisted needs. Kalina then talked about the ratings for [facility] and [facility] and [facility]. Kalina thought [facility] would be a better facility for her brother if [facility] does not work out. Then pt's sister wanted this worker to check and see if there were openings at two facilities that are close to where she lives in [place], [place]. Pt's sister wants this worker to check with [facility] in [place], [place] and [facility] in [place], [place]. Social work to follow-up as needed.
--- NOTE | 2024-06-24 15:31 | P.IMPN_ITS ---
Progress Note: A&P Assessment and plan (1) Closed fracture dislocation of left ankle joint: Problem details: Nonweightbearing on left lower extremity pending surgery. Surgery is pending improvement in ankle swelling. Dr. Calles to re-evaluate on FridayJune 25. Due to edema and skin changes likely will not have surgery until June 28 Status: Acute (2) Chronic anticoagulation: Problem details: On anticoagulation for AFib. Has been on and off of this in the past. History of PE in 2020. It was stopped in the past because a hemo thorax. Takes apixaban 5 mg b.i.d. but reports frequently missing his evening dose. Will continue apixaban through FridayJune 25 a.m. dose. Then hold apixaban pending surgery on FridayJune 28. Lovenox 40 mg daily in the morning on June 26 and for VTE prophylaxis and AFib. Status: Acute (3) Atrial fibrillation: Problem details: Currently in normal sinus rhythm. Currently on anticoagulation inconsistently, rate control and rhythm control. Consider Xarelto for long-term anticoagulation as patient is forgetting to take evening dose of apixaban Status: Acute (4) Mobility impaired: Problem details: Nonweightbearing on left lower extremity due to unstable ankle fracture. Currently unable to function independently. May have more prolonged mobility even after ORIF. Likely needs placement for rehab after surgery. Status: Acute (5) Alcohol dependence: Problem details: - CIWA protocol while hospitalized. Doing well so far. No sign of alcohol withdrawal. On gabapentin. Uncertain history of adverse reaction to phenobarbital in the past. On June 19 he received oral phenobarbital without adverse reaction. Status: Acute Plan Continue in hospital pending safe discharge plan and surgical management of ankle fracture. Time Spent With Patient Total time spent: 35 minutes in discussing with patient and other providers ongoing management of ankle fracture, anticoagulation, immobility and disposition Subjective Date Seen: 06/24/24 Interval history: Jose Angel Powers is a 73 year old male admitted through the emergency department with left ankle injury after a fall last night. Patient has a history of alcoholism, atrial fibrillation with rapid ventricular response, heart failure with reduced ejection fraction, coronary artery disease without obstructive coronary arteries on angiogram last year, hypertension, obesity, sleep apnea, TBI with seizure. He reports he fell last evening injuring his left ankle. He was able to get to bed last night but when he woke up this morning he could not bear weight secondary to pain so he called 911. He does not remember the circumstances of the fall though thinks he may have tripped over a book on his floor. He reports he was otherwise feeling well yesterday without recent illness. He is not aware of any other injuries. He has longstanding alcohol use disorder. He has declined treatment for this in the past. He reports he is drinking at least 8 shots per day. 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 He has not had severe alcohol withdrawal problems but does get tremulous by mid afternoon if he does not drink. In the past he has been given gabapentin which has largely controlled his withdrawal symptoms. Phenobarbital as listed as an allergy. He received oral phenobarb on 06/19/2024 without adverse reaction. He was hospitalized last year in [facility] and transferred to [facility] for cardiology care due to heart failure with reduced ejection fraction of 18%, elevated troponin, community-acquired pneumonia, bilateral pleural effusions. Echocardiogram at that time showed severe mitral regurgitation and ejection fraction of 18%. Echocardiogram from January of 2024 shows ejection fraction of 49% and mild mitral regurgitation. He reports he has been generally doing fairly well with his heart failure symptoms. June 20. Ankle pain is better controlled in the splint. He has been elevating this. He reports he is otherwise feeling well. He has had minimal alcohol withdrawal signs or symptoms. Low CIWA scores. He did receive lorazepam 0.5 mg at bedtime to help with sleep. Received phenobarb orally yesterday without adverse reaction. Nursing staff of been using a ceiling lift to transfer from bed to chair. 06/21/2024: Patient reports generally doing well. Still requiring the ceiling lift to transfer. Physical therapy notes that he is unable to stand and pivot on 1 leg. Pain is been adequately controlled. No evidence of alcohol withdrawal. 06/22/2024: Patient reports doing well. Pending orthopedic evaluation to determine when surgery/ORIF of left ankle can be done. Anticoagulation held and NPO after midnight pending surgery. 06/23/2024: Patient continues to report doing well. Anxious about surgery. Seen today with Dr. Calles. Splint is removed and he has still a moderate amount of edema and large serous and hemorrhagic blisters around his entire ankle. Mild medial ankle abrasion without obvious infection. 06/24/2024: Patient reports no concerns today. Therapy has been working on helping him transfer without bearing weight on his left ankle and foot. Ongoing discussion about disposition Exam Narrative: Exam Narrative: He is alert and appears in no distress. Pleasant cooperative. Breathing is unlabored. Right lower extremity is in a splint. The splint is stained with some serous and somewhat bloody fluid from his draining blisters. Intact pulses and sensation and motion in his toes. Const: Vital Signs, click to edit/add: Vital Signs - 24 hr 06/23/24 19:30 06/24/24 00:37 06/24/24 00:37 Temperature 98.3 F 98.4 F Pulse Rate 65 Pulse Rate [Pulse Oximeter] 74 64 Respiratory Rate 18 20 Blood Pressure [Le ft Arm] 115/71 Blood Pressure [Ri ght Arm] 129/69 Pulse Oximetry 96 95 Oxygen Delivery Me thod Room Air Room Air Oxygen Flow Rate 0 06/24/24 00:37 06/24/24 00:37 06/24/24 04:09 Temperature 98.7 F Pulse Rate Pulse Rate [Pulse Oximeter] 68 Respiratory Rate 20 20 18 Blood Pressure [Le ft Arm] 147/82 H Blood Pressure [Ri ght Arm] Pulse Oximetry 95 94 Oxygen Delivery Me thod Room Air Room Air Oxygen Flow Rate 0 0 06/24/24 06:44 06/24/24 07:59 06/24/24 07:59 Temperature 98.9 F Pulse Rate 66 Pulse Rate [Pulse Oximeter] 74 74 Respiratory Rate 18 18 Blood Pressure [Le ft Arm] 147/87 H Blood Pressure [Ri ght Arm] Pulse Oximetry 92 Oxygen Delivery Me thod Oxygen Flow Rate 06/24/24 07:59 06/24/24 11:24 Temperature 98.2 F Pulse Rate Pulse Rate [Pulse Oximeter] 79 Respiratory Rate 18 20 Blood Pressure [Le ft Arm] Blood Pressure [Ri ght Arm] 102/70 Pulse Oximetry 92 92 Oxygen Delivery Me thod Room Air Room Air Oxygen Flow Rate 0 Documenting provider has reviewed patient's vital signs: yes Labs Labs: Laboratory Results - last 24 hr 06/24/24 05:54 WBC 3.27 L RBC 2.99 L Hgb 10.4 L Hct 31.8 L MCV 106 H MCH 35 H MCHC 33 RDW Coeff of Janey 15.4 Plt Count 106 L Neut % (Auto) 61.6 Lymph % (Auto) 22.0 Price % (Auto) 13.1 H Eos % (Auto) 2.1 Baso % (Auto) 0.9 Neut # (Auto) 2.00 Lymph # (Auto) 0.70 L Price # (Auto) 0.40 Eos # (Auto) 0.10 Baso # (Auto) 0.00 Abs Immat Gran (auto) 0.00 Imm/Tot Granulo (auto) 0.3 Sodium 133 L Potassium 4.3 Chloride 99 Carbon Dioxide 27 Anion Gap 7 BUN 13 Creatinine 0.9 Estimated Creat Clear 73.24 Estimated GFR 90 Glucose 96 Calcium 8.5 C-Reactive Protein 18.4 H
--- NOTE | 2024-06-24 18:03 | PC.NURSE ---
End of Shift: Patient pleasant and cooperative. Patient vitally stable, lungs clear, BS WNL, IV SL and intact. Patient rates left extremity pain at most 2/10, no pain meds given. Patient transfers with gisele steady, 1-2 assist. Left extremity is draining through soft cast slight serosanguineous/yellow. Patient urinating by urinal, had 1 BM incontinent/toilet, tolerating regular diet. Patient has been up to chair twice today.
[2024-06-24] MEDS: MAGNESIUM OXIDE 400 MG TABLET PO (21:05)
[2024-06-24] MEDS: PRAVASTATIN SODIUM 20 MG TABLET PO (21:06)
[2024-06-24] MEDS: CYANOCOBALAMIN (VITAMIN B-12) 500 MCG TABLET PO (21:08)
[2024-06-24] MEDS: ACETAMINOPHEN 325 MG TABLET 650 MG PO (21:08)
--- NOTE | 2024-06-24 23:38 | PC.NURSE ---
[id number] End of Shift: Patient pleasant and cooperative. Ax0 x4. IV SL and intact. Patient rates left extremity pain at most 1/10. PRN Tylenol given for pain and temperature of 99.1. Patient transfers with gisele steady, 1-2 assist. Left extremity is draining through soft cast slight serosanguineous/yellow. Patient urinating by urinal. Patient appears resting comfortably in bed with call light in reach.
[2024-06-25] VITALS (9 sets, daily range): BP systolic 122–144; BP diastolic 75–88; PULSE 65–88; RESP 18–20; TEMP 36.9–37.3; O2SAT 94–96
--- NOTE | 2024-06-25 06:35 | PC.NURSE ---
End of shift [id number]: Pt has been A&O, afebrile and VSS overnight. He had minimal c/o pain overnight; last PRN Tylenol given @ 2109 by previous nurse. Pt utilizes the urinal at bedside overnight with adequate output. PIV in right wrist SL and C/D/I. LLE soft cast intact with moderate, old serosanguineous drainage. Extremity elevated on pillows. CMS intact. DEANNA left pedal pulse d/t cast. TELE reads 1st degree block with BBB and prolonged QT. Pt denies any nausea or dizziness. Slept well in between cares, independent with bed mobility & repositioning. ?
[2024-06-25] MEDS: TORSEMIDE 5 MG TABLET 10 MG PO (09:17)
[2024-06-25] MEDS: AMIODARONE 200 MG TABLET PO (09:17)
[2024-06-25] MEDS: APIXABAN 5 MG TABLET PO ×2 (09:18→20:38)
[2024-06-25] MEDS: SENNOSIDES/DOCUSATE TABLET 1 TAB PO ×2 (09:18→20:39)
[2024-06-25] MEDS: METOPROLOL SUCCINATE (XL) 50 MG TAB PO (09:18)
[2024-06-25] MEDS: MULTIVITAMIN/MINERALS 1 TABLET 1 TAB PO (09:18)
[2024-06-25] MEDS: SODIUM CHLORIDE 0.9 % (FLUSH) 10 ML SYRINGE 5 ML IVF ×2 (09:18→20:39)
[2024-06-25] MEDS: EMPAGLIFLOZIN 10 MG TABLET PO (09:18)
--- NOTE | 2024-06-25 13:53 | P.IMPN_ITS ---
Progress Note: A&P Assessment and plan (1) Closed fracture dislocation of left ankle joint: Problem details: Nonweightbearing on left lower extremity pending surgery. Surgery is pending improvement in ankle swelling. Dr. Calles to re-evaluate on FridayJune 25. Due to edema and skin changes likely will not have surgery until June 28 Status: Acute (2) Chronic anticoagulation: Problem details: On anticoagulation for AFib. Has been on and off of this in the past. History of PE in 2020. It was stopped in the past because a hemo thorax. Takes apixaban 5 mg b.i.d. but reports frequently missing his evening dose. Will continue apixaban through FridayJune 25 a.m. dose. Then hold apixaban pending surgery on FridayJune 28. Lovenox 40 mg daily in the morning on June 26 and for VTE prophylaxis and AFib. Status: Acute (3) Atrial fibrillation: Problem details: Currently in normal sinus rhythm. Currently on anticoagulation inconsistently, rate control and rhythm control. Consider Xarelto for long-term anticoagulation as patient is forgetting to take evening dose of apixaban Status: Acute (4) Mobility impaired: Problem details: Nonweightbearing on left lower extremity due to unstable ankle fracture. Currently unable to function independently. May have more prolonged mobility even after ORIF. Likely needs placement for rehab after surgery. Status: Acute (5) Alcohol dependence: Problem details: - CIWA protocol while hospitalized. Doing well so far. No sign of alcohol withdrawal. On gabapentin. Uncertain history of adverse reaction to phenobarbital in the past. On June 19 he received oral phenobarbital without adverse reaction. Status: Acute Plan Continue in hospital for ongoing care and therapy and management of chronic medical problems pending ORIF of his left ankle. Now appears OB on Friday. Continue anticoagulation through this morning with apixaban and low-dose enoxaparin the next 2 mornings for VTE prophylaxis and stroke prophylaxis with AFib Time Spent With Patient Total time spent: Total time spent today is 35 minutes in coordination of care discussing with patient other providers ongoing management of disability, ankle fracture, skin care, disposition Subjective Date Seen: 06/25/24 Interval history: Jose Angel Powers is a 73 year old male admitted through the emergency department with left ankle injury after a fall last night. Patient has a history of alcoholism, atrial fibrillation with rapid ventricular response, heart failure with reduced ejection fraction, coronary artery disease without obstructive coronary arteries on angiogram last year, hypertension, obesity, sleep apnea, TBI with seizure. He reports he fell last evening injuring his left ankle. He was able to get to bed last night but when he woke up this morning he could not bear weight secondary to pain so he called 911. He does not remember the circumstances of the fall though thinks he may have tripped over a book on his floor. He reports he was otherwise feeling well yesterday without recent illness. He is not aware of any other injuries. He has longstanding alcohol use disorder. He has declined treatment for this in the past. He reports he is drinking at least 8 shots per day. 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 He has not had severe alcohol withdrawal problems but does get tremulous by mid afternoon if he does not drink. In the past he has been given gabapentin which has largely controlled his withdrawal symptoms. Phenobarbital as listed as an allergy. He received oral phenobarb on 06/19/2024 without adverse reaction. He was hospitalized last year in [facility] and transferred to [facility] for cardiology care due to heart failure with reduced ejection fraction of 18%, elevated troponin, community-acquired pneumonia, bilateral pleural effusions. Echocardiogram at that time showed severe mitral regurgitation and ejection fraction of 18%. Echocardiogram from January of 2024 shows ejection fraction of 49% and mild mitral regurgitation. He reports he has been generally doing fairly well with his heart failure symptoms. June 20. Ankle pain is better controlled in the splint. He has been elevating this. He reports he is otherwise feeling well. He has had minimal alcohol withdrawal signs or symptoms. Low CIWA scores. He did receive lorazepam 0.5 mg at bedtime to help with sleep. Received phenobarb orally yesterday without adverse reaction. Nursing staff of been using a ceiling lift to transfer from bed to chair. 06/21/2024: Patient reports generally doing well. Still requiring the ceiling lift to transfer. Physical therapy notes that he is unable to stand and pivot on 1 leg. Pain is been adequately controlled. No evidence of alcohol withdrawal. 06/22/2024: Patient reports doing well. Pending orthopedic evaluation to determine when surgery/ORIF of left ankle can be done. Anticoagulation held and NPO after midnight pending surgery. 06/23/2024: Patient continues to report doing well. Anxious about surgery. Seen today with Dr. Calles. Splint is removed and he has still a moderate amount of edema and large serous and hemorrhagic blisters around his entire ankle. Mild medial ankle abrasion without obvious infection. 06/24/2024: Patient reports no concerns today. Therapy has been working on helping him transfer without bearing weight on his left ankle and foot. Ongoing discussion about disposition 06/25/2024: Patient reports generally doing well. He is anxious to get his ankle surgery done. Now planned for FridayJune 28. He otherwise feels well. Exam Narrative: Exam Narrative: Splint is removed showing persistence of hemorrhagic blisters. Medial malleolus skin ulcer is unchanged without obvious infection. Moderate amount of bloody serous fluid drainage coming from blisters that have ruptured. A lot of bruising without erythema. Const: Vital Signs, click to edit/add: Vital Signs - 24 hr 06/24/24 15:00 06/24/24 15:00 06/24/24 15:00 Temperature 98.3 F Pulse Rate Pulse Rate [Pulse Oximeter] 77 77 Respiratory Rate 20 20 20 Blood Pressure [Le ft Arm] Blood Pressure [Ri ght Arm] 123/75 Pulse Oximetry 95 95 Oxygen Delivery Me thod Room Air Room Air Oxygen Flow Rate 0 06/24/24 17:27 06/24/24 19:00 06/24/24 21:08 Temperature 99.1 F 99.1 F Pulse Rate 73 Pulse Rate [Pulse Oximeter] 72 Respiratory Rate 22 Blood Pressure [Le ft Arm] 122/71 Blood Pressure [Ri ght Arm] Pulse Oximetry 95 Oxygen Delivery Ky thod Room Air Oxygen Flow Rate 06/24/24 23:00 06/24/24 23:00 06/24/24 23:00 Temperature Pulse Rate 68 Pulse Rate [Pulse Oximeter] 70 Respiratory Rate 18 18 Blood Pressure [Le ft Arm] Blood Pressure [Ri ght Arm] Pulse Oximetry 94 Oxygen Delivery Ky thod Room Air Oxygen Flow Rate 06/24/24 23:00 06/25/24 03:00 06/25/24 06:58 Temperature 98.3 F 98.4 F Pulse Rate 76 Pulse Rate [Pulse Oximeter] 70 71 Respiratory Rate 18 20 Blood Pressure [Le ft Arm] 129/92 H 140/75 H Blood Pressure [Ri ght Arm] Pulse Oximetry 95 95 Oxygen Delivery Me thod Room Air Room Air Oxygen Flow Rate 06/25/24 08:00 06/25/24 08:00 06/25/24 08:00 Temperature 98.7 F Pulse Rate Pulse Rate [Pulse Oximeter] 77 77 Respiratory Rate 20 20 20 Blood Pressure [Le ft Arm] Blood Pressure [Ri ght Arm] 144/87 H Pulse Oximetry 94 94 Oxygen Delivery Me thod Room Air Room Air Oxygen Flow Rate 0 06/25/24 11:08 Temperature 98.4 F Pulse Rate Pulse Rate [Pulse Oximeter] 75 Respiratory Rate 18 Blood Pressure [Le ft Arm] Blood Pressure [Ri ght Arm] 122/80 Pulse Oximetry 96 Oxygen Delivery Me thod Room Air Oxygen Flow Rate Documenting provider has reviewed patient's vital signs: yes
--- NOTE | 2024-06-25 14:44 | PC.NURSE ---
End of shift. pt has been very pleasant. no pain he is alert X4. he has a splint and jesus wrap. on the left lower leg. OZ davis took it off and will put is back on. he wanted the leg open to air for a few hours. pictures of leg are in the chart. Pt is using the urinal at bedside and in the chair.. he is NWB., and use a kraig assist. he is a fall risk and alarms are on. SL is patent. Splint is intact with moderate, old serosanguineous drainage. Extremity elevated on pillows. CMS intact. left pedal pulse wnl. TELE shows 1st degree block with BBB.
--- NOTE | 2024-06-25 15:34 | CRLHL7_ITS ---
For Patients: As a result of the Century Cures Act, medical imaging exams and procedure reports are released immediately into your electronic medical record. You may view this report before your referring provider. If you have questions, please contact your health care provider. Indication: Splint and check alignment Technique: Three views of the left ankle. Comparison: 06/19/2024. Findings: Overlying splint limits evaluation for fine bony detail. Redemonstration of mildly displaced obliquely oriented distal fibular fracture with minimal improvement in alignment. No new fracture or malalignment is seen. Impression: Overlying splint limits evaluation for fine bony detail. Redemonstration of mildly displaced obliquely oriented distal fibular fracture with minimal improvement in alignment. No new fracture or malalignment is seen. Dictated by Jey Ty MD @ 06/25/2024 6:11:33 PM (Electronically Signed)
--- NOTE | 2024-06-25 15:35 | PC.SOCIAL ---
Discharge planning: Called the following facilities who had already been faxed information to request update on admissions evaluation: 1. [facility] - [phone], Left message for Shauna in admitting requesting call back and that expected discharge date will be Friday06/29/24. 2. [facility] [phone], left message for admitting requesting call back. forest worker to follow up as needed.
--- NOTE | 2024-06-25 16:32 | PM.ORPN ---
Subjective Subjective Date Seen: 06/25/24 Principal diagnosis: Left ankle pain and fracture; left knee pain. Interval history: Patient reports doing okay. No significant pain regarding the ankle. Pain ipsilateral knee, anterior medial. Denies any fevers or chills. Staff note drainage on the splint material. History of left knee pain, but has notices left knee hurting him since fall 06/19/2024. Ortho Exam Narrative Exam Narrative: General: Well-developed, well-nourished, A&Ox 3, no apparent acute distress. Patient is sitting in the recliner Pulmonary: Breathing pattern regular, even, without apparent distress or audible wheeze present. Left Ankle: Nonweightbearing left lower extremity. Original splint in place with serosanguineous drainage on the Yusuf bandaging Once the splint and bandaging was removed, multiple large fracture blisters present with fluid and blood present within the blisters. These blisters are throughout the anterior tibia proximal and distal, especially medial/medial malleolus, with some smaller ones over the lateral distal leg. 2+ DP/PT pulses, pink warm digits with brisk cap refill; intact dermatomes and myotomes distally including the common peroneal, tibial, saphenous, and sural nerve distributions Left Knee: Mild swelling, mild-moderate knee effusion ROM 0-90 without significant pain; further flexion causes pain anteriorly medial knee Pain to palpation anterior medial knee; nontender over the patella; nontender medial/lateral joint lines. Nontender tibial plateau or femoral condyle Unable to perform stability testing Const Vital Signs, click to edit/add: Vital Signs - 24 hr 06/24/24 17:27 06/24/24 19:00 06/24/24 21:08 Temperature 99.1 F 99.1 F Pulse Rate 73 Pulse Rate [Pulse Oximeter] 72 Respiratory Rate 22 Blood Pressure [Left Arm] 122/71 Blood Pressure [Right Arm] Pulse Oximetry 95 Oxygen Delivery Method Room Air Oxygen Flow Rate 06/24/24 23:00 06/24/24 23:00 06/24/24 23:00 Temperature Pulse Rate 68 Pulse Rate [Pulse Oximeter] 70 Respiratory Rate 18 18 Blood Pressure [Left Arm] Blood Pressure [Right Arm] Pulse Oximetry 94 Oxygen Delivery Method Room Air Oxygen Flow Rate 06/24/24 23:00 06/25/24 03:00 06/25/24 06:58 Temperature 98.3 F 98.4 F Pulse Rate 76 Pulse Rate [Pulse Oximeter] 70 71 Respiratory Rate 18 20 Blood Pressure [Left Arm] 129/92 H 140/75 H Blood Pressure [Right Arm] Pulse Oximetry 95 95 Oxygen Delivery Method Room Air Room Air Oxygen Flow Rate 06/25/24 08:00 06/25/24 08:00 06/25/24 08:00 Temperature 98.7 F Pulse Rate Pulse Rate [Pulse Oximeter] 77 77 Respiratory Rate 20 20 20 Blood Pressure [Left Arm] Blood Pressure [Right Arm] 144/87 H Pulse Oximetry 94 94 Oxygen Delivery Method Room Air Room Air Oxygen Flow Rate 0 06/25/24 11:08 Temperature 98.4 F Pulse Rate Pulse Rate [Pulse Oximeter] 75 Respiratory Rate 18 Blood Pressure [Left Arm] Blood Pressure [Right Arm] 122/80 Pulse Oximetry 96 Oxygen Delivery Method Room Air Oxygen Flow Rate Assessment and Plan Assessment and plan (1) Closed fracture dislocation of left ankle joint: Problem details: Nonweightbearing on left lower extremity pending surgery. Surgery is pending improvement in ankle swelling. At this point, we will re-evaluate on Friday06/10/2025 to consider surgery for lateral malleolus ORIF possible syndesmosis fixation Status: Acute (2) Chronic anticoagulation: Problem details: On anticoagulation for AFib. Has been on and off of this in the past. History of PE in 2020. It was stopped in the past because a hemothorax. Takes apixaban 5 mg b.i.d. but reports frequently missing his evening dose. Will continue apixaban through Friday06/28/24 for VTE prophylaxis and AFib. Will reassess for possible ankle surgery 06/30/24Friday. No lovenox at this time. Status: Acute (3) Atrial fibrillation: Problem details: Currently in normal sinus rhythm. Currently on anticoagulation inconsistently, rate control and rhythm control. Consider Xarelto for long-term anticoagulation as patient is forgetting to take evening dose of apixaban Status: Acute (4) Mobility impaired: Problem details: Nonweightbearing on left lower extremity due to unstable ankle fracture. Currently unable to function independently. May have more prolonged mobility even after ORIF. Likely needs placement for rehab after surgery. Status: Acute (5) Alcohol dependence: Problem details: - [facility] protocol while hospitalized. Doing well so far. No sign of alcohol withdrawal. On gabapentin. Uncertain history of adverse reaction to phenobarbital in the past. On June 19 he received oral phenobarbital without adverse reaction. Status: Acute (6) Left knee pain: Problem details: Injury sustained from fall on 06/19/2024. No obvious fractures or obvious internal derangement on 3 radiographic views of the left knee. Mild joint effusion present. Status: Acute Plan We had a thorough discussion regarding pathology. His skin is not ready yet for ankle surgery. Today, the splint was removed and he was allowed to have some time with air exposure to the wounds. When I returned to 10 to his wound, I noted that his left hip was externally rotated with an ankle that was externally rotated. Concern was that the ankle had dislocated again. The wounds were cleansed with ChloraPrep and using a 22 gauge needle, the blisters were unroofed. ChloraPrep then used to clean these wounds again. Xeroform, non adherent ABD pads, and Webril applied to the leg for wound care and for splinting. Then, a long posterior splint applied to the lower leg. Goal of posterior splint only verses stirrup was to take pressure off the wounds. However, after imaging of the left ankle showed displacement of the tibiotalar joint, it was felt that additional stirrup ortho glass was needed for further support. Mold applied to this. Repeat x-rays showed a reduced ankle mortise yet the distal fibular fracture still remains displaced, yet acceptable at this time. We will keep this splint and dressings on and reassess the leg for possible surgical intervention on 06/30/2024. He is to remain nonweightbearing on left lower extremity. Continue to elevate the left lower extremity above his heart. He will continue his 5 mg Apixaban twice daily, and will reassess on Friday whether we should discontinue apixaban and bridge to Lovenox with pending surgery for 06/30/2024. Regarding his knee, no acute pathology. Likely strained during fall on 06/19/2024. Knee motion as tolerated. Ice as tolerated.
[2024-06-25] MEDS: OXYCODONE 5 MG TABLET PO (16:46)
[2024-06-25] MEDS: ACETAMINOPHEN 325 MG TABLET 650 MG PO (16:46)
--- NOTE | 2024-06-25 19:50 | PC.NURSE ---
: The patient is pleasant and cooperative. LLE elevated in the chair and NWB, although toe touch is okayed by MD for transfers via the Julia steady. The patient reported quite a bit of burning at his ankle after Dr Savage and Kevin CLINTON splinted the LLE. PRN pain medication was given see DEC. Reports a decreased appetite... he had 2 ice cream cups for dinner. PO fluid intake is reassuring. Call light within reach. Voiding in the urinal. Melinda HUDSON BSN
[2024-06-25] MEDS: PRAVASTATIN SODIUM 20 MG TABLET PO (20:38)
[2024-06-25] MEDS: CYANOCOBALAMIN (VITAMIN B-12) 500 MCG TABLET PO (20:38)
[2024-06-25] MEDS: GABAPENTIN 300 MG CAPSULE PO (20:39)
[2024-06-25] MEDS: MAGNESIUM OXIDE 400 MG TABLET PO (20:39)
[2024-06-26] VITALS (7 sets, daily range): BP systolic 101–133; BP diastolic 68–78; PULSE 61–72; RESP 18; TEMP 36.6–37.1; O2SAT 92–97
--- NOTE | 2024-06-26 06:38 | PC.NURSE ---
Shift note: Pt continue to be on NWB to the left leg. Julia steady in room to help pt to BR but pt preferred to use urinal in bed. Pt occasionally had difficulty starting urinating with 2 failed attempt. Bladder scan done !x was less than 125ml. Alert and oriented. Left leg elevated, JAKOB wrap clean and dry. Pt reported burning sensation to the leg at the start of the shift which improved later. No fever recorded. Vitally stable. Pt had adequate sleep.
--- NOTE | 2024-06-26 07:38 | PM.IMPN1 ---
Progress Note: A&P Assessment and plan (1) Closed fracture dislocation of left ankle joint: Problem details: - Non weightbearing on LLE at this time; awaiting improved edema prior to surgery (tentatively planning 06/30 for lateral malleolus ORIF possible syndesmosis fixation) Status: Acute (2) Chronic anticoagulation: Problem details: - a fib and history of PE, on BID Apixaban, frequently misses his evening dose - continue apixaban through 06/28/24. Reassess for possible ankle surgery on 06/30 (will bridge with Lovenox for 48 hours preoperatively) Status: Acute (3) Atrial fibrillation: Problem details: - Amiodarone and Metoprolol for rate control, Apixaban for anticoagulation. Currently in SR - Consider Xarelto for long-term anticoagulation as patient is forgetting to take evening dose of apixaban Status: Acute (4) Mobility impaired: Problem details: - Non weightbearing on LLE 2/2 unstable ankle fracture, unable to function independently. Likely needs placement for rehab after surgery Status: Acute (5) Alcohol dependence: Problem details: - [facility] protocol while hospitalized. Doing well so far. No sign of alcohol withdrawal. On gabapentin. - Uncertain history of adverse reaction to phenobarbital in the past. On June 19 he received oral phenobarbital without adverse reaction. Status: Acute (6) Left knee pain: Problem details: - Injury sustained from fall on 06/19/2024. No obvious fractures or obvious internal derangement on 3 radiographic views of the left knee. Mild joint effusion present. Status: Acute (7) Pancytopenia: Problem details: - presumably 2/2 bone marrow suppression 2/2 chronic ETOH use Status: Acute Plan - per above Subjective Date Seen: 06/26/24 Interval history: Jose Angel was admitted to the hospital on 06/19 after a fall at home, sustaining a L distal fibular fracture. Given multiple comorbidities and risk of ETOH withdrawal, will be hospitalized until surgical intervention (currently planned for 06/30). Yesterday, during visit by Orthopedic Surgery team, splint was removed to evaluate edema/joint. Hemostatic vesicular lesions unroofed. During this assessment, he was noted to have displacement of his tibiotalar joint, when was then reduced and replaced into an Ortho Glass splint. Jose Angel has L knee discomfort today (notably negative imaging in ER), no other concerns for hospitalist team. Specifically denies any ETOH withdrawal symptoms. Current plan: continue Apixiban (a fib and h/o PE), plan for surgical intervention on Friday, 06/30. Exam Narrative: Exam Narrative: GEN: Alert and laying in bedside chair, nontoxic HEENT: EOMIs bilaterally, no scleral icterus or conjunctival pallor CV: RRR, + systolic murmur heard best at left sternal border R: LCTA bilaterally without concerning wheezing, no tachypnea, breathing comfortably Ext: LLE is splinted. Normal capillary refill, sensation, and mobility of L toes Neuro: No focal deficits, no resting tremor Psych: Appropriate Const: Vital Signs, click to edit/add: Vital Signs - 24 hr 06/25/24 08:00 06/25/24 08:00 06/25/24 08:00 Temperature 98.7 F Pulse Rate Pulse Rate [Pulse Oximeter] 77 77 Respiratory Rate 20 20 20 Blood Pressure [Ri ght Arm] 144/87 H Pulse Oximetry 94 94 Oxygen Delivery Me thod Room Air Room Air Oxygen Flow Rate 0 06/25/24 11:08 06/25/24 16:30 06/25/24 16:30 Temperature 98.4 F Pulse Rate 88 Pulse Rate [Pulse Oximeter] 75 Respiratory Rate 18 18 Blood Pressure [Ri ght Arm] 122/80 Pulse Oximetry 96 94 Oxygen Delivery Me thod Room Air Room Air Oxygen Flow Rate 06/25/24 16:43 06/25/24 19:00 06/25/24 22:49 Temperature 99.2 F 98.8 F Pulse Rate Pulse Rate [Pulse Oximeter] 75 71 Respiratory Rate 18 18 18 Blood Pressure [Ri ght Arm] 130/88 141/82 H Pulse Oximetry 94 94 Oxygen Delivery Me thod Room Air Room Air Oxygen Flow Rate 0 06/25/24 22:49 06/25/24 22:49 06/25/24 23:00 Temperature 98.4 F Pulse Rate 65 Pulse Rate [Pulse Oximeter] 68 Respiratory Rate 18 18 Blood Pressure [Ri ght Arm] 127/78 Pulse Oximetry 94 94 Oxygen Delivery Me thod Room Air Room Air Oxygen Flow Rate 06/26/24 02:45 Temperature 98.1 F Pulse Rate Pulse Rate [Pulse Oximeter] 71 Respiratory Rate 18 Blood Pressure [Ri ght Arm] 133/76 Pulse Oximetry 94 Oxygen Delivery Me thod Room Air Oxygen Flow Rate
[2024-06-26] MEDS: ACETAMINOPHEN 325 MG TABLET 650 MG PO (10:26)
[2024-06-26] MEDS: TORSEMIDE 5 MG TABLET 10 MG PO (10:26)
[2024-06-26] MEDS: METOPROLOL SUCCINATE (XL) 50 MG TAB PO (10:27)
[2024-06-26] MEDS: MULTIVITAMIN/MINERALS 1 TABLET 1 TAB PO (10:27)
[2024-06-26] MEDS: SENNOSIDES/DOCUSATE TABLET 1 TAB PO ×2 (10:27→20:25)
[2024-06-26] MEDS: EMPAGLIFLOZIN 10 MG TABLET PO (10:27)
[2024-06-26] MEDS: APIXABAN 5 MG TABLET PO ×2 (10:27→20:25)
[2024-06-26] MEDS: AMIODARONE 200 MG TABLET PO (10:28)
[2024-06-26] MEDS: SODIUM CHLORIDE 0.9 % (FLUSH) 10 ML SYRINGE 5 ML IVF ×2 (10:32→20:26)
--- NOTE | 2024-06-26 18:30 | PC.NURSE ---
End of shift [id number]: Pt has been A&O, afebrile and VSS. Pt reported having a ?rough? night d/t LLE pain so he was allowed to sleep in this morning. He refused his AM medications on time & refused breakfast. Pt has been incontinent of urine as well as using the urinal at bedside. Smear of BM this morning but nothing substantial. PRN Tylenol given 1x @ 1025 for left ankle pain. Pt denies pain at rest but reports pain with movement/activity. PIV in right wrist is SL and C/D/I. Pt is Ax1 with gisele steady for transfers and ambulation. Independent with bed mobility. ?
[2024-06-26] MEDS: GABAPENTIN 300 MG CAPSULE PO (20:25)
[2024-06-26] MEDS: MAGNESIUM OXIDE 400 MG TABLET PO (20:25)
[2024-06-26] MEDS: PRAVASTATIN SODIUM 20 MG TABLET PO (20:25)
[2024-06-26] MEDS: CYANOCOBALAMIN (VITAMIN B-12) 500 MCG TABLET PO (20:26)
[2024-06-27] VITALS (7 sets, daily range): BP systolic 103–125; BP diastolic 62–75; PULSE 70–79; RESP 18–20; TEMP 36.5–37.2; O2SAT 93–96
--- NOTE | 2024-06-27 06:31 | PC.NURSE ---
End of shift [id number]: A&O pleasant and cooperative. VSS. Reports pain in left foot with activity and denies pain at rest. Pt declined PRN pain medication overnight. Dressing to foot c/d/i. Up w/ A1 gisele steady and gait belt. Tolerates well. Using urinal at bedside. Bed alarm in place. Using call light appropriately.
[2024-06-27 07:02] LABS: Basophils Percent Auto 1.2 % (0.0-3.0); Eosinophils Percent Auto 3.3 % (0.0-7.0); Hematocrit 33.2 % (37.0-53.0); Hemoglobin* 10.8 gm/dL (13.5-17.5); Immature Granulocytes Pct Auto 0.3 %; Mean Corpuscular HGB Conc 33 gm/dL (32-36); Mean Corpuscular Hemoglobin 34 pg (26-34); Mean Corpuscular Volume 105 fL (80-100); Monocytes Percent Auto 14.8 % (0.0-11.0); Neutrophils Percent Auto 57.4 % (42.0-72.0); Platelet Count* 201 K/uL (140-440); RDW Coefficient of Variation % 15.1 % (11.5-15.5); Red Blood Count 3.16 m/uL (4.30-5.90); White Blood Count* 3.31 K/uL (4.50-11.00)
[2024-06-27 07:18] LABS: Slide Review Reflex No
--- NOTE | 2024-06-27 07:20 | P.IMPN_ITS ---
Progress Note: A&P Assessment and plan (1) Closed fracture dislocation of left ankle joint: Problem details: - Non weightbearing on LLE at this time; awaiting improved edema prior to surgery (tentatively planning 06/30 for lateral malleolus ORIF possible syndesmosis fixation) Status: Acute (2) Chronic anticoagulation: Problem details: - a fib and history of PE, on BID Apixaban, frequently misses his evening dose - continue apixaban through 06/28/24. Reassess for possible ankle surgery on 06/30 (will bridge with Lovenox for 48 hours preoperatively) Status: Acute (3) Atrial fibrillation: Problem details: - Amiodarone and Metoprolol for rate control, Apixaban for anticoagulation. Currently in SR - Consider Xarelto for long-term anticoagulation as patient is forgetting to take evening dose of apixaban Status: Acute (4) Mobility impaired: Problem details: - Non weightbearing on LLE 2/2 unstable ankle fracture, unable to function independently. Likely needs placement for rehab after surgery Status: Acute (5) Alcohol dependence: Problem details: - [facility] protocol while hospitalized. Doing well so far. No sign of alcohol withdrawal. On gabapentin. - Uncertain history of adverse reaction to phenobarbital in the past. On June 19 he received oral phenobarbital without adverse reaction. Status: Acute (6) Left knee pain: Problem details: - Injury sustained from fall on 06/19/2024. No obvious fractures or obvious internal derangement on 3 radiographic views of the left knee, mild effusion Status: Acute (7) Pancytopenia: Problem details: - presumably 2/2 bone marrow suppression 2/2 chronic ETOH use - no evidence of acute bleeding, Hgb stable Status: Acute Plan - per above (continue Apixaban, possible surgery 06/30/24) Subjective Date Seen: 06/27/24 Interval history: Jose Angel was admitted to the hospital on 06/19 after a fall at home, sustaining a L distal fibular fracture. Given multiple comorbidities, risk of ETOH withdrawal, and non weight bearing status, needs to remain hospitalized until surgical intervention (currently planned for Friday, 06/30). Orthopedic Surgery following, placed Ortho Glass splint on 06/25/24 (after noting that patient had re-dislocated his fracture). No ETOH withdrawal symptoms during stay. On Apixaban (h/o a fib and PE), will re-assess bridging with Ortho team on 06/28. No concerns today, labs stable. Exam Narrative: Exam Narrative: GEN: Alert and laying in bedside chair HEENT: EOMIs bilaterally, no scleral icterus CV: RRR, + systolic murmur without concerning features R: LCTA bilaterally Ext: Splinted LLE, able to wiggle toes, normal sensation, <2 second capillary refill Neuro: Nonfocal Psych: Appropriate Const: Vital Signs, click to edit/add: Vital Signs - 24 hr 06/26/24 09:05 06/26/24 15:00 06/26/24 15:00 Temperature 98.7 F Pulse Rate 72 Pulse Rate [Pulse Oximeter] 71 71 Respiratory Rate 18 18 Blood Pressure [Le ft Arm] 121/78 Blood Pressure [Ri ght Arm] Pulse Oximetry 92 Oxygen Delivery Me thod Room Air Oxygen Flow Rate 06/26/24 15:00 06/26/24 15:00 06/26/24 19:19 Temperature 98 F 97.9 F Pulse Rate Pulse Rate [Pulse Oximeter] 71 70 Respiratory Rate 18 18 18 Blood Pressure [Le ft Arm] Blood Pressure [Ri ght Arm] 101/73 113/70 Pulse Oximetry 93 93 96 Oxygen Delivery Me thod Room Air Room Air Room Air Oxygen Flow Rate 0 06/26/24 22:58 06/26/24 23:00 06/27/24 03:30 Temperature 98.2 F 97.7 F Pulse Rate Pulse Rate [Pulse Oximeter] 61 70 Respiratory Rate 18 18 20 Blood Pressure [Le ft Arm] Blood Pressure [Ri ght Arm] 120/68 108/66 Pulse Oximetry 97 97 96 Oxygen Delivery Me thod Room Air Room Air Room Air Oxygen Flow Rate Labs Labs: Laboratory Results - last 24 hr 06/27/24 05:56 WBC 3.31 L RBC 3.16 L Hgb 10.8 L Hct 33.2 L MCV 105 H MCH 34 MCHC 33 RDW Coeff of Janey 15.1 Plt Count 201 Neut % (Auto) 57.4 Lymph % (Auto) 23.0 [place] % (Auto) 14.8 H Eos % (Auto) 3.3 Baso % (Auto) 1.2 Neut # (Auto) 1.90 Lymph # (Auto) 0.80 L [place] # (Auto) 0.50 Eos # (Auto) 0.10 Baso # (Auto) 0.00 Abs Immat Gran (auto) 0.00 Imm/Tot Granulo (auto) 0.3
[2024-06-27 07:22] LABS: Chloride* 99 mmol/L (96-114); Sodium* 134 mmol/L (135-149)
[2024-06-27 07:24] LABS: Creatinine* 0.9 mg/dL (0.5-1.5); Est. Creatinine Clearance* 73.24; Estimated Glomerular Filt Rate 90 ml/min
[2024-06-27 07:25] LABS: Anion Gap 6 mEq/L (7-15); Blood Urea Nitrogen* 16 mg/dL (7-30); Calcium* 8.8 mg/dL (8.4-10.6); Carbon Dioxide* 29 mmol/L (20-32); Glucose* 97 mg/dL (60-115)
[2024-06-27] MEDS: TORSEMIDE 5 MG TABLET 10 MG PO (07:45)
[2024-06-27] MEDS: EMPAGLIFLOZIN 10 MG TABLET PO (09:19)
[2024-06-27] MEDS: METOPROLOL SUCCINATE (XL) 50 MG TAB PO (09:19)
[2024-06-27] MEDS: SENNOSIDES/DOCUSATE TABLET 1 TAB PO ×2 (09:19→20:27)
[2024-06-27] MEDS: MULTIVITAMIN/MINERALS 1 TABLET 1 TAB PO (09:19)
[2024-06-27] MEDS: AMIODARONE 200 MG TABLET PO (09:19)
[2024-06-27] MEDS: APIXABAN 5 MG TABLET PO ×2 (09:19→20:27)
[2024-06-27] MEDS: SODIUM CHLORIDE 0.9 % (FLUSH) 10 ML SYRINGE 5 ML IVF ×2 (09:20→20:28)
--- NOTE | 2024-06-27 14:47 | PC.NURSE ---
[id number]: Pt pleasant, alert, oriented and vitally stable. Resting throughout the shift. Moves via [place], tolerates well. Pt is on a regular diet and tolerating well. Pt reports pain in his left ankle with activity, though it is tolerable, and no pain at rest. Foot dressing is clean dry and intact. ?
[2024-06-27] MEDS: GABAPENTIN 300 MG CAPSULE PO (20:27)
[2024-06-27] MEDS: PRAVASTATIN SODIUM 20 MG TABLET PO (20:27)
[2024-06-27] MEDS: CYANOCOBALAMIN (VITAMIN B-12) 500 MCG TABLET PO (20:27)
[2024-06-27] MEDS: MAGNESIUM OXIDE 400 MG TABLET PO (20:27)
[2024-06-28] VITALS (8 sets, daily range): BP systolic 110–133; BP diastolic 65–78; PULSE 60–83; RESP 16–20; TEMP 36.8–37.2; O2SAT 93–98; BMI 31.6
[2024-06-28 06:24] LABS: Basophils Percent Auto 0.3 % (0.0-3.0); Eosinophils Percent Auto 3.5 % (0.0-7.0); Hematocrit 31.1 % (37.0-53.0); Hemoglobin* 10.4 gm/dL (13.5-17.5); Lymphocytes Percent Auto 26.3 % (20-44); Mean Corpuscular HGB Conc 33 gm/dL (32-36); Mean Corpuscular Hemoglobin 35 pg (26-34); Mean Corpuscular Volume 104 fL (80-100); Monocytes Percent Auto 14.4 % (0.0-11.0); Neutrophils Percent Auto 54.5 % (42.0-72.0); Platelet Count* 212 K/uL (140-440); RDW Coefficient of Variation % 14.9 % (11.5-15.5); White Blood Count* 3.12 K/uL (4.50-11.00)
[2024-06-28 06:28] LABS: Slide Review Reflex No
--- NOTE | 2024-06-28 06:39 | PC.NURSE ---
Shift note: Pt remained in bed overnight, using urinal on his own. No c/o pain, affected extremity elevated
[2024-06-28 06:40] LABS: Chloride* 100 mmol/L (96-114); Potassium* 3.9 mmol/L (3.6-5.1); Sodium* 134 mmol/L (135-149)
[2024-06-28 06:42] LABS: Creatinine* 0.9 mg/dL (0.5-1.5); Est. Creatinine Clearance* 73.24; Estimated Glomerular Filt Rate 90 ml/min
[2024-06-28 06:43] LABS: Anion Gap 7 mEq/L (7-15); Blood Urea Nitrogen* 16 mg/dL (7-30); Carbon Dioxide* 27 mmol/L (20-32); Glucose* 99 mg/dL (60-115)
[2024-06-28 06:44] LABS: Calcium* 8.8 mg/dL (8.4-10.6)
--- NOTE | 2024-06-28 07:10 | P.IMPN_ITS ---
Progress Note: A&P Assessment and plan (1) Closed fracture dislocation of left ankle joint: Problem details: - Non weightbearing on LLE at this time; awaiting improved edema prior to surgery (tentatively planning 06/30 for lateral malleolus ORIF possible syndesmosis fixation) Status: Acute (2) Chronic anticoagulation: Problem details: - a fib and history of PE, on BID Apixaban, frequently misses his evening dose - continue apixaban through 06/28/24 - given plan for likely surgery on 06/30 (will bridge with Lovenox for 48 hours preoperatively), transition to Lovenox this evening Status: Acute (3) Atrial fibrillation: Problem details: - Amiodarone and Metoprolol for rate control, Apixaban for anticoagulation. Currently in SR - Consider Xarelto for long-term anticoagulation as patient is forgetting to take evening dose of apixaban Status: Acute (4) Mobility impaired: Problem details: - Non weightbearing on LLE 2/2 unstable ankle fracture, unable to function independently. Likely needs placement for rehab after surgery Status: Acute (5) Alcohol dependence: Problem details: - [facility] protocol while hospitalized. Doing well so far. No sign of alcohol withdrawal. On gabapentin. - Uncertain history of adverse reaction to phenobarbital in the past. On June 19 he received oral phenobarbital without adverse reaction. Status: Acute (6) Left knee pain: Problem details: - Injury sustained from fall on 06/19/2024. No obvious fractures or obvious internal derangement on 3 radiographic views of the left knee, mild effusion Status: Acute (7) Pancytopenia: Problem details: - presumably 2/2 bone marrow suppression 2/2 chronic ETOH use, anemia is macrocytic - no evidence of acute bleeding, Hgb stable - on B12/folate supplementation Status: Acute Plan - per above Subjective Date Seen: 06/28/24 Interval history: Jose Angel was admitted to the hospital on 06/19 for a dislocated L distal fibular fracture following a mechanical fall at home. Given multiple comorbidities, risk of ETOH withdrawal, and non weight bearing status, needs to remain hospitalized until surgical intervention (currently planned for Friday, 06/30). Orthopedic Surgery following, placed Ortho Glass splint on 06/25/24 (after noting that patient had re-dislocated his fracture). No ETOH withdrawal symptoms during stay. On Apixaban (h/o a fib and PE), will bridge with low-dose Lovenox for 2 days prior to surgery. No concerns today, labs stable. Exam Narrative: Exam Narrative: GEN: Awake and sitting in wheelchair (just finished therapies), answering questions appropriately HEENT: EOMIs bilaterally, no scleral icterus CV: Sinus tachycardia (HR 100s, comes down to 90s with rest), no concerning murmurs R: LCTA bilaterally without concerning wheezing, breathing comfortably Ext: LLE splinted + JAKOB wrap, able to wiggle toes and sensate normally Neuro: No focal deficits or tremor Psych: Appropriate, flat affect (baseline, unchanged) Const: Vital Signs, click to edit/add: Vital Signs - 24 hr 06/27/24 07:35 06/27/24 07:35 06/27/24 07:35 Temperature 98.9 F Pulse Rate [Pulse Oximeter] 74 74 Respiratory Rate 18 18 18 Blood Pressure [Le ft Arm] Blood Pressure [Ri ght Arm] 124/68 Pulse Oximetry 94 94 Oxygen Delivery Me thod Room Air Room Air Oxygen Flow Rate 0 06/27/24 11:04 06/27/24 15:00 06/27/24 15:00 Temperature 98 F Pulse Rate [Pulse Oximeter] 79 72 Respiratory Rate 20 20 20 Blood Pressure [Le ft Arm] Blood Pressure [Ri ght Arm] 114/72 Pulse Oximetry 94 96 Oxygen Delivery Me thod Room Air Room Air Oxygen Flow Rate 06/27/24 15:00 06/27/24 19:00 06/27/24 23:00 Temperature 98.5 F 98.8 F Pulse Rate [Pulse Oximeter] 72 74 74 Respiratory Rate 20 18 18 Blood Pressure [Le ft Arm] 103/62 125/75 Blood Pressure [Ri ght Arm] Pulse Oximetry 96 93 Oxygen Delivery Me thod Room Air Room Air Oxygen Flow Rate 0 06/27/24 23:00 06/27/24 23:00 06/27/24 23:30 Temperature Pulse Rate [Pulse Oximeter] Respiratory Rate 18 18 Blood Pressure [Le ft Arm] Blood Pressure [Ri ght Arm] Pulse Oximetry 93 Oxygen Delivery Me thod Room Air Oxygen Flow Rate 06/28/24 02:32 06/28/24 06:00 Temperature Pulse Rate [Pulse Oximeter] Respiratory Rate 16 18 Blood Pressure [Le ft Arm] Blood Pressure [Ri ght Arm] Pulse Oximetry Oxygen Delivery Me thod Oxygen Flow Rate Labs Labs: Laboratory Results - last 24 hr 06/27/24 06/28/24 05:56 05:45 WBC 3.31 L 3.12 L RBC 3.16 L 3.00 L Hgb 10.8 L 10.4 L Hct 33.2 L 31.1 L MCV 105 H 104 H MCH 34 35 H MCHC 33 33 RDW Coeff of Janey 15.1 14.9 Plt Count 201 212 Neut % (Auto) 57.4 54.5 Lymph % (Auto) 23.0 26.3 [place] % (Auto) 14.8 H 14.4 H Eos % (Auto) 3.3 3.5 Baso % (Auto) 1.2 0.3 Neut # (Auto) 1.90 1.70 Lymph # (Auto) 0.80 L 0.80 L [place] # (Auto) 0.50 0.40 Eos # (Auto) 0.10 0.10 Baso # (Auto) 0.00 0.00 Abs Immat Gran (auto) 0.00 0.00 Imm/Tot Granulo (auto) 0.3 1.0 Sodium 134 L 134 L Potassium 4.0 3.9 Chloride 99 100 Carbon Dioxide 29 27 Anion Gap 6 L 7 BUN 16 16 Creatinine 0.9 0.9 Estimated Creat Clear 73.24 73.24 Estimated GFR 90 90 Glucose 97 99 Calcium 8.8 8.8
[2024-06-28] MEDS: TORSEMIDE 5 MG TABLET 10 MG PO (07:30)
[2024-06-28] MEDS: METOPROLOL SUCCINATE (XL) 50 MG TAB PO (09:49)
[2024-06-28] MEDS: EMPAGLIFLOZIN 10 MG TABLET PO (09:49)
[2024-06-28] MEDS: MULTIVITAMIN/MINERALS 1 TABLET 1 TAB PO (09:49)
[2024-06-28] MEDS: APIXABAN 5 MG TABLET PO (09:49)
[2024-06-28] MEDS: AMIODARONE 200 MG TABLET PO (09:49)
[2024-06-28] MEDS: SODIUM CHLORIDE 0.9 % (FLUSH) 10 ML SYRINGE 5 ML IVF ×2 (09:50→20:59)
[2024-06-28] MEDS: SENNOSIDES/DOCUSATE TABLET 1 TAB PO ×2 (09:50→20:59)
--- NOTE | 2024-06-28 15:56 | PC.SOCIAL ---
Discharge planning: reinforcing steel worker called the following facilities asking for an update on the decision of the referrals sent last week. 1. [facility] and [facility], #[phone], Left message for Shauna in admissions requesting a call back and informing that the expected discharge date will now be 07/01/2024. 2. [facility], #[phone], left message for admissions asking for a call back. reinforcing steel worker spoke with pt this afternoon and he shared that he would like to go home after surgery, if possible, and have home care in place. reinforcing steel worker explained the recommendation of a SNF to the pt again and then he understood again. Social work to follow-up as needed.
--- NOTE | 2024-06-28 18:25 | PC.NURSE ---
? End of shift [id number]: Pt A&O x4, pleasant and cooperative. VSS. Reports pain in left foot with activity and denies pain at rest. Pt refused any intervention for pain. Pt denies N/V/CP/SOB.?Dressing to foot CDI and elevated. Up w/ A1 gisele steady and gait belt. Using urinal at bedside. Bed alarm in place. Pt appears resting comfortably with call light in reach. ?
[2024-06-28] MEDS: ENOXAPARIN 40 MG/0.4 ML INJ SUBCUT (20:59)
[2024-06-28] MEDS: GABAPENTIN 300 MG CAPSULE PO (20:59)
[2024-06-28] MEDS: MAGNESIUM OXIDE 400 MG TABLET PO (20:59)
[2024-06-28] MEDS: CYANOCOBALAMIN (VITAMIN B-12) 500 MCG TABLET PO (20:59)
[2024-06-28] MEDS: PRAVASTATIN SODIUM 20 MG TABLET PO (20:59)
[2024-06-28] MEDS: MELATONIN 3 MG TABLET PO (21:06)
[2024-06-29] VITALS (7 sets, daily range): BP systolic 106–132; BP diastolic 68–80; PULSE 59–74; RESP 16–18; TEMP 36.8–37; O2SAT 93–97
--- NOTE | 2024-06-29 06:39 | PC.NURSE ---
Shift note ([id number]: Patient pleasant and alert. Remained in bed tonight. Left leg elevated. Used call light appropriately. Denied pain and has had no complaints.?
--- NOTE | 2024-06-29 07:47 | PM.IMPN1 ---
Progress Note: A&P Assessment and plan (1) Closed fracture dislocation of left ankle joint: Problem details: - Non weightbearing on LLE at this time; awaiting improved edema prior to surgery (tentatively planning 06/30 for lateral malleolus ORIF possible syndesmosis fixation) Status: Acute (2) Chronic anticoagulation: Problem details: - a fib and history of PE, on BID Apixaban, frequently misses his evening dose - given plan for likely surgery on 06/30, transitioned to Lovenox 06/28 Status: Acute (3) Atrial fibrillation: Problem details: - Amiodarone and Metoprolol for rate control, Apixaban for anticoagulation. Currently in SR - Consider Xarelto for long-term anticoagulation as patient is forgetting to take evening dose of apixaban Status: Acute (4) Mobility impaired: Problem details: - Non weightbearing on LLE 2/2 unstable ankle fracture, unable to function independently. Likely needs placement for rehab after surgery Status: Acute (5) Alcohol dependence: Problem details: - CIWA protocol while hospitalized. Doing well so far. No sign of alcohol withdrawal. On gabapentin. - Uncertain history of adverse reaction to phenobarbital in the past. On June 19 he received oral phenobarbital without adverse reaction. Status: Acute (6) Left knee pain: Problem details: - Injury sustained from fall on 06/19/2024. No obvious fractures or obvious internal derangement on 3 radiographic views of the left knee, mild effusion Status: Acute (7) Pancytopenia: Problem details: - presumably 2/2 bone marrow suppression 2/2 chronic ETOH use, anemia is macrocytic - no evidence of acute bleeding, Hgb stable - on B12/folate supplementation Status: Acute Plan - per above - likely SNF postoperatively Subjective Date Seen: 06/29/24 Interval history: Jose Angel was admitted to the hospital on 06/19 for a dislocated L distal fibular fracture following a mechanical fall at home. Given multiple comorbidities, risk of ETOH withdrawal, and non weight bearing status, needs to remain hospitalized until surgical intervention (currently planned for Friday, 06/30). Orthopedic Surgery following, placed Ortho Glass splint on 06/25/24 (after noting that patient had re-dislocated his fracture). No ETOH withdrawal symptoms during stay. On Apixaban (h/o a fib and PE), bridging with Lovenox as of 06/28/24 for planned surgery 06/30/24. No concerns today. Feels that his splint is looser as edema improves. Exam Narrative: Exam Narrative: GEN: Alert and oriented, laying in bedside chair and watching the news HEENT: EOMIs bilaterally, no scleral icterus CV: RRR, No concerning murmurs R: LCTA bilaterally without concerning wheezing, air movement adequate Ext: Normal RLE; LLE is splinted with toes exposed. Able to wiggle toes with normal capillary refill Skin: Scattered bruising over extremities, unchanged Neuro: No focal deficits Psych: Appropriate Const: Vital Signs, click to edit/add: Vital Signs - 24 hr 06/28/24 11:00 06/28/24 15:00 06/28/24 15:00 Temperature 99 F 98.7 F Pulse Rate [Pulse Oximeter] 83 60 Respiratory Rate 18 20 20 Blood Pressure [Le ft Arm] Blood Pressure [Ri ght Arm] 115/78 110/70 Pulse Oximetry 98 97 97 Oxygen Delivery Me thod Room Air Room Air Room Air Oxygen Flow Rate 0 0 0 06/28/24 20:04 06/28/24 23:00 06/28/24 23:00 Temperature 98.3 F 98.4 F Pulse Rate [Pulse Oximeter] 77 62 Respiratory Rate 18 20 20 Blood Pressure [Le ft Arm] 127/77 Blood Pressure [Ri ght Arm] 119/65 Pulse Oximetry 96 93 93 Oxygen Delivery Me thod Room Air Room Air Room Air Oxygen Flow Rate 0 06/28/24 23:30 Temperature Pulse Rate [Pulse Oximeter] Respiratory Rate 20 Blood Pressure [Le ft Arm] Blood Pressure [Ri ght Arm] Pulse Oximetry Oxygen Delivery Me thod Oxygen Flow Rate
[2024-06-29] MEDS: TORSEMIDE 5 MG TABLET 10 MG PO (08:04)
[2024-06-29] MEDS: SODIUM CHLORIDE 0.9 % (FLUSH) 10 ML SYRINGE 5 ML IVF ×2 (08:04→21:14)
[2024-06-29] MEDS: ACETAMINOPHEN 325 MG TABLET 650 MG PO (08:05)
[2024-06-29] MEDS: SENNOSIDES/DOCUSATE TABLET 1 TAB PO ×2 (08:05→21:13)
[2024-06-29] MEDS: METOPROLOL SUCCINATE (XL) 50 MG TAB PO (08:05)
[2024-06-29] MEDS: EMPAGLIFLOZIN 10 MG TABLET PO (08:05)
[2024-06-29] MEDS: MULTIVITAMIN/MINERALS 1 TABLET 1 TAB PO (08:05)
[2024-06-29] MEDS: AMIODARONE 200 MG TABLET PO (08:05)
--- NOTE | 2024-06-29 12:19 | PC.SOCIAL ---
Addendum entered by SONU Retana 06/29/24 14:18: Discharge planning: Pt's sister, Kalina, shared with this worker that she spoke to Susan from [facility] whom told her she now has openings this week and pt's sister would like this worker to send a referral to [facility]. toll testboard worker reached out to Susan and secure emailed a referral to her on behalf of the pt. The email was sent securely to [email or web address]. Pt's sister also stated that it was probably best to let [facility] and [facility] know that they will pass on those beds, as pt and his sister feel it would be best for him to be closer in location to this sister(Kalina), whom lives in [place], [place]. toll testboard worker will inform Lurdes at [facility] and Zulema at [facility] of this update. toll testboard worker did also hear back from Kavitha at [facility] where a referral was sent to last the ) who said that they can tentatively accept the pt pending updated notes after the pt's surgery. toll testboard worker informed pt's sister of this update from [place]. Pt's sister said that she also left a message with senior care in [place] about openings, as well. Pt's sister also asked if this worker could have the provider on duty call her. This worker spoke to the provider on duty and the provider will call Kalina today. Kalina also asked about a care conference for the pt. This worker will address that with Kalina again if she feels it is still needed after she talks to the provider on duty. Social work to follow-up as needed. Original Note: Discharge planning: toll testboard worker verified with pt's sister, Kalina, today that she is is Power of Reading Aide and she stated that she sent a copy of the POA to the hospital already. Social work to follow-up as needed.
--- NOTE | 2024-06-29 18:55 | PC.NURSE ---
End of shift [id number]: Pt has been A&O, afebrile and VSS. He is Ax1 with [facility] for transfers. Pt is unable to comply with NWB status to LLE so he has been TTWB. PIV in right wrist SL and C/D/I. He utilizes the urinal in bed & is also consistently incontinent. He was also incontinent of BM this afternoon. Pt tolerates regular diet without nausea. He is to be NPO at 0000 for planned L. ankle fx repair tomorrow. LLE in soft cast & elevated with pillows. SCD to RLE. Minimal c/o left knee pain, PRN Tylenol given x1 today @ 0805. ?
[2024-06-29] MEDS: PRAVASTATIN SODIUM 20 MG TABLET PO (21:13)
[2024-06-29] MEDS: MAGNESIUM OXIDE 400 MG TABLET PO (21:13)
[2024-06-29] MEDS: LORazepam 0.5 MG TABLET PO (21:13)
[2024-06-29] MEDS: CYANOCOBALAMIN (VITAMIN B-12) 500 MCG TABLET PO (21:13)
[2024-06-29] MEDS: GABAPENTIN 300 MG CAPSULE PO (21:13)
[2024-06-30] VITALS (20 sets, daily range): BP systolic 117–143; BP diastolic 64–92; PULSE 69–79; RESP 14–18; TEMP 36.1–37.3; O2SAT 91–99
[2024-06-30 07:05] LABS: Basophils Percent Auto 1.1 % (0.0-3.0); Eosinophils Percent Auto 4.3 % (0.0-7.0); Hematocrit 31.3 % (37.0-53.0); Hemoglobin* 10.4 gm/dL (13.5-17.5); Immature Granulocytes Pct Auto 0.3 %; Lymphocytes Percent Auto 28.2 % (20-44); Mean Corpuscular HGB Conc 33 gm/dL (32-36); Mean Corpuscular Hemoglobin 34 pg (26-34); Mean Corpuscular Volume 102 fL (80-100); Monocytes Percent Auto 10.9 % (0.0-11.0); Neutrophils Percent Auto 55.2 % (42.0-72.0); Platelet Count* 209 K/uL (140-440); RDW Coefficient of Variation % 14.9 % (11.5-15.5); Red Blood Count 3.06 m/uL (4.30-5.90); White Blood Count* 3.76 K/uL (4.50-11.00)
[2024-06-30 07:30] LABS: Chloride* 100 mmol/L (96-114); Potassium* 3.8 mmol/L (3.6-5.1); Sodium* 135 mmol/L (135-149)
[2024-06-30 07:33] LABS: Anion Gap 7 mEq/L (7-15); Blood Urea Nitrogen* 14 mg/dL (7-30); Carbon Dioxide* 28 mmol/L (20-32); Creatinine* 0.9 mg/dL (0.5-1.5); Est. Creatinine Clearance* 73.24; Estimated Glomerular Filt Rate 90 ml/min; Glucose* 97 mg/dL (60-115)
[2024-06-30 07:34] LABS: Calcium* 8.8 mg/dL (8.4-10.6)
[2024-06-30 07:43] LABS: Slide Review Acceptable Review (Acceptable); Slide Review Reflex Yes
--- NOTE | 2024-06-30 07:47 | P.ORPN_ITS ---
Subjective Subjective Date Seen: 06/30/24 Principal diagnosis: Left ankle pain and fracture; left knee pain. Interval history: Jose Angel continues to have an unstable ankle. Most recently, his splint was taken down 06/25/2024 and revealed the variety and multiple blisters throughout this left lower extremity from the ankle to the knee. These were unroofed and xeroform placed along with ABDs and a new splint. he needed some time for the skin to improve minutes condition. The goal would be to fix the fibula and hopefully avoid majority of these blisters if not all of the blisters. Ortho Exam Narrative Exam Narrative: Currently he is lying in bed supine. Comfortable. Neurologic intact distally in the superficial and deep peroneal as well as plantar distribution. Splint remains in place (short leg). Const Vital Signs, click to edit/add: Vital Signs - 24 hr 06/29/24 11:00 06/29/24 15:00 06/29/24 15:00 Temperature 98.3 F Pulse Rate [Pulse Oximeter] 73 59 L Respiratory Rate 18 16 16 Blood Pressure [Left Arm] Blood Pressure [Right Arm] 119/80 Pulse Oximetry 94 97 Oxygen Delivery Method Room Air Room Air Oxygen Flow Rate 06/29/24 15:00 06/29/24 19:47 06/29/24 21:19 Temperature 98.4 F 98.6 F 98.4 F Pulse Rate [Pulse Oximeter] 59 L 74 71 Respiratory Rate 16 18 16 Blood Pressure [Left Arm] 106/68 132/79 128/79 Blood Pressure [Right Arm] Pulse Oximetry 97 93 95 Oxygen Delivery Method Room Air Room Air Room Air Oxygen Flow Rate 0 0 06/29/24 23:00 06/29/24 23:30 06/30/24 02:46 Temperature Pulse Rate [Pulse Oximeter] 71 Respiratory Rate 16 18 Blood Pressure [Left Arm] Blood Pressure [Right Arm] Pulse Oximetry Oxygen Delivery Method Oxygen Flow Rate 06/30/24 06:00 Temperature Pulse Rate [Pulse Oximeter] Respiratory Rate 18 Blood Pressure [Left Arm] Blood Pressure [Right Arm] Pulse Oximetry Oxygen Delivery Method Oxygen Flow Rate Assessment and Plan Assessment and plan (1) Alcohol dependence: Status: Acute (2) Closed fracture dislocation of left ankle joint: Problem details: - Non weightbearing on LLE at this time; awaiting improved edema prior to surgery (tentatively planning 06/30 for lateral malleolus ORIF possible syndesmosis fixation) Status: Acute Plan His left lower extremity will be re-examined today after removal of the splint prior to surgery but anticipate fixation of the lateral malleolus fracture along with short-leg splint application. He will need to be seen in a weekly basis for wound check and likely re-splinting x4 weeks postop. Consent was obtained for this procedure today. His lower extremity was signed. In the short term, he will likely benefit from a jail facility stay as the next step after the hospitalization. Anticipate still toe-touch weight-bearing left lower extremity. Total Time Spent Total time spent: 20
[2024-06-30] MEDS: TORSEMIDE 5 MG TABLET 10 MG PO (08:42)
[2024-06-30] MEDS: EMPAGLIFLOZIN 10 MG TABLET PO (08:43)
[2024-06-30] MEDS: METOPROLOL SUCCINATE (XL) 50 MG TAB PO (08:43)
[2024-06-30] MEDS: AMIODARONE 200 MG TABLET PO (08:43)
[2024-06-30] MEDS: SODIUM CHLORIDE 0.9 % (FLUSH) 10 ML SYRINGE 5 ML IVF ×2 (08:45→20:53)
[2024-06-30] MEDS: LACTATED RINGERS 1000 ML 1,000 ML 100 ML IV (11:36)
--- NOTE | 2024-06-30 11:45 | CRLHL7_ITS ---
For Patients: As a result of the Century Cures Act, medical imaging exams and procedure reports are released immediately into your electronic medical record. You may view this report before your referring provider. If you have questions, please contact your health care provider. INDICATION: Intraoperative. Findings : Three views of the left ankle show an intramedullary brayan in the distal fibula stabilizing an oblique fracture. The hardware appears intact. 1 minute 36 seconds of fluoro time. Dictated by Hari Vicente MD @ 07/01/2024 10:49:50 AM (Electronically Signed)
--- NOTE | 2024-06-30 12:05 | W.ANESCHARGE ---
Anesthesia Charges Start Date/Time Anesthesia Start Date: 06/30/24 Anesthesia Start Time: 11:36 Stop Date/Time Anesthesia Stop Date: 06/30/24 Anesthesia Stop Time: 14:08 Summary Emergency: MDA Extremes of Age - Over 70 or under 1: MDA
[2024-06-30] MEDS: BUPIVACAINE 0.25% 30 ML INJECTION (12:09)
--- NOTE | 2024-06-30 13:14 | SUR.OPER ---
PRE-OP SKIN INTEGRITY LEFT LEG/ANKLE-SLIGHTLY SWOLLEN, OPEN AREAS SCATTERED ON LOWER LEG/FOOT, REDDENED AREAS/SLIGHT ECCHYMOSIS PRESENT
--- NOTE | 2024-06-30 13:26 | PM.ORPRC ---
Procedure Note Date of procedure: 06/30/24 Procedure: PREOPERATIVE DIAGNOSES: 1. Left ankle fracture dislocation (lateral malleolus fracture with bimalleolar equivalent), closed, acute 2. Left ankle syndesmosis disruption 3. Left ankle fracture blisters-numerous and large POSTOPERATIVE DIAGNOSES: 1. Left ankle fracture dislocation (lateral malleolus fracture with bimalleolar equivalent), closed, acute 2. Left ankle syndesmosis disruption 3. Left ankle fracture blisters-numerous and large NAME OF OPERATION: 1. Left ankle fibular intramedullary nail fixation of fracture 2. Left ankle syndesmosis repair (2 knotless tight rope devices) 3. [id number] - intraoperative fluoroscopy > 1 hour. SURGEON: Jorge Calles MD [employer] CONSULTANT: Kevin Quinonez PA-C; Of note, an retirement assistant was critical for this case to aide in patient positioning, leg manipulation, tissue retraction, closure, & splinting. ANESTHESIA: Regional block plus MAC anesthetic. EBL: 50 mL IMPLANTS: Arthrex fibulock 3.0 mm distal fibular intramedullary nail with 2.7 mm cortical nonlocking screws distally (total of 2 screws). TOURNIQUET: None INDICATIONS: The patient is a pleasant 73-year-old male who sustained a left ankle fracture-dislocation 06/19/2024. He presented approximately 12-18 hours after original injury as he was inebriated and simply thought he sprained his ankle. Unfortunately, his prolonged dislocated state, which was reduced in the emergency department, resulted in significant skin trauma/edema/pressure. This eventually for multiple fracture blisters throughout his left leg. It was not felt prudent to do surgery prior to today. In fact, on 06/25/2024 re-evaluation of his skin showed tremendous blistering with unroofing of the blisters, Xeroform application, and re-splinting. He now presents today for definitive fixation of the left ankle injury. FINDINGS: Closed, displaced lateral malleolus fractures with fair bone quality. The syndesmosis was also disrupted which was confirmed after fixing the lateral malleolus. There general skin condition had improved drastically from the 06/25/2024 evaluation. The blisters had started to epithelialize for the most part. There also skin wrinkles now present. PROCEDURE: Following a thorough discussion of risks, benefits, and alternatives, consent was obtained and the left ankle was marked. The patient was brought to the operating room and placed supine on the operating table. Induction of anesthesia was undertaken. Appropriate time out was performed identifying proper patient, site and procedure. 2 g IV Ancef was administered within 1 hour of incision preoperatively. The left lower extremity was prepped and draped in the appropriate sterile fashion using ChloraPrep. The limb was exsanguinated and the tourniquet inflated. At this stage, attention was turned to the lateral malleolus fixation. Initially, a lateral x-ray helped us with the general alignment of where the guide pin would track. This was drawn on the skin for future reference. We then entered the distal fibula with a guide pin at the fibular tip according to the technique guide. It was passed into the fibula and after confirming on both AP and lateral fluoroscopic images, it was found to pass up the fibula approximately 130+ mm. The fracture was held reduced with fingers throughout the reaming to maintain its reduced position. The distal portion of the fibula was then reamed with the opening Reamer, followed by the 3.2 mm Reamer up the fibular diaphysis. The canal was very tight, and thus we progressed slowly and in the toggle fashion so as not to break through the fibula. After proper reaming, the nail was placed. The proximal fins were engaged with the torque limiting screwdriver. Distal interlocking screws were then placed from lateral to medial being cautious not to allow them to penetrate the medial fibular cortex. These had excellent purchase and were necessary given her frail bone quality. Finally, the end cap was placed and confirmed on AP and lateral views to be in appropriate position. After confirming appropriate reduction/positioning on C-arm fluoroscopic imaging, the ankle was tested for syndesmosis stability. External rotation was performed. The syndesmosis was disrupted prompting syndesmosis fixation. 2 separate knotless tight rope devices were utilized to stabilize the syndesmosis through the guide/through the nail. C-arm confirmed the button to be flipped properly and apposed against the bone with improved stability to the syndesmosis. At this stage, the wound was thoroughly irrigated with normal saline. Closure was performed with 3-0 / 4-0 Vicryl and monocryl, respectively for subcutaneous and subcuticular closure. Dressings were applied and a sugar-tong splint was applied. The patient was awoken from anesthesia and transferred to the PACU in stable condition. PLAN: 1. Elevate operative extremity. 2. Encouraged ice. 3. Oxycodone for pain as needed. 4. Follow up with PA visit in 2-3 weeks for wound check and splint removal. Transition to CAM boot. Advance weight-bearing slowly beginning week 4 as tolerated 5. Toe-touch weight-bearing operative lower extremity currently.
--- NOTE | 2024-06-30 14:11 | P.ANES_ITS ---
Anesthesia Charges Start Date/Time Anesthesia Start Date: 06/30/24 Anesthesia Start Time: 11:36 Stop Date/Time Anesthesia Stop Date: 06/30/24 Anesthesia Stop Time: 14:08 Summary Emergency: KETTLE COORDINATOR Extremes of Age - Over 70 or under 1: KETTLE COORDINATOR
--- NOTE | 2024-06-30 14:11 | W.ANESCHARGE ---
Anesthesia Charges Start Date/Time Anesthesia Start Date: 06/30/24 Anesthesia Start Time: 11:36 Stop Date/Time Anesthesia Stop Date: 06/30/24 Anesthesia Stop Time: 14:08 Summary Emergency: RELIGION INSTRUCTOR Extremes of Age - Over 70 or under 1: RELIGION INSTRUCTOR
--- NOTE | 2024-06-30 14:41 | P.IMPN_ITS ---
Progress Note: A&P Assessment and plan (1) Closed fracture dislocation of left ankle joint: Problem details: - surgery with Dr. Calles 06/30/24 - will need placement; sister Kalina hoping to have him placed in [place] (where she lives), SW/PT/OT assisting Status: Acute (2) Alcohol dependence: Status: Acute Plan - restart anticoagulation tomorrow - sister Kalina updated Subjective Date Seen: 06/30/24 Interval history: Jose Angel was admitted to the hospital on 06/19 for a dislocated L distal fibular fracture following a mechanical fall at home. Given multiple comorbidities, risk of ETOH withdrawal, and non weight bearing status, has remained hospitalized prior to surgery. No ETOH withdrawal. He is scheduled for repair today with Dr. Calles of Orthopedic Surgery. Has been off of Eliquis since 06/28 (h/o a fib and PE). Exam Narrative: Exam Narrative: Patient is resting comfortably in bed. Pulse palpates as RRR. Breathing comfortably without tachypnea. Left lower extremity is splinted and wrapped, normal capillary refill of left toes Const: Vital Signs, click to edit/add: Vital Signs - 24 hr 06/29/24 15:00 06/29/24 15:00 06/29/24 15:00 Temperature 98.4 F Pulse Rate Pulse Rate [Pulse Oximeter] 59 L 59 L Respiratory Rate 16 16 16 Blood Pressure Blood Pressure [Le ft Arm] 106/68 Pulse Oximetry 97 97 Oxygen Delivery Me thod Room Air Room Air Oxygen Flow Rate 06/29/24 19:47 06/29/24 21:19 06/29/24 23:00 Temperature 98.6 F 98.4 F Pulse Rate Pulse Rate [Pulse Oximeter] 74 71 71 Respiratory Rate 18 16 Blood Pressure Blood Pressure [Le ft Arm] 132/79 128/79 Pulse Oximetry 93 95 Oxygen Delivery Me thod Room Air Room Air Oxygen Flow Rate 0 0 06/29/24 23:30 06/30/24 02:46 06/30/24 06:00 Temperature Pulse Rate Pulse Rate [Pulse Oximeter] Respiratory Rate 16 18 18 Blood Pressure Blood Pressure [Le ft Arm] Pulse Oximetry Oxygen Delivery Me thod Oxygen Flow Rate 06/30/24 08:00 06/30/24 08:00 06/30/24 14:03 Temperature 99.2 F 98.5 F Pulse Rate 69 Pulse Rate [Pulse Oximeter] 70 70 Respiratory Rate 18 18 14 Blood Pressure 136/81 Blood Pressure [Le ft Arm] 117/74 Pulse Oximetry 91 99 Oxygen Delivery Me thod Room Air Nasal Cannula Oxygen Flow Rate 0 5 06/30/24 14:10 06/30/24 14:15 06/30/24 14:20 Temperature 98.0 F Pulse Rate 77 77 74 Pulse Rate [Pulse Oximeter] Respiratory Rate 16 16 18 Blood Pressure 132/75 143/80 H 129/80 Blood Pressure [Le ft Arm] Pulse Oximetry 99 99 98 Oxygen Delivery Me thod Nasal Cannula Nasal Cannula Nasal Cannula Oxygen Flow Rate 3 3 3 06/30/24 14:25 06/30/24 14:30 Temperature 97.8 F Pulse Rate 74 74 Pulse Rate [Pulse Oximeter] Respiratory Rate 18 18 Blood Pressure 121/92 H 128/74 Blood Pressure [Le ft Arm] Pulse Oximetry 98 98 Oxygen Delivery Me thod Room Air Room Air Oxygen Flow Rate Labs Labs: Laboratory Results - last 24 hr 06/30/24 06:05 WBC 3.76 L RBC 3.06 L Hgb 10.4 L Hct 31.3 L MCV 102 H MCH 34 MCHC 33 RDW Coeff of Janey 14.9 Plt Count 209 Neut % (Auto) 55.2 Lymph % (Auto) 28.2 [place] % (Auto) 10.9 Eos % (Auto) 4.3 Baso % (Auto) 1.1 Neut # (Auto) 2.10 Lymph # (Auto) 1.10 [place] # (Auto) 0.40 Eos # (Auto) 0.20 Baso # (Auto) 0.00 Abs Immat Gran (auto) 0.00 Imm/Tot Granulo (auto) 0.3 Diff Slide Review Acceptable Review Sodium 135 Potassium 3.8 Chloride 100 Carbon Dioxide 28 Anion Gap 7 BUN 14 Creatinine 0.9 Estimated Creat Clear 73.24 Estimated GFR 90 Glucose 97 Calcium 8.8
[2024-06-30] MEDS: MORPHINE 2 MG/ML inj IVP (15:10)
--- NOTE | 2024-06-30 16:31 | PC.SOCIAL ---
Discharge planning: Pt had ankle surgery today. machine lay out worker sent post-op notes to Susan at [facility] and Kavitha at [facility] at their requests via secure email and fax. machine lay out worker checked with the charge nurse on duty and the pt will not be seen by PT/OT until tomorrow morning and both facilities want to see PT/OT notes after the surgery. Social work to follow-up as needed.
[2024-06-30] MEDS: CEFAZOLIN 2 GM in 0.9 % SODIUM CHLORIDE Mini-bag 100 ML IVPB (18:12)
[2024-06-30] MEDS: OXYCODONE 5 MG TABLET PO (18:43)
[2024-06-30] MEDS: ACETAMINOPHEN 325 MG TABLET 650 MG PO (18:43)
--- NOTE | 2024-06-30 19:44 | PC.NURSE ---
Pt is pleasant, alert, oriented and vitally stable. Pt came back from surgery around 1430. Splint clean dry and intact. Pain rating 6-8/10, see mar for intervention. Left leg elevated on pillows, active ice over splint. Using bedside urinal, tolerates well. Nurse to nurse given to facility in [place].
[2024-06-30] MEDS: GABAPENTIN 300 MG CAPSULE PO (20:52)
[2024-06-30] MEDS: PRAVASTATIN SODIUM 20 MG TABLET PO (20:52)
[2024-06-30] MEDS: CYANOCOBALAMIN (VITAMIN B-12) 500 MCG TABLET PO (20:52)
[2024-06-30] MEDS: MAGNESIUM OXIDE 400 MG TABLET PO (20:52)
[2024-06-30] MEDS: SENNOSIDES/DOCUSATE TABLET 1 TAB PO (20:53)
[2024-06-30] MEDS: LORazepam 0.5 MG TABLET PO (20:53)
[2024-07-01] MEDS: CEFAZOLIN 2 GM in 0.9 % SODIUM CHLORIDE Mini-bag 100 ML IVPB (01:54)
[2024-07-01] MEDS: OXYCODONE 5 MG TABLET PO ×2 (01:55→09:34)
[2024-07-01] MEDS: ACETAMINOPHEN 325 MG TABLET 650 MG PO ×2 (01:55→09:34)
[2024-07-01 02:25] VITALS: BP 121/69; PULSE 69; RESP 16; TEMP 36.7; O2SAT 95
[2024-07-01 05:01] VITALS: RESP 16
--- NOTE | 2024-07-01 05:03 | PC.NURSE ---
[id number] Pt slept well during night, rated pain 4/10, prn medication administered with relief. using urinal at bedside. Ice on top of cast to LLE.
[2024-07-01 07:45] VITALS: BP 116/84; PULSE 73; RESP 18; TEMP 36.7; O2SAT 94
[2024-07-01] MEDS: METOPROLOL SUCCINATE (XL) 50 MG TAB PO (09:32)
[2024-07-01] MEDS: AMIODARONE 200 MG TABLET PO (09:32)
[2024-07-01] MEDS: MULTIVITAMIN/MINERALS 1 TABLET 1 TAB PO (09:32)
[2024-07-01] MEDS: APIXABAN 5 MG TABLET PO (09:32)
[2024-07-01] MEDS: EMPAGLIFLOZIN 10 MG TABLET PO (09:32)
[2024-07-01] MEDS: SODIUM CHLORIDE 0.9 % (FLUSH) 10 ML SYRINGE 5 ML IVF (09:33)
[2024-07-01] MEDS: TORSEMIDE 5 MG TABLET 10 MG PO (10:20)
[2024-07-01] MEDS: VALSARTAN 80 MG TABLET PO (10:22)
--- NOTE | 2024-07-01 10:32 | PC.SOCIAL ---
Discharge plan: Received call from Susan in admissions at [facility] stating they can accept pt today for admission for short term rehab to a private room if pt can arrive by 3:00pm. This will be an insurance covered rehab stay. Called pt's sister Kalina who is pleased and agrees with this discharge plan. Sister is requesting transport by non-emergency ambulance. Sister is aware pt's medical condition is expected to qualify for insurance covered transportation, but if it is not covered by insurance, he will get a bill. Sister states she is confident she can get it covered by insurance and wants this transport arranged. By phone explained the Important Message from Medicare and pt's right to appeal discharge. Sister acknowledged understanding of the appeal process. sheet metal duct worker supervisor to follow up as needed regarding discharge to [facility] today. [facility] is located at [address] [place] [address]. .
--- NOTE | 2024-07-01 10:32 | PM.ORPN ---
Subjective Subjective Date Seen: 07/01/24 Principal diagnosis: s/p left ankle ORIF Interval history: Patient reports doing well overall. Pain is minimal; slightly increased pain left ankle when moving. Denies any significant left knee pain. Remains nonweightbearing left lower extremity. Oral medications, ice as needed for discomfort. Reports passing gas, having bowel movement yesterday (06/30/2024). Denies any numbness or tingling distally. Plan is to go to [facility] near [place], [place] where his sister lives. Ortho Exam Narrative Exam Narrative: Left ankle: Dani Preston splint in place. Neutral ankle position at 90?. No significant ipsilateral knee swelling. [place] warm digits with brisk cap refill; intact dermatomes and myotomes distally including the common peroneal, tibial, saphenous, and sural nerve distributions Contralateral calf soft, nontender. 2+ DP/PT pulses Const Vital Signs, click to edit/add: Vital Signs - 24 hr 06/30/24 14:03 06/30/24 14:10 06/30/24 14:15 Temperature 98.5 F Pulse Rate 69 77 77 Pulse Rate [Pulse Oximeter] Respiratory Rate 14 16 16 Blood Pressure 136/81 132/75 143/80 H Blood Pressure [Left Arm] Pulse Oximetry 99 99 99 Oxygen Delivery Method Nasal Cannula Nasal Cannula Nasal Cannula Oxygen Flow Rate 5 3 3 06/30/24 14:20 06/30/24 14:25 06/30/24 14:30 Temperature 98.0 F 97.8 F Pulse Rate 74 74 74 Pulse Rate [Pulse Oximeter] Respiratory Rate 18 18 18 Blood Pressure 129/80 121/92 H 128/74 Blood Pressure [Left Arm] Pulse Oximetry 98 98 98 Oxygen Delivery Method Nasal Cannula Room Air Room Air Oxygen Flow Rate 3 06/30/24 14:30 06/30/24 14:45 06/30/24 15:00 Temperature 97.1 F L 97.0 F L Pulse Rate 75 74 Pulse Rate [Pulse Oximeter] Respiratory Rate 18 18 18 Blood Pressure 132/73 125/83 Blood Pressure [Left Arm] Pulse Oximetry 94 93 Oxygen Delivery Method Room Air Room Air Oxygen Flow Rate 06/30/24 15:00 06/30/24 15:15 06/30/24 15:30 Temperature 96.9 F L 97.2 F L Pulse Rate 79 74 Pulse Rate [Pulse Oximeter] Respiratory Rate 18 18 Blood Pressure 122/68 120/69 Blood Pressure [Left Arm] Pulse Oximetry 95 94 95 Oxygen Delivery Method Room Air Room Air Room Air Oxygen Flow Rate 06/30/24 16:00 06/30/24 16:30 06/30/24 17:30 Temperature 97.5 F L Pulse Rate 71 70 73 Pulse Rate [Pulse Oximeter] Respiratory Rate 18 18 18 Blood Pressure 125/69 122/68 132/71 Blood Pressure [Left Arm] Pulse Oximetry 95 94 95 Oxygen Delivery Method Room Air Room Air Room Air Oxygen Flow Rate 3 06/30/24 18:30 06/30/24 19:30 06/30/24 20:30 Temperature 98 F 98.6 F Pulse Rate 70 74 76 Pulse Rate [Pulse Oximeter] Respiratory Rate 18 18 18 Blood Pressure 121/78 131/69 122/64 Blood Pressure [Left Arm] Pulse Oximetry 96 91 92 Oxygen Delivery Method Room Air Room Air Room Air Oxygen Flow Rate 3 06/30/24 23:00 07/01/24 02:25 07/01/24 05:01 Temperature 98.0 F Pulse Rate Pulse Rate [Pulse Oximeter] 69 Respiratory Rate 18 16 16 Blood Pressure Blood Pressure [Left Arm] 121/69 Pulse Oximetry 92 95 Oxygen Delivery Method Room Air Room Air Oxygen Flow Rate 07/01/24 07:45 07/01/24 07:45 07/01/24 07:45 Temperature 98.1 F Pulse Rate Pulse Rate [Pulse Oximeter] 73 73 Respiratory Rate 18 18 18 Blood Pressure Blood Pressure [Left Arm] 116/84 Pulse Oximetry 94 94 Oxygen Delivery Method Room Air Room Air Oxygen Flow Rate Assessment and Plan Assessment and plan (1) Closed fracture dislocation of left ankle joint: Problem details: - surgery with Dr. Calles 06/30/24 - will need placement; sister Kalina hoping to have him placed in [place] (where she lives), SW/PT/OT assisting Status: Acute (2) Alcohol dependence: Status: Acute Plan - PT/OT consult for education and assistance. - Social work consult for discharge planning - Prescribed analgesics as needed - DVT prophylaxis: He will return to taking his apixaban, restarting this morning (07/01/24) - Anticipation is for discharge to SNF in [place] today, 07/01/2024 if the patient remains medically stable, pain is controlled, and they are safe with mobilization.
--- NOTE | 2024-07-01 10:37 | PM.DS1 ---
DS: Providers Provider Date Seen: 07/01/24 Date of admission: 06/21/24 10:12 Primary care physician: Diogo Escamilla MD Admitting Clinician: Teofilo Rubin MD Consults: SW, PT, OT, Orthopedic Surgery Attending Physician on discharge: Felisa Moses MD Date of Discharge: 07/01/24 DS: Diagnosis Discharge Diagnosis (1) Closed fracture dislocation of left ankle joint: Status: Acute Problem details: - surgery with Dr. Calles 06/30/24 (L ankle fibular intramedullary nail fixation, L ankle syndesmosis repair) (2) Alcohol dependence: Status: Acute Problem details: - no evidence of withdrawal during stay, did well on Gabapentin HS (3) Pancytopenia: Status: Acute Problem details: - presumably 2/2 bone marrow suppression 2/2 chronic ETOH use, anemia is macrocytic - no evidence of acute bleeding, Hgb stable - on B12/folate supplementation (4) Atrial fibrillation: Status: Acute Problem details: - Amiodarone and Metoprolol for rate control, Apixaban for anticoagulation. Currently in SR - Continue Eliquis for anticoagulation upon d/c (patient going to SNF) DS: Summary Hospital Course Hospital Course: Jose Angel was admitted to the hospital on 06/19 for a dislocated L distal fibular fracture following a mechanical fall at home. Given multiple comorbidities, risk of ETOH withdrawal, and non weight bearing status, remained hospitalized until surgery. Underwent successful L ankle fibular intramedullary nail fixation and L ankle syndesmosis repair with Dr. Calles of Orthopedic Surgery on 07/01. No concerning ETOH withdrawal during stay, treated successfully with HS Gabapentin. SNF stay recommended postoperatively, patient accepted at a facility in [place] (near [facility]) and medically stable/appropriate for discharge. Status at Discharge Functional status at discharge: wheelchair bound Overall status at discharge: patient is progressing back to baseline Time Spent with Patient Time attestation: Total time spent providing and/or coordinating discharge services: Time spent: Greater than 30 minutes Specific discharge activities: Medication management and reconciliation, multidisciplinary team discussion, Ortho referral/plan Exam Narrative: Exam Narrative: GEN: Alert and nontoxic, laying comfortably in bedside chair HEENT: EOMIs bilaterally, no scleral icterus CV: RRR, systolic murmur without concerning features or radiation R: LCTA bilaterally without concerning wheezing, air movement adequate Ext: LLE wrapped postoperatively, wiggling L toes with normal capillary refill Neuro: No resting tremor or focal deficits Psych: Appropriate Const: Vital Signs, click to edit/add: Vital Signs - 24 hr 06/30/24 14:03 06/30/24 14:10 06/30/24 14:15 Temperature 98.5 F Pulse Rate 69 77 77 Pulse Rate [Pulse Oximeter] Respiratory Rate 14 16 16 Blood Pressure 136/81 132/75 143/80 H Blood Pressure [Le ft Arm] Pulse Oximetry 99 99 99 Oxygen Delivery Me thod Nasal Cannula Nasal Cannula Nasal Cannula Oxygen Flow Rate 5 3 3 06/30/24 14:20 06/30/24 14:25 06/30/24 14:30 Temperature 98.0 F 97.8 F Pulse Rate 74 74 74 Pulse Rate [Pulse Oximeter] Respiratory Rate 18 18 18 Blood Pressure 129/80 121/92 H 128/74 Blood Pressure [Le ft Arm] Pulse Oximetry 98 98 98 Oxygen Delivery Me thod Nasal Cannula Room Air Room Air Oxygen Flow Rate 3 06/30/24 14:30 06/30/24 14:45 06/30/24 15:00 Temperature 97.1 F L 97.0 F L Pulse Rate 75 74 Pulse Rate [Pulse Oximeter] Respiratory Rate 18 18 18 Blood Pressure 132/73 125/83 Blood Pressure [Le ft Arm] Pulse Oximetry 94 93 Oxygen Delivery Me thod Room Air Room Air Oxygen Flow Rate 06/30/24 15:00 06/30/24 15:15 06/30/24 15:30 Temperature 96.9 F L 97.2 F L Pulse Rate 79 74 Pulse Rate [Pulse Oximeter] Respiratory Rate 18 18 Blood Pressure 122/68 120/69 Blood Pressure [Le ft Arm] Pulse Oximetry 95 94 95 Oxygen Delivery Me thod Room Air Room Air Room Air Oxygen Flow Rate 06/30/24 16:00 06/30/24 16:30 06/30/24 17:30 Temperature 97.5 F L Pulse Rate 71 70 73 Pulse Rate [Pulse Oximeter] Respiratory Rate 18 18 18 Blood Pressure 125/69 122/68 132/71 Blood Pressure [Le ft Arm] Pulse Oximetry 95 94 95 Oxygen Delivery Me thod Room Air Room Air Room Air Oxygen Flow Rate 3 06/30/24 18:30 06/30/24 19:30 06/30/24 20:30 Temperature 98 F 98.6 F Pulse Rate 70 74 76 Pulse Rate [Pulse Oximeter] Respiratory Rate 18 18 18 Blood Pressure 121/78 131/69 122/64 Blood Pressure [Le ft Arm] Pulse Oximetry 96 91 92 Oxygen Delivery Me thod Room Air Room Air Room Air Oxygen Flow Rate 3 06/30/24 23:00 07/01/24 02:25 07/01/24 05:01 Temperature 98.0 F Pulse Rate Pulse Rate [Pulse Oximeter] 69 Respiratory Rate 18 16 16 Blood Pressure Blood Pressure [Le ft Arm] 121/69 Pulse Oximetry 92 95 Oxygen Delivery Me thod Room Air Room Air Oxygen Flow Rate 07/01/24 07:45 07/01/24 07:45 07/01/24 07:45 Temperature 98.1 F Pulse Rate Pulse Rate [Pulse Oximeter] 73 73 Respiratory Rate 18 18 18 Blood Pressure Blood Pressure [Le ft Arm] 116/84 Pulse Oximetry 94 94 Oxygen Delivery Me thod Room Air Room Air Oxygen Flow Rate Discharge Plan Discharge Disposition: [facility] Date of Admission: 06/21/24 10:12 Attending Provider on Discharge: Felisa Moses Consulting Providers: Jorge Calles Primary Care Provider: Diogo Escamilla Condition: Improved Anticipated Discharge Date/Time: 07/01/24 10:27 Discharge Medications: New sennosides-docusate sodium [Stool Softener-Laxative] 8.6-50 mg Tablet 1 tab PO BID Qty: 60 0RF torsemide 5 mg Tablet 10 mg PO DAILY@0800 Qty: 60 0RF gabapentin 300 mg Capsule 300 mg PO HS Qty: 30 0RF vitamin B complex-folic acid 0.4 mg Tablet 1 tab PO DAILY Qty: 30 0RF Eliquis 5 mg Tablet 5 mg PO BID Qty: 60 0RF oxycodone 5 mg Tablet 5 mg PO Q4H PRN (Reason: Pain) Qty: 20 0RF Continued amiodarone 200 mg tablet 200 mg PO DAILY Eliquis 5 mg tablet 5 mg PO BID Jardiance 10 mg tablet 10 mg PO DAILY metoprolol succinate 50 mg tablet extended release 24 hr 50 mg PO DAILY pravastatin 20 mg tablet 20 mg PO QPM valsartan 40 mg tablet 80 mg PO DAILY cyanocobalamin (vitamin B-12) 100 mcg tablet 100 mcg PO .when remembered magnesium oxide 500 mg capsule 500 mg PO .when remembered cholecalciferol (vitamin D3) 25 mcg (1,000 unit) tablet,chewable 1,000 unit PO .when remembered Discontinued torsemide 20 mg tablet 20 mg PO DAILY PRN Rx Instructions: FOR ANKLE SWELLING OR SHORTNESS OF BREATH; RARE TO ZERO USAGE Discharge Orders: Discharge Order (Routine); Ordered 07/01/24 Ordered By: Kevin Quinonez Activity Level: No Weight Bearing and Use Crutches Activity Detail: Toe Touch weight bearing until 4 weeks postop Discharge Diet: Regular Follow Up Appointments: Jorge Calles MD [Staff Physician] - (4-5 weeks for postop check) Diogo Escamilla MD [Primary Care Provider] - Kevin Quinonez PA-C [Physician Application Security Engineer] - (10-14 days for suture removal, f/u) Forms: [facility] Info Instructions Admit to: SNF Discharge Potential: Good Length of Stay: 30-90 days Can use facility standing orders?: Yes Code Status: Full Code TEDs: N/A Rehab Potential: Fair Therapy: Physical Therapy and Occupational Therapy Therapy Orders: Evaluate and Treat Therapy Orders Additional Information: Toe touch weight bearing, advance at 4 weeks Oxygen: No Urinary Catheter: No Glucose Checks: n/a Next INR: n/a Lab Orders: CBC and BMP in one week Orders are good >30 days: Yes Signature: Felisa Moses MD
[2024-07-01 11:00] VITALS: BP 104/59; PULSE 74; RESP 18; O2SAT 93
--- NOTE | 2024-07-01 12:34 | PC.NURSE ---
Nursing care Hours: [id number] Pt this shift calm and cooperative, alert and oriented. Pain rated 5/10, treated per emar. Pt able to wiggle toes bilat, CMS intact. Tolerating regular diet, VSS. EMS transport to physical rehab. IV removed, forms signed.
== END 2024-07-01 12:30 | DRG 493 ==
LOC: ED 13:03 → MEDSURG 13:32
PROVIDERS: Family Medicine; Orthopaedic Surgery Sports Medicine; Admitting Provider Family Medicine; Emergency Provider Emergency Medicine; PCP Family Medicine; Visit Provider Family Medicine
PROC: 0QSK06Z Reposition Left Fibula with Intramedullary Internal Fixation Device, Open Approach (ICD-10-PCS; principal; 2024-06-30 11:45)
DX: S82.62XA Displaced fracture of lateral malleolus of left fibula, initial encounter for closed fracture (principal); D61.818 Other pancytopenia; I50.20 Unspecified systolic (congestive) heart failure; S93.432A Sprain of tibiofibular ligament of left ankle, initial encounter; W01.0XXA Fall on same level from slipping, tripping and stumbling without subsequent striking against object, initial encounter; I11.0 Hypertensive heart disease with heart failure; I48.91 Unspecified atrial fibrillation; Z79.01 Long term (current) use of anticoagulants; F10.229 Alcohol dependence with intoxication, unspecified; Y90.4 Blood alcohol level of 80-99 mg/100 ml; Z87.820 Personal history of traumatic brain injury; G47.33 Obstructive sleep apnea (adult) (pediatric); Z86.711 Personal history of pulmonary embolism; H91.93 Unspecified hearing loss, bilateral; M25.562 Pain in left knee; E66.9 Obesity, unspecified; Z68.31 Body mass index [BMI] 31.0-31.9, adult; I25.2 Old myocardial infarction; E78.5 Hyperlipidemia, unspecified
CPT/HCPCS: 01480; 36415; 51798; 71045; 73562; 73600; 73610; 80048; 80076; 81001; 81003; 82077; 83735; 85025; 85610; 86140; 87086; 93005; 94761; 97110; 97162; 97165; 97166; 97530; 97535; 99100; 99140; 99156; 99284; 99285; G0378; A4580; A9153; A9270; C1713; C1776; J0665; J0690; J1100; J1650; J2250; J2270; J2405; J2704; J3010; J3490; J7030; J7120

== ENCOUNTER 2024-07-01 12:15 | Outpatient (CLI) | payer MEDICARE, BC, SELFPAY ==
--- OUTSIDE RECORDS SUMMARY | 2024-07-03 04:36 | XMS_ITS | Clinical Summary ---
Author Organization [facility] Address [place], [place] [address] Care Team Providers Care Durable Medical Equipment Repairer Name Role Phone Diogo Escamilla MD Primary Care Provider [phone] Allergies Active Allergy Reactions Criticality Noted Date [...] 137 mcg/actuation (ASTELIN) nasal spray Inhale 1 [place] into affected nostril(s) once daily if needed for Rhinitis. Active fluticasone (50 mcg per actuation) nasal solution (FLONASE) Inhale 1 [place] into affected nostril(s) once daily if needed [...] Encounters Date Type Department Care Team Description 06/30/2024 Orders Only [facility] Scanner 1 scan: (1-Ord) [place], ANKLE LT MIN 3V, 06/30/2024 06/25/2024 Orders Only [facility] Scanner 1 scan: (1-Ord) [facility], ANKLE LT MIN 3V, 06/25/2024 06/22/2024 Orders Only [facility] Scanner 1 scan: (1-Ord) [facility], XR KNEE LT 3V, 06/22/2024 06/21/2024 Orders Only [facility] Scanner 1 scan: (1-Ord) [facility], XR KNEE LT 3V, 06/21/2024 06/19/2024 Orders Only [facility] Scanner 1 scan: (1-Ord) [facility], XR CHEST, 06/19/2024 06/19/2024 Orders Only [facility] Scanner 1 scan: (1-Ord) [facility], LT ANKLE, 06/19/2024 05/05/2024 11:20 AM CDT Office Visit [facility] [address] [place] [address] Diogo Escamilla MD Follow Up (6 month follow up for heart failure) 05/05/2024 Travel from Last 3 Months Immunizations Name Administration Dates Next Due COVID-19 VACCINE SPIKEVAX (M ODERNA 50MCG/0.5ML) 12YO+ PFS 10/24/2023 COVID-19 vaccine (Pfizer-Bio NTech 30mcg/0.3mL) 12YO+ BIVALENT PF, MDV 07/31/2022 [...] st Contact Info) Description 09/22/2024 12:45 PM BARREL RIFLER OPERATOR Orders Only [facility] [address] [place] [address] [place] 09/22/2024 1:00 PM BARREL RIFLER OPERATOR Ancillary Procedure [facility] [address] [place] [address] 12/31/2024 10:30 AM CDT Office Visit [facility] [address] [place] [address] Diogo Escamilla MD [address] [facility] [address] Health Maintenance Due Date Last Done Comments Colonoscopy through age 75 1994 Zoster (shingles) series for age 50+ (1 of 2) 12/20/1999 Medicare Wellness for age 65+ 2014 COVID-19 vaccine series ( season) 2024 10/24/2023, 07/31/2022, 08/17/2021, Additional history [...] Procedure Name Priority Date/Time Associated Diagnosis Comments SCAN-RADIOLOGY REPORT 06/30/2024 12:00 AM CDT SCAN-RADIOLOGY REPORT 06/25/2024 12:00 AM CDT SCAN-RADIOLOGY REPORT 06/22/2024 12:00 AM CDT SCAN-RADIOLOGY REPORT 06/21/2024 12:00 AM CDT SCAN-RADIOLOGY REPORT 06/19/2024 12:00 AM CDT SCAN-RADIOLOGY REPORT 06/19/2024 12:00 AM CDT LIPID PANEL W REFLEX MEASURED LDL Routine 10/24/2023 3:42 PM BARREL RIFLER OPERATOR Heart failure with reduced ejection fraction (HC) LC HCV ANTIBODY RFX TO QUANT PCR Routine 05/13/2023 1:28 PM CDT Need for hepatitis C screening test from Last 3 Months or Most Recently Relevant to Health Maintenance Results * SCAN-RADIOLOGY REPORT (06/30/2024 12:00 AM CDT) Only the most recent of6 resultswithin the time period is included. Anatomical Region Laterality Modality Other Scanner OTHER * (ABNORMAL) LIPID PANEL W REFLEX MEASURED LDL (10/24/2023 3:42 PM BARREL RIFLER OPERATOR) CHOLESTEROL,TOTAL 220(H) 100 - 199 mg/dL 10/27/2023 2:26 PM BARREL RIFLER OPERATOR [facility] Comment: Cholesterol, Total Reference Ranges Desirable <200 mg/dL Borderline 200-239 mg/dL High >=240 mg/dL TRIGLYCERIDES 340(H) <150 mg/dL 10/27/2023 2:26 PM BARREL RIFLER OPERATOR [facility] [place] [facility] HDL CHOLESTEROL 60 >40 mg/dL 2:26 PM BARREL RIFLER OPERATOR [facility] NON-HDL CHOLESTEROL 160(H) <145 mg/dl 10/27/2023 2:26 PM BARREL RIFLER OPERATOR [facility] CHOL/HDL RATIO 3.67 <4.50 10/27/2023 2:26 PM BARREL RIFLER OPERATOR [facility] LDL CHOLESTEROL 92 <=130 mg/dL 10/27/2023 2:26 PM BARREL RIFLER OPERATOR [facility] VLDL CHOLESTEROL 68(H) <=30 mg/dL 10/27/2023 2:26 PM BARREL RIFLER OPERATOR [facility] PROVIDER ORDERED STATUS RANDOM 10/27/2023 2:26 PM BARREL RIFLER OPERATOR [facility] Blood BLOOD SPECIMEN / Unknown Venipuncture / Unknown 10/24/2023 3:42 PM BARREL RIFLER OPERATOR 10/24/2023 3:42 PM BARREL RIFLER OPERATOR Diogo Escamilla MD CHEMISTRY [facility] [address] [place] [id number], * LC HCV ANTIBODY RFX TO QUANT PCR (05/13/2023 1:28 PM CDT) HCV Ab Non Reactive Non Reactive 05/16/2023 5:13 AM CDT [facility] Blood BLOOD SPECIMEN / Unknown Venipuncture / Unknown 05/13/2023 1:28 PM CDT 05/13/2023 1:31 PM CDT Narrative [facility] - 05/16/2023 5:13 AM CDT Performed at: ??[address] ??[id number] Slotter Operator Helper: Artem Kendall MD, Phone: ??[phone] Diogo Escamilla MD LABORATORY [facility] [address] [place] [address] from Last 3 Months or Most Recently [...] Code Status Discussion: Reviewed Preferences Care Teams Durable Medical Equipment Repairer Relationship Specialty Start Date End Date Diogo Escamilla MD [address] [place] [address] PCP - General Family Practice 08/01/22
== END 2024-07-01 12:16 | disposition home or self-care (01) ==
LOC: AMB 07-03 04:34
PROVIDERS: PCP Family Medicine; Visit Provider Emergency Medicine Emergency Medical Services
DX: S82.892A Other fracture of left lower leg, initial encounter for closed fracture (principal)
CPT/HCPCS: A0425; A0428

== ENCOUNTER 2025-04-16 09:47 | Emergency (ER) | payer MEDICARE, BC, SELFPAY ==
[2025-04-16] VITALS (8 sets, daily range): BP systolic 94–140; BP diastolic 61–114; PULSE 62–66; RESP 12–19; TEMP 36.6; O2SAT 93–95; BMI 17.4
--- OUTSIDE RECORDS SUMMARY | 2025-04-16 09:49 | XMS_ITS | Encounter Summary ---
Author Organization [facility] Address [address] [address] Phone Care Team Providers Care Office Correspondent Name Role Phone Unavailable Primary Care Provider Unavailabl e Reason for Visit * Reason Comments Refill Request pravastatin (Pravach ol) Encounter Details Date Type Department Care Team (Late st Contact Info) Description 11/21/2024 Refill [facility] [address] [place], [place] [id number] Stephenie Alicea, DIRECTOR BIOINFORMATICS, SECONDS INSPECTOR [address] [place] [address] Refill Request (pravastatin (Pravachol)) Social History Tobacco Use Types Packs/Day Years Used Date Smoking Tobacco: Never Smokeless Tobacco: Never Alcohol Use Standard Drinks/Week Comments Yes 0 (1 standard drink = 0.6 oz pur e alcohol) Sex and Gender Information Value Date Recorded Sex Assigned at Not on file Legal Sex Male 4:34 PM CDT Gender Identity Not on file Sexual Orientation Not on file documented as of this encounter Functional Status * Patient's Vision Adequate to Safely Complete Daily Activities Answer Date of Assessment Author No 05/10/2016 4:36 PM MARKT Yolanda Rose RN * Patient's Memory Adequate to Safely Complete Daily Activities Answer Date of Assessment Author Yes 05/10/2016 4:36 PM MARKT Yolanda Rose RN documented as of this encounter Mental Status * Patient's Judgment Adequate to Safely Complete Daily Activities Answer Entry Date Author Yes 05/10/2016 4:36 PM CDT Yolanda Rose RN documented in this encounter Miscellaneous Notes * Telephone Encounter - Maliha Terrell RN - 11/21/2024 10:04 AM CST Medication is managed by [facility]. No PCP listed. Requested Prescriptions Pending Prescriptions Disp Refills pravastatin (Pravachol) 20 MG tablet [Pharmacy Med Name: Pravastatin Sodium Oral Tablet 20 MG] 30 Tablet 0 Sig: TAKE ONE TABLET BY MOUTH ONE TIME DAILY AT BEDTIME Cholesterol Failed - 11/21/2024 10:04 AM Failed - Qualifying visit within 1 year Qualifying visit date: : Not Found Recent Visits No visits were found meeting these conditions. Showing recent visits within past 365 days with a meds authorizing provider and meeting all other requirements Future Appointments No visits were found meeting these conditions. Showing future appointments within next 90 days with a meds authorizing provider and meeting all other requirements Passed - Cholesterol medications not ordered as ''Do Not Refill'' CHUTE MARKER documented in this encounter Plan of Treatment Not on file documented as of this encounter Visit Diagnoses Not on filedocumented in this encounter
--- OUTSIDE RECORDS SUMMARY | 2025-04-16 09:49 | XMS_ITS | Encounter Summary ---
Author Organization [facility] Address [address] [address] Phone Care Team Providers Care Control System Manager Name Role Phone Deanne Stepheniescott Castillo APRN, BETTE Unavailable + Eddi Smith MD Unavailable Diogo Escamilla MD Primary Care Provider [phone] Encounter Details Date Type Department Care Team (Late st Contact Info) Description 08/03/2024 Lab Requisition LABORATORY [address] [place] [address] [id number] Eddi Smith MD [address] [place] [address] [phone] Hypertensive heart disease with heart failure (HCC); Unspecified atrial fibrillation (HCC) Social History Tobacco Use Types Packs/Day Years [...] of Assessment Author No 05/10/2016 4:36 PM CDT Yolanda Rose RN * Patient's Memory Adequate to Safely Complete Daily Activities Answer Date of Assessment Author Yes 05/10/2016 4:36 PM CDT Yolanda Rose RN documented as of this encounter Mental Status * Patient's Judgment Adequate to Safely Complete Daily Activities Answer Entry Date Author Yes 05/10/2016 4:36 PM CDT Yolanda Rose RN documented in this encounter Plan of Treatment Not on file documented as of this encounter Procedures Procedure Name Priority Date/Time Associated Diagnosis Comments BASIC METABOLIC PANEL Routine 08/03/2024 9:30 AM CDT Hypertensive heart disease with heart failure (HCC) Unspecified atrial fibrillation (HCC) documented in this encounter Results * (ABNORMAL) BASIC METABOLIC PANEL (08/03/2024 9:30 AM CDT) Sodium 140 134 - 143 mEq/L 08/03/2024 10:38 AM [facility] Potassium 4.8 3.4 - 5.1 mEq/L 08/03/2024 10:38 AM [facility] Chloride 106 99 - 110 mEq/L 08/03/2024 10:38 AM [facility] Carbon Dioxide 24 19 - 29 mEq/L 08/03/2024 10:38 AM [facility] Anion Gap 10.0 3.0 - 15.0 mEq/L 08/03/2024 10:38 AM [facility] Blood Urea Nitrogen 15 5 - 24 mg/dL 08/03/2024 10:38 AM [facility] Creatinine 0.99 0.70 - 1.20 mg/dL 08/03/2024 10:38 AM [facility] Glomerular Filtration Rate 80 >60 mL/min/1. 73 m*2 08/03/2024 10:38 AM [facility] Comment:Risk of cardiovascul ar disease increases when GFR is abnormal; persistently reduced GFR values are a specific indication of CKD. This calculation uses CKD- EPI 202 equation without adjustment for race; it has not been validated in women. Calcium 9.3 8.4 - 10.5 mg/dL 08/03/2024 10:38 AM [facility] Glucose 128(H) 70 - 99 mg/dL 08/03/2024 10:38 AM CDT [facility] Blood BLOOD SPECIMEN / Unknown Capillary / Unknown 08/03/2024 9:30 AM CDT 08/03/2024 10:12 AM CDT Narrative [facility] - 08/03/2024 10:38 AM CDT Current ADA criteria for Glucose: Normal: 70-99 mg/dL Impaired Fasting Glucose: 100-125 mg/dL Diabetes Mellitus: at or above 126 mg/dL The diagnosis of diabetes must be confirmed on a subsequent day by measuring Fasting Plasma Glucose, 2-hr PG or random plasma glucose (if symptoms are present). us Eddi Smith MD EC CHEMISTRY ORDERABLES Final Re sult [facility] [address] [place] [address] documented in this encounter Visit Diagnoses Diagnosis Hypertensive heart disease with heart failure (HCC) Unspecified hypertensive heart disease with heart failure Unspecified atrial fibrillation (HCC) documented in this encounter Care Teams Control System Manager Relationship Specialty Start Date End Date Diogo Escamilla MD [address] [place] [phone] PCP - General Family Medicine 08/02/24 10/20/24 Stephenie Alicea APRN, SHINGLE SAWYER [address] [place] [address] [phone] Gerontology 07/02/24 10/20/24 Eddi Smith MD [address] [place] [address] Hospitalist Hospitalist 07/02/24 10/20/24 documented as of this encounter
--- OUTSIDE RECORDS SUMMARY | 2025-04-16 09:49 | XMS_ITS | Encounter Summary ---
Author Organization [facility] Address [address] [address] Phone Care Team Providers Care Handmade Tile Artist Name Role Phone Elsewhere, Pcp Primary Care Provider UnavailStephenie Plummer APRN, CENTRAL STERILE TECHNICIAN Unavailable + Eddi Smith MD Unavailable Diogo Escamilla MD Primary Care Provider [phone] Encounter Details Date Type Department Care Team (Late st Contact Info) Description 07/05/2024 Lab Requisition [facility] [address] [place] [id number] Stephenie Alicea APRN, CENTRAL STERILE TECHNICIAN [address] [place] [phone] Muscle weakness (generalized); Unspecified atrial fibrillation (HCC); Hypertensive heart disease with heart failure (HCC) Social History Tobacco Use Types Packs/Day [...] Associated Diagnosis Comments BASIC METABOLIC PANEL Routine 07/06/2024 7:46 AM CDT Muscle weakness (generalized) Unspecified atrial fibrillation (HCC) Hypertensive heart disease with heart failure (HCC) HEMOGRAM Routine 07/06/2024 7:46 AM CDT Muscle weakness (generalized) Unspecified atrial fibrillation (HCC) Hypertensive heart disease with heart failure (HCC) documented in this encounter Results * (ABNORMAL) BASIC METABOLIC PANEL (07/06/2024 7:46 AM CDT) Sodium 140 134 - 143 mEq/L 07/06/2024 8:42 AM CDT [facility] Potassium 4.3 3.4 - 5.1 mEq/L 07/06/2024 8:42 AM CDT [facility] Chloride 105 99 - 110 mEq/L 07/06/2024 8:42 AM CDT [facility] Carbon Dioxide 28 19 - 29 mEq/L 07/06/2024 8:42 AM CDT [facility] Anion Gap 7.0 3.0 - 15.0 mEq/L 07/06/2024 8:42 AM T [facility] Blood Urea Nitrogen 14 5 - 24 mg/dL 07/06/2024 8:42 AM CDT [facility] Creatinine 0.86 0.70 - 1.20 mg/dL 07/06/2024 8:42 AM CDT [facility] Glomerular Filtration Rate 91 >60 mL/min/1. 73 m*2 07/06/2024 8:42 AM CDT [facility] Comment:Risk of cardiovascul ar disease increases when GFR is abnormal; persistently reduced GFR values are a specific indication of CKD. This calculation uses CKD- EPI 2020 equation without adjustment for race; it has not been validated in women. Calcium 9.1 8.4 - 10.5 mg/dL 07/06/2024 8:42 AM CDT [facility] Glucose 102(H) 70 - 99 mg/dL 07/06/2024 8:42 AM CDT [facility] Blood BLOOD SPECIMEN / Unknown 07/06/2024 7:46 AM CDT 07/06/2024 8:06 AM CDT Narrative [facility] - 07/06/2024 8:42 AM CDT Current ADA criteria for Glucose: Normal: 70-99 mg/dL Impaired Fasting Glucose: 100-125 mg/dL Diabetes Mellitus: at or above 126 mg/dL The diagnosis of diabetes must be confirmed on a subsequent day by measuring Fasting Plasma Glucose, 2-hr PG or random plasma glucose (if symptoms are present). Stephenie Alicea APRN, CENTRAL STERILE TECHNICIAN CHEMISTRY ORDER GRIFFIN Final Result [facility] [address] [place] [address] * (ABNORMAL) HEMOGRAM (07/06/2024 7:46 AM CDT) WBC 5.8 3.2 - 11.0 10*9/L 07/06/2024 8:27 AM CDT [facility] RBC 3.15(L) 4.14 - 5.76 10*12/L 07/06/2024 8:27 AM CDT [facility] HGB 10.3(L) 12.9 - 16.9 g/dL 07/06/2024 8:27 AM CDT [facility] HCT 31.7(L) 38.4 - 49.7 % 07/06/2024 8:27 AM CDT [facility] MCV 100.6(H) 81.4 - 99.0 fL 07/06/2024 8:27 AM CDT [facility] MCH 32.7 26.7 - 33.1 pg 07/06/2024 8:27 AM CDT [facility] MCHC 32.5 31.6 - 35.5 g/dL 07/06/2024 8:27 AM CDT [facility] RDW 15.1(H) 11.3 - 14.6 % 07/06/2024 8:27 AM CDT [facility] PLT 246 130 - 375 10*9/L 07/06/2024 8:27 AM CDT [facility] Blood BLOOD SPECIMEN / Unknown Venipuncture / Unknown 07/06/2024 7:46 AM CDT 07/06/2024 8:06 AM CDT Stephenie Alicea APRN, BETTE HEMATOLOGY ORDE COSME Final Result [facility] [address] documented in this encounter Visit Diagnoses Diagnosis Muscle weakness (generalized) Unspecified atrial fibrillation (HCC) Hypertensive heart disease with heart failure (HCC) Unspecified hypertensive heart disease with heart failure documented in this encounter Care Teams Handmade Tile Artist Relationship Specialty Start Date End Date Elsewhere, Pcp PCP - General 05/10/16 08/01/24 Diogo Escamilla MD [address] [place] [id number] PCP - General Family Medicine 08/02/24 10/20/24 Stephenie Alicea APRN, CENTRAL STERILE TECHNICIAN [address] [place] [phone] Gerontology 07/02/24 10/20/24 Eddi Smith MD [address] [place] [phone] Hospitalist Hospitalist 07/02/24 10/20/24 documented as of this encounter
--- OUTSIDE RECORDS SUMMARY | 2025-04-16 09:49 | XMS_ITS | Clinical Summary ---
Author Organization [facility] Address [facility] [place] [address] Care Team Providers Care Barrel Rifler Button Name Role Phone Diogo Escamilla MD Primary Care Provider [phone] Allergies Active Allergy Reactions Criticality Noted Date Comments Lisinopril Cough Low 04/17/2023 Losartan Cough Low 04/17/2023 Methyl Salicylate-Menthol Rash Medium 05/29/2022 Phenobarbital Hypertension High 04/17/2023 Trolamine Salicylate Rash High 04/17/2023 Medications multivitamin (MVI) tablet Take 1 Tablet by mouth once daily. 0 05/29/20 22 Active cholecalciferol (VITAMIN D3) 1,000 unit tablet Take 1,000 units by mouth once daily. Active cyanocobalamin (VITAMIN B12) 1,000 mcg tablet Take 1,000 mcg by mouth once daily. Active magnesium 250 mg tab Take 250 mg by mouth once daily. Active amiodarone (CORDARONE) 200 mg tabletIndications:P aroxysmal atrial fibrillation (HC) Take 1 Tablet (200 mg) by mouth once daily. 90 Tablet 3 03/23/20 24 Active acetaminophen (TYLENOL) 325 mg tablet Take 650 mg by mouth every 4 hours if needed for Pain. 07/04/20 24 Active metoprolol succinate (TOPROL XL) 50 mg sustained-release tabletIndications:P aroxysmal atrial fibrillation (HC) TAKE ONE TABLET BY MOUTH ONE TIME DAILY. HOLD MEDICATION IF PULSE IF UNDER 50. IF PULSE UNDER 60 FOR 3 DAYS IN A ROW OR 5 OUT OF 10 DAYS, CALL PRESCRIBER. 90 Tablet 3 12/18/19 25 Active valsartan 80 mg tabletIndications:E ssential hypertension,Non-is chemic cardiomyopathy (HC) Take 1 Tablet (80 mg) by mouth once daily. 90 Tablet 3 01/01/20 25 Active torsemide 10 mg tabletIndications:N on-ischemic cardiomyopathy (HC) Take 1 tablet every other day, take daily as needed for increased ankle edema or weight gain of 2 or more pounds in one day. 90 Tablet 3 01/01/20 25 Active gabapentin 300 mg capsuleIndications: neuropathic pain Take 1 Capsule (300 mg) by mouth at bedtime. 90 Capsule 01/01/20 25 Active empagliflozin 10 mg tabletIndications:H eart failure with reduced ejection fraction (HC) Take 1 Tablet (10 mg) by mouth once daily. 90 Tablet 01/01/20 25 Active apixaban 5 mg tabletIndications:p revent thromboembolism in chronic atrial fibrillation Take 1 Tablet (5 mg) by mouth two times daily. 180 Tablet 01/01/20 25 Active atorvastatin 20 mg tabletIndications:H yperlipidemia, unspecified hyperlipidemia type Take 1 Tablet (20 mg) by mouth at bedtime. 90 Tablet 3 01/01/20 25 Active Active Problems Problem Noted Date Diagnosed [...] injury without skull fracture 05/29/2022 Depression 06/07/2016 Immunizations Immunization Administration Dates Next Due COVID-19 VACCINE SPIKEVAX (M ODERNA 50MCG/0.5ML) 12YO+ PFS 10/24/2023 COVID-19 vaccine (Pfizer-Bio NTech 30mcg/0.3mL) 12YO+ BIVALENT PF, MDV 07/31/2022 Influenza, High-dose Inactivated 11/12/2016,07/07 Influenza, High-dose Quadrivalent Inactivated ,08/07/2020 Influenza, Inactivated AIIV4 (Age 65+ Years) Preserv Free 07/08/2024,07/31/2022 Pneumococcal Conj 20-valent (Prevnar 20) 024 Pneumococcal Poly,23-Valent (Pneumovax) 11/12/19 17 Pneumococcal conj 13-Valent (Prevnar 13) 018 Tdap 07/16/2014 Social History Tobacco Use Types Packs/Day Years Used Date Smoking Tobacco: Never Passive Smoke Exposure: Never Smokeless Tobacco: Never Tobacco Cessation:Counseling Given: Yes Alcohol Use Standard Drinks/Week Comments Yes 0 (1 standard drink = 0.6 oz pur e alcohol) occ PHQ-2 Answer Date Recorded PHQ-2 TOTAL SCORE 0 12/31/2024 Social Connections Answer Date Recorded Do you often feel lonely or isolated from those around you? 0 05/05/2024 Alcohol Use Answer Date Recorded How often do you have a drink containing alcohol ? 1 09/15/2024 How many drinks containing a lcohol do you have on a typical day when you are drinking? 0 09/15/2024 How often do you have five or more drinks on one occasion? 0 09/15/2024 Financial Resource Strain Answer Date R ecorded Difficulty of Paying Living Expenses 3 05/05/2024 Difficulty of Paying Living Expenses Not on file 05/05/2024 Food Insecurity Answer Date Recorded Do you worry your food will run out before you are able to buy more? 1 05/05/2024 Transportation Needs Answer Date Record ed Does lack of transportation keep you from medica l appointments? 1 05/05/2024 Does lack of transportation keep you from work, meetings or getting things that you need? 1 05/05/2024 Housing Stability Answer Date Recorded What is your housing situation today? 1 05/05/2024 Utilities Answer Date Recorded Do you have trouble paying f or utilities (for example, heat, electricity, water, phone)? 1 05/05/2024 Sex and Gender Information Value Date Recorded Sex Assigned at Not on file Legal Sex Male 8:44 AM TRIPE SCRAPER Gender Identity Not on file Sexual Orientation Not on file Obstetrics History Last Filed Vital Signs Vital Sign Reading Time Taken Comments Blood Pressure 114/72 12/31/2024 10:36 AM CDT Pulse 62 12/31/2024 10:36 AM CDT Temperature 36.1 C (97 F) 12/31/2024 10:36 AM CDT Respiratory Rate 18 10/15/2024 11:0 4 AM TRIPE SCRAPER Oxygen Saturation 96% 12/31/2024 10: 36 AM CDT Inhaled Oxygen Concentration - - Weight 106.3 kg (234 lb 4.8 oz) 025 10:36 AM CDT Height 180.3 cm (5' 11) 12/31/2024 10: 36 AM CDT Body Mass Index 32.68 12/31/2024 10:36 AM CDT Plan of Treatment Upcoming Encounters Date Type Department Care Team (Late st Contact Info) Description 04/28/2025 1:00 PM CDT Orders Only [facility] [address] [place] [address] Natali Beckett 05/11/2025 10:55 AM CDT Office Visit [facility] [address] [place] [address] Diogo Escamilla MD [address] [place] [address] Health Maintenance Due Date Last Done Comments Colonoscopy through age 75 1994 Zoster (shingles) series for age 50+ (1 of 2) 12/20/1999 Tetanus booster 07/16/2024 07/16/2014 RSV vaccine for adults or (1 - 1-dose 75+ series) 2024 COVID-19 vaccine series ( season) 2025 07/27/2024, 10/24/2023, 07/31/2022, Additional history exists Influenza Vaccine (#1) 2025 , 07/31/2022, 11/12/2016, Additional history exists BMI (ht and wt on same day) for age 18+ 12/31/2025 12/31/2024, 12/23/2023, 07/07/2023, Additional history exists Depression screening for age 12+ 12/31/2025 12/31/2024, 06/10/2023, 05/29/2022 Medicare Wellness for age 65+ 01/01/2026 12/31/2024 Lipids for age 45-75 12/27/2029 12/27/2024, 10/24/2023, 05/13/2023 Hepatitis C screening for age 18-79 Completed 05/13/2023 Pneumococcal series for age 50+ Completed 07/13/2024, 01/28/2018, 11/12/2016 Hepatitis B series for 19+ Aged Out N o longer eligible based on patient's age to complete this topic Procedures Procedure Name Priority Date/Time Associated Diagnosis Comments LIPID PANEL W REFLEX MEASURED LDL Routine 12/27/2024 10:53 AM CDT Other hyperlipidemia LC HCV ANTIBODY RFX TO QUANT PCR Routine 05/13/2023 1:28 PM CDT Need for hepatitis C screening test from Last 3 Months or Most Recently Relevant to Health Maintenance Results * (ABNORMAL) LIPID PANEL W REFLEX MEASURED LDL (12/27/2024 10:53 AM CDT) CHOLESTEROL, TOTAL 251(H) <200 mg/dL [facility] HDL CHOLESTEROL 75 > OR = 40 mg/dL [facility] TRIGLYCERIDES 196(H) <150 mg/dL [facility] LDL-CHOLESTEROL 142(H) mg/dL (calc) [facility] Comment: Reference range: <100 Desirable range <100 mg/dL for primary prevention; <70 mg/dL for patients with CHD or diabetic patients with > or = 2 CHD risk factors. LDL-C is now calculated using the Jolie calculation, which is a validated novel method providing better accuracy than the Friedewald equation in the estimation of LDL-C. Ranjit WHITTEN et al. MARISABEL. 2013;310(19): 2718-0654 (http://education.[employer].Geomerics/faq/XSL135) CHOL/HDLC RATIO 3.3 <5.0 (calc) [facility] NON HDL CHOLESTEROL 176(H) <130 mg/dL (calc) [facility] Comment: For patients with diabetes plus 1 major ASCVD risk factor, treating to a non-HDL-C goal of <100 mg/dL (LDL-C of <70 mg/dL) is considered a therapeutic option. Blood BLOOD SPECIMEN / Unknown 12/27/2024 10:53 AM CDT 12/27/2024 10:53 AM CDT Diogo Escamilla MD CHEMISTRY Final Resu lt Performing Organization Address City/[facility]/ZIP Co de Phone Number [employer] [facility] [address] [place] [phone], [facility] [address] [place] [phone] * LC HCV ANTIBODY RFX TO QUANT PCR (05/13/2023 1:28 PM CDT) [facility] HCV Ab Non Reactive Non Reactive 05/16/2023 5:13 AM CDT [facility] Blood BLOOD SPECIMEN / Unknown Venipuncture / Unknown 05/13/2023 1:28 PM CDT 05/13/2023 1:31 PM CDT Narrative [facility] - 05/16/2023 5:13 AM CDT Performed at: [address] [place] [id number] Rn Urgent Care: Artem Kendall MD, Phone: [phone] Diogo Escamilla MD LABORATORY Final Resu lt [facility] [address] [place] [phone], from Last 3 Months or Most Recently Relevant to Health Maintenance Insurance MEDICARE PART B HB ONLY MEDICARE PART A HB ONLY [place] BLUE HB ONLY [place] BLUE MR PB ONLY MEDICARE PPS [place] BLUE HB ONLY Advance Directives Documents on File Type Date Recorded Patient Monitor Worker Expl anation Healthcare Directive 09/24/2024 11:11 AM [facility] 09.24.24 * Full Code (Latest Code Status on File) Date Activated Date Inactivated Comments 06/23/2023 2:16 PM 06/23/2023 7:52 PM Question Answer Comments Code Status Discussion: Reviewed Preferences * Full Code Date Activated Date Inactivated Comments 04/19/2023 7:18 PM 04/22/2023 6:19 PM Question Answer Comments Code Status Discussion: Reviewed Preferences Care Teams Barrel Rifler Button Relationship Specialty Start Date End Date Diogo Escamilla MD [address] [place] [address] PCP - General Family Practice 08/01/22
--- OUTSIDE RECORDS SUMMARY | 2025-04-16 09:49 | XMS_ITS | Clinical Summary ---
Author Organization [facility] Address [address] [address] Phone Care Team Providers Care Hot Frame Tender Name Role Phone Unavailable Primary Care Provider Unavailabl e Allergies Active Allergy Reactions Criticality Noted Date Comments Analgesic [place] RASH Medium 05/29/2022 Aspirin RASH 05/10/2016 topical analgesic aspirin Lisinopril Cough Low 04/17/2023 Losartan Cough Low 04/17/2023 Phenobarbital Hypertension High 04/17/2023 Trolamine Salicylate RASH High 04/17/2023 Medications * This document contains information received from the source organization and may not represent a complete record from that organization. amiodarone (Pacerone) 200 MG tablet Take 200 mg by mouth one time a day. Active apixaban (Eliquis) 5 MG tablet Take 5 mg by mouth two times a day. Active gabapentin (Neurontin) 300 MG capsule Take 300 mg by mouth one time a day. Active empagliflozin (Jardiance) 10 MG Tablet Take 10 mg by mouth one time a day. Do not chew or crush. Active magnesium oxide 500 MG Tablet Take 500 mg by mouth one time a day. Active Metoprolol Succinate 50 MG Capsule ER 24 Hour Sprinkle Take 50 mg by mouth one time a day. Do not crush or chew. If apical pulse <50 hold medication, <60 x3 days or at least 5 out of the last 10 days notify provider Active pravastatin (Pravachol) 20 MG tablet Take 20 mg by mouth one time a day. Active torsemide (Demadex) 5 MG tablet Take 10 mg by mouth every other day. Next dose 09/01/24 Active valsartan (Diovan) 40 MG tablet Take 40 mg by mouth one time a day. Active Folic Acid-Vit B6-Vit B12 0.5-5-0.2 MG Tablet Take 1 Tablet by mouth one time a day. Active vitamin D, cholecalcifero l, 25 mcg (1000 Units) tablet Take 25 mcg by mouth one time a day. 1 unit of Vitamin D equals 0.025 mcg of Vitamin D Active menthol-methyl salicylate (Muscle Rub) 10-15 % Cream Apply topically as needed. Apply to affected area: Active traZODone (Desyrel) 50 MG tablet Take 1 Tablet by mouth at bedtime. For two weeks 30 Tablet 4 Active Additional Information Patient not taking.Reported on 08/26/2024 cyanocobalamin (Vitamin B-12) 1000 MCG tablet Take 1 Tablet by mouth one time a day. 30 Tablet 1 Active diclofenac (Voltaren) 1 % Gel Apply 4 g topically four times a day. Apply to affected area: right knee 150 g 1 4 Active traZODone (Desyrel) 50 MG tablet Take 1 Tablet by mouth at bedtime as needed for Sleep (for two weeks). 4 Active Additional Information Patient not taking.Reported on 08/26/2024 senna-docusate (Senna Plus) 8.6-50 MG oral tablet Take 1 Tablet by mouth two times a day. AND also one tab PO twice daily prn constipation Active acetaminophen (TYLENOL) 325 MG tablet Take 650 mg by mouth every four hours as needed for Pain. Limit acetaminophen to 4000 mg per day from all sources. Active oxyCODONE (Roxicodone) 5 MG immediate release tabletIndicati ons:Closed fracture of left ankle with routine healing, subsequent encounter Take 1 Tablet by mouth two times a day as needed for Pain. 10 Tablet 4 Active Active Problems Problem Noted Date Diagnosed Date Chronic systolic CHF (congestive heart failure) 07/05/2024 Closed fracture of left ankl e with routine healing, subsequent encounter 07/05/2024 Paroxysmal atrial fibrillation 07/05/2024 History of pulmonary embolism 07/05/2024 Peripheral neuropathy 07/05/2024 Encephalomalacia on imaging study 09/09/2016 Traumatic anosmia, unspecified laterality, seque la 07/25/2016 Acquired cognitive dysfunction 07/19/2016 Adjustment reaction with mixed emotional feature s 07/19/2016 Traumatic brain injury with loss of consciousness, unspecified duration, sequela 07/10/2016 Overview (07/07/2017): Updated per 07/06/17 IMO import HCD (health care directive) 07/09/2016 ETOHism 06/07/2016 Anemia 06/07/2016 Depression 06/07/2016 Seizure after head injury 05/18/2016 Impaired mobility and activities of daily living 05/18/2016 Traumatic encephalopathy 05/18/2016 Resolved Problems Problem Noted Date Diagnosed Date Resolved Date Decreased strength 07/09/2016 6 Impairment of balance 07/09/20162015 Cognitive communication deficit 07/09/2016 08/23/2016 Impaired instrumental activi ties of daily living (IADL) 07/09/2016 08/23/2016 Acute bilateral ankle pain 06/07/2016 0 06/12/2016 Acute intracranial hemorrhage 05/18/2016 08/23/2016 Acute idiopathic gout of left knee 05/18/2016 06/12/2016 Immunizations Immunization Administration Dates Next Due COVID-19 MRNA Vaccine (Moder na) 12+ Yrs Seasonal 10/24/2023 COVID-19 MRNA Vaccine (Pfize r Bivalent TRI-SUCR) [place] 12+ YRS 07/31/2022 COVID-19 mRNA Vaccine (Pfize r-Purple 12+ Yrs) 08/17/2021,12/29/2020,12/08/2020 Influenza High Dose Quadrivalent 07/10/2021,1111/2019 Influenza Trivalent Preserva tive Free (High Dose) 11/12/2016,08/03/2015 Influenza Vaccine, Quadrival ent, Adjuvanted (Fluad) 65+ Years 07/31/2022 Pneumococcal Conjugate, (Prevnar)13-valent 01/28 Pneumovax 23 11/12/2016 Tdap (7 years and older) 07/16/2014 Surgical History Surgery Date Site/Laterality Comments ANKLE FRACTURE SURGERY Left Medical History Medical History Date Comments Skull fracture with cerebral contusion (HCC) 04/18/2016 With TBI New onset seizure (HCC) 04/18/2016 Rib fractures 04/18/2016 8-10 Alcohol abuse 04/18/2016 And dependence Sepsis (HCC) 04/18/2016 Unclear source b ut likely aspiration pneumonia. Acute encephalopathy 04/18/2016 Hypertension 04/18/2016 Hypokalemia 04/18/2016 Left knee pain 04/18/2016 Most likely gout flair Dysphagia 05/06/2016 Mild, affected b y cognitive deficits SDH (subdural hematoma) (HCC) 04/18/2016 L1 vertebral fracture (HCC) 04/18/2016 [place] sverse process Subarachnoid hemorrhage (HCC) 04/18/2016 Melanocarcinoma (HCC) HCD (health care directive) 07/09/2016 Family History Medical History Relation Comments Ophthalmic Disease Negative Family Hx Social History Tobacco Use Types Packs/Day Years [...] Sign Reading Time Taken Comments Blood Pressure 99/60 08/26/2024 7:32 AM GUEST RELATIONS AGENT Pulse 62 08/26/2024 7:32 AM GUEST RELATIONS AGENT Temperature 36.3 C (97.3 F) 08/26/2024 7:32 AM GUEST RELATIONS AGENT Respiratory Rate 20 08/26/2024 7:32 AM GUEST RELATIONS AGENT Oxygen Saturation 93% 08/26/2024 7:32 AM GUEST RELATIONS AGENT Inhaled Oxygen Concentration - - Weight 102.9 kg (226 lb 14.4 oz) 08/26/2024 7:32 AM GUEST RELATIONS AGENT Height 185.4 cm (6' 1) 05/10/2016 4:15 PM CDT Body Mass Index 29.94 05/10/2016 4:15 PM CDT Plan of Treatment Health Maintenance Due Date Last Done Comments CT Colonography 1949 Cologuard 1950 Colonoscopy 1950 Colorectal Cancer Screening 1950 FIT/FOBT 1950 MEDICARE AWV 1950 Sigmoidoscopy 1950 Shingrix (Zoster recombinant) vaccine (Standing Order) (1 of 2) 12/20/1999 TETANUS (Standing Order) 07/16/2024 07/16/2014 RSV Vaccination (60+ yrs) (Abrysvo/Arexvy) (1 - 1-dose 75+ series) 2024 COVID-19 Vaccine (2023- season) 2025 07/27/2024, 10/24/2023, 07/31/2022, Additional history exists PERTUSSIS (Standing Order) Completed 07/16/2014 Pneumococcal Vaccine: 50+ yrs (Standing Order) Completed 01/28/2018, 11/12/2016 HPV Vaccine (Standing Order) Aged Out No longer eligible based on patient's age to complete this topic Hepatitis B Vaccine (Standing Order) Aged Out No longer eligible based on patient's age to complete this topic Insurance MEDICARE COST PART A&B [place] BLUE/[place] BLUE Advance Directives For more information, please contact: [phone] Documents on File Type Date Recorded Patient Organ Tuner Electronic Expl anation Advance Directive 07/09/2016 10:36 AM ADVA NCE DIRECTIVE * Full Code (Latest Code Status on File) Date Activated Date Inactivated Comments 05/10/2016 4:40 PM 06/07/2016 5:52 PM
--- OUTSIDE RECORDS SUMMARY | 2025-04-16 09:49 | XMS_ITS | Encounter Summary ---
Author Organization [facility] Address [address] [address] Phone Care Team Providers Care After School Program Director Name Role Phone Elsewhere, Pcp Primary Care Provider UnavailStephenie Plummer APRN, MALT SPECIFICATIONS CONTROL ASSISTANT Unavailable + Eddi Smith MD Unavailable Diogo Escamilla MD Primary Care Provider [phone] Encounter Details Date Type Department Care Team (Late st Contact Info) Description 07/07/[address] [facility] [address] [place] [id number] Stephenie Alicea APRN, MALT SPECIFICATIONS CONTROL ASSISTANT [address] [place] [address] Other fatigue; Weakness Social History Tobacco Use Types Packs/Day Years [...] Procedure Name Priority Date/Time Associated Diagnosis Comments MAGNESIUM Routine 07/08/2024 6:44 AM CDT Other fatigue Weakness documented in this encounter Results * MAGNESIUM (07/08/2024 6:44 AM CDT) Magnesium 2.1 1.8 - 2.7 mg/dL 07/08/2024 7:55 AM CDT [facility] Blood BLOOD SPECIMEN / Unknown Venipuncture / Unknown 07/08/2024 6:44 AM CDT 07/08/2024 7:33 AM CDT Stephenie Alicea APRN, BETTE EC CHEMISTRY ORDER GRIFFIN Final Result Performing Organization Address City/State/[facility] Co de Phone Number [facility] documented in this encounter Visit Diagnoses Diagnosis Other fatigue Weakness Other malaise and fatigue documented in this encounter Care Teams After School Program Director Relationship Specialty Start Date End Date Elsewhere, Pcp PCP - General 05/10/16 08/01/24 Diogo Escamilla MD [address] [place] [id number] PCP - General Family Medicine 08/02/24 10/20/24 Stephenie Alicea APRN, MALT SPECIFICATIONS CONTROL ASSISTANT [address] [place] [phone] Gerontology 07/02/24 10/20/24 Eddi Smith MD [address] [place] [address] [id number] Hospitalist Hospitalist 07/02/24 10/20/24 documented as of this encounter
[2025-04-16 10:02] LABS: Hematocrit 37.8 % (37.0-53.0); Hemoglobin* 12.5 gm/dL (13.5-17.5); Immature Granulocytes Pct Auto 1.7 %; Mean Corpuscular HGB Conc 33 gm/dL (32-36); Mean Corpuscular Hemoglobin 33 pg (26-34); Mean Corpuscular Volume 100 fL (80-100); RDW Coefficient of Variation % 16.7 % (11.5-15.5); Red Blood Count 3.77 m/uL (4.30-5.90); White Blood Count* 2.91 K/uL (4.50-11.00)
--- NOTE | 2025-04-16 10:02 | CRLHL7_ITS ---
For Patients: As a result of the Century Cures Act, medical imaging exams and procedure reports are released immediately into your electronic medical record. You may view this report before your referring provider. If you have questions, please contact your health care provider. INDICATION: Fall few days, widespread bruising. TECHNIQUE: CT chest angio PE was acquired with 95 cc Isovue 370 IV contrast. Are obtained in the axial plane MIP angiographic images. No 3D coronal reconstructions were obtained at the time of dictation. COMPARISON: CT angio chest for PE April 2023. FINDINGS: Heart and vasculature: Contrast opacification of the pulmonary arterial tree is adequate. No sign of pulmonary embolism. Cardiomegaly without pericardial effusion. Dilatation of main pulmonary artery measuring 3.3 cm. Thoracic aorta is of normal caliber. Coronary artery calcification. Lungs and pleura: Minimal left pleural effusion and adjacent compressive atelectasis/contusion. Minimal right dependent atelectasis. No pneumothorax. Re-demonstration of bilateral peribronchial wall thickening, can be seen with chronic small vessel or airway disease Lymph nodes/mediastinum: No mediastinal, hilar, or axillary adenopathy. Upper abdomen: Cholelithiasis. No acute findings. Bones: Acute minimally displaced left 7th and nondisplaced 8th rib fracture on the lateral aspect. Old healed bilateral rib fractures. No acute vertebral wedging compression fracture. Multilevel degenerative changes of the spine. IMPRESSION: Acute minimally displaced left 7th and nondisplaced 8th rib fracture laterally. Minimal left pleural effusion and adjacent compressive atelectasis/contusion. Mild cardiomegaly and changes of pulmonary artery hypertension. No pulmonary embolism. Cholelithiasis. Please note that all CT scans at this facility use dose modulation, iterative reconstruction, and/or weight-based dosing when appropriate to reduce radiation dose to as low as reasonably achievable. Dictated by Haven Beverly MD @ 04/16/2025 11:31:03 AM (Electronically Signed)
--- NOTE | 2025-04-16 10:02 | CRLHL7_ITS ---
For Patients: As a result of the Century Cures Act, medical imaging exams and procedure reports are released immediately into your electronic medical record. You may view this report before your referring provider. If you have questions, please contact your health care provider. INDICATION: Fall a few days ago, mental status. TECHNIQUE: CT head without contrast. COMPARISON: CT brain february/2022 FINDINGS: no acute intracranial hemorrhage or loss of amaro-white matter differentiation. No abnormal extra-axial fluid collection. Re-demonstration of encephalomalacia in the right frontal lobe, anterior inferior left frontal lobe and left cerebellum, similar to previous exam. Ex vacuo dilatation of frontal horn of right lateral ventricle. Confluent periventricular hypodensities are nonspecific and are likely related to chronic microvascular ischemic changes. Generalized parenchymal atrophy is present. Paranasal sinuses and mastoid air cells are well pneumatized. No calvarial fracture. Bilateral orbits show no acute findings. IMPRESSION: Chronic changes without acute intracranial abnormality. Please note that all CT scans at this facility use dose modulation, iterative reconstruction, and/or weight-based dosing when appropriate to reduce radiation dose to as low as reasonably achievable. Dictated by Haven Beverly MD @ 04/16/2025 11:13:09 AM (Electronically Signed)
--- NOTE | 2025-04-16 10:02 | ED_ITS ---
HPI - General Adult General Chief complaint: Chest Pain Stated complaint: Chest pains Time Seen by Provider: 04/16/25 10:01 History of Present Illness HPI narrative: 74-year-old gentleman who lives alone in a house a few miles outside the [place], [place]. He is brought to the ER today by EMS. He per EMS he called 911 this morning because he did having chest pain. EMS reports that he seems confused. He seems unkempt and note that his house is very poorly cared for. EMS raise is concerned that he is probably not able to care for himself at home and will need evaluation for that. Per paramedics: He has a history of CHF. He is on Eliquis for AFib. Started having chest pain this morning. He the patient apparently called someone else to ask that person to call 911 for him. However after no one responded, the patient called 911 himself. Patient seemed a little bit slow to respond to questions but is cooperative. He has fairly extensive ecchymosis on his back. Apparently had a fall about a week ago. Blood pressure was in the low-normal range ranging between 90 and 100 systolic. Blood sugar was 134. Received aspirin in route. History from the patient is that he was in bed this morning at about 8 or 830 when he started having a sharp anterior left sided chest pain at the lower left rib border. No other symptoms the came with it this morning. No shortness of breath. No pain through to the back. No nausea. No palpitations. The pain does not radiate down his arm or up to his jaw. He is worried he might be having heart attack. Also per patient he has been feeling a little bit weak and dizzy for a few weeks. He does report that he takes all of his meds including his Eliquis twice a day. He has not had any recent black or bloody stools. He says he is taking his meds as prescribed but other than Eliquis he does not know the names of his meds. He reports that he does have a bad memory. He has some chronic trouble with mucus and a chronic mild cough. Sometimes when he coughs he throws up but otherwise no vomiting. He says his appetite is normal. He does drink alcohol. He drinks whiskey and his last drink was last night. When asked directly, he says it usually takes him about 3 days to go through a bottle of whiskey. He does have some chronic mild cough but did not really worse than normal lately. Not productive of any green or bloody sputum. No fever. No abdominal pain. He did fall in his living room several days ago, perhaps a week ago he thinks. He says he has trouble getting in and out of his recliner and when he was trying to sit down in a recliner he fell and landed on his back. He has not been to the doctor to be checked out for injuries after the fall. He was unaware that he had bruising on his back. Per his records the [facility] through [facility] care link he has a past medical history including Atrial fibrillation Systolic CHF Hypertension Malignant melanoma Elevated BMI (morbid obesity) Hyperlipidemia Seizure after head injury Traumatic brain injury Alcoholism Depression Medication list includes Eliquis 5 mg b.i.d. Amiodarone 200 mg daily Metoprolol 50 mg daily Torsemide 10 mg daily Valsartan 80 mg daily Impact low flows in Gabapentin Atorvastatin Vitamin D3 Vitamin B12 Tylenol Magnesium Per cardiology clinic note 11/09/24... 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 He also has had a previous pulmonary embolism. This past April he was transferred from [facility] due to atrial fibrillation with rapid ventricular response and acute systolic heart failure. At that time he had presented with a 1- to 2-week history of worsening dyspnea with PND and orthopnea. While I do not have the records available to me, it states in his available notes that he had actually had a history of atrial fibrillation in the past and had been on Eliquis and amiodarone therapy, but in February of 2022 it had been stopped when he was admitted to the hospital with a hemithorax. ? In April of 2023 when he was admitted to the hospital, an echocardiogram revealed a decline in his ejection fraction to 18% with severe mitral valve regurgitation and a small pericardial effusion. He had a mild elevation in his troponin which was felt due to demand ischemia. During his hospital stay in April at [facility] his amiodarone was resumed with a plan to consider DC cardioversion as an outpatient. His acute heart failure was obviously also treated at that time. ? He was readmitted to the hospital in June, and at that time sinus rhythm had been restored on amiodarone therapy. An outpatient nuclear stress test was performed in May which was concerning for a severely reduced ejection fraction of 27% with a large area of inferior and inferoseptal wall infarction. ? Coronary angiography in 2022 revealed a 40% stenosis in the mid left anterior descending coronary artery at the takeoff of a large diagonal branch. The intermediate branch had mild disease. The right coronary artery was dominant with mild disease. The left circumflex was small without significant disease. The left ventricular end-diastolic pressure was 15 mmHg. The pulmonary artery pressure was 27 mmHg. The right atrial pressure was 7 mmhg. The cardiac output was normal at 5.3 L/min. Echocardiogram 09/22/2024 Final Impressions: 1. LVEF 55-60%. Normal LV size. 2. Preserved RV function. 3. Mild [V-max 2.6 m/s, MG 13 mmHg, valve area 2.1 cm2]. 4. No LV thrombus [contrast study]. 5. Normal RAP estimate. ... Impression and Plan Atrial fibrillation with rapid ventricular response He remains in SR on amiodarone ALT and TSH normal He remains anticoagulated with apixaban QTc 500ms: not good candidate for sotalol Previously discussed options of ablation vs amiodarone. Patient prefers to stay on amiodarone ? 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 LBBB Left axis deviation QRS duration 164ms LVEF recovered Related Data Home Medications ?Medication ?Instructions ?Recorded ?Confirmed amiodarone 200 mg tablet 200 mg PO DAILY 06/19/2409/29 cholecalciferol (vitamin D3) 25 1,000 unit PO DAILY 04/16/25 mcg (1,000 unit) chewable tablet empagliflozin 10 mg tablet 10 mg PO DAILY 06/19/2409/29 (Jardiance) magnesium oxide 500 mg capsule 500 mg PO DAILY 4 04/16/25 metoprolol succinate 50 mg 50 mg PO DAILY 06/19/2409/29 tablet,extended release 24 hr atorvastatin 20 mg tablet 20 mg PO HS 01/11/25 5 valsartan 80 mg tablet 80 mg PO DAILY 01/11/2504/05 cyanocobalamin (vitamin B-12) 1,000 mcg PO DAILY 04/1604/16/25 1,000 mcg tablet multivitamin (Multiple Vitamins 1 tab PO DAILY 5 04/16/25 tablet) torsemide 10 mg tablet 10 mg PO Q48H PRN 04/16/25 0 04/16/25 Previous Rx's ?Medication ?Instructions ?Recorded apixaban 5 mg tablet (Eliquis) 5 mg PO BID #60 tabs gabapentin 300 mg capsule 300 mg PO HS #30 caps Allergies Allergy/AdvReac Type Severity Reaction Status Date / Time trolamine salicylate Allergy Intermediate Rash Verified 04/16/25 10:29 losartan Allergy Mild Cough Verified 04/16/25 10:29 lisinopril Allergy Unknown Cough Verified 04/16/25 10:29 [facility] Medical History (Updated 04/16/25 @ 11:40 by Darren Kennedy MD) Patient has active power of patent attorney for property Malignant melanoma (10/02/22) ?C43.9 - Malignant melanoma of skin, unspecified (ICD-10) 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) ?S06.9XAS - Unspecified intracranial injury with loss of consciousness status unknown, sequela (ICD-10) Depression (06/07/16) ?F32.A - Depression, unspecified (ICD-10) ACP (advance care planning) (04/19/23) ?Z71.89 - Other specified counseling (ICD-10) Left knee pain ?M25.562 - Pain in left knee (ICD-10) Mobility impaired ?Z74.09 - Other reduced mobility (ICD-10) Alcohol dependence ?F10.20 - Alcohol dependence, uncomplicated (ICD-10) Closed fracture dislocation of left ankle joint ?S82.892A - Other fracture of left lower leg, initial encounter for closed fracture (ICD-10) Health care directive on file ?Z78.9 - Other specified health status (ICD-10) Atrial fibrillation (2020) ?I48.91 - Unspecified atrial fibrillation (ICD-10) Chronic anticoagulation ?Z79.01 - supervisor intermediates (current) use of anticoagulants (ICD-10) Chronic dyspnea ?R06.09 - Other forms of dyspnea (ICD-10) NSTEMI (non-ST elevated myocardial infarction) ?I21.4 - Non-ST elevation (NSTEMI) myocardial infarction (ICD-10) Heart failure with reduced ejection fraction ?I50.20 - Unspecified systolic (congestive) heart failure (ICD-10) Pulmonary embolism ?I26.99 - Other pulmonary embolism without acute cor pulmonale (ICD-10) Atrial fibrillation with rapid ventricular response ?I48.91 - Unspecified atrial fibrillation (ICD-10) B12 deficiency ?E53.8 - Deficiency of other specified B group vitamins (ICD-10) Statin declined ?Z53.20 - Procedure and treatment not carried out because of patient's decision for unspecified reasons (ICD-10) Essential hypertension ?I10 - Essential (primary) hypertension (ICD-10) Morbid obesity with body mass index (BMI) of 40.0 or higher ?E66.01 - Morbid (severe) obesity due to excess calories (ICD-10) Traumatic brain injury (2016) ?S06.9X9A - Unspecified intracranial injury with loss of consciousness of unspecified duration, initial encounter (ICD-10) Obstructive sleep apnea syndrome ?G47.33 - Obstructive sleep apnea (adult) (pediatric) (ICD-10) Hyperlipidemia ?E78.5 - Hyperlipidemia, unspecified (ICD-10) Hearing loss ?H91.90 - Unspecified hearing loss, unspecified ear (ICD-10) Gout ?M10.9 - Gout, unspecified (ICD-10) Gastroesophageal reflux disease ?K21.9 - Gastro-esophageal reflux disease without esophagitis (ICD-10) Chronic cough ?R05.3 - Chronic cough (ICD-10) Chronic back pain ?M54.9 - Dorsalgia, unspecified (ICD-10) ?G89.29 - Other chronic pain (ICD-10) Alcohol dependence ?F10.20 - Alcohol dependence, uncomplicated (ICD-10) Adenomatous polyp of colon (2012) ?D12.6 - Benign neoplasm of colon, unspecified (ICD-10) Lumbar compression fracture ?S32.000A - Wedge compression fracture of unspecified lumbar vertebra, initial encounter for closed fracture (ICD-10) Hemothorax ?J94.2 - Hemothorax (ICD-10) History of seizure (2016) ?Z87.898 - Personal history of other specified conditions (ICD-10) History of pulmonary embolism (2020) ?Z86.711 - Personal history of pulmonary embolism (ICD-10) History of depression (2008) ?Z86.59 - Personal history of other mental and behavioral disorders (ICD-10) Surgical History (Updated 08/10/24 @ 12:54 by Anaya Riley) History of ankle surgery (06/30/24) ?Z98.890 - Other specified postprocedural states (ICD-10) History of thoracentesis ?Z98.890 - Other specified postprocedural states (ICD-10) History of renal calculi (10/05/12) ?Z87.442 - Personal history of urinary calculi (ICD-10) History of malignant melanoma (2006) ?Z85.820 - Personal history of malignant melanoma of skin (ICD-10) Family History Father Coronary artery disease Mother Alzheimers disease Social History (Reviewed 10/08/24 @ 11:25 by Melissa Stokes ~ [facility]) Narrative: He lives alone with his 3 cats between [place] and [place]. Closest family is his brother nessa all with lives in [facility]. He indicates his brother Jack or sister Ashlie would be healthcare power of patent attorney. Code status is full. He does not smoke cigarettes. He drinks alcohol at least 8 shots per day. What is your current living situation?: I presently have a place to live Problems where you live: unsafe martin/stairs Problems where you live details: no, just cat hair In the past 12 months, utilities in danger of being shut off: no In past 12 months, lack of transportation kept you from medical appts, meetings, work, or getting things needed for daily living: no In the past 12 mos, have been you worried that your food would run out before you had money to buy more?: never true In the past 12 mos, the food you bought just didn't last and you didn't have money to buy more?: never true Highest level of school completed/degree received: Bachelor's degree Smoking Status: Never smoker Do you use any of these nicotine containing products: None Second hand tobacco smoke exposure: No How often do you have a drink containing alcohol: 4 or more times a week Alcohol type: hard liquor Alcohol type details: whiskey 8 shots daily How many standard drinks containing alcohol do you have on a typical day: 5 or 6 How often do you have six or more drinks on one occasion: Less than monthly AUDIT-C Alcohol total score: 7 Non-prescribed substance use: denies use Caffeine: Yes (occassional) How often does anyone, including family, friends and others, physically hurt you : never How often does anyone, including family, friends and others, insult or talk down to you: never How often does anyone, including family, friends and others, threaten you with harm: never How often does anyone, including family, friends and others, scream or curse at you: never service: No Health Related Social Needs: Inadequate housing (Z59.1) Exam Narrative: Exam Narrative: Primary Survey: A- patent. Speaking clearly. Phonation normal. No stridor. B- breathing easily. Lung sounds clear and equal. Oxygen saturation normal on room air C- no active bleeding. Blood pressure stable. Symmetric pulses and cap refill in 4 extremities. D- alert and oriented x3. GCS is 15 but He is somewhat slow to respond to questions. He is cooperative. Says he is hard of hearing. GCS 15. No focal deficits. Constitutional: Appears well-developed and well-nourished. Alert. Will respond to questions but does answer them appropriately and seemingly honestly. HENT: Head: Atraumatic. No depressed skull fracture, Raccoon Eyes, Ceron's sign, or hemotympanum. Face normal. Nose: Nose normal. Mouth/Throat: Oral mucosa is clear and moist. no trismus. Pharynx normal. Tonsils symmetric. No tonsillar enlargement, erythema, or exudate. Eyes: Conjunctivae normal. EOM normal. Pupils equal, round, and reactive to light. No scleral icterus. Neck: Normal range of motion. Neck supple. No tracheal deviation present. Cardiovascular: Normal rate, regular rhythm. No gallop. No friction rub. Sy stolic murmur heard. Symmetric radial and PT artery pulses . No JVD Pulmonary/Chest: Effort normal. No stridor. No respiratory distress. No wheezes. No rales. No rhonchi . No tenderness. Abdominal: Soft. Bowel sounds normal. No distension. No mass. Left upper quadrant tenderness. No rebound. No guarding. Musculoskeletal: Multiple area of his of ecchymosis on his back including his left posterior trapezius, bilateral flanks (right more than left) right mid ribs, right mid lumbar paraspinous muscles No midline thoracic or lumbar spine tenderness or step-off. No cervical spine tenderness or step-off but patient does not seem like he has a completely reliable patient for exam so cannot rule out C-spine injury by clinical criteria. RUE: Normal range of motion. No tenderness. No deformity LUE: Normal range of motion. No tenderness. No deformity RLE: Normal range of motion. No edema. No tenderness. No deformity LLE: Normal range of motion. No edema. No tenderness. No deformity Neurological: He is awake but slow to respond to many questions. and oriented to person, place, and time. Normal strength. CN II-VII intact. No sensory deficit. GCS eye subscore is 4. GCS verbal subscore is 5. GCS motor subscore is 6. Normal coordination Skin: Skin is warm and dry. No rash noted. No pallor. Normal capillary refill. Psychiatric: Very flat affect. Const: Vital Signs, click to edit/add: Vital Signs - 24 hr 04/16/25 09:51 04/16/25 09:59 04/16/25 10:02 Temperature 97.9 F Pulse Rate 64 Pulse Rate [Pulse Oximeter] 66 Respiratory Rate 18 12 Blood Pressure 98/65 Blood Pressure [Ri ght Upper Arm] 94/73 Pulse Oximetry 95 94 93 Oxygen Delivery Me thod Room Air 04/16/25 10:52 04/16/25 11:01 04/16/25 11:37 Temperature Pulse Rate 65 64 65 Pulse Rate [Pulse Oximeter] Respiratory Rate 19 16 Blood Pressure 100/61 107/62 140/114 H Blood Pressure [Ri ght Upper Arm] Pulse Oximetry 93 93 94 Oxygen Delivery Me thod 04/16/25 12:02 04/16/25 12:31 Temperature Pulse Rate 62 Pulse Rate [Pulse Oximeter] Respiratory Rate 17 Blood Pressure 120/71 136/79 Blood Pressure [Ri ght Upper Arm] Pulse Oximetry 95 Oxygen Delivery Me thod Course Vital Signs Vital signs: Initial Vital Signs Temperature 97.9 F 04/16/25 09:51 Temperature Source Temporal Artery Scan 04/16/25 09:51 Pulse Rate 66 04/16/25 09:51 Respiratory Rate 18 04/16/25 09:51 Blood Pressure 94/73 04/16/25 09:51 Blood Pressure Mean 80 04/16/25 09:51 Pulse Oximetry 95 04/16/25 09:51 Oxygen Delivery Method Room Air 04/16/25 09:51 Vital Signs Temperature 97.9 F 04/16/25 09:51 Pulse Rate 66 04/16/25 09:51 Respiratory Rate 18 04/16/25 09:51 Blood Pressure 94/73 04/16/25 09:51 Pulse Oximetry 95 04/16/25 09:51 Oxygen Delivery Method Room Air 04/16/25 09:51 Temperature 97.9 F 04/16/25 09:51 Pulse Rate 62 04/16/25 12:02 Respiratory Rate 17 04/16/25 12:02 Blood Pressure 136/79 04/16/25 12:31 Pulse Oximetry 95 04/16/25 12:02 Oxygen Delivery Method Room Air 04/16/25 09:51 Medications Administered Medications: Discontinued Medications Generic Name Dose Route Start Last Admin Trade Name Freq PRN Reason Stop Dose Admin Sodium Chloride 1,000 mls @ 1,000 mls/hr 04/16/25 10:15 04/16/25 11:18 0.9 % Sodium Chloride 1000 Ml IV 04/16/25 11:14 Infused .Q1H GELACIO Infusion Medical Decision Making MDM Narrative Medical decision making narrative: 74-year-old male brought to the ER today by EMS from his home for evaluation of chest pain. 1. The patient called the ambulance this morning after developing some left- sided anterior chest pain and left upper quadrant pain at around 8 or 8:30 a.m.. No antecedent chest pains or any other history here suggest recent angina. Differential was broad. No evidence of palpitations, syncope or other cardiac dysrhythmia. He has history of AFib but has sinus rhythm with a first-degree AV block on his EKGs this morning. We considered possible ACS, however workup with EKG and troponin is negative. He does have a history of CHF and history of NSTEMI in the past. Given time since onset of symptoms, I do not think the patient needs to be admitted for further sets of enzymes. EKG shows no evidence for pericarditis. Clinical presentation not suggestive of myocarditis. Chest CT shows no evidence for pneumonia, pneumothorax, pulmonary edema, pleural effusion, rib fracture, cardiomegaly. Mediastinum is normal on the x-ray. The patient has no ripping or tearing pain through to the back and has symmetric pulses on exam, no other acute neuro findings so I doubt aortic dissection. Risk of radiation and contrast exposure would outweigh the benefit of CT angiogram. We considered PE for this patient. CT is negative. No wheezing or bronchospasm to suggest COPD/asthma. No signs of chest wall cellulitis, shingles. He does have a recent fall with fairly extensive ecchymosis on his back including the back of his ribs, back of his flanks and low back. However no anterior chest wall bruising. CT scan does show evidence for 2 left-sided rib fractures and with that a very small pleural fluid collection that is probably a tiny hemothorax. 2. He does have a recent fall with extensive bruising on his torso. Mental status is abnormal. Did workup for potential traumatic causes of altered mental status, bruising, as well as traumatic causes of chest pain. Head CT is normal. 3. He does have a history of alcoholism and depression. According to his recent clinic notes they had mentioned that he drinks 2 or 3 shots per day but he is telling me that he actually drinks a bottle of whiskey every 3 days. He was drinking last night. He is calm and cooperative with slow to respond this morning. Alcohol level actually came back at 0.11 which would suggest either more recent alcohol consumption that he reported or more alcohol consumption last night than he originally alluded to. I suspect he probably does have alcoholism and alcohol abuse. LFTs are mildly abnormal with AST of 91 an ALT of 51. Total bilirubin is normal. Protein is normal. Albumin is normal. INR is normal. Suspect that his initial slow cognition was probably related to alcohol intoxication. He is not showing any tremulousness, tachycardia, or other signs or symptoms of alcohol withdrawal yet. 4. He does have pancytopenia. This has been noted in his old records. Suspect due to malnutrition from alcohol abuse. Total white count is 2.9 which is down slightly from last fall when it was last measured. Absolute neutrophil count is 1500 so does not have neutropenia. Hemoglobin is 12.5 which is actually increased compared to last fall. Suspect some component of dehydration and hemoconcentration. Platelet count is 87. Previous baseline was about 200. 5. Kidney function normal. Sodium and potassium normal. Magnesium is normal at 2.1. 6. Disposition. With this patient's chest pain, falls, bruising, rib fractures, small hemothorax I made recommendation for admission. Also have concern about his reported diarrhea. EMS also expressed concern that his house was not well kempt. Concern is whether not he is a vulnerable adult. I discussed the patient's diagnoses, lab and imaging findings with him. During our discussion he certainly was more alert and conversant than he had been upon arrival. I think his improved mental status likely reflects metabolism of the alcohol that he had on board. At the time of our discussion he is alert, conversant. I think he understands our findings so far and the serious nature of his diagnoses. He understands my recommendations. He understands the risks of going home, in particular the risk of more falls, worsening pain from rib fractures, expanding hemothorax, as well as worsening lab findings with his chronic pancytopenia. We discussed that if we get him into the hospital we could provide IV fluids, nursing supportive care, pain control for his rib fractures. We can help get him through alcohol withdrawal and mitigate risk for serious withdrawal seizures or DTs. After a couple of discussions and a fairly thoughtful back and forth interaction. He says he does not want stay in the hospital. Ultimately he says he does not want to quit drinking and he wants to just slowly cut down at home. He does not want to go through withdrawal in the hospital. He is not worried about the pain from his rib fractures. The patient called his brother, who will come here to the ER to pick the patient up. Ultimately, I have to discharge this patient against medical advice. Although I have concerned about this patient I do think he has appropriate alertness. He is not displaying current signs of alcohol intoxication or withdrawal or other drug intoxication or withdrawal or other chronic and neurologic problem that would impa r his decision making. At this point I do think he has medical decision-making capacity. He is not holdable. He is invited to return to ER if he changes his mind or if he has any other worsening of his condition or any other new problems. Recommend outpatient follow-up within 3-4 days with his PCP. Lab Data Labs: Lab Results 07/12/25 07/12/25 07/12/25 Range/Units 09:55 09:59 10:20 WBC 2.91 L (4.50-11.00) K/uL RBC 3.77 L (4.30-5.90) m/uL Hgb 12.5 L (13.5-17.5) gm/dL Hct 37.8 (37.0-53.0) % MCV 100 (80-100) fL MCH 33 (26-34) pg MCHC 33 (32-36) gm/dL RDW Coeff of Janey 16.7 H (11.5-15.5) % Plt Count 87 L (140-440) K/uL Neut % (Auto) 50.1 (42.0-72.0) % Lymph % (Auto) 28.9 (20-44) % [place] % (Auto) 15.5 H (0.0-11.0) % Eos % (Auto) 3.1 (0.0-7.0) % Baso % (Auto) 0.7 (0.0-3.0) % Neut # (Auto) 1.50 L (1.7-7.0) K/uL Lymph # (Auto) 0.80 L (0.90-2.90) K/uL [place] # (Auto) 0.50 (0.00-0.90) K/UL Eos # (Auto) 0.10 (0.00-0.50) K/uL Baso # (Auto) 0.00 (0.00-0.30) K/uL Abs Immat Gran (auto) 0.00 (0.00-0.30) K/uL Imm/Tot Granulo (auto) 1.7 % INR 1.10 (0.91-1.10) Sodium 140 (135-149) mmol/L Potassium 3.6 (3.6-5.1) mmol/L Chloride 103 (96-114) mmol/L Carbon Dioxide 28 (20-32) mmol/L Anion Gap 9 (7-15) mEq/L BUN 23 (7-30) mg/dL Creatinine 0.9 (0.5-1.5) mg/dL Estimated Creat Clear 54.05 Estimated GFR 89 ml/min Glucose 140 H (60-115) mg/dL Calcium 8.6 (8.4-10.6) mg/dL Magnesium 2.1 (1.5-2.6) mg/dL Total Bilirubin 0.7 (0.1-1.5) mg/dL Direct Bilirubin 0.2 (0.0-0.5) mg/dL AST 91 H (12-35) U/L ALT 51 H (4-50) U/L Alkaline Phosphatase 97 (40-150) U/L NT-Pro-B Natriuret Pep 261 (See Note) pg/mL Total Protein 6.5 (6.0-8.3) g/dL Albumin 3.7 (3.3-5.0) g/dL Ethyl Alcohol 0.11 H (0.01-0.03) % POC Creatinine 1.1 (0.6-1.3) mg/dl POC Troponin I 0.00 L (0.01-0.04) ng/ml 04/16/25 Range/Units 11:55 WBC (4.50-11.00) K/uL RBC (4.30-5.90) m/uL Hgb (13.5-17.5) gm/dL Hct (37.0-53.0) % MCV (80-100) fL MCH (26-34) pg MCHC (32-36) gm/dL RDW Coeff of Janey (11.5-15.5) % Plt Count (140-440) K/uL Neut % (Auto) (42.0-72.0) % Lymph % (Auto) (20-44) % [place] % (Auto) (0.0-11.0) % Eos % (Auto) (0.0-7.0) % Baso % (Auto) (0.0-3.0) % Neut # (Auto) (1.7-7.0) K/uL Lymph # (Auto) (0.90-2.90) K/uL [place] # (Auto) (0.00-0.90) K/UL Eos # (Auto) (0.00-0.50) K/uL Baso # (Auto) (0.00-0.30) K/uL Abs Immat Gran (auto) (0.00-0.30) K/uL Imm/Tot Granulo (auto) % INR (0.91-1.10) Sodium (135-149) mmol/L Potassium (3.6-5.1) mmol/L Chloride (96-114) mmol/L Carbon Dioxide (20-32) mmol/L Anion Gap (7-15) mEq/L BUN (7-30) mg/dL Creatinine (0.5-1.5) mg/dL Estimated Creat Clear Estimated GFR ml/min Glucose (60-115) mg/dL Calcium (8.4-10.6) mg/dL Magnesium (1.5-2.6) mg/dL Total Bilirubin (0.1-1.5) mg/dL Direct Bilirubin (0.0-0.5) mg/dL AST (12-35) U/L ALT (4-50) U/L Alkaline Phosphatase (40-150) U/L NT-Pro-B Natriuret Pep (See Note) pg/mL Total Protein (6.0-8.3) g/dL Albumin (3.3-5.0) g/dL Ethyl Alcohol (0.01-0.03) % POC Creatinine (0.6-1.3) mg/dl POC Troponin I 0.01 (0.01-0.04) ng/ml Imaging Data CT scan - head: Attestation: I have reviewed the pertinent imaging results. Radiologist's impression: IMPRESSION: Chronic changes without acute intracranial abnormality. CT C spine: Attestation: I have reviewed the pertinent imaging results. Radiologist's impression: IMPRESSION: Multilevel degenerative changes without acute traumatic injury. CT scan - chest: Attestation: I have reviewed the pertinent imaging results. Radiologist's impression: IMPRESSION: Acute minimally displaced left 7th and nondisplaced 8th rib fracture laterally. Minimal left pleural effusion and adjacent compressive atelectasis/contusion. Mild cardiomegaly and changes of pulmonary artery hypertension. No pulmonary embolism. Cholelithiasis. CT scan - abdomen: Attestation: I have reviewed the pertinent imaging results. Radiologist's impression: Impression : 1. Compression fracture 1st and 3rd lumbar vertebrae. 2. Acute fractures left 7th and 8th ribs in the midaxillary line 3. No pneumothorax or pleural effusion 4. Fatty infiltration of the liver. 5. Old healed fracture to the rib cage bilateral. 6. Cholelithiasis. 7. Enlarged prostate gland. ECG Data Interpretation: Sinus rhythm with first-degree AV block MA interval approximately 240 QRS axis is left axis deviation with a wide complex QRS. Possibly a left bundle. Nonspecific. Could not Peter interpretation mentions possible lateral infarct but I do not see any lateral Q-waves or ST elevation. There are Q-waves in leads 2, 3, AVF. No ST segment elevation or depression QTC is 540 Second EKG Normal sinus rhythm with first-degree AV block. MA interval 230 Left axis deviation. QRS morphologies have changed compared to the 1st EKG. Still left bundle-branch block morphology. No ST segment elevation or depression other than appropriate discordant ST changes in leads V2 and V3 QTC 517 Discharge Plan Discharge Clinical Impression: Fracture, ribs, Closed compression fracture of lumbar vertebra, Chest pain, Pancytopenia, Alcohol abuse, Diarrhea Patient Disposition: Left Against Medical Advice Instructions: Rib Fracture (ED), Vertebral Compression Fracture (ED), Abuse of Alcohol (DC), Pancytopenia (DC) Additional Instructions: As we discussed, I recommend that you stay in the hospital. Although it is against my advice, you are choosing to go home. Remember, if you change your mind, you can come back to the ER any time to be rechecked. Please call your regular doctors office Friday morning to arrange an ER follow- up visit to occur with in 3-4 days. Ask your doctor to double check your lab values. Please do your best to try to cut down on drinking. Try to eat healthy food with lots of nutrients and vitamins. If you have any more chest pain, or any worsening pain in your ribs, trouble breathing, fever, or more falls, or any problems, please return to the emergency room right away. Prescriptions: No Action atorvastatin 20 mg tablet 20 mg PO HS valsartan 80 mg tablet 80 mg PO DAILY amiodarone 200 mg tablet 200 mg PO DAILY Jardiance 10 mg tablet 10 mg PO DAILY metoprolol succinate 50 mg tablet extended release 24 hr 50 mg PO DAILY magnesium oxide 500 mg capsule 500 mg PO DAILY cholecalciferol (vitamin D3) 25 mcg (1,000 unit) tablet,chewable 1,000 unit PO DAILY gabapentin 300 mg Capsule 300 mg PO HS Qty: 30 0RF Eliquis 5 mg Tablet 5 mg PO BID Qty: 60 0RF cyanocobalamin (vitamin B-12) 1,000 mcg tablet 1,000 mcg PO DAILY torsemide 10 mg tablet 10 mg PO Q48H PRN multivitamin [Multiple Vitamins] Tablet 1 tab PO DAILY Follow Up/Referrals: Diogo Escamilla MD [Primary Care Provider, Family Practice] Stand Alone Forms: [employer] Info Instructions
--- NOTE | 2025-04-16 10:02 | CRLHL7_ITS ---
For Patients: As a result of the Cures Act, medical imaging exams and procedure reports are released immediately into your electronic medical record. You may view this report before your referring provider. If you have questions, please contact your health care provider. INDICATION: Fall a few days ago. TECHNIQUE: CT cervical spine without contrast. COMPARISON: None. FINDINGS: No acute vertebral fracture or traumatic malalignment. Bilateral occipital condyles are intact. Atlantooccipital and atlanto odontoid interval is maintained. Multilevel moderate degenerative changes are present. Multilevel disc height reduction, most pronounced at C6-7 level with confluent anterior osteophytes. Scattered uncovertebral and facet arthropathy. No paravertebral hematoma or fluid collection. Left apical pleural thickening/scarring. IMPRESSION: Multilevel degenerative changes without acute traumatic injury. Please note that all CT scans at this facility use dose modulation, iterative reconstruction, and/or weight-based dosing when appropriate to reduce radiation dose to as low as reasonably achievable. Dictated by Haven Beverly MD @ 04/16/2025 11:17:08 AM (Electronically Signed)
--- NOTE | 2025-04-16 10:02 | CRLHL7_ITS ---
For Patients: As a result of the Cures Act, medical imaging exams and procedure reports are released immediately into your electronic medical record. You may view this report before your referring provider. If you have questions, please contact your health care provider. INDICATION: Fell 2 days ago; widespread bruising; left upper quadrant tenderness. Comparison: CT chest, abdomen and pelvis with intravenous contrast February 06, 2022. TECHNIQUE: CT abdomen and pelvis with intravenous contrast; coronal and sagittal reformats; 95 cc of Isovue-370 contrast was injected IV. FINDINGS: Acute fractures left 7th and 8th ribs in the midaxillary line. No pneumothorax or pleural effusion. Old fractures right lower ribcage as well as the transverse processes of the upper lumbar vertebra on the right. Healing fractures left lower rib cage. Resolution of the right-sided pleural effusion when compared to February 06, 2022. Diffuse fatty infiltration of the liver. No focal hepatic or splenic pathology. No pancreatic pathology. Gallstones. No adrenal pathology. Kidneys are unremarkable. No retroperitoneal lymphadenopathy. Diverticulosis sigmoid colon without any CT evidence of diverticulitis or abscess. Enlarged prostate gland. Compression fractures of 1st and 3rd lumbar vertebrae; the L1 fracture new when compared to February 2022. Impression : 1. Compression fracture 1st and 3rd lumbar vertebrae. 2. Acute fractures left 7th and 8th ribs in the midaxillary line 3. No pneumothorax or pleural effusion 4. Fatty infiltration of the liver. 5. Old healed fracture to the rib cage bilateral. 6. Cholelithiasis. 7. Enlarged prostate gland. Please note that all CT scans at this facility use dose modulation, iterative reconstruction, and/or weight-based dosing when appropriate to reduce radiation dose to as low as reasonably achievable. Dictated by Altagracia Raya MD @ 04/16/2025 11:32:58 AM (Electronically Signed)
[2025-04-16 10:04] LABS: Immature Granulocytes Abs Auto 0.00 K/uL (0.00-0.30); Lymphocytes Absolute Auto 0.80 K/uL (0.90-2.90); Slide Review Reflex No
[2025-04-16 10:08] LABS: Troponin, Point-of-Care* 0.00 ng/ml (0.01-0.04)
[2025-04-16 10:20] LABS: Albumin* 3.7 g/dL (3.3-5.0); Chloride* 103 mmol/L (96-114); Sodium* 140 mmol/L (135-149)
[2025-04-16 10:21] LABS: Creatinine, Point-of-Care* 1.1 mg/dl (0.6-1.3)
[2025-04-16 10:21] LABS: Potassium* 3.6 mmol/L (3.6-5.1)
[2025-04-16 10:23] LABS: Alanine Aminotransferase* 51 U/L (4-50); Alkaline Phosphatase* 97 U/L (40-150); Anion Gap 9 mEq/L (7-15); Aspartate Amino Transferase* 91 U/L (12-35); Bilirubin Direct* 0.2 mg/dL (0.0-0.5); Bilirubin Total* 0.7 mg/dL (0.1-1.5); Blood Urea Nitrogen* 23 mg/dL (7-30); Calcium* 8.6 mg/dL (8.4-10.6); Carbon Dioxide* 28 mmol/L (20-32); Creatinine* 0.9 mg/dL (0.5-1.5); Est. Creatinine Clearance* 54.05; Estimated Glomerular Filt Rate 89 ml/min; Glucose* 140 mg/dL (60-115); INR 1.10 (0.91-1.10); Prothrombin Time 15.0 Seconds; Total Protein* 6.5 g/dL (6.0-8.3)
[2025-04-16 10:24] LABS: Ethanol* 0.11 % (0.01-0.03)
[2025-04-16 10:35] LABS: NT Pro B Type NatriureticPept* 261 pg/mL (See Note)
[2025-04-16 12:10] LABS: Troponin, Point-of-Care* 0.01 ng/ml (0.01-0.04)
--- NOTE | 2025-04-16 13:17 | ED.NURSE ---
Explained discharge instructions, reasons to return and repeated MD advice that staying in hospital was the recommended treatment. Offered patient clean eneida shirt as his shirt had both what appear to be vomit on front and stool on back. Despite this being pointed out to patient he again refuses new shirt. He is calling his brother for a ride home.
== END 2025-04-16 13:34 | disposition left against medical advice (07) ==
PROVIDERS: Emergency Provider Emergency Medicine; PCP Family Medicine
DX: S22.42XA Multiple fractures of ribs, left side, initial encounter for closed fracture (principal); S32.019A Unspecified fracture of first lumbar vertebra, initial encounter for closed fracture; S32.039A Unspecified fracture of third lumbar vertebra, initial encounter for closed fracture; R07.9 Chest pain, unspecified; D61.818 Other pancytopenia; R19.7 Diarrhea, unspecified; I48.91 Unspecified atrial fibrillation; F10.10 Alcohol abuse, uncomplicated; W19.XXXA Unspecified fall, initial encounter; Z79.01 Long term (current) use of anticoagulants; Z79.899 Other long term (current) drug therapy; Z53.29 Procedure and treatment not carried out because of patient's decision for other reasons
CPT/HCPCS: 36415; 70450; 71275; 72125; 74177; 80048; 80076; 82077; 82565; 83735; 83880; 84484; 85025; 85610; 93005; 94761; 99284; 99285; J7030; Q9967

== ENCOUNTER 2025-05-11 11:52 | Outpatient (CLI) | payer MEDICARE, BC, SELFPAY | END 2025-05-11 11:53 | disposition home or self-care (01) | PROVIDERS: PCP Family Medicine; Visit Provider Family Medicine | DX: I95.9 Hypotension, unspecified (principal) | CPT/HCPCS: A0425; A0427 ==

== ENCOUNTER 2025-05-11 12:25 | Emergency (ER) | payer MEDICARE, BC, SELFPAY ==
[2025-05-11] VITALS (38 sets, daily range): BP systolic 96–169; BP diastolic 60–108; PULSE 56–73; RESP 9–35; TEMP 36.4; O2SAT 90–98
--- OUTSIDE RECORDS SUMMARY | 2025-05-11 12:27 | XMS_ITS | Encounter Summary ---
Author Organization [facility] Address [address] [address] Phone Care Team Providers Care Diesel Roller Operator Name Role Phone Deanne Stepheniescott Castillo APRN, BETTE Unavailable + Eddi Smith MD Unavailable Diogo Escamilla MD Primary Care Provider [phone] Encounter Details Date Type Department Care Team (Late st Contact Info) Description 08/03/2024 Lab Requisition [facility] [address] [place] [address] [id number] Eddi Smith MD [address] [place] [address] [phone] Hypertensive heart disease with heart failure (HCC); [...] 134 - 143 mEq/L 08/03/2024 10:38 AM [facility] Potassium 4.8 3.4 - 5.1 mEq/L 08/03/2024 10:38 AM [facility] Chloride 106 99 - 110 mEq/L 08/03/2024 10:38 AM [facility] Carbon Dioxide 24 19 - 29 mEq/L 08/03/2024 10:38 AM [facility] Anion Gap 10.0 3.0 - 15.0 mEq/L 08/03/2024 10:38 AM [facility] Blood Urea Nitrogen 15 5 - 24 mg/dL 08/03/2024 10:38 AM [facility] Creatinine 0.99 0.70 - 1.20 mg/dL 08/03/2024 10:38 AM [facility] Glomerular Filtration Rate 80 >60 mL/min/1. 73 m*2 08/03/2024 10:38 AM [facility] Comment:Risk of cardiovascul ar disease increases when GFR is abnormal; persistently reduced GFR values are a specific indication of CKD. This calculation uses CKD- EPI 202 equation without adjustment for race; it has not been validated in women. Calcium 9.3 8.4 - 10.5 mg/dL 08/03/2024 10:38 AM [facility] Glucose 128(H) 70 - 99 mg/dL 08/03/2024 10:38 AM CDT [facility] Blood BLOOD SPECIMEN / Unknown Capillary / Unknown 08/03/2024 9:30 AM CDT 08/03/2024 10:12 AM CDT Narrative [facility] - 08/03/2024 10:38 AM CDT Current ADA criteria for Glucose: Normal: 70-99 mg/dL Impaired Fasting Glucose: 100-125 mg/dL Diabetes Mellitus: at or above 126 mg/dL The diagnosis of diabetes must be confirmed on a subsequent day by measuring Fasting Plasma Glucose, 2-hr PG or random plasma glucose (if symptoms are present). us Eddi Smith MD EC CHEMISTRY ORDERABLES Final Re sult [facility] [address] [place] [address] documented in this encounter Visit Diagnoses Diagnosis Hypertensive heart disease with heart failure (HCC) Unspecified hypertensive heart disease with heart failure Unspecified atrial fibrillation (HCC) documented in this encounter Care Teams Diesel Roller Operator Relationship Specialty Start Date End Date Diogo Escamilla MD [address] [place] [id number] PCP - General Family Medicine 08/02/24 10/20/24 Stephenie Alicea APRN, FINANCIAL CONSULTANT [address] [place] [address] [phone] Gerontology 07/02/24 10/20/24 Eddi Smith MD [address] [place] [address] Hospitalist Hospitalist 07/02/24 10/20/24 documented as of this encounter
--- OUTSIDE RECORDS SUMMARY | 2025-05-11 12:27 | XMS_ITS | Clinical Summary ---
Author Organization [facility] Address [address] [address] Phone Care Team Providers Care Brush Fabrication Supervisor Name Role Phone Unavailable Primary Care Provider Unavailabl e Allergies Active Allergy Reactions Criticality Noted Date Comments Analgesic Haskell RASH Medium 05/29/2022 Aspirin RASH 05/10/2016 topical [...] Comments Blood Pressure 99/60 08/26/2024 7:32 AM COOKER LOADER Pulse 62 08/26/2024 7:32 AM COOKER LOADER Temperature 36.3 C (97.3 F) 08/26/2024 7:32 AM COOKER LOADER Respiratory Rate 20 08/26/2024 7:32 AM COOKER LOADER Oxygen Saturation 93% 08/26/2024 7:32 AM COOKER LOADER Inhaled Oxygen Concentration - - Weight 102.9 kg (226 lb 14.4 oz) 08/26/2024 7:32 AM COOKER LOADER Height 185.4 cm (6' 1) 05/10/2016 4:15 [...] this topic Insurance MEDICARE COST PART A&B [place] [address] Advance Directives For more information, please contact: [phone] Documents on File Type Date Recorded Patient Bonsai Tender Expl anation Advance Directive 07/09/2016 10:36 AM ADVA NCE DIRECTIVE * Full Code (Latest Code Status on File) Date Activated Date Inactivated Comments 05/10/2016 4:40 PM 06/07/2016 5:52 PM
--- OUTSIDE RECORDS SUMMARY | 2025-05-11 12:27 | XMS_ITS | Encounter Summary ---
Author Organization [facility] Address [address] [address] Phone Care Team Providers Care Grievance Coordinator Name Role Phone Elsewhere, Pcp Primary Care Provider UnavailStephenie Plummer APRN, CLE[employer]PHOL[employer] Unavailable + Eddi Smith MD Unavailable Diogo Escamilla MD Primary Care Provider [phone] Encounter Details Date Type Department Care Team (Late st Contact Info) Description 07/05/2024 Lab Requisition [facility] [address] [place] [id number] Stephenie Alicea APRN, CLE[employer]ER [employer]PHOL[employer]ERY [address] [place] [phone] Muscle weakness (generalized); Unspecified atrial [...] - 143 mEq/L 07/06/2024 8:42 AM CDT [facility] Potassium 4.3 3.4 - 5.1 mEq/L 07/06/2024 8:42 AM CDT [facility] Chloride 105 99 - 110 mEq/L 07/06/2024 8:42 AM CDT [facility] Carbon Dioxide 28 19 - 29 mEq/L 07/06/2024 8:42 AM CDT [facility] Anion Gap 7.0 3.0 - 15.0 mEq/L 07/06/2024 8:42 AM T [facility] Blood Urea Nitrogen 14 5 - 24 mg/dL 07/06/2024 8:42 AM CDT [facility] Creatinine 0.86 0.70 - 1.20 mg/dL 07/06/2024 8:42 AM CDT [facility] Glomerular Filtration Rate 91 >60 mL/min/1. 73 m*2 07/06/2024 8:42 AM CDT [facility] Comment:Risk of cardiovascul ar disease increases when GFR is abnormal; persistently reduced GFR values are a specific indication of CKD. This calculation uses CKD- EPI 2020 equation without adjustment for race; it has not been validated in women. Calcium 9.1 8.4 - 10.5 mg/dL 07/06/2024 8:42 AM CDT [facility] Glucose 102(H) 70 - 99 mg/dL 07/06/2024 8:42 AM CDT [facility] Blood BLOOD SPECIMEN / Unknown 07/06/2024 7:46 AM CDT 07/06/2024 8:06 AM CDT Narrative [facility] - 07/06/2024 8:42 AM CDT Current ADA criteria for Glucose: Normal: 70-99 mg/dL Impaired Fasting Glucose: 100-125 mg/dL Diabetes Mellitus: at or above 126 mg/dL The diagnosis of diabetes must be confirmed on a subsequent day by measuring Fasting Plasma Glucose, 2-hr PG or random plasma glucose (if symptoms are present). Stephenie Alicea APRN, CLE[employer]PHOLSTERY CHEMISTRY ORDER GRIFFIN Final Result [facility] [address] [place] [address] * (ABNORMAL) HEMOGRAM (07/06/2024 7:46 AM CDT) WBC 5.8 3.2 - 11.0 10*9/L 07/06/2024 8:27 AM CDT [facility] RBC 3.15(L) 4.14 - 5.76 10*12/L 07/06/2024 8:27 AM CDT [facility] HGB 10.3(L) 12.9 - 16.9 g/dL 07/06/2024 8:27 AM CDT [facility] HCT 31.7(L) 38.4 - 49.7 % 07/06/2024 8:27 AM CDT [facility] MCV 100.6(H) 81.4 - 99.0 fL 07/06/2024 8:27 AM CDT [facility] MCH 32.7 26.7 - 33.1 pg 07/06/2024 8:27 AM CDT [facility] MCHC 32.5 31.6 - 35.5 g/dL 07/06/2024 8:27 AM CDT [facility] RDW 15.1(H) 11.3 - 14.6 % 07/06/2024 8:27 AM CDT [facility] PLT 246 130 - 375 10*9/L 07/06/2024 8:27 AM CDT [facility] Blood BLOOD SPECIMEN / Unknown Venipuncture / Unknown 07/06/2024 7:46 AM CDT 07/06/2024 8:06 AM CDT Stephenie Alicea APRN, BETTE HEMATOLOGY ORDE COSME Final Result [facility] [address] documented in this encounter Visit Diagnoses Diagnosis Muscle weakness (generalized) Unspecified atrial fibrillation (HCC) Hypertensive heart disease with heart failure (HCC) Unspecified hypertensive heart disease with heart failure documented in this encounter Care Teams Grievance Coordinator Relationship Specialty Start Date End Date Elsewhere, Pcp PCP - General 05/10/16 08/01/24 Diogo Escamilla MD [address] [place] [id number] PCP - General Family Medicine 08/02/24 10/20/24 Stephenie Alicea APRN, CLE[employer]PHOL[employer]ERY [address] [place] [phone] Gerontology 07/02/24 10/20/24 Eddi Smith MD [address] [place] [phone] Hospitalist Hospitalist 07/02/24 10/20/24 documented as of this encounter
--- OUTSIDE RECORDS SUMMARY | 2025-05-11 12:27 | XMS_ITS | Clinical Summary ---
Author Organization [facility] Address [facility] [place] [address] Care Team Providers Care Personal Care Worker Name Role Phone Diogo Escamilla MD Primary Care Provider [phone] Allergies Active Allergy Reactions Criticality Noted Date Comments Lisinopril Cough Low 04/17/2023 Losartan Cough Low 04/17/2023 Methyl Salicylate-Menthol Rash Medium 05/29/2022 Phenobarbital Hypertension High 04/17/2023 Trolamine Salicylate Rash High 04/17/2023 Medications multivitamin (MVI) tablet Take 1 Tablet by mouth once daily. 0 022 Active cholecalciferol (VITAMIN D3) 1,000 unit tablet Take 1,000 units by mouth once daily. Active cyanocobalamin (VITAMIN B12) 1,000 mcg tablet Take 1,000 mcg by mouth once daily. Active magnesium 250 mg tab Take 250 mg by mouth once daily. Active acetaminophen (TYLENOL) 325 mg tablet Take 650 mg by mouth every 4 hours if needed for Pain. 024 Active metoprolol succinate (TOPROL XL) 50 mg sustained-release tabletIndications: Paroxysmal atrial fibrillation (HC) TAKE ONE TABLET BY MOUTH ONE TIME DAILY. HOLD MEDICATION IF PULSE IF UNDER 50. IF PULSE UNDER 60 FOR 3 DAYS IN A ROW OR 5 OUT OF 10 DAYS, CALL PRESCRIBER. 90 Tablet 3 025 Active valsartan 80 mg tabletIndications: Essential hypertension,Non-i schemic cardiomyopathy (HC) Take 1 Tablet (80 mg) by mouth once daily. 90 Tablet 3 025 Active torsemide 10 mg tabletIndications: Non-ischemic cardiomyopathy (HC) Take 1 tablet every other day, take daily as needed for increased ankle edema or weight gain of 2 or more pounds in one day. 90 Tablet 3 Active Additional Information Patient not taking.Reported on 05/11/2025 gabapentin 300 mg capsuleIndications :neuropathic pain Take 1 Capsule (300 mg) by mouth at bedtime. 90 Capsule 3 025 Active empagliflozin 10 mg tabletIndications: Heart failure with reduced ejection fraction (HC) Take 1 Tablet (10 mg) by mouth once daily. 90 Tablet 3 025 Active apixaban 5 mg tabletIndications: prevent thromboembolism in chronic atrial fibrillation Take 1 Tablet (5 mg) by mouth two times daily. 180 Tablet 3 Active atorvastatin 20 mg tabletIndications: Hyperlipidemia, unspecified hyperlipidemia type Take 1 Tablet (20 mg) by mouth at bedtime. 90 Tablet 3 025 Active amiodarone (CORDARONE) 200 mg tabletIndications: Paroxysmal atrial fibrillation (HC) TAKE ONE TABLET BY MOUTH ONE TIME DAILY 90 Tablet 1 025 Active amiodarone (CORDARONE) 200 mg tabletIndications: Paroxysmal atrial fibrillation (HC) Take 1 Tablet (200 mg) by mouth once daily. 90 Tablet 3 024 2024 Discontinued Active Problems Problem Noted Date Diagnosed Date [...] Encounters Date Type Department Care Team Description 05/11/2025 10:55 AM CDT Office Visit [facility] [address] [facility] [address] Diogo Escamilla MD Medication Management (Routine follow up) 05/11/2025 Travel 04/30/2025 Refill [facility] [address] [facility] [address] Florencio Harper MD, PhD Refill Request (Amiodarone) 04/28/2025 1:00 PM CDT Orders Only [facility] [address] [place] [address] [place] <No scans attached> 04/28/2025 Orders Only [facility] [address] [place] [address] Diogo Escamilla MD <No scans attached> 04/28/2025 Travel 04/16/2025 Orders Only [facility] Scanner 1 scan: (1-Ord) [facility], CT ABDOMEN PELVIS W CON, 04/16/2025 04/16/2025 Orders Only [facility] Scanner 1 scan: (1-Ord) [facility] , CT ANGIO CHEST PE PROTOCOL, 04/16/2025 04/16/2025 Orders Only [facility] Scanner 1 scan: (1-Ord) [place], CT CERVICAL SPINE WO CON, 04/16/2025 04/16/2025 Orders Only [facility] Scanner 1 scan: (1-Ord) [place], CT HEAD/BRAIN WO CON, 04/16/2025 from Last 3 Months Immunizations Immunization Administration Dates Next Due COVID-19 VACCINE SPIKEVAX (M ODERNA 50MCG/0.5ML) 12YO+ PFS 10/24/2023 COVID-19 vaccine ([employer] NTech 30mcg/0.3mL) 12YO+ BIVALENT PF, MDV 07/31/2022 Influenza, High-dose Inactivated 11/12/2016,10/2 06/2015 Influenza, High-dose Quadrivalent Inactivated ,08/07/2020 Influenza, Inactivated [...] on file Legal 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 Gender Identity Not on file Sexual Orientation Not on file Obstetrics History Last Filed Vital Signs Vital Sign Reading Time Taken Comments Blood Pressure 79/49 05/11/2025 11:11 AM CDT Pulse 70 05/11/2025 11:11 AM CDT Temperature 36.8 C (98.3 F) 05/11/2025 11:11 AM CDT Respiratory Rate 18 10/15/2024 11:0 4 AM SIGNAL TESTER Oxygen Saturation 95% 05/11/2025 11: 11 AM CDT Inhaled Oxygen Concentration - - Weight 101.7 kg (224 lb 1.6 oz) 025 11:11 AM CDT Height 180.3 cm (5' 11) 12/31/2024 10: 36 AM CDT Body Mass Index 31.26 12/31/2024 10:36 AM CDT Plan of Treatment Health Maintenance Due [...] 65+ 01/01/2026 12/31/2024 Lipids for age 45-75 04/28/2030 04/28/2025, 12/27/2024, 10/24/2023, Additional history exists Hepatitis C screening for age 18-79 Completed 05/13/2023 Pneumococcal series for age 50+ Completed 07/13/2024, 01/28/2018, 11/12/2016 Hepatitis B series for 19+ Aged Out N o longer eligible based on patient's age to complete this topic Procedures Procedure Name Priority Date/Time Associated Diagnosis Comments HEMOGLOBIN A1C Routine 04/28/2025 1:16 PM CDT Hyperglycemia VITAMIN B12 Routine 04/28/2025 12:58 PM CDT Vitamin B12 deficiency LIPID PANEL W REFLEX MEASURED LDL Routine 04/28/2025 12:58 PM CDT Hyperlipidemia, unspecified hyperlipidemia type SCAN-CT INTERPRETATION 5 12:00 AM CDT SCAN-CT INTERPRETATION 5 12:00 AM CDT SCAN-CT INTERPRETATION 5 12:00 AM CDT SCAN-CT INTERPRETATION 5 12:00 AM CDT LC HCV ANTIBODY RFX TO QUANT PCR Routine 05/13/2023 1:28 PM CDT Need for hepatitis C screening test from Last 3 Months or Most Recently Relevant to Health Maintenance Results * HEMOGLOBIN A1C (04/28/2025 1:16 PM CDT) HEMOGLOBIN A1C 5.2 <5.7 % [facility] kallie Jimenez Comment: For the purpose of screening for the presence of diabetes: <5.7% Consistent with the absence of diabetes 5.7-6.4% Consistent with increased risk for diabetes (prediabetes) > or =6.5% Consistent with diabetes This assay result is consistent with a decreased risk of diabetes. Currently, no consensus exists regarding use of hemoglobin A1c for diagnosis of diabetes in children. According to [place] Diabetes Association (ADA) guidelines, hemoglobin A1c <7.0% represents optimal control in non- diabetic patients. Different metrics may apply to specific patient populations. Standards of Medical Care in Diabetes(ADA). Blood BLOOD SPECIMEN / Unknown 04/28/2025 1:16 PM CDT 04/28/2025 1:16 PM CDT us Diogo Escamilla MD CHEMISTRY Final Resu lt [employer] [facility] [address] [place] [address], [facility] [address] [place] [address] * LIPID PANEL W REFLEX MEASURED LDL (04/28/2025 12:58 PM CDT) CHOLESTEROL, TOTAL 152 <200 mg/dL [facility] HDL CHOLESTEROL 79 > OR = 40 mg/dL [facility] TRIGLYCERIDES 96 <150 mg/dL [facility] LDL-CHOLESTEROL 55 mg/dL (calc) [facility] Comment: [...] LDL-C. Ranjit WHITTEN et al. MARISABEL. 2013;310(19): 3292-4505 (http://education.[employer]/faq/QIX347) CHOL/HDLC RATIO 1.9 <5.0 (calc) [facility] NON HDL CHOLESTEROL 73 <130 mg/dL (calc) [facility] Comment: For patients with diabetes plus 1 major ASCVD risk factor, treating to a non-HDL-C goal of <100 mg/dL (LDL-C of <70 mg/dL) is considered a therapeutic option. Blood BLOOD SPECIMEN / Unknown 04/28/2025 12:58 PM CDT 04/28/2025 12:58 PM CDT us Diogo Escamilla MD CHEMISTRY Final Resu lt [employer] [facility] [address] [place] [address], [facility] [address] [place] [address] * (ABNORMAL) VITAMIN B12 (04/28/2025 12:58 PM CDT) VITAMIN B12 >2000(H) 200 - 1100 pg/mL [facility] kallie Jimenez Blood BLOOD SPECIMEN / Unknown 04/28/2025 12:58 PM CDT 04/28/2025 12:58 PM CDT us Diogo Escamilla MD CHEMISTRY Final Resu lt [employer] [facility] [address] [place] [address], [place] [phone] [facility] [employer] [facility] [address] [place] [address] * SCAN-CT INTERPRETATION (04/16/2025 12:00 AM CDT) Only the most recent of4 resultswithin the time period is included. Anatomical Region Laterality Modality Other us Scanner OTHER Final Result * LC HCV ANTIBODY RFX TO QUANT PCR (05/13/2023 1:28 PM CDT) Pathologist [facility] HCV Ab Non Reactive Non Reactive 05/16/2023 5:13 AM CDT [facility] Blood BLOOD SPECIMEN / Unknown Venipuncture / Unknown 05/13/2023 1:28 PM CDT 05/13/2023 1:31 PM CDT Narrative [facility] ([facility]) - 05/16/2023 5:13 AM CDT Performed at: [address] [place] [id number] Filer Repairer: Artem Kendall MD, Phone: [phone] us Diogo Escamilla MD LABORATORY Final Resu lt [facility] ([facility] [address] [place] [phone], from Last 3 Months or Most Recently Relevant to Health Maintenance Insurance MEDICARE PART B HB ONLY MEDICARE PART A HB ONLY [place] BLUE HB ONLY [place] BLUE MR PB ONLY HC MEDICARE PPS [place] BLUE HB ONLY Advance Directives Documents on File Type Date Recorded Patient Strainer Tender Expl anation Healthcare Directive 09/24/2024 11:11 AM HCD 09.24.24 * Full Code (Latest Code Status on File) Date Activated Date Inactivated Comments 06/23/2023 2:16 PM 06/23/2023 7:52 PM Question Answer Comments Code Status Discussion: Reviewed Preferences * Full Code Date Activated Date Inactivated Comments 04/19/2023 7:18 PM 04/22/2023 6:19 PM Question Answer Comments Code Status Discussion: Reviewed Preferences Care Teams Personal Care Worker Relationship Specialty Start Date End Date Diogo Escamilla MD [place] [address] PCP - General Family Practice 08/01/22
--- OUTSIDE RECORDS SUMMARY | 2025-05-11 12:27 | XMS_ITS | Encounter Summary ---
Author Organization [facility] Address [address] [address] Phone Care Team Providers Care Engine Installer Name Role Phone Elsewhere, Pcp Primary Care Provider UnavailStephenie Plummer APRN, GOLF COURSE MECHANIC Unavailable + Eddi Smith MD Unavailable Diogo Escamilla MD Primary Care Provider [phone] Encounter Details Date Type Department Care Team (Late st Contact Info) Description 07/07/2024 Lab Requisition [facility] [address] [place] [id number] Stephenie Alicea APRN, GOLF COURSE MECHANIC [address] [place] [address] Other fatigue; Weakness Social History [...] - 2.7 mg/dL 07/08/2024 7:55 AM CDT [facility] Blood BLOOD SPECIMEN / Unknown Venipuncture / Unknown 07/08/2024 6:44 AM CDT 07/08/2024 7:33 AM CDT Stephenie Alicea APRN, BETTE EC CHEMISTRY ORDER GRIFFIN Final Result Performing Organization Address City/State/[facility] Co de Phone Number [facility] [address] documented in this encounter Visit Diagnoses Diagnosis Other fatigue Weakness Other malaise and fatigue documented in this encounter Care Teams Engine Installer Relationship Specialty Start Date End Date Elsewhere, Pcp PCP - General 05/10/16 08/01/24 Diogo Escamilla MD [address] [place] [address] PCP - General Family Medicine 08/02/24 10/20/24 Stephenie Alicea APRN, GOLF COURSE MECHANIC [address] [place] [phone] Gerontology 07/02/24 10/20/24 Eddi Smith MD [address] [place] [phone] Hospitalist Hospitalist 07/02/24 10/20/24 documented as of this encounter
--- OUTSIDE RECORDS SUMMARY | 2025-05-11 12:27 | XMS_ITS | Encounter Summary ---
Author Organization [facility] Address [address] [address] Phone Care Team Providers Care Food Production Manager Name Role Phone Unavailable Primary Care Provider Unavailabl e Reason for Visit * Reason Comments Refill Request pravastatin (Pravach ol) Encounter Details Date Type Department Care Team (Late st Contact Info) Description 11/21/2024 Refill [facility] [address] [place], [place] [id number] Stephenie Alicea, BINDING CUTTER, DOG BEHAVIORIST [address] [place] [address] Refill Request (pravastatin (Pravachol)) Social [...] 10:04 AM CST Medication is managed by [facility]. No PCP listed. Requested Prescriptions Pending [...] medications not ordered as ''Do Not Refill'' HOUSE SPECIALIST documented in this encounter Plan of Treatment Not on file documented as of this encounter Visit Diagnoses Not on filedocumented in this encounter
--- NOTE | 2025-05-11 13:08 | ED.GENADULT ---
HPI - General Adult General Chief complaint: Hypotension Stated complaint: dizziness Time Seen by Provider: 05/11/25 12:36 Source: patient Mode of arrival: ambulatory Limitations: no limitations History of Present Illness HPI narrative: 74-year-old male presenting to the ER with hypotension. Patient was seen in the clinic with a blood pressure of 79/49 was sent here for further evaluation. Patient has a history of chronic alcohol use disorder with half a L of liquor daily. He states that he was being seen this morning because he felt dizzy. Really can not describe or quantify what that means. He does state that he got his foot stuck in his easy chair about a month ago and did suffer some rib fractures. He denies falling sounds. Denies chest pain or shortness of breath. Says he has not been eating very well but he is trying to lose weight. He denies diarrhea, does present with stool stains across his pants. Related Data Home Medications ?Medication ?Instructions ?Recorded ?Confirmed amiodarone 200 mg tablet 200 mg PO DAILY 06/19/24 04/16/25 cholecalciferol (vitamin D3) 25 1,000 unit PO DAILY 06/19/24 04/16/25 mcg (1,000 unit) chewable tablet empagliflozin 10 mg tablet 10 mg PO DAILY 06/19/24 04/16/25 (Jardiance) magnesium oxide 500 mg capsule 500 mg PO DAILY 06/19/24 04/16/25 metoprolol succinate 50 mg 50 mg PO DAILY 06/19/24 04/16/25 tablet,extended release 24 hr atorvastatin 20 mg tablet 20 mg PO HS 01/11/25 04/16/25 valsartan 80 mg tablet 80 mg PO DAILY 01/11/25 04/16/25 cyanocobalamin (vitamin B-12) 1,000 mcg PO DAILY 04/16/25 04/16/25 1,000 mcg tablet multivitamin (Multiple Vitamins 1 tab PO DAILY 04/16/25 04/16/25 tablet) torsemide 10 mg tablet 10 mg PO Q48H PRN 04/16/25 04/16/25 Previous Rx's ?Medication ?Instructions ?Recorded apixaban 5 mg tablet (Eliquis) 5 mg PO BID #60 tabs 07/01/24 gabapentin 300 mg capsule 300 mg PO HS #30 caps 07/01/24 Allergies Allergy/AdvReac Type Severity Reaction Status Date / Time trolamine salicylate Allergy Intermediate Rash Verified 04/16/25 10:29 losartan Allergy Mild Cough Verified 04/16/25 10:29 lisinopril Allergy Unknown Cough Verified 04/16/25 10:29 Review of Systems Status of ROS: Reports: 6 or more systems reviewed and unremarkable except as noted in History and below [facility] Medical History Patient has active power of commercial real estate attorney for property Malignant melanoma (10/02/22) ?C43.9 - Malignant melanoma of skin, unspecified (ICD-10) 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) ?S06.9XAS - Unspecified intracranial injury with loss of consciousness status unknown, sequela (ICD-10) Depression (06/07/16) ?F32.A - Depression, unspecified (ICD-10) ACP (advance care planning) (04/19/23) ?Z71.89 - Other specified counseling (ICD-10) Left knee pain ?M25.562 - Pain in left knee (ICD-10) Mobility impaired ?Z74.09 - Other reduced mobility (ICD-10) Alcohol dependence ?F10.20 - Alcohol dependence, uncomplicated (ICD-10) Closed fracture dislocation of left ankle joint ?S82.892A - Other fracture of left lower leg, initial encounter for closed fracture (ICD-10) Health care directive on file ?Z78.9 - Other specified health status (ICD-10) Atrial fibrillation (2020) ?I48.91 - Unspecified atrial fibrillation (ICD-10) Chronic anticoagulation ?Z79.01 - MCC (current) use of anticoagulants (ICD-10) Chronic dyspnea ?R06.09 - Other forms of dyspnea (ICD-10) NSTEMI (non-ST elevated myocardial infarction) ?I21.4 - Non-ST elevation (NSTEMI) myocardial infarction (ICD-10) Heart failure with reduced ejection fraction ?I50.20 - Unspecified systolic (congestive) heart failure (ICD-10) Pulmonary embolism ?I26.99 - Other pulmonary embolism without acute cor pulmonale (ICD-10) Atrial fibrillation with rapid ventricular response ?I48.91 - Unspecified atrial fibrillation (ICD-10) B12 deficiency ?E53.8 - Deficiency of other specified B group vitamins (ICD-10) Statin declined ?Z53.20 - Procedure and treatment not carried out because of patient's decision for unspecified reasons (ICD-10) Essential hypertension ?I10 - Essential (primary) hypertension (ICD-10) Morbid obesity with body mass index (BMI) of 40.0 or higher ?E66.01 - Morbid (severe) obesity due to excess calories (ICD-10) Traumatic brain injury (2016) ?S06.9X9A - Unspecified intracranial injury with loss of consciousness of unspecified duration, initial encounter (ICD-10) Obstructive sleep apnea syndrome ?G47.33 - Obstructive sleep apnea (adult) (pediatric) (ICD-10) Hyperlipidemia ?E78.5 - Hyperlipidemia, unspecified (ICD-10) Hearing loss ?H91.90 - Unspecified hearing loss, unspecified ear (ICD-10) Gout ?M10.9 - Gout, unspecified (ICD-10) Gastroesophageal reflux disease ?K21.9 - Gastro-esophageal reflux disease without esophagitis (ICD-10) Chronic cough ?R05.3 - Chronic cough (ICD-10) Chronic back pain ?M54.9 - Dorsalgia, unspecified (ICD-10) ?G89.29 - Other chronic pain (ICD-10) Alcohol dependence ?F10.20 - Alcohol dependence, uncomplicated (ICD-10) Adenomatous polyp of colon (2012) ?D12.6 - Benign neoplasm of colon, unspecified (ICD-10) Lumbar compression fracture ?S32.000A - Wedge compression fracture of unspecified lumbar vertebra, initial encounter for closed fracture (ICD-10) Hemothorax ?J94.2 - Hemothorax (ICD-10) History of seizure (2015) ?Z87.898 - Personal history of other specified conditions (ICD-10) History of pulmonary embolism (2020) ?Z86.711 - Personal history of pulmonary embolism (ICD-10) History of depression (2008) ?Z86.59 - Personal history of other mental and behavioral disorders (ICD-10) Surgical History History of ankle surgery (06/30/24) ?Z98.890 - Other specified postprocedural states (ICD-10) History of thoracentesis ?Z98.890 - Other specified postprocedural states (ICD-10) History of renal calculi (10/05/12) ?Z87.442 - Personal history of urinary calculi (ICD-10) History of malignant melanoma (2006) ?Z85.820 - Personal history of malignant melanoma of skin (ICD-10) Family History Father Coronary artery disease Mother Alzheimers disease Social History Narrative: He lives alone with his 3 cats between [place] and [place]. Closest family is his brother car all with lives in [facility]. He indicates his brother Jack or sister Ashlie would be healthcare power of commercial real estate attorney. Code status is full. He does not smoke cigarettes. He drinks alcohol at least 8 shots per day. What is your current living situation?: I presently have a place to live Problems where you live: unsafe martin/stairs Problems where you live details: no, just cat hair In the past 12 months, utilities in danger of being shut off: no In past 12 months, lack of transportation kept you from medical appts, meetings, work, or getting things needed for daily living: no In the past 12 mos, have been you worried that your food would run out before you had money to buy more?: never true In the past 12 mos, the food you bought just didn't last and you didn't have money to buy more?: never true Highest level of school completed/degree received: Bachelor's degree Smoking Status: Never smoker Do you use any of these nicotine containing products: None Second hand tobacco smoke exposure: No How often do you have a drink containing alcohol: 4 or more times a week Alcohol type: hard liquor Alcohol type details: whiskey 8 shots daily How many standard drinks containing alcohol do you have on a typical day: 5 or 6 How often do you have six or more drinks on one occasion: Less than monthly AUDIT-C Alcohol total score: 7 Non-prescribed substance use: denies use Caffeine: Yes (occassional) How often does anyone, including family, friends and others, physically hurt you: never How often does anyone, including family, friends and others, insult or talk down to you: never How often does anyone, including family, friends and others, threaten you with harm: never How often does anyone, including family, friends and others, scream or curse at you: never service: No Health Related Social Needs: Inadequate housing (Z59.1) Exam Narrative: Exam Narrative: Well-nourished well-developed patient in no acute distress. Alert and oriented x3. Answers questions appropriately but is slow to respond. Hard of hearing. Thoughts are goal oriented and rational. Patient is not short of breath, no difficulty breathing or speaking. HEENT: Normocephalic atraumatic. Pupils are equally round reactive to light. Extraocular muscles are intact. Conjunctivae are moist without any icterus noted. Dry mucous membranes. Posterior pharynx is normal. Cardiovascular: He bradycardic with distant heart sounds and a 1/6 systolic murmur. Lungs: Clear to auscultation bilaterally. Abdomen: Soft and nontender nondistended with normal bowel sounds. Extremities: Bilateral lower extremities show minimal is trace edema. He has some swelling of the left ankle which is not new. Skin: Well perfused, pale. Const: Vital Signs, click to edit/add: Vital Signs - 24 hr 05/11/25 12:35 05/11/25 12:43 05/11/25 12:45 Temperature 97.5 F L Pulse Rate 59 L 59 L Pulse Rate [Pulse Oximeter] 59 L Pulse Rate [orthos tatic lying] Pulse Rate [orthos tatic sitting] Pulse Rate [orthos tatic standing] Respiratory Rate 20 19 18 Blood Pressure Blood Pressure [Ri ght Upper Arm] 132/108 H Blood Pressure [or thostatic lying] Blood Pressure [or thostatic sitting] Blood Pressure [or thostatic standing ] Pulse Oximetry 93 93 92 Oxygen Delivery Md thod Room Air 05/11/25 13:00 05/11/25 13:00 05/11/25 13:02 Temperature Pulse Rate 59 L 59 L Pulse Rate [Pulse Oximeter] Pulse Rate [orthos tatic lying] Pulse Rate [orthos tatic sitting] Pulse Rate [orthos tatic standing] Respiratory Rate 19 18 Blood Pressure 104/64 Blood Pressure [Ri ght Upper Arm] Blood Pressure [or thostatic lying] Blood Pressure [or thostatic sitting] Blood Pressure [or thostatic standing ] Pulse Oximetry 98 93 92 Oxygen Delivery Me thod 05/11/25 13:14 05/11/25 13:15 05/11/25 13:15 Temperature Pulse Rate 57 L 66 Pulse Rate [Pulse Oximeter] Pulse Rate [orthos tatic lying] 60 Pulse Rate [orthos tatic sitting] 65 Pulse Rate [orthos tatic standing] 72 Respiratory Rate 16 9 L Blood Pressure 101/66 104/63 Blood Pressure [Ri ght Upper Arm] Blood Pressure [or thostatic lying] 101/66 Blood Pressure [or thostatic sitting] 104/63 Blood Pressure [or thostatic standing ] 96/60 Pulse Oximetry 96 95 Oxygen Delivery Me thod 05/11/25 13:16 05/11/25 13:17 05/11/25 13:30 Temperature Pulse Rate 73 68 59 L Pulse Rate [Pulse Oximeter] Pulse Rate [orthos tatic lying] Pulse Rate [orthos tatic sitting] Pulse Rate [orthos tatic standing] Respiratory Rate 18 16 18 Blood Pressure 96/60 Blood Pressure [Ri ght Upper Arm] Blood Pressure [or thostatic lying] Blood Pressure [or thostatic sitting] Blood Pressure [or thostatic standing ] Pulse Oximetry 95 98 93 Oxygen Delivery Md thod 05/11/25 13:32 05/11/25 13:45 05/11/25 14:00 Temperature Pulse Rate 58 L 61 57 L Pulse Rate [Pulse Oximeter] Pulse Rate [orthos tatic lying] Pulse Rate [orthos tatic sitting] Pulse Rate [orthos tatic standing] Respiratory Rate 19 16 17 Blood Pressure 101/61 Blood Pressure [Ri ght Upper Arm] Blood Pressure [or thostatic lying] Blood Pressure [or thostatic sitting] Blood Pressure [or thostatic standing ] Pulse Oximetry 93 95 93 Oxygen Delivery Me thod 05/11/25 14:02 05/11/25 14:15 05/11/25 14:30 Temperature Pulse Rate 57 L 58 L 57 L Pulse Rate [Pulse Oximeter] Pulse Rate [orthos tatic lying] Pulse Rate [orthos tatic sitting] Pulse Rate [orthos tatic standing] Respiratory Rate 17 12 17 Blood Pressure 115/66 Blood Pressure [Ri ght Upper Arm] Blood Pressure [or thostatic lying] Blood Pressure [or thostatic sitting] Blood Pressure [or thostatic standing ] Pulse Oximetry 90 90 92 Oxygen Delivery Me thod 05/11/25 14:32 05/11/25 14:42 05/11/25 14:45 Temperature Pulse Rate 62 58 L Pulse Rate [Pulse Oximeter] Pulse Rate [orthos tatic lying] Pulse Rate [orthos tatic sitting] Pulse Rate [orthos tatic standing] Respiratory Rate 9 L 35 H 17 Blood Pressure 114/63 134/81 Blood Pressure [Ri ght Upper Arm] Blood Pressure [or thostatic lying] Blood Pressure [or thostatic sitting] Blood Pressure [or thostatic standing ] Pulse Oximetry 96 [facility] 15[facility]00 05/11/25 15:01 05/11/25 15:15 Temperature Pulse Rate 57 L 57 L 56 L Pulse Rate [Pulse Oximeter] Pulse Rate [orthos tatic lying] Pulse Rate [orthos tatic sitting] Pulse Rate [orthos tatic standing] Respiratory Rate 13 17 13 Blood Pressure 126/71 Blood Pressure [Ri ght Upper Arm] Blood Pressure [or thostatic lying] Blood Pressure [or thostatic sitting] Blood Pressure [or thostatic standing ] Pulse Oximetry 96 94 [facility] 15:30 05/11/25 15:31 05/11/25 15:45 Temperature Pulse Rate 58 L 61 57 L Pulse Rate [Pulse Oximeter] Pulse Rate [orthos tatic lying] Pulse Rate [orthos tatic sitting] Pulse Rate [orthos tatic standing] Respiratory Rate 18 14 15 Blood Pressure 122/68 Blood Pressure [Ri ght Upper Arm] Blood Pressure [or thostatic lying] Blood Pressure [or thostatic sitting] Blood Pressure [or thostatic standing ] Pulse Oximetry 94 98 95 [facility] 05[facility] 16:00 05/11/25 16:02 05/11/25 16:03 Temperature Pulse Rate Pulse Rate [Pulse Oximeter] Pulse Rate [orthos tatic lying] Pulse Rate [orthos tatic sitting] Pulse Rate [orthos tatic standing] Respiratory Rate 18 11 L Blood Pressure 115/79 Blood Pressure [Ri ght Upper Arm] Blood Pressure [or thostatic lying] Blood Pressure [or thostatic sitting] Blood Pressure [or thostatic standing ] Pulse Oximetry [facility] 05/[facility] 16:30 05/11/25 16:31 05/11/25 16:45 Temperature Pulse Rate 61 59 L 57 L Pulse Rate [Pulse Oximeter] Pulse Rate [orthos tatic lying] Pulse Rate [orthos tatic sitting] Pulse Rate [orthos tatic standing] Respiratory Rate Blood Pressure 138/82 Blood Pressure [Ri ght Upper Arm] Blood Pressure [or thostatic lying] Blood Pressure [or thostatic sitting] Blood Pressure [or thostatic standing ] Pulse Oximetry 93 95 93 Oxygen Delivery Md thod 05/11/25 17:00 05/11/25 17:02 05/11/25 17:30 Temperature Pulse Rate 61 59 L Pulse Rate [Pulse Oximeter] Pulse Rate [orthos tatic lying] Pulse Rate [orthos tatic sitting] Pulse Rate [orthos tatic standing] Respiratory Rate 15 Blood Pressure 142/67 H Blood Pressure [Ri ght Upper Arm] Blood Pressure [or thostatic lying] Blood Pressure [or thostatic sitting] Blood Pressure [or thostatic standing ] Pulse Oximetry 93 94 [facility] 05[facility]25 17:32 05/11/25 17:46 Temperature Pulse Rate Pulse Rate [Pulse Oximeter] Pulse Rate [orthos tatic lying] Pulse Rate [orthos tatic sitting] Pulse Rate [orthos tatic standing] Respiratory Rate Blood Pressure 144/83 H 169/103 H Blood Pressure [Ri ght Upper Arm] Blood Pressure [or thostatic lying] Blood Pressure [or thostatic sitting] Blood Pressure [or thostatic standing ] Pulse Oximetry Oxygen Delivery Md thod Course Course ED Course: EKG, read by me, shows sinus bradycardia with a pulse of 58. Left axis deviation. Normal QTC interval. First degree AV block. IV established and 250 mL of normal saline over an hour as ordered. There is no evidence of orthostatic hypotension. Blood work shows white cell count of 3.4, hemoglobin of 14, MCV of 106, platelet count [id number]. None of these values are new for the patient. His chemistries are unremarkable. His lactate is elevated at 3.1. LFTs show an increase in his AST and ALT to 167 and 107 respectively. Normal alkaline phosphatase. Normal troponin. CRP 1.2. BNP 120. Normal TSH. Patient not able to urinate until after fluids were given. UA at this time showed 2+ glucose, 1+ ketones, 1+ bilirubin. This is unchanged from his previous UA done last year. Blood alcohol level 0.12. After 250 mL of normal saline patient remained hemodynamically stable, blood pressure did start to come up. We did go ahead and start another 250 mL over an hour at this time. Patient essentially slept most of his time in the ED. Repeat lactate improved at 2.3. Blood pressures remained stable. Patient requesting discharge at this time. I think this is reasonable. We discussed alcohol cessation. Follow-up with primary care this week. Repeat blood alcohol level after 5 hours is 0.06. Vital Signs Vital signs: Initial Vital Signs Temperature 97.5 F L 05/11/25 12:35 Temperature Source Temporal Artery Scan 05/11/25 12:35 Pulse Rate 59 L 05/11/25 12:35 Respiratory Rate 20 05/11/25 12:35 Blood Pressure 132/108 H 05/11/25 12:35 Blood Pressure Mean 116 H 05/11/25 12:35 Blood Pressure Position Sitting 05/11/25 12:35 Pulse Oximetry 93 05/11/25 12:35 Oxygen Delivery Method Room Air 05/11/25 12:35 Vital Signs Temperature 97.5 F L 05/11/25 12:35 Pulse Rate 59 L 05/11/25 12:35 Respiratory Rate 20 05/11/25 12:35 Blood Pressure 132/108 H 05/11/25 12:35 Pulse Oximetry 93 05/11/25 12:35 Oxygen Delivery Method Room Air 05/11/25 12:35 Temperature 97.5 F L 05/11/25 12:35 Pulse Rate 59 L 05/11/25 17:02 Respiratory Rate 15 05/11/25 17:30 Blood Pressure 169/103 H 05/11/25 17:46 Pulse Oximetry 94 05/11/25 17:02 Oxygen Delivery Method Room Air 05/11/25 12:35 Medications Administered Medications: Discontinued Medications Generic Name Dose Route Start Last Admin Trade Name Freq PRN Reason Stop Dose Admin Sodium Chloride 250 mls @ 250 mls/hr 05/11/25 13:00 05/11/25 14:22 0.9 % Sodium Chloride 250 Ml IV 05/11/25 13:59 Infused .Q1H ONE Infusion Sodium Chloride 250 mls @ 250 mls/hr 05/11/25 14:39 05/11/25 15:56 0.9 % Sodium Chloride 250 Ml IV 05/11/25 15:38 Infused .Q1H ONE Infusion Lorazepam 0.5 mg 05/11/25 17:47 08/06/25 17:53 Lorazepam 0.5 Mg Tablet PO 05/11/25 17:48 0.5 mg ONCE ONE Administration Medical Decision Making [facility] Narrative Medical decision making narrative: 74-year-old male presenting with hypotension, elevated lactate. I do not believe that this patient is septic due to infection. I believe his symptoms are due to chronic alcohol use and dehydration. He felt better after fluid hydration. He did not have any more dizziness. Vitals were stable. Lab Data Lab results reviewed: Yes I reviewed the patient's lab results Labs: Lab Results 05/11/25 05/11/25 05/11/25 Range/Units 13:01 13:25 15:15 WBC 3.43 L (4.50-11.00) K/uL RBC 4.01 L (4.30-5.90) m/uL Hgb 14.0 (13.5-17.5) gm/dL Hct 42.4 (37.0-53.0) % MCV 106 H (80-100) fL MCH 35 H (26-34) pg MCHC 33 (32-36) gm/dL RDW Coeff of Janey 17.7 H (11.5-15.5) % Plt Count 114 L (140-440) K/uL Neut % (Auto) 53.0 (42.0-72.0) % Lymph % (Auto) 25.7 (20-44) % Keith % (Auto) 17.8 H (0.0-11.0) % Eos % (Auto) 2.3 (0.0-7.0) % Baso % (Auto) 0.9 (0.0-3.0) % Neut # (Auto) 1.80 (1.7-7.0) K/uL Lymph # (Auto) 0.90 (0.90-2.90) K/uL Keith # (Auto) 0.60 (0.00-0.90) K/UL Eos # (Auto) 0.10 (0.00-0.50) K/uL Baso # (Auto) 0.00 (0.00-0.30) K/uL Abs Immat Gran (auto) 0.00 (0.00-0.30) K/uL Imm/Tot Granulo (auto) 0.3 % Sodium 136 (135-149) mmol/L Potassium 4.6 (3.6-5.1) mmol/L Chloride 102 (96-114) mmol/L Carbon Dioxide 23 (20-32) mmol/L Anion Gap 11 (7-15) mEq/L BUN 13 (7-30) mg/dL Creatinine 0.9 (0.5-1.5) mg/dL Estimated GFR 89 ml/min Glucose 119 H (60-115) mg/dL Lactate 3.1 H 2.3 H (0.5-1.9) mmol/L Calcium 8.8 (8.4-10.6) mg/dL Magnesium 1.8 (1.5-2.6) mg/dL Total Bilirubin 0.9 (0.1-1.5) mg/dL Direct Bilirubin 0.4 (0.0-0.5) mg/dL AST 167 H (12-35) U/L ALT 107 H (4-50) U/L Alkaline Phosphatase 131 (40-150) U/L Troponin I < 0.01 (0.01-0.04) ng/mL C-Reactive Protein 1.2 H (0.5-1.0) mg/dL NT-Pro-B Natriuret Pep 120 (See Note) pg/mL Total Protein 6.3 (6.0-8.3) g/dL Albumin 3.7 (3.3-5.0) g/dL TSH 2.020 (0.270-4.20) uIU/mL Urine Color Sania A (Yellow) Urine Appearance Slightly Cloudy A (Clear) Urine pH 5.5 (5.0-8.5) Ur Specific Cannon 1.025 (1.000-1.030) Urine Protein Trace A (Negative) Urine Glucose (UA) 2+ A (Negative) Urine Ketones 1+ A (Negative) Urine Blood Negative (Negative) Urine Nitrite Negative (Negative) Urine Bilirubin 1+ A (Negative) Urine Urobilinogen 1.0 (0.2-1.0) Ur Leukocyte Esterase Negative (Negative) Urine RBC 0-2 (0-2) Urine WBC 2-5 (0-5) Ur Squamous Epith Cells Few (None-Few) Urine Bacteria Few A (None) Hyaline Casts Many A (None-Few) Fine Granular Casts Few A (None) Ethyl Alcohol 0.12 H (0.01-0.03) % 05/11/25 Range/Units 16:02 WBC (4.50-11.00) K/uL RBC (4.30-5.90) m/uL Hgb (13.5-17.5) gm/dL Hct (37.0-53.0) % MCV (80-100) fL MCH (26-34) pg MCHC (32-36) gm/dL RDW Coeff of Janey (11.5-15.5) % Plt Count (140-440) K/uL Neut % (Auto) (42.0-72.0) % Lymph % (Auto) (20-44) % Keith % (Auto) (0.0-11.0) % Eos % (Auto) (0.0-7.0) % Baso % (Auto) (0.0-3.0) % Neut # (Auto) (1.7-7.0) K/uL Lymph # (Auto) (0.90-2.90) K/uL Keith # (Auto) (0.00-0.90) K/UL Eos # (Auto) (0.00-0.50) K/uL Baso # (Auto) (0.00-0.30) K/uL Abs Immat Gran (auto) (0.00-0.30) K/uL Imm/Tot Granulo (auto) % Sodium (135-149) mmol/L Potassium (3.6-5.1) mmol/L Chloride (96-114) mmol/L Carbon Dioxide (20-32) mmol/L Anion Gap (7-15) mEq/L BUN (7-30) mg/dL Creatinine (0.5-1.5) mg/dL Estimated GFR ml/min Glucose (60-115) mg/dL Lactate (0.5-1.9) mmol/L Calcium (8.4-10.6) mg/dL Magnesium (1.5-2.6) mg/dL Total Bilirubin (0.1-1.5) mg/dL Direct Bilirubin (0.0-0.5) mg/dL AST (12-35) U/L ALT (4-50) U/L Alkaline Phosphatase (40-150) U/L Troponin I (0.01-0.04) ng/mL C-Reactive Protein (0.5-1.0) mg/dL NT-Pro-B Natriuret Pep (See Note) pg/mL Total Protein (6.0-8.3) g/dL Albumin (3.3-5.0) g/dL TSH (0.270-4.20) uIU/mL Urine Color (Yellow) Urine Appearance (Clear) Urine pH (5.0-8.5) Ur Specific Cannon (1.000-1.030) Urine Protein (Negative) Urine Glucose (UA) (Negative) Urine Ketones (Negative) Urine Blood (Negative) Urine Nitrite (Negative) Urine Bilirubin (Negative) Urine Urobilinogen (0.2-1.0) Ur Leukocyte Esterase (Negative) Urine RBC (0-2) Urine WBC (0-5) Ur Squamous Epith Cells (None-Few) Urine Bacteria (None) Hyaline Casts (None-Few) Fine Granular Casts (None) Ethyl Alcohol 0.06 H (0.01-0.03) % Imaging Data Chest x-ray: Attestation: I have reviewed the pertinent imaging results. Radiologist's impression: TECHNIQUE: Chest 1 views. COMPARISON: June 19, 2024. FINDINGS: Cardiovascular and mediastinum: Heart size and vasculature are normal in caliber and appearance. Lungs and pleural spaces: Left basilar atelectasis. No sign of infiltrate or mass. No sign of pleural effusion. No pneumothorax. Bones and soft tissues: No significant findings. IMPRESSION: Left basilar atelectasis. No acute or significant findings. No change. Discharge Plan Discharge Clinical Impression: Hypotension, Dehydration, Dizziness, Alcohol use disorder, Acute alcohol intoxication Patient Disposition: Home, Self-Care Condition: Stable Instructions: Abuse of Alcohol (DC), Hypotension (ED), Dizziness (ED), Alcohol Use Disorder (ED) Additional Instructions: Recommend that you stop drinking alcohol on a daily basis. Recommend you increase your water intake. Recommend you cut your metoprolol in half so that you were only taking 25 mg daily instead of 25 mg daily. Also cut Valsartan in half. With your primary care provider in the next 48 hours to see how you are doing and to discuss these med changes with them. Prescriptions: No Action atorvastatin 20 mg tablet 20 mg PO HS valsartan 80 mg tablet 80 mg PO DAILY amiodarone 200 mg tablet 200 mg PO DAILY Jardiance 10 mg tablet 10 mg PO DAILY metoprolol succinate 50 mg tablet extended release 24 hr 50 mg PO DAILY magnesium oxide 500 mg capsule 500 mg PO DAILY cholecalciferol (vitamin D3) 25 mcg (1,000 unit) tablet,chewable 1,000 unit PO DAILY gabapentin 300 mg Capsule 300 mg PO HS Qty: 30 0RF Eliquis 5 mg Tablet 5 mg PO BID Qty: 60 0RF cyanocobalamin (vitamin B-12) 1,000 mcg tablet 1,000 mcg PO DAILY torsemide 10 mg tablet 10 mg PO Q48H PRN multivitamin [Multiple Vitamins] Tablet 1 tab PO DAILY Follow Up/Referrals: Diogo Escamilla MD [Primary Care Provider, Family Practice] Stand Alone Forms: [facility] Info Instructions
[2025-05-11 13:38] LABS: Lactate* 3.1 mmol/L (0.5-1.9)
[2025-05-11 13:44] LABS: White Blood Count* 3.43 K/uL (4.50-11.00)
[2025-05-11 13:45] LABS: Hematocrit 42.4 % (37.0-53.0); Hemoglobin* 14.0 gm/dL (13.5-17.5); Immature Granulocytes Pct Auto 0.3 %; Mean Corpuscular HGB Conc 33 gm/dL (32-36); Mean Corpuscular Hemoglobin 35 pg (26-34); Mean Corpuscular Volume 106 fL (80-100); RDW Coefficient of Variation % 17.7 % (11.5-15.5); Red Blood Count 4.01 m/uL (4.30-5.90)
[2025-05-11] MEDS: 0.9 % SODIUM CHLORIDE 250 ml 250 ML IV ×2 (13:48→14:55)
[2025-05-11 13:49] LABS: Immature Granulocytes Abs Auto 0.00 K/uL (0.00-0.30); Lymphocytes Absolute Auto 0.90 K/uL (0.90-2.90); Slide Review Reflex No
[2025-05-11 13:59] LABS: Albumin* 3.7 g/dL (3.3-5.0); Chloride* 102 mmol/L (96-114); Sodium* 136 mmol/L (135-149)
[2025-05-11 14:00] LABS: Potassium* 4.6 mmol/L (3.6-5.1)
[2025-05-11 14:01] LABS: Blood Urea Nitrogen* 13 mg/dL (7-30); Creatinine* 0.9 mg/dL (0.5-1.5); Estimated Glomerular Filt Rate 89 ml/min
[2025-05-11 14:02] LABS: Alanine Aminotransferase* 107 U/L (4-50); Alkaline Phosphatase* 131 U/L (40-150); Anion Gap 11 mEq/L (7-15); Aspartate Amino Transferase* 167 U/L (12-35); Bilirubin Direct* 0.4 mg/dL (0.0-0.5); Bilirubin Total* 0.9 mg/dL (0.1-1.5); Calcium* 8.8 mg/dL (8.4-10.6); Carbon Dioxide* 23 mmol/L (20-32); Glucose* 119 mg/dL (60-115); Total Protein* 6.3 g/dL (6.0-8.3)
[2025-05-11 14:03] LABS: Ethanol* 0.12 % (0.01-0.03)
[2025-05-11 14:15] LABS: NT Pro B Type NatriureticPept* 120 pg/mL (See Note)
[2025-05-11 15:04] LABS: Appearance Urine Slightly Cloudy (Clear)
--- NOTE | 2025-05-11 15:09 | CRLHL7_ITS ---
For Patients: As a result of the Cures Act, medical imaging exams and procedure reports are released immediately into your electronic medical record. You may view this report before your referring provider. If you have questions, please contact your health care provider. INDICATION: Dizziness. TECHNIQUE: Chest 1 views. COMPARISON: June 19, 2024. FINDINGS: Cardiovascular and mediastinum: Heart size and vasculature are normal in caliber and appearance. Lungs and pleural spaces: Left basilar atelectasis. No sign of infiltrate or mass. No sign of pleural effusion. No pneumothorax. Bones and soft tissues: No significant findings. IMPRESSION: Left basilar atelectasis. No acute or significant findings. No change. Dictated by Caio Demarco MD @ 05/11/2025 6:06:10 PM (Electronically Signed)
[2025-05-11 16:15] LABS: Lactate* 2.3 mmol/L (0.5-1.9)
[2025-05-11 16:59] LABS: Ethanol* 0.06 % (0.01-0.03)
== END 2025-05-11 18:31 | disposition home or self-care (01) ==
PROVIDERS: Emergency Provider Family Medicine; PCP Family Medicine
DX: I95.9 Hypotension, unspecified (principal); E86.0 Dehydration; R42 Dizziness and giddiness; F10.129 Alcohol abuse with intoxication, unspecified; Z79.899 Other long term (current) drug therapy
CPT/HCPCS: 36415; 71046; 80048; 80076; 81001; 82077; 83605; 83735; 83880; 84443; 84484; 85025; 86140; 87086; 93005; 94761; 96360; 99284; 99285; A9270; J7050